=== PATIENT | male | born 1945 | race Caucasian/White ===

== ENCOUNTER → 2017-02-21 | Outpatient (CLI) | payer MEDICARE, BC ==
[2017-02-21 13:00] LABS: Anion Gap 15 mmol/L; Blood Urea Nitrogen 21 mg/dL (9-20); Calcium 9.7 mg/dL (8.4-10.2); Carbon Dioxide 23 mmol/L (22-30); Chloride 100 mmol/L (98-107); Glucose 212 mg/dL (74-99); Non-African American GFR(MDRD) 51 (>60 ml/min/1.73 sqM); Sodium 138 mmol/L (137-145)
--- NOTE | 2017-02-21 14:10 | XR ---
EXAMINATION TYPE: XR chest 2V DATE OF EXAM: 02/21/2017 12:16 PM COMPARISON: 01/21/2016 HISTORY: 71 year-old male congestive heart failure, shortness of breath for 4 months and history of r ight-sided lung cancer. TECHNIQUE: Frontal and lateral views FINDINGS: The heart is borderline enlarged. The aortic descent is obscured. Diffuse interstitial and perihilar opacities with a moderate left pleural effusion Right anterior chest wall injection port with catheter tip near the cavoatrial junction. IMPRESSION: Interstitial and perihilar densities. Correlate for mild CHF. There is moderate left pleural effusion with adjacent atelectasis and/or consolidation. Effusion incr eased from 01/21/2016.
== END | disposition home or self-care (01) ==
LOC: RADXRMAIN 11:55
PROVIDERS: ATTEND Internal Medicine Cardiovascular Disease
DX: R91.8 Other nonspecific abnormal finding of lung field (principal); I50.9 Heart failure, unspecified; J90 Pleural effusion, not elsewhere classified; I25.10 Atherosclerotic heart disease of native coronary artery without angina pectoris
CPT/HCPCS: 71020; 80048; 83880

== ENCOUNTER 2017-03-20 12:43 | Day surgery (SDC) | payer MEDICARE, BC ==
[2017-03-20 13:22] LABS: Mean Platelet Volume 6.5
[2017-03-20 13:23] LABS: INR 1.2 (<1.1); Prothrombin Time 11.7 sec (9.0-12.0)
[2017-03-20 13:44] VITALS: TEMP 97.7
--- NOTE | 2017-03-20 14:54 | XR ---
EXAMINATION TYPE: XR chest 1V DATE OF EXAM: 03/20/2017 COMPARISON: Prior chest x-ray 02/21/2017 HISTORY: Status post left thoracentesis TECHNIQUE: Single frontal view of the chest is obtained. FINDINGS: Right-sided port remains in place. Patient is rotated. No evident pneumothorax. There is i mproved aeration at the left lung base. No significant change. IMPRESSION: No evident complication status post thoracentesis.
--- NOTE | 2017-03-20 15:04 | US ---
EXAMINATION TYPE: US thoracentesis DATE OF EXAM: 03/20/2017 COMPARISON: NONE HISTORY: Pleural effusion. FINDINGS: Maximal barrier technique was utilized. The skin overlying a suitable pocket of fluid was localized and the overlying skin prepped and draped. Lidocaine was used for local anesthesia. Ultras ound was used with sterile technique. A 5 Telugu catheter over guide needle was advanced into the pl eural fluid collection using ultrasound guidance and catheter advanced, needle removed. Approximatel y 1.5 liter(s) of serous fluid was removed. Catheter was withdrawn and hemostasis achieved. There i s no immediate complication. The patient discharged in stable condition without complication. IMPRESSION: STATUS POST ULTRASOUND GUIDED THORACENTESIS, POST PROCEDURE CHEST X-RAY PENDING. THIS NE OCEDURE WAS PERFORMED BY THE UNDERSIGNED. Specimen sent for laboratory analysis.
[2017-03-20 15:32] VITALS: RESP 16
[2017-03-20 15:34] VITALS: BP 137/72; PULSE 70
== END 2017-03-20 15:30 | disposition home or self-care (01) ==
LOC: RADPROMAIN 12:43
PROVIDERS: ATTEND Internal Medicine Hematology & Oncology
DX: J90 Pleural effusion, not elsewhere classified (principal); C34.32 Malignant neoplasm of lower lobe, left bronchus or lung
CPT/HCPCS: 88108; 88305; 85049; 85610; 88342; 88341; 71010; 32555; J1642

== ENCOUNTER → 2017-03-31 | Outpatient (CLI) | payer MEDICARE, BC ==
--- NOTE | 2017-03-31 15:32 | PE ---
EXAMINATION TYPE: PET CT fusion whole body DATE OF EXAM: 03/31/2017 CLINICAL HISTORY: Lung cancer progress study. Completed chemotherapy and radiation treatment in March 2016. TECHNIQUE: Following the intravenous administration of 14.67 mCi of F-18 FDG, whole body images are performed from the skull base to the midthigh. Images are reviewed on the computer in the coronal, axial, and sagittal planes. Reconstructed rotating images are created on independent workstation and reviewed on the computer. A non-contrast CT is performed in conjunction with the PET scan. COMPARISON: PET/CT August 26, 2016. FINDINGS: SKULL BASE AND NECK: No suspicious hypermetabolic uptake is seen currently. Symmetric mild uptake at level of vocal cords redemonstrated felt to reflect product of phonation. CHEST, MEDIASTINUM, AND HILAR REGION: No suspicious hypermetabolic uptake is identified with particul ar attention to left hilar and subcarinal regions at area of neoplasm PET/CT January 29, 2016. There is fairly moderate left-sided pleural effusion redemonstrated not significantly changed from most recent PET/CT. ABDOMEN AND PELVIS: No new areas of suspicious hypermetabolic uptake are seen in the abdomen or pelvi s. Mild diffuse uptake throughout the bowel could reflect a diffuse enterocolitis, clinical correlati on advised. No significant suspicious wall thickening is seen. OSSEOUS STRUCTURES: No suspicious new hypermetabolic uptake is seen in osseous structures. OTHER CT: There is stable 2 cm nonhypermetabolic right thyroid nodule on axial image 60. There is stable right internal jugular Mediport catheter. Coronary artery calcification is redemonstrated. Cardiomegaly is again seen. There is emphysematous change with respiratory motion artifact. Central opacity may reflect mild alve olar edema, correlate for CHF advised. Stable low dense nodular thickening left adrenal gland without abnormal hypermetabolic uptake. There is moderate joint space loss in both hips. There is spurring at bilateral sacroiliac joints. Th ere is multilevel spurring in the spine. There is facet arthropathy lower lumbar levels. There is left greater than right bilateral gynecomastia redemonstrated that is stable. IMPRESSION: No new suspicious masses or hypermetabolic uptake is seen to suggest malignant recurrence . Possible enterocolitis, clinical correlation advised. Possible mild CHF exacerbation, clinical emily elation advised. Stable moderate size left-sided pleural effusion or fluid collection.
== END | disposition home or self-care (01) ==
LOC: RADPETMAIN 11:37
PROVIDERS: ATTEND Internal Medicine Hematology & Oncology
DX: C34.90 Malignant neoplasm of unspecified part of unspecified bronchus or lung (principal)
CPT/HCPCS: 78816; A9552

== ENCOUNTER 2017-11-16 08:22 | Emergency (ER) | payer MEDICARE, BC ==
[2017-11-16 08:27] VITALS: BP 117/55; PULSE 66; RESP 16; TEMP 97.1
--- NOTE | 2017-11-16 08:47 | ED ---
General Adult HPI - General Chief complaint: ENT Stated complaint: Ear infection Time Seen by Provider: 11/16/17 08:29 Source: patient, RN notes reviewed Mode of arrival: ambulatory Limitations: no limitations - History of Present Illness Initial comments: Patient 72-year-old male who presents emergency room today with chief complaint of decreased hearing out of the right ear. He states that last night his right ear was itchy. He states he uses finger to try to itch at it. States he noticed this morning that he was having decreased hearing. Patient denies any pain. Denies any other complaints or symptoms. Patient denies any recent fever , chills, shortness of breath, chest pain, back pain, abdominal pain, nausea or vomiting, numbness or tingling, headaches or visual changes, or any other complaints. - Related Data Home Medications Medication Instructions Recorded Confirmed glipiZIDE XL [Glucotrol XL] 10 mg PO DAILY 08/26/15 11/16/17 metFORMIN HCL ER [Glucophage Xr] 500 mg PO PC-BID 01/03/16 11/16/17 Furosemide [Lasix] 40 mg PO BID@0800,1400 01/20/16 11/16/17 buPROPion XL [Wellbutrin Xl] 150 mg PO DAILY 03/14/17 11/16/17 Amiodarone [Cordarone] 100 mg PO DAILY 08/16/17 11/16/17 Insulin Glargine,Hum.rec.anlog 30 unit SQ HS 11/16/17 11/16/17 [Lantus Solostar] Lisinopril [Zestril] 2.5 mg PO DAILY 11/16/17 11/16/17 Rivaroxaban [Xarelto] 20 mg PO W/SUPPER 11/16/17 11/16/17 Previous Rx's Medication Instructions Recorded Aspirin EC [Ecotrin Low Dose] 81 mg PO DAILY tablet. 09/09/15 Atenolol [Tenormin] 25 mg PO DAILY #30 tab 09/09/15 Atorvastatin [Lipitor] 80 mg PO DAILY #30 tab 09/09/15 Allergies Allergy/AdvReac Type Severity Reaction Status Date / Time No Known Allergies Allergy Verified 11/16/17 08:42 Review of Systems ROS Statement: Those systems with pertinent positive or pertinent negative responses have been documented in the HPI. ROS Other: All systems not noted in ROS Statement are negative. Past Medical History Past Medical History: Cancer, Heart Failure, Diabetes Mellitus, Hyperlipidemia, Hypertension, Myocardial Infarction ([place]) Additional Past Medical History / Comment(s): LUNG CANCER - 30 RADIATION AND 10 CHEMO TX Last Myocardial Infarction Date:: GREATER THAN 5 YRS AGO History of Any Multi-Drug Resistant Organisms: None Reported Past Surgical History: Heart Catheterization Additional Past Surgical History / Comment(s): BRONCHOSCOPY, MEDIPORT PLACEMENT Past Anesthesia/Blood Transfusion Reactions: No Reported Reaction Past Psychological History: No Psychological Hx Reported Smoking Status: Former smoker Past Alcohol Use History: None Reported Past Drug Use History: None Reported - Past Family History Father History Unknown: Yes Family Medical History: Coronary Artery Disease (CAD) Mother Family Medical History: Diabetes Mellitus General Exam - General Exam Comments Initial Comments: General: The patient is awake and alert, in no distress, and does not appear acutely ill. Eye: Pupils are equal, round and reactive to light, extra-ocular movements are intact. No nystagmus. There is normal conjunctiva bilaterally. No signs of icterus. Ears, nose, mouth and throat: There are moist mucous membranes and no oral lesions. Cerumen impaction on the right. Neck: The neck is supple, there is no tenderness or JVD. Cardiovascular: There is a regular rate and rhythm. No murmur, rub or gallop is appreciated. Respiratory: Lungs are clear to auscultation, respirations are non-labored, breath sounds are equal. No wheezes, stridor, rales, or rhonchi. Musculoskeletal: Normal ROM, no tenderness. Strength 5/5. Sensation intact. Pulses equal bilaterally 2+. Neurological: A&O x 3. CN II-XII intact, There are no obvious motor or sensory deficits. Coordination appears grossly intact. Speech is normal. Skin: Skin is warm and dry and no rashes or lesions are noted. Psychiatric: Cooperative, appropriate mood & affect, normal judgment. Limitations: no limitations Course Vital Signs 11/16/17 08:24 Temperature 97.1 F L Pulse Rate 66 Respiratory 16 Rate Blood Pressure 117/55 O2 Sat by Pulse 97 Oximetry Procedures - Procedures Initial comment: Patient right ear was irrigated by nursing staff. I did use a alligator forcep to remove a large chunk of earwax. he is hearing back to normal. Ear canal is now clear no sign of any infection. Patient tolerated procedure well. Disposition Clinical Impression: Cerumen impaction Disposition: HOME SELF-CARE Condition: Good Instructions: Cerumen Impaction (ED) Additional Instructions: Please return to emergency room if the symptoms increase or worsen or for any other concerns. Referrals: Arsen Galloway DO [Primary Care Provider] - 1-2 days Time of Disposition: 09:12
== END 2017-11-16 09:20 | disposition home or self-care (01) ==
LOC: EC 08:22
DX: H61.21 Impacted cerumen, right ear (principal); I50.9 Heart failure, unspecified; I11.0 Hypertensive heart disease with heart failure; E78.5 Hyperlipidemia, unspecified; I25.2 Old myocardial infarction; Z85.118 Personal history of other malignant neoplasm of bronchus and lung; Z87.891 Personal history of nicotine dependence; Z79.4 Long term (current) use of insulin; Z79.01 Long term (current) use of anticoagulants; Z79.899 Other long term (current) drug therapy
CPT/HCPCS: 69210; 99282

== ENCOUNTER 2017-12-31 17:08 | Emergency (ER) | payer MEDICARE, BC ==
[2017-12-31 17:49] VITALS: PULSE 68
--- NOTE | 2017-12-31 18:41 | ED ---
General Adult HPI - General Chief complaint: Fall Stated complaint: FALL, HEAD INJURY, ON BLOOD THINNERS, RT RIB PAIN Time Seen by Provider: 12/31/17 18:10 Source: patient, RN notes reviewed Mode of arrival: wheelchair Limitations: no limitations - History of Present Illness Initial comments: 72-year-old pleasant male presents for chief complaint of a fall 2 hours ago. 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 Patient did scrape his head as well as his right arm. Patient also fell on his right knee. He has multiple small abrasions to the right knee as well. Patient states he was concerned about being on blood thinners (Xarelto) after hitting his head. Patient currently denies any pain in the head, denies any changes in vision. Patient currently declines pain medicine for the head and knee. Patient has no pain in the right ankle, right hip or ribs. Patient denies any pain in the back or neck. Patient has not been drinking alcohol and does not seem intoxicated. Overall patient seems comfortable. - Related Data Home Medications Medication Instructions Recorded Confirmed glipiZIDE XL [Glucotrol XL] 10 mg PO DAILY 08/26/15 12/31/17 metFORMIN HCL ER [Glucophage Xr] 500 mg PO PC-BID 01/03/16 12/31/17 Furosemide [Lasix] 40 mg PO BID@0800,1400 01/20/16 12/31/17 buPROPion XL [Wellbutrin Xl] 150 mg PO DAILY 03/14/17 12/31/17 Amiodarone [Cordarone] 100 mg PO DAILY 08/16/17 12/31/17 Insulin Glargine,Hum.rec.anlog 30 unit SQ HS 11/16/17 12/31/17 [Lantus Solostar] Lisinopril [Zestril] 2.5 mg PO DAILY 11/16/17 12/31/17 Rivaroxaban [Xarelto] 20 mg PO W/SUPPER 11/16/17 12/31/17 Previous Rx's Medication Instructions Recorded Aspirin EC [Ecotrin Low Dose] 81 mg PO DAILY tablet. 09/09/15 Atenolol [Tenormin] 25 mg PO DAILY #30 tab 09/09/15 Atorvastatin [Lipitor] 80 mg PO DAILY #30 tab 09/09/15 Allergies Allergy/AdvReac Type Severity Reaction Status Date / Time No Known Allergies Allergy Verified 12/31/17 18:37 Review of Systems ROS Statement: Those systems with pertinent positive or pertinent negative responses have been documented in the HPI. ROS Other: All systems not noted in ROS Statement are negative. Past Medical History Past Medical History: Cancer, Heart Failure, Diabetes Mellitus, Hyperlipidemia, Hypertension, Myocardial Infarction ([place]) Additional Past Medical History / Comment(s): LUNG CANCER - 30 RADIATION AND 10 CHEMO TX Last Myocardial Infarction Date:: GREATER THAN 5 YRS AGO History of Any Multi-Drug Resistant Organisms: None Reported Past Surgical History: Heart Catheterization Additional Past Surgical History / Comment(s): BRONCHOSCOPY, MEDIPORT PLACEMENT Past Anesthesia/Blood Transfusion Reactions: No Reported Reaction Past Psychological History: No Psychological Hx Reported Smoking Status: Former smoker Past Alcohol Use History: None Reported Past Drug Use History: None Reported - Past Family History Father History Unknown: Yes Family Medical History: Coronary Artery Disease (CAD) Mother Family Medical History: Diabetes Mellitus General Exam Limitations: no limitations General appearance: alert, in no apparent distress Head exam: Present: normocephalic, normal inspection. Absent: atraumatic ( Patient has multiple small abrasions to the right side of his head and face.) Eye exam: Present: normal appearance, PERRL, EOMI. Absent: scleral icterus, conjunctival injection, nystagmus, periorbital swelling, periorbital tenderness Pupils: Present: normal accommodation. Absent: irregular, unequal, miosis, mydriatic ENT exam: Present: normal exam, normal oropharynx, mucous membranes moist Neck exam: Present: normal inspection, full ROM. Absent: tenderness, meningismus, lymphadenopathy Respiratory exam: Present: normal lung sounds bilaterally. Absent: respiratory distress, wheezes, rales, rhonchi, stridor Cardiovascular Exam: Present: regular rate, normal rhythm, normal heart sounds. Absent: systolic murmur, diastolic murmur, rubs, gallop, clicks GI/Abdominal exam: Present: soft, normal bowel sounds. Absent: distended, tenderness, guarding, rebound, rigid Extremities exam: Present: full ROM (Full range of motion in the right knee and right elbow.), tenderness (Tenderness to the right knee), normal capillary refill, joint swelling (Minimal swelling to the right knee), other (Small skin tear to the right elbow.). Absent: pedal edema, calf tenderness Back exam: Present: normal inspection, full ROM. Absent: tenderness Neurological exam: Present: alert, oriented X3, CN II-XII intact, normal gait Psychiatric exam: Present: normal affect, normal mood Course Vital Signs 12/31/17 12/31/17 17:46 19:32 Temperature 97.5 F L 97.9 F Pulse Rate 68 68 Respiratory 18 16 Rate Blood Pressure 122/59 122/58 O2 Sat by Pulse 91 L 96 Oximetry Medical Decision Making - Medical Decision Making 72-year-old male presented to the emergency department with a chief complaint of injuries from a fall. Patient states he hit his head on the concrete as well as his right knee. He has small abrasions to both the head and the right knee as well as the right elbow. Patient denies any pain in the head or knee at this time. All cranial nerves are intact. CT showed no acute changes, no hemorrhage or mass effect. X-ray of the right knee showed no acute abnormalities or fractures. Patient does not want any pain medications. Patient overall is feeling very well and is not in pain. He will go home with return precautions. If he starts to develop a severe headache or changes in mental status he will return to the emergency department. Patient also has a friend that can help monitor him. Patient is directed to follow up with his primary care provider in one to 2 days. Disposition Clinical Impression: Fall Disposition: HOME SELF-CARE Condition: Good Instructions: Fall Prevention for Older Adults (ED), Concussion (ED) Additional Instructions: Please return to the emergency department if you start to develop a severe headache, visual changes, or mental status changes. Please follow-up with your primary care provider in one to 2 days. Referrals: Arsen Galloway DO [Primary Care Provider] - 1-2 days Decision Time: 19:35
--- NOTE | 2017-12-31 19:10 | CT ---
EXAMINATION TYPE: CT brain wo con DATE OF EXAM: 12/31/2017 COMPARISON: NONE HISTORY: Fall with head injury. CT DLP: 1072.3 mGycm Automated exposure control for dose reduction was used. FINDINGS: There is some cerebral cortical atrophy. There is prominence of the ventricles. There is no mass effe ct nor midline shift. There is no sign of intracranial hemorrhage. There is a 3 x 1 cm linear area of hypodensity in the right posterior frontal lobe. The calvarium is intact. IMPRESSION: CEREBRAL ATROPHY AND CHRONIC SMALL VESSEL ISCHEMIA. NO HEMORRHAGE. OLD SMALL RIGHT POSTERIOR FRONTAL LOBE CORTICAL INFARCT.
--- NOTE | 2017-12-31 19:11 | XR ---
EXAMINATION TYPE: XR knee 4V RT DATE OF EXAM: 12/31/2017 COMPARISON: NONE HISTORY: Knee pain TECHNIQUE: 4 views FINDINGS: There is spurring on the superior patella. There is no sign of joint effusion. There is jacqui e vascular calcification. I see no fracture nor dislocation. Joint spaces are fairly normal. IMPRESSION: No acute abnormality of the right knee. No fracture.
[2017-12-31 19:33] VITALS: BP 122/58; RESP 16; TEMP 97.9
== END 2017-12-31 19:51 | disposition home or self-care (01) ==
LOC: EC 17:08
DX: S51.011A Laceration without foreign body of right elbow, initial encounter (principal); S00.91XA Abrasion of unspecified part of head, initial encounter; S80.211A Abrasion, right knee, initial encounter; R07.81 Pleurodynia; I11.0 Hypertensive heart disease with heart failure; I50.9 Heart failure, unspecified; E11.9 Type 2 diabetes mellitus without complications; I25.2 Old myocardial infarction; Z85.118 Personal history of other malignant neoplasm of bronchus and lung; Z79.4 Long term (current) use of insulin; Z79.01 Long term (current) use of anticoagulants; Z79.899 Other long term (current) drug therapy; W19.XXXA Unspecified fall, initial encounter; Y92.89 Other specified places as the place of occurrence of the external cause
CPT/HCPCS: 70450; 99284

== ENCOUNTER → 2018-01-29 | Outpatient (CLI) | payer MEDICARE, BC ==
--- NOTE | 2018-01-29 12:28 | CT ---
EXAMINATION TYPE: CT ChestAbdPelvis w con DATE OF EXAM: 01/29/2018 COMPARISON: 10/02/2017 HISTORY: Lung Cancer CT DLP: 2253 mGycm CONTRAST: CT scan of the chest, abdomen and pelvis is performed with Oral Contrast and with IV Contrast, patien t injected with 80 ml mL of Isovue 300. CT Chest: LUNGS: Moderate left-sided pleural effusion is essentially unchanged relative to the prior study. Per sistent left lower lobe collapse. No visible mass although limited evaluation for mass given the teodora apsed lung. Mild centrilobular emphysema. MEDIASTINUM: Thoracic aorta is of normal caliber. The heart is mildly enlarged. No evidence for me diastinal mass or adenopathy. Thyroidomegaly with small nodules noted. HILAR STRUCTURES: No evidence for mass. No hilar adenopathy is appreciated. OTHER: Incidental gynecomastia.. CONTRAST CT ABDOMEN AND PELVIS FINDINGS: LIVER/GB: No calcified gallstones. No space occupying hepatic lesion. Biliary tree is of normal ca liber. PANCREAS: No inflammation. No distinct mass. SPLEEN: No splenic enlargement. No lesion seen. ADRENALS: No nodule. No thickening. KIDNEYS/BLADDER: No hydronephrosis. Left renal pelvic calculus measures 6.2 mm. This is essentially unchanged relative to the prior study. Simple appearing cyst upper pole left kidney. Nonobstructing c alculus lower pole right kidney. BOWEL: Normal appendix. Normal bowel caliber. No inflammation. GENITAL ORGANS: No gross abnormality. LYMPH NODES: No greater than 1cm abdominal or pelvic lymph nodes are appreciated. AORTA: No significant abnormality. OSSEOUS STRUCTURES: Severe degenerative changes lumbar spine with spondylosis.. OTHER: No significant additional abnormality is seen. IMPRESSION: 1. Essentially stable left lower lobe collapse with left-sided pleural effusion and no visible mass a t this time. Correlate clinically. 2. No evidence for metastatic disease. 3. Bilateral nephrolithiasis without obstruction.
== END | disposition home or self-care (01) ==
LOC: RADCTMAIN 09:18
PROVIDERS: ATTEND Internal Medicine Hematology & Oncology
DX: J90 Pleural effusion, not elsewhere classified (principal); N20.0 Calculus of kidney; J98.19 Other pulmonary collapse; C34.32 Malignant neoplasm of lower lobe, left bronchus or lung
CPT/HCPCS: 82565; 84520; 71260; 74177; J1642; Q9967

== ENCOUNTER → 2018-07-29 | Outpatient (CLI) | payer MEDICARE, BC ==
--- NOTE | 2018-07-29 14:01 | CT ---
EXAMINATION TYPE: CT chest wo con DATE OF EXAM: 07/29/2018 COMPARISON: 01/29/2018 HISTORY: Lung Cancer CT DLP: 572 mGycm, Automated exposure control for dose reduction was used. CONTRAST: Performed injected with 0 mL of Isovue 300. TECHNIQUE: Axial images were obtained at 5 mm thick sections. Reconstructed images are reviewed on Flooved computer in the coronal plane. FINDINGS: Thyroid appears somewhat prominent but is only partially visualized. No suspicious lung nodules or focal infiltrates are present. There is a small left pleural effusion. Coronary artery calcification is present. There is a consolidation in the left base. Follow-up to [facility] is recommended. Underlying mass is not excluded No enlarged mediastinal or hilar adenopathy is evident. Multiple small mediastinal lymph nodes are present The ascending aorta diameter at the level of the main pulmonary artery is 3.6 cm. The main p ulmonary artery diameter at the bifurcation is 3.[address] sections are obtained through the upper abdomen. There are some calcifications within the mid right kidney which appear to be nonobstructing renal stones. IMPRESSIONS: 1. Small left pleural effusion. 2. Left lower lobe consolidation can be related to atelectasis or pneumonia. Underlying mass is not e xcluded, follow-up is recommended. This is a similar appearance to the 01/29/2018 examination. Finding s could be related to the patient's reported cancer.
== END | disposition home or self-care (01) ==
LOC: RADPROMAIN 10:36
PROVIDERS: ATTEND Internal Medicine Hematology & Oncology
DX: C34.32 Malignant neoplasm of lower lobe, left bronchus or lung (principal); J90 Pleural effusion, not elsewhere classified; Z95.828 Presence of other vascular implants and grafts
CPT/HCPCS: 82565; 84520; 71250; J1642

== ENCOUNTER → 2019-01-27 | Outpatient (CLI) | payer MEDICARE, BC ==
--- NOTE | 2019-01-27 09:58 | CT ---
EXAMINATION TYPE: CT chest wo con DATE OF EXAM: 01/27/2019 COMPARISON: 07/29/2018 HISTORY: Malignant neoplasm of lower lobe, left bronchus-[address] DLP: 796.5 mGycm. Automated Exposure Control for Dose Reduction was Utilized. TECHNIQUE: CT scan of the thorax is performed without IV contrast. FINDINGS: LUNGS: Left lower lobe consolidation and small effusion is stable. Underlying neoplasm not excluded. The tracheobronchial tree is patent. Emphysematous changes are seen and there is a coarsened intersti tium on the right which may been the basis of chronic interstitial lung disease. There is a 3 mm subp leural nodule superior segment right lower lobe. This nodule is retrospectively stable dating back to 2018. MEDIASTINUM: Lack of IV contrast is noted to limit evaluation for mediastinal and especially hilar ad enopathy. Soft tissue fullness in the left hilum is stable extends to the area of consolidation invol ving the left lower lobe. Adenopathy not excluded. Findings are stable. No cardiomegaly or pericardia l effusion is seen. Coronary artery calcification noted. Mediport catheter seen and there is a large right-sided thyroid nodule measuring 2.5 cm. OTHER: Bilateral nonobstructing nephrolithiasis. Thickening of the adrenal glands is stable. Hypertro phic and degenerative change of the spine. Hypodensity within the bilateral kidney appears stable sug gestive of a renal cyst. Findings suggest gynecomastia noted. IMPRESSION: 1. Stable left lower lobe consolidation, left hilar soft tissue prominence and small effusion. 2. There is a subpleural superior segment right lower lobe 3 mm pulmonary nodule which is retrospecti vely stable. 3. Coronary artery calcification and cardiomegaly stable. 4. Stable bilateral nephrolithiasis. 5. 2.5 cm right thyroid nodule.
== END | disposition home or self-care (01) ==
LOC: RADPROMAIN 08:03
PROVIDERS: ATTEND Internal Medicine Hematology & Oncology
DX: C34.32 Malignant neoplasm of lower lobe, left bronchus or lung (principal); N18.9 Chronic kidney disease, unspecified; D63.1 Anemia in chronic kidney disease; E11.22 Type 2 diabetes mellitus with diabetic chronic kidney disease; I25.10 Atherosclerotic heart disease of native coronary artery without angina pectoris; I51.7 Cardiomegaly; R94.4 Abnormal results of kidney function studies
CPT/HCPCS: 82565; 84520; 71250; J1642

== ENCOUNTER 2019-08-27 11:37 | Inpatient (IN) | payer MEDICARE, BC ==
[2019-08-27 11:43] LABS: Glucose,Whole Blood 32 mg/dL (75-99)
[2019-08-27] MEDS ORDERED: DEXTROSE 50% SYRINGE 50 ML IVP STA (11:44)
[2019-08-27 12:07] LABS: Glucose,Whole Blood 94 mg/dL (75-99)
[2019-08-27 12:44] LABS: INR 1.5 (<1.2); Partial Thromboplastin Time 23.8 sec (22.0-30.0); Prothrombin Time 15.3 sec (9.0-12.0)
[2019-08-27 12:48] LABS: Albumin 3.1 g/dL (3.5-5.0); Calcium 8.7 mg/dL (8.4-10.2); Total Bilirubin 0.9 mg/dL (0.2-1.3); Total Protein 6.6 g/dL (6.3-8.2)
[2019-08-27 12:52] LABS: Anisocytosis Slight; Basophils # (A) 0.1 k/uL (0-0.2); Basophils % (A) 1 %; Eosinophils % (A) 0 %; HCT 39.2 % (39.0-53.0); HGB 12.5 gm/dL (13.0-17.5); Hypochromasia Slight; Lymphocytes # (A) 0.3 k/uL (1.0-4.8); Lymphocytes % (A) 2 %; MCH 27.2 pg (25.0-35.0); MCHC 31.9 g/dL (31.0-37.0); MCV 85.4 fL (80.0-100.0); Mean Platelet Volume 6.6; Monocytes % (A) 7 %; Neutrophils % (A) 89 %; Platelet Count 281 k/uL (150-450); RBC 4.59 m/uL (4.30-5.90); RDW 17.8 % (11.5-15.5); WBC 14.6 k/uL (3.8-10.6)
[2019-08-27 12:53] LABS: Potassium 5.2 mmol/L (3.5-5.1)
--- NOTE | 2019-08-27 13:01 | XR ---
EXAMINATION TYPE: XR chest 2V DATE OF EXAM: 08/27/2019 COMPARISON: 03/20/2017 HISTORY: Weakness and falls TECHNIQUE: Frontal and lateral views of the chest are obtained. FINDINGS: There is a new retrocardiac opacity and layering small left pleural effusion. No sizable p neumothorax is seen. Right lung remains overall clear although there is mild interstitial pulmonary e rickie that is new. Cardiomediastinal silhouette is upper limits of normal size. Diffuse osseous demine ralization is seen. Right-sided Mediport is unchanged. IMPRESSION: New small left pleural effusion and retrocardiac opacity that may represent atelectasis, confluent pulmonary edema or possibly pneumonia in the appropriate clinical setting. New mild inters titial pulmonary edema is also seen.
--- NOTE | 2019-08-27 13:25 | ED ---
General Adult HPI - General Chief complaint: Weakness Stated complaint: Fall Time Seen by Provider: 08/27/19 11:37 Source: patient, EMS, RN notes reviewed, old records reviewed Mode of arrival: EMS Limitations: no limitations - History of Present Illness Initial comments: This is a 74-year-old male presents emergency department with past medical history significant for diabetes and lung cancer. Patient is brought in today because his son found him on the floor and he didn't know how he got there and he was altered mentally. EMS stated that his sugar was 45 at the time they gave him some glucose. The IV and he did start answering questions more accurately. Patient states he does not know how he ended up on the ground but he believes he was in bed prior to that. Patient denies any headache patient denies any head pain patient denies any neck pain patient denies numbness weakness. Patient denies chest pain difficulty breathing or shortness of breath. Patient denies any palpitations. Patient denies any recent fever chills states he does have a slight cough. Patient denies abdominal pain patient denies nausea vomiting diarrhea. Patient states he has continued to take his insulin but he has not been eating much lately. On arrival to the emergency department his blood sugar was 35. - Related Data Home Medications Medication Instructions Recorded Confirmed glipiZIDE XL [Glucotrol XL] 10 mg PO DAILY 08/26/15 08/27/19 metFORMIN HCL ER [Glucophage Xr] 500 mg PO PC-BID 01/03/16 08/27/19 Furosemide [Lasix] 40 mg PO BID@0800,1400 01/20/16 08/27/19 buPROPion XL [Wellbutrin Xl] 150 mg PO DAILY 03/14/17 08/27/19 Amiodarone [Cordarone] 100 mg PO DAILY 08/16/17 08/27/19 Insulin Glargine,Hum.rec.anlog 30 unit SQ HS 11/16/17 08/27/19 [Lantus Solostar] Lisinopril [Zestril] 2.5 mg PO DAILY 11/16/17 08/27/19 Rivaroxaban [Xarelto] 20 mg PO W/SUPPER 11/16/17 08/27/19 Previous Rx's Medication Instructions Recorded Aspirin EC [Ecotrin Low Dose] 81 mg PO DAILY tablet. 09/09/15 Atenolol [Tenormin] 25 mg PO DAILY #30 tab 09/09/15 Atorvastatin [Lipitor] 80 mg PO DAILY #30 tab 09/09/15 Allergies Allergy/AdvReac Type Severity Reaction Status Date / Time No Known Allergies Allergy Verified 08/27/19 12:55 Review of Systems ROS Statement: Those systems with pertinent positive or pertinent negative responses have been documented in the HPI. ROS Other: All systems not noted in ROS Statement are negative. Past Medical History Past Medical History: Cancer, Heart Failure, Diabetes Mellitus, Hyperlipidemia, Hypertension, Myocardial Infarction ([place]) Additional Past Medical History / Comment(s): LUNG CANCER - 30 RADIATION AND 10 CHEMO TX Last Myocardial Infarction Date:: GREATER THAN 5 YRS AGO History of Any Multi-Drug Resistant Organisms: None Reported Past Surgical History: Heart Catheterization Additional Past Surgical History / Comment(s): BRONCHOSCOPY, MEDIPORT PLACEMENT Past Anesthesia/Blood Transfusion Reactions: No Reported Reaction Past Psychological History: No Psychological Hx Reported Smoking Status: Former smoker Past Alcohol Use History: None Reported Past Drug Use History: None Reported - Past Family History Father History Unknown: Yes Family Medical History: Coronary Artery Disease (CAD) Mother Family Medical History: Diabetes Mellitus General Exam - General Exam Comments Initial Comments: GENERAL: Patient is well-developed and well-nourished. Patient is nontoxic and well- hydrated and is in mild distress. Patient seems very fatigued but answered all questions accurately. ENT: Neck is soft and supple. No significant lymphadenopathy is noted. Oropharynx is clear. Moist mucous membranes. Neck has full range of motion without elic iting any pain. EYES: The sclera were anicteric and conjunctiva were pink and moist. Extraocular movements were intact and pupils were equal round and reactive to light. Eyelids were unremarkable. PULMONARY: Patient had virtually no breath sounds on the left. CARDIOVASCULAR: There is a regular rate and rhythm without any murmurs gallops or rubs. ABDOMEN: Soft and nontender with normal bowel sounds. No palpable organomegaly was noted. There is no palpable pulsatile mass. SKIN: Skin is clear with no lesions or rashes and otherwise unremarkable. NEUROLOGIC: Patient is alert and oriented x3. Cranial nerves II through XII are grossly intact. Motor and sensory are also intact. Normal speech, volume and content. Symmetrical smile. MUSCULOSKELETAL: Normal extremities with adequate strength and full range of motion. No lower extremity swelling or edema. No calf tenderness. LYMPHATICS: No significant lymphadenopathy is noted PSYCHIATRIC: Normal psychiatric evaluation. Limitations: no limitations Course Vital Signs 08/27/19 08/27/19 08/27/19 11:40 12:00 13:00 Temperature 97.6 F Pulse Rate 76 71 74 Respiratory 20 20 18 Rate Blood Pressure 121/66 121/66 131/91 O2 Sat by Pulse 96 98 98 Oximetry 08/27/19 13:57 Temperature Pulse Rate 64 Respiratory 18 Rate Blood Pressure 120/73 O2 Sat by Pulse 96 Oximetry Medical Decision Making - Medical Decision Making EKG shows a sinus rhythm at 71 bpm SC interval is 238 QRSs 122 QT interval 426 QTC is 462. Patient's EKG shows no ST segment elevation or depression. Patient has a first-degree AV block. New. Chest x-ray shows pleural effusion and p ossible pneumonia. Patient elevated creatinine as well as elevated troponin. Patient's glucose did drop and they are down to 62 and he was fed at that time. I spoke with Dr. Galloway he agreed to admit the patient admitted the patient wrote admitting orders. - Lab Data Result diagrams: 08/27/19 12:18 08/27/19 12:18 Lab Results 08/27/19 08/27/19 08/27/19 Range/Units 11:40 12:05 12:18 WBC 14.6 H (3.8-10.6) k/uL RBC 4.59 (4.30-5.90) m/uL Hgb 12.5 L (13.0-17.5) gm/dL Hct 39.2 (39.0-53.0) % MCV 85.4 (80.0-100.0) fL MCH 27.2 (25.0-35.0) pg MCHC 31.9 (31.0-37.0) g/dL RDW 17.8 H (11.5-15.5) % Plt Count 281 (150-450) k/uL Neutrophils % 89 % Lymphocytes % 2 % Monocytes % 7 % Eosinophils % 0 % Basophils % 1 % Neutrophils # 13.0 H (1.3-7.7) k/uL Lymphocytes # 0.3 L (1.0-4.8) k/uL Monocytes # 1.0 (0-1.0) k/uL Eosinophils # 0.0 (0-0.7) k/uL Basophils # 0.1 (0-0.2) k/uL Hypochromasia Slight Anisocytosis Slight PT (9.0-12.0) sec INR (<1.2) APTT (22.0-30.0) sec Sodium (137-145) mmol/L Potassium (3.5-5.1) mmol/L Chloride (98-107) mmol/L Carbon Dioxide (22-30) mmol/L Anion Gap mmol/L BUN (9-20) mg/dL Creatinine (0.66-1.25) mg/dL Est GFR (CKD-EPI)AfAm (>60 ml/min/1.73 sqM) Est GFR (CKD-EPI)NonAf (>60 ml/min/1.73 sqM) Glucose (74-99) mg/dL POC Glucose (mg/dL) 32 L 94 (75-99) mg/dL POC Glu Buffer Copper ID DiazMark Lindsay Plasma Lactic Acid Rafal (0.7-2.0) mmol/L Calcium (8.4-10.2) mg/dL Magnesium (1.6-2.3) mg/dL Total Bilirubin (0.2-1.3) mg/dL AST (17-59) U/L ALT (21-72) U/L Alkaline Phosphatase (38-126) U/L Troponin I (0.000-0.034) ng/mL Total Protein (6.3-8.2) g/dL Albumin (3.5-5.0) g/dL 08/27/19 08/27/19 08/27/19 Range/Units 12:18 12:18 12:18 WBC (3.8-10.6) k/uL RBC (4.30-5.90) m/uL Hgb (13.0-17.5) gm/dL Hct (39.0-53.0) % MCV (80.0-100.0) fL MCH (25.0-35.0) pg MCHC (31.0-37.0) g/dL RDW (11.5-15.5) % Plt Count (150-450) k/uL Neutrophils % % Lymphocytes % % Monocytes % % Eosinophils % % Basophils % % Neutrophils # (1.3-7.7) k/uL Lymphocytes # (1.0-4.8) k/uL Monocytes # (0-1.0) k/uL Eosinophils # (0-0.7) k/uL Basophils # (0-0.2) k/uL Hypochromasia Anisocytosis PT 15.3 H (9.0-12.0) sec INR 1.5 H (<1.2) APTT 23.8 (22.0-30.0) sec Sodium 141 (137-145) mmol/L Potassium 5.2 H (3.5-5.1) mmol/L Chloride 110 H (98-107) mmol/L Carbon Dioxide 17 L (22-30) mmol/L Anion Gap 14 mmol/L BUN 41 H (9-20) mg/dL Creatinine 2.19 H (0.66-1.25) mg/dL Est GFR (CKD-EPI)AfAm 33 (>60 ml/min/1.73 sqM) Est GFR (CKD-EPI)NonAf 29 (>60 ml/min/1.73 sqM) Glucose 103 H (74-99) mg/dL POC Glucose (mg/dL) (75-99) mg/dL POC Glu Buffer Copper ID Plasma Lactic Acid Rafal 1.7 (0.7-2.0) mmol/L Calcium 8.7 (8.4-10.2) mg/dL Magnesium 2.0 (1.6-2.3) mg/dL Total Bilirubin 0.9 (0.2-1.3) mg/dL AST 71 H (17-59) U/L ALT 34 (21-72) U/L Alkaline Phosphatase 114 (38-126) U/L Troponin I (0.000-0.034) ng/mL Total Protein 6.6 (6.3-8.2) g/dL Albumin 3.1 L (3.5-5.0) g/dL 08/27/19 08/27/19 08/27/19 Range/Units 12:18 13:41 15:06 WBC (3.8-10.6) k/uL RBC (4.30-5.90) m/uL Hgb (13.0-17.5) gm/dL Hct (39.0-53.0) % MCV (80.0-100.0) fL MCH (25.0-35.0) pg MCHC (31.0-37.0) g/dL RDW (11.5-15.5) % Plt Count (150-450) k/uL Neutrophils % % Lymphocytes % % Monocytes % % Eosinophils % % Basophils % % Neutrophils # (1.3-7.7) k/uL Lymphocytes # (1.0-4.8) k/uL Monocytes # (0-1.0) k/uL Eosinophils # (0-0.7) k/uL Basophils # (0-0.2) k/uL Hypochromasia Anisocytosis PT (9.0-12.0) sec INR (<1.2) APTT (22.0-30.0) sec Sodium (137-145) mmol/L Potassium (3.5-5.1) mmol/L Chloride (98-107) mmol/L Carbon Dioxide (22-30) mmol/L Anion Gap mmol/L BUN (9-20) mg/dL Creatinine (0.66-1.25) mg/dL Est GFR (CKD-EPI)AfAm (>60 ml/min/1.73 sqM) Est GFR (CKD-EPI)NonAf (>60 ml/min/1.73 sqM) Glucose (74-99) mg/dL POC Glucose (mg/dL) 80 62 L (75-99) mg/dL POC Glu Buffer Copper Kimberly Jacobsen Danielle Plasma Lactic Acid Rafal (0.7-2.0) mmol/L Calcium (8.4-10.2) mg/dL Magnesium (1.6-2.3) mg/dL Total Bilirubin (0.2-1.3) mg/dL AST (17-59) U/L ALT (21-72) U/L Alkaline Phosphatase (38-126) U/L Troponin I 0.242 H* (0.000-0.034) ng/mL Total Protein (6.3-8.2) g/dL Albumin (3.5-5.0) g/dL 08/27/19 Range/Units 15:42 WBC (3.8-10.6) k/uL RBC (4.30-5.90) m/uL Hgb (13.0-17.5) gm/dL Hct (39.0-53.0) % MCV (80.0-100.0) fL MCH (25.0-35.0) pg MCHC (31.0-37.0) g/dL RDW (11.5-15.5) % Plt Count (150-450) k/uL Neutrophils % % Lymphocytes % % Monocytes % % Eosinophils % % Basophils % % Neutrophils # (1.3-7.7) k/uL Lymphocytes # (1.0-4.8) k/uL Monocytes # (0-1.0) k/uL Eosinophils # (0-0.7) k/uL Basophils # (0-0.2) k/uL Hypochromasia Anisocytosis PT (9.0-12.0) sec INR (<1.2) APTT (22.0-30.0) sec Sodium (137-145) mmol/L Potassium (3.5-5.1) mmol/L Chloride (98-107) mmol/L Carbon Dioxide (22-30) mmol/L Anion Gap mmol/L BUN (9-20) mg/dL Creatinine (0.66-1.25) mg/dL Est GFR (CKD-EPI)AfAm (>60 ml/min/1.73 sqM) Est GFR (CKD-EPI)NonAf (>60 ml/min/1.73 sqM) Glucose (74-99) mg/dL POC Glucose (mg/dL) 141 H (75-99) mg/dL POC Glu Buffer Copper ID Mark Perales Plasma Lactic Acid Rafal (0.7-2.0) mmol/L Calcium (8.4-10.2) mg/dL Magnesium (1.6-2.3) mg/dL Total Bilirubin (0.2-1.3) mg/dL AST (17-59) U/L ALT (21-72) U/L Alkaline Phosphatase (38-126) U/L Troponin I (0.000-0.034) ng/mL Total Protein (6.3-8.2) g/dL Albumin (3.5-5.0) g/dL Disposition Clinical Impression: Elevated troponin, Pneumonia, Renal insufficiency Disposition: ADMITTED IP TO THIS HOSP Referrals: Arsen Galloway DO [Primary Care Provider] - 1-2 days Time of Disposition: 16:31
[2019-08-27] MEDS ORDERED: cefTRIAXone IN SWFI 1,000 MG/10 ML SYRINGE IVP STA (13:36)
[2019-08-27 13:42] LABS: Glucose,Whole Blood 80 mg/dL (75-99)
[2019-08-27 15:08] LABS: Glucose,Whole Blood 62 mg/dL (75-99)
[2019-08-27 15:44] LABS: Glucose,Whole Blood 141 mg/dL (75-99)
[2019-08-27] MEDS ORDERED: AZITHROMYCIN 500 MG in SODIUM CHLORIDE 0.9% 250 ML IVPB STA (16:33)
[2019-08-27] MEDS ORDERED: PNEUMONIA PROTOCOL UTILIZED 1 EACH MISC PO PRN (16:33)
[2019-08-27 20:30] LABS: Glucose,Whole Blood 210 mg/dL (75-99)
[2019-08-27] MEDS: RIVAROXABAN 20 MG TAB PO SCH (22:50)
[2019-08-27] MEDS: ATORVASTATIN 80 MG TAB PO SCH (22:50)
[2019-08-27] MEDS: ATENOLOL 25 MG TAB PO SCH (22:50)
[2019-08-27] MEDS: AMIODARONE 100 MG TAB PO SCH (22:51)
[2019-08-27 23:13] LABS: Glucose,Whole Blood 155 mg/dL (75-99)
[2019-08-28 01:17] LABS: Glucose,Whole Blood 131 mg/dL (75-99)
[2019-08-28 03:25] LABS: Glucose,Whole Blood 135 mg/dL (75-99)
[2019-08-28 05:59] LABS: Glucose,Whole Blood 143 mg/dL (75-99)
--- NOTE | 2019-08-28 07:15 | XR ---
EXAMINATION TYPE: XR chest 2V DATE OF EXAM: 08/28/2019 COMPARISON: 08/27/2019 HISTORY: Shortness of breath TECHNIQUE: Frontal and lateral views of the chest are obtained. FINDINGS: Scattered senescent parenchymal changes noted. Hyperinflation compatible with COPD. There is complete opacification left hemithorax with suspected underlying pleural effusion, atelectas is and/or infiltrate. Increased pulmonary vasculature right lung. Heart size is stable. Mediastinal structures are stable and grossly unremarkable. No evidence for hilar prominence. Degenerative changes dorsal spine. IMPRESSION: 1. There is complete opacification left hemithorax with suspected underlying pleural effusion, atelec tasis and/or infiltrate.
[2019-08-28] MEDS ORDERED: FUROSEMIDE 40 MG TAB PO SCH (08:00)
[2019-08-28] MEDS: AZITHROMYCIN 500 MG TAB PO SCH (09:16)
[2019-08-28] MEDS: ATENOLOL 25 MG TAB PO SCH (09:16)
[2019-08-28] MEDS: buPROPion XL 150 MG TAB.ER.24H PO SCH (09:16)
[2019-08-28] MEDS: FUROSEMIDE 10 MG/ML 4 ML VIAL IV SCH ×2 (09:16→17:29)
[2019-08-28] MEDS: ATORVASTATIN 80 MG TAB PO SCH (09:16)
[2019-08-28] MEDS: AMIODARONE 100 MG TAB PO SCH (09:16)
[2019-08-28] MEDS: ASPIRIN 81 MG PO SCH (09:16)
[2019-08-28] MEDS: SODIUM CHLORIDE 0.9% 1,000 ML IV SCH (09:17)
[2019-08-28 11:00] LABS: Appearance,Urine Turbid (Clear); Bacteria,Urine Occasional /hpf; Bilirubin,Urine Negative (Negative); Blood,Urine Moderate (Negative); Color,Urine Dark Brown; Glucose,Urine (UA) Negative (Negative); Ketones,Urine Negative (Negative); Leukocyte Esterase,Urine Large (Negative); Mucus,Urine Many /hpf; Nitrite,Urine Negative (Negative); Protein,Urine 1+ (Negative); RBC,Urine >182 /hpf (0-5); Specific Gravity,Urine 1.016 (1.001-1.035); Urobilinogen,Urine <2.0 mg/dL (<2.0); WBC,Urine >182 /hpf (0-5)
--- NOTE | 2019-08-28 11:23 | CONS ---
CONSULTATION Mr. Lopez is a 74-year-old gentleman with history of [id number] diabetes, congestive heart failure, insulin-requiring diabetes, and atrial fibrillation who is admitted to the hospital having had an episode of fall and near syncope at home. The patient has not been eating well, has altered sensorium and has continued with his insulin. Blood sugar on his initial presentation was 45 and this is improved with giving him glucose as did his mentation. I am consulted because of elevated troponin. The patient denies chest pain. He has bilateral leg edema. Also has shortness of breath and elevated BNP at 16,900. The patient also has mild elevation of troponin at 0.242 while his creatinine is elevated at 2.1. Patient's clinical presentation is consistent with severe hypoglycemia and altered sensorium secondary to that and acute exacerbation of chronic systolic heart failure. His elevated troponin is related to renal insufficiency. CBC shows normal hemoglobin at 12.5. His EKG showed sinus rhythm with right bundle branch block, evidence of prior inferior wall myocardial infarction. PAST MEDICAL HISTORY: Past medical history is significant for insulin-requiring diabetes, coronary artery disease, hypertension, dyslipidemia, and persistent atrial fibrillation. MEDICATIONS: Medications include Glucotrol, Wellbutrin, Zestril, insulin, Xarelto, Lasix, Lipitor, Tenormin, aspirin and Cordarone. ALLERGIES: There are no known drug allergies. FAMILY HISTORY: Negative for premature coronary artery disease. SOCIAL HISTORY: Negative for current smoking, EtOH abuse, or drug abuse. REVIEW OF SYSTEMS: HEENT is unremarkable. CARDIAC: As described above. RESPIRATORY: As described above. GI: Negative. GENITOURINARY: Significant for renal insufficiency. PSYCHOSOCIAL: Negative. ENDOCRINE: Negative HEMATOLOGICAL: Negative. DERM: Negative. CONSTITUTIONAL: Negative. ONCOLOGICAL: Negative. Rest of the system review is not relevant. PHYSICAL EXAMINATION: On exam, patient is afebrile. Heart rate is 65 beats per minute. Blood pressure is 129/60. Respiratory rate is 18. There is no jugular venous distention. Carotid upstroke is diminished. There is no bruit. Chest exam reveals diminished air entry at the left base. Heart exam reveals first and second heart sounds. Systolic murmur at the left lower sternal border. Abdomen is soft. Examination of extremities revealed bilateral pitting edema. LABS: Labs show that the hemoglobin is 12.5. Troponin is mildly elevated. Creatinine is elevated. BNP is elevated. ASSESSMENT: 1. Fall secondary to hypoglycemia. 2. Elevated troponin secondary to renal insufficiency. 3. Acute exacerbation of chronic systolic heart failure. 4. Persistent atrial fibrillation. PLAN: I am going to put the patient on IV Lasix. Continue the lisinopril, Lipitor, Tenormin, and aspirin. Patient will also continue the Xarelto and amiodarone for the atrial fibrillation. MMODL / IJN: [id number] /
[2019-08-28 12:31] LABS: Glucose,Whole Blood 213 mg/dL (75-99)
[2019-08-28] MEDS: glipiZIDE 5 MG TAB PO SCH ×2 (12:40→17:24)
--- NOTE | 2019-08-28 14:40 | US ---
EXAMINATION TYPE: US chest DATE OF EXAM: 08/28/2019 COMPARISON: NONE CLINICAL HISTORY: Left effusion. TECHNIQUE: Targeted ultrasound of the posterior lower left hemithorax EXAM MEASUREMENTS: Left Pleural Effusion pocket size: 7.4 cm Left skin surface to fluid distance: 3.9 cm Left side marked for possible thoracentesis outside the dept, shows some septations. Pulmonologists are able to review the images in the patient?s EMR. IMPRESSIONS: Left pleural effusion has a maximum depth of 7.4 cm with surrounding atelectasis.
--- NOTE | 2019-08-28 15:37 | P.CNPUL ---
History of Present Illness Consult date: 08/28/19 Reason for consult: pleural effusion History of present illness: A 74-year-old male patient with locally advanced non-small cell lung cancer that was diagnosed in 2016 and at that time the patient underwent a bronchoscopy and transbronchial needle aspirate of a left hilar mass show this, cell carcinoma. The patient was treated by Dr. Whipple and I believe he received a combination of chemoradiation therapy. He responded nicely and a follow-up PET scan done on 03/31/2017 showed no suspicious masses or metabolic activity within the chest ar ea. In follow-up CAT scan of the chest abdomen and pelvis that was done on 02/07/2019 showed a stable left lower lobe consolidation and left hilar soft tissue prominence with small effusion. There was only a subpleural severe segment right lower lobe pulmonary nodule measuring 3 mm in size. The patient was a short and he was asked to follow-up. Note that the CAT scan of the abdomen and pelvis also showed bilateral nonobstructive nephrolithiasis. Over the past 2-3 weeks, the patient was found to be altered and having episodes of mental status change. I did not find this with the patient the patient was able to respond to my questions appropriately. Apparently was been having also episodes of falls. He was found on the floor unable admission and the he didn't know how he got there and apparently was altered mentally. EMS came to the scene and the patient's sugar was 45. At that time he was given glucose. IV was established. The patient was brought into the hospital. He was not having any significant shortness of breath or headache. No seizure activity has been noted. Denied having any focal numbness or weakness. He denies having any chest pain. No palpitation. No fever. No chills. No aspiration. His initial chest x-ray showed a small left-sided pleural effusion and subsequent chest x- ray that was done today showed significant opacification of left lung compared to the right consistent with development of a left-sided pleural effusion. His appetite is poor. He did have another bout of hypoglycemia here in the hospital with a low sugar of 32 and he was given IV glucose. His most recent blood sugar is at 213. He does have an underlying UTI based on the urine analysis that showed turbid urine with elevated white cells and bacteria and the culture is s till pending for now. His blood work showed a white cell count of 14.6. His INR is at 1.7 the patient on long-term and to coagulation with Xarelto. The patient's BUN is at 41 with a creatinine of 2.1. He does have a mild component of metabolic acidosis with a serum bicarb of 17. Lactic acid was at 1.7. His proBNP level was 16,900. His troponin initially at 0.242. Currently, the patient is on examination Rocephin and Zithromax. Denies having any trauma to the chest. Review of Systems Constitutional: Reports poor appetite, Reports weakness Eyes: denies as per HPI, denies blurred vision, denies bulging eye, denies decreased vision, denies diplopia, denies discharge, denies dry eye, denies irritation, denies itching, denies pain, denies photophobia, denies loss of peripheral vision, denies loss of vision, denies tunnel vision/blind spots Ears: deny: decreased hearing, ear discharge, earache, tinnitus Ears, nose, mouth and throat: Denies headache, Denies sore throat Cardiovascular: Reports decreased exercise tolerance, Reports irregular heart beat Respiratory: Denies cough Gastrointestinal: Reports as per HPI Genitourinary: Reports as per HPI Musculoskeletal: Reports as per HPI, Reports frequent falls, Reports muscle weakness Musculoskeletal: absent: ankle pain, ankle stiffness, ankle swelling Integumentary: Denies pruritus, Denies rash Neurological: Reports as per HPI, Reports balance difficulties, Reports gait dysfunction Psychiatric: Reports as per HPI Endocrine: Reports as per HPI, Reports increase in ring/shoe/hat size Allergic/Immunologic: Reports as per HPI Past Medical History Past Medical History: Cancer, Heart Failure, Diabetes Mellitus, Hyperlipidemia, Hypertension, Myocardial Infarction (MO) Additional Past Medical History / Comment(s): Squamous cell lung cancer post- chemoradiation therapy, diabetes mellitus, hypertension, hyperlipidemia, coronary artery disease with previous MO, previous history of left-sided pleural effusion post thoracentesis on the fluid cytology is been negative for malig lesley, 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 Last Myocardial Infarction Date:: GREATER THAN 5 YRS AGO History of Any Multi-Drug Resistant Organisms: None Reported Past Surgical History: Heart Catheterization Additional Past Surgical History / Comment(s): BRONCHOSCOPY, MEDIPORT PLACEMENT Past Anesthesia/Blood Transfusion Reactions: No Reported Reaction Past Psychological History: No Psychological Hx Reported Smoking Status: Former smoker Past Alcohol Use History: None Reported Additional Past Alcohol Use History / Comment(s): SMOKES 1PPD, HAS BEEN SMOKING SINCE AGE 21 Past Drug Use History: None Reported - Past Family History Father History Unknown: Yes Family Medical History: Coronary Artery Disease (CAD) Mother Family Medical History: Diabetes Mellitus Medications and Allergies Home Medications Medication Instructions Recorded Confirmed Type glipiZIDE XL [Glucotrol XL] 10 mg PO DAILY 08/26/15 08/27/19 History Aspirin EC [Ecotrin Low Dose] 81 mg PO DAILY tablet. 09/09/15 08/27/19 Rx Atenolol [Tenormin] 25 mg PO DAILY #30 tab 09/09/15 08/27/19 Rx Atorvastatin [Lipitor] 80 mg PO DAILY #30 tab 09/09/15 08/27/19 Rx metFORMIN HCL ER [Glucophage Xr] 500 mg PO PC-BID 01/03/16 08/27/19 History Furosemide [Lasix] 40 mg PO BID@0800,1400 01/20/16 08/27/19 History buPROPion XL [Wellbutrin Xl] 150 mg PO DAILY 03/14/17 08/27/19 History Amiodarone [Cordarone] 100 mg PO DAILY 08/16/17 08/27/19 History Insulin Glargine,Hum.rec.anlog 30 unit SQ HS 11/16/17 08/27/19 History [Lantus Solostar] Lisinopril [Zestril] 2.5 mg PO DAILY 11/16/17 08/27/19 History Rivaroxaban [Xarelto] 20 mg PO W/SUPPER 11/16/17 08/27/19 History Allergies Allergy/AdvReac Type Severity Reaction Status Date / Time No Known Allergies Allergy Verified 08/27/19 12:55 Physical Exam Vitals: Vital Signs Temp Pulse Pulse Resp BP BP BP 08/28/19 12:00 98 F 59 L 20 106/56 08/28/19 09:24 65 08/28/19 08:00 97.8 F 66 24 99/47 08/28/19 04:00 98.7 F 62 18 129/68 08/28/19 00:00 98.2 F 59 L 18 118/70 08/27/19 20:00 98.4 F 70 18 120/68 08/27/19 17:25 98.6 F 71 22 115/80 08/27/19 17:00 65 18 128/87 08/27/19 16:00 71 20 97/75 Pulse Ox 08/28/19 12:00 96 08/28/19 09:24 98 08/28/19 08:00 88 L 08/28/19 04:00 97 08/28/19 00:00 95 08/27/19 20:00 96 08/27/19 17:25 98 08/27/19 17:00 08/27/19 16:00 Intake and Output 08/28/19 08/28/19 08/28/19 06:59 14:59 22:59 Intake Total 120 120 Output Total 100 Balance 120 20 Intake: Oral 120 120 Output: Urine 100 Other: Voiding Method Urinal # Voids 1 2 # Bowel Movements 1 Weight 130 kg Gen. appearance, comfortable likely distress Head exam was generally normal. There was no scleral icterus or corneal arcus. Mucous membranes were moist. Neck was supple and without jugular venous distension, thyromegaly, or carotid bruits. Carotids were easily palpable bilaterally. There was no adenopathy. Lungs sounds are diminished on the left compared to the right and there is also some dullness to percussion on the left. Breath sounds are quite diminished in the left lung base. No rhonchi. No wheezes. Cardiac exam revealed the PMI to be normally situated and sized. The rhythm was regular and no extrasystoles were noted during several minutes of auscultation. The first and second heart sounds were normal and physiologic splitting of the second heart sound was noted. There were no murmurs, rubs, clicks, or gallops. Abdominal exam revealed normal bowel sounds. The abdomen was soft, non-tender, and without masses, organomegaly, or appreciable enlargement of the abdominal aorta. Examination of the extremities revealed easily palpable radial, femoral and pedal pulses. There was no cyanosis, clubbing or edema. There are some areas of skin bruising in the lower extremities related to previous falls. Neurologically the patient is awake and alert. Gait was not assessed. No focal neurological deficits. Results - Laboratory Findings CBC and BMP: 08/27/19 12:18 08/27/19 12:18 PT/INR, D-dimer PT 15.3 sec (9.0-12.0) H 08/27/19 12:18 INR 1.5 (<1.2) H 08/27/19 12:18 Abnormal lab findings: Abnormal Labs 08/27/19 08/27/19 08/27/19 11:40 12:18 12:18 WBC 14.6 H Hgb 12.5 L RDW 17.8 H Neutrophils # 13.0 H Lymphocytes # 0.3 L PT INR Potassium 5.2 H Chloride 110 H Carbon Dioxide 17 L BUN 41 H Creatinine 2.19 H Glucose 103 H POC Glucose (mg/dL) 32 L AST 71 H Troponin I Albumin 3.1 L Urine Protein Urine Blood Ur Leukocyte Esterase Urine RBC Urine WBC Urine WBC Clumps Urine Bacteria Urine Mucus 08/27/19 08/27/19 08/27/19 12:18 12:18 15:06 WBC Hgb RDW Neutrophils # Lymphocytes # PT 15.3 H INR 1.5 H Potassium Chloride Carbon Dioxide BUN Creatinine Glucose POC Glucose (mg/dL) 62 L AST Troponin I 0.242 H* Albumin Urine Protein Urine Blood Ur Leukocyte Esterase Urine RBC Urine WBC Urine WBC Clumps Urine Bacteria Urine Mucus 08/27/19 08/27/19 08/27/19 15:42 20:29 23:12 WBC Hgb RDW Neutrophils # Lymphocytes # PT INR Potassium Chloride Carbon Dioxide BUN Creatinine Glucose POC Glucose (mg/dL) 141 H 210 H 155 H AST Troponin I Albumin Urine Protein Urine Blood Ur Leukocyte Esterase Urine RBC Urine WBC Urine WBC Clumps Urine Bacteria Urine Mucus 08/28/19 08/28/19 08/28/19 01:15 03:24 05:58 WBC Hgb RDW Neutrophils # Lymphocytes # PT INR Potassium Chloride Carbon Dioxide BUN Creatinine Glucose POC Glucose (mg/dL) 131 H 135 H 143 H AST Troponin I Albumin Urine Protein Urine Blood Ur Leukocyte Esterase Urine RBC Urine WBC Urine WBC Clumps Urine Bacteria Urine Mucus 08/28/19 08/28/19 10:15 12:29 WBC Hgb RDW Neutrophils # Lymphocytes # PT INR Potassium Chloride Carbon Dioxide BUN Creatinine Glucose POC Glucose (mg/dL) 213 H AST Troponin I Albumin Urine Protein 1+ H Urine Blood Moderate H Ur Leukocyte Esterase Large H Urine RBC >182 H Urine WBC >182 H Urine WBC Clumps Many H Urine Bacteria Occasional H Urine Mucus Many H - Diagnostic Findings Chest x-ray: image reviewed Assessment and Plan Plan: 1 left lung opacity likely the evolution of a left-sided pleural effusion. The patient has had previous chronic left-sided pleural effusion that has been drained and the patient has undergone thoracentesis in the past and the fluid cytology was negative for malignancy. Nevertheless, during this current hospitalization the patient developed interval worsening of the left-sided pleural effusion based on the comparison of chest x-rays between 08/27/2019 and 08/28/2019. As such, traumatic left-sided pleural effusion is to be considered including the possibility of a hemothorax knowing that the patient anticoagulation. Malignant pleural effusions felt to be less likely. 2 squamous cell lung cancer locally advanced post-chemoradiation therapy back in 2015 with good response based on subsequent PET scans in the CAT scan of the chest that was done in January 2019 3 episodic falls. Rule out GAMBLING MONITOR metastases based on his history of squamous cell lung cancer. Rule out hypoglycemia as the patient has been having W hypoglycemia that were witnessed also in the hospital. 4 diabetes mellitus 5 coronary artery disease with previous MO, with a troponin leak 6 history of CVA involving the right frontal lobe 7 history of atrial fibrillation/flutter and the patient's rhythm is sinus and the patient is demented on long-term and to coagulation with Xarelto. 8 hyperlipidemia Plan Hold Xarelto for today. Obtain ultrasound the left chest. We'll consider thoracentesis in a.m. May need to repeat a CAT scan of the chest postthoracentesis to reevaluate his underlying non-small cell lung cancer. Meanwhile, an MRI of the brain is reasonable based on his history of falls throughout the possibility of GAMBLING MONITOR metastases. The patient has a Mediport and if this report is MRI friendly, we'll do an MRI. Otherwise we'll proceed with a regular CAT scan with contrast. Monitor hemoglobin. Monitor blood sugar. Cardiology consultation in regards to the troponin leak. We'll continue to follow. Obtain records from Dr. Whipple's office regarding the progression of his non-small cell lung cancer and the exact treatment circumstances.
[2019-08-28] MEDS: RIVAROXABAN 20 MG TAB PO SCH (16:45)
[2019-08-28] MEDS: LISINOPRIL 2.5 MG TAB PO SCH (16:46)
[2019-08-28 16:48] LABS: Glucose,Whole Blood 299 mg/dL (75-99)
[2019-08-28 20:57] LABS: Glucose,Whole Blood 324 mg/dL (75-99)
[2019-08-28] MEDS: INSULIN DETEMIR (LEVEMIR) 100 UNIT/ML SYR SQ SCH (21:17)
[2019-08-29 06:35] LABS: Glucose,Whole Blood 296 mg/dL (75-99)
[2019-08-29] MEDS: ASPIRIN 81 MG PO SCH (09:41)
[2019-08-29] MEDS: FUROSEMIDE 10 MG/ML 10 ML VIAL IV SCH ×2 (09:41→23:30)
[2019-08-29] MEDS: glipiZIDE 5 MG TAB PO SCH ×2 (09:41→20:46)
[2019-08-29] MEDS: ATENOLOL 25 MG TAB PO SCH (09:41)
[2019-08-29] MEDS: AZITHROMYCIN 500 MG TAB PO SCH (09:41)
[2019-08-29] MEDS: ATORVASTATIN 80 MG TAB PO SCH (09:41)
[2019-08-29] MEDS: LISINOPRIL 2.5 MG TAB PO SCH (09:41)
--- NOTE | 2019-08-29 10:27 | PN ---
PROGRESS NOTE Arsen is a 74-year-old gentleman with complex and multiple medical problems including chronic systolic heart failure, persistent atrial fibrillation, hyperglycemia, renal insufficiency, and mild confusion, who is admitted to hospital with exacerbation of congestive heart failure and large left pleural effusion. The patient had a chest ultrasound and is to undergo thoracentesis today. On exam, patient is afebrile. Heart rate is 60 beats per minute. Blood pressure is 109/60, respiratory rate is 18. Chest exam reveals absent air entry on the left side. Heart exam reveals first and second heart sounds. No gallop. Exam extremities reveals bilateral pitting edema. ASSESSMENT: 1. Acute exacerbation of chronic systolic heart failure. 2. Left-sided pleural effusion. PLAN: I will increase the dose of IV Lasix and patient will have a thoracentesis today. ASSESSMENT: 1. Persistent atrial patient. 2. Patient is on Xarelto for anticoagulation. MMODL / IJN: [id number] /
[2019-08-29 10:41] LABS: Calcium 8.9 mg/dL (8.4-10.2); Potassium 5.6 mmol/L (3.5-5.1)
--- NOTE | 2019-08-29 11:45 | MR ---
EXAMINATION TYPE: MR brain wo/w con DATE OF EXAM: 08/29/2019 COMPARISON: HISTORY: Falls TECHNIQUE: Multiplanar, multisequence images of the brain and brainstem is performed without and with IV contras t, utilizing 13 mL intravenous Gadavist . FINDINGS: Diffusion weighted images demonstrate no evidence of a recent infarct or other diffusion ab normality. There is moderate to severe prominent of the ventricular system. There is a greater centra l component. There is diffuse and numerous focal areas of abnormal signal seen throughout the white matter in a no nspecific pattern but most typical remote ischemic disease. Abnormal signal left cerebellum is most typical remote ischemia. Changes of chronic sinusitis are noted. No midline shift or mass effect. Focal area of abnormal signa l involving the cosme compatible with areas of remote infarct. Tiny area of abnormal signal in the lef t basal ganglia suggest remote lacunar Midline structures demonstrate normal morphology. The craniocervical junction appears within normal limits. Post contrast images demonstrate no abnormal enhancement. The dural venous sinuses appear p atent. IMPRESSION: 1. Diffuse degenerative changes with a greater central component correlate for atrophy versus normal pressure hydrocephalus. 2. Diffuse nonspecific white matter changes felt to BE most typical remote ischemic change. 3. Correlate for left cerebellar hemisphere remote infarct.
--- NOTE | 2019-08-29 11:56 | ECHOF ---
Referral Reason:elevated troponin MEASUREMENTS -------- HEIGHT: 182.9 cm WEIGHT: 132.9 kg BP: 109/60 RVIDd: 3.5 cm (< 3.3) IVSd: 1.3 cm (0.6 - 1.1) LVIDd: 4.7 cm (3.9 - 5.3) LVPWd: 1.1 cm (0.6 - 1.1) IVSs: 1.5 cm LVIDs: 4.4 cm LVPWs: 1.4 cm LA Diam: 4.2 cm (2.7 - 3.8) Ao Diam: 3.0 cm (2.0 - 3.7) AV Cusp: 1.9 cm (1.5 - 2.6) MV EXCURSION: 18.739 mm (> 18.000) MV EF SLOPE: 105 mm/s (70 - 150) EPSS: 1.3 cm MV E Chance: 0.93 m/s MV DecT: 181 ms MV A Chance: 0.67 m/s MV E/A Ratio: 1.38 RAP: 5.00 mmHg RVSP: 51.84 mmHg FINDINGS -------- Sinus rhythm. This was a technically difficult study with suboptimal views. The left ventricular size is normal. There is mild concentric left ventricular hypertrophy. Overa ll left ventricular systolic function is moderately impaired with, an EF between 35 - 40 %. Basal i nferior LV wall motion is hypokinetic. Apical septum LV wall motion is hypokinetic. The right ventricle is mildly enlarged. The left atrium is mildly dilated. The right atrium was not well visualized. 5.0mg of Lumason was utilized for enhancement of images Interatrial and interventricular septum intact. There is mild aortic valve sclerosis. Mild mitral annular calcification present. Mild mitral regurgitation is present. Mild tricuspid regurgitation present. There is moderate pulmonary hypertension. The right ventric ular systolic pressure, as measured by Doppler, is 51.84mmHg. The pulmonic valve was not well visualized. The aortic root size is normal. IVC Not well visulized. There is no pericardial effusion. CONCLUSIONS -------- 1. Sinus rhythm. 2. This was a technically difficult study with suboptimal views. 3. The left ventricular size is normal. 4. There is mild concentric left ventricular hypertrophy. 5. Overall left ventricular systolic function is moderately impaired with, an EF between 35 - 40 %. 6. Basal inferior LV wall motion is hypokinetic. 7. The right ventricle is mildly enlarged. 8. The left atrium is mildly dilated. 9. The right atrium was not well visualized. 10. 5.0mg of Lumason was utilized for enhancement of images 11. Interatrial and interventricular septum intact. 12. There is mild aortic valve sclerosis. 13. Mild mitral annular calcification present. 14. Mild mitral regurgitation is present. 15. Mild tricuspid regurgitation present. 16. There is moderate pulmonary hypertension. 17. The right ventricular systolic pressure, as measured by Doppler, is 51.84mmHg. 18. The pulmonic valve was not well visualized. 19. The aortic root size is normal. 20. IVC Not well visulized. 21. There is no pericardial effusion. ER TECH: KEELY Murry
[2019-08-29] MEDS: buPROPion XL 150 MG TAB.ER.24H PO SCH (12:00)
[2019-08-29] MEDS: AMIODARONE 100 MG TAB PO SCH (12:00)
[2019-08-29 12:13] LABS: Glucose,Whole Blood 292 mg/dL (75-99)
--- NOTE | 2019-08-29 13:46 | P.PN ---
Subjective Progress Note Date: 08/29/19 Principal diagnosis: Left lung opacity with evolution of left-sided pleural effusion. A 74-year-old male patient with locally advanced non-small cell lung cancer that was diagnosed in 2016 and at that time the patient underwent a bronchoscopy and transbronchial needle aspirate of a left hilar mass show this, cell carcinoma. The patient was treated by Dr. Whipple and I believe he received a combination of chemoradiation therapy. He responded nicely and a follow-up PET scan done on 03/31/2017 showed no suspicious masses or metabolic activity within the chest area. In follow-up CAT scan of the chest abdomen and pelvis that was done on 02/07/2019 showed a stable left lower lobe consolidation and left hilar soft tissue prominence with small effusion. There was only a subpleural severe segment right lower lobe pulmonary nodule measuring 3 mm in size. The patient was a short and he was asked to follow-up. Note that the CAT scan of the abdomen and pelvis also showed bilateral nonobstructive nephrolithiasis. Over the past 2-3 weeks, the patient was found to be altered and having episodes of mental status change. I did not find this with the patient the patient was able to respond to my questions appropriately. Apparently was been having also episodes of falls. He was found on the floor unable admission and the he didn't know how he got there and apparently was altered mentally. EMS came to the scene and the patient's sugar was 45. At that time he was given glucose. IV was established. The patient was brought into the hospital. He was not having any significant shortness of breath or headache. No seizure activity has been noted. Denied having any focal numbness or weakness. He denies having any chest pain. No palpitation. No fever. No chills. No aspiration. His initial chest x-ray showed a small left-sided pleural effusion and subsequent chest x- ray that was done today showed significant opacification of left lung compared to the right consistent with development of a left-sided pleural effusion. His appetite is poor. He did have another bout of hypoglycemia here in the hospital with a low sugar of 32 and he was given IV glucose. His most recent blood sugar is at 213. He does have an underlying UTI based on the urine analysis that showed turbid urine with elevated white cells and bacteria and the culture is still pending for now. His blood work showed a white cell count of 14.6. His INR is at 1.7 the patient on long-term and to coagulation with Xarelto. The patient's BUN is at 41 with a creatinine of 2.1. He does have a mild component of metabolic acidosis with a serum bicarb of 17. Lactic acid was at 1.7. His proBNP level was 16,900. His troponin initially at 0.242. Currently, the patient is on examination Rocephin and Zithromax. Denies having any trauma to the chest. The patient is seen today 08/29/2019 in follow-up on the selective care unit. He is currently sitting up in bed. Awake and alert in no acute distress. Breathing is about the same today as compared to yesterday. He is maintaining O2 saturation in the low 90s on 4 L/m per nasal cannula. He's been afebrile. Ultrasound shows a left pleural effusion pocket measuring about 7.4 cm. Echocardiogram did reveal moderately impaired left ventricular systolic function with ejection fraction 35-40%. Moderate pulmonary hypertension with an RVSP of 52 mmHg. MRI of the brain revealed diffuse degenerative changes with greater central component correlate for atrophy versus normal pressure hydrocephalus. Diffuse nonspecific white matter changes felt to be related to remote ischemic change . Left cerebellar hemisphere remote infarct. No noted metastases. Blood cultures pending. Urine culture reveals no growth. Sputum culture pending. Sodium 138. Potassium 5.6. Creatinine 2.56. He is continued on ceftriaxone. He is on Lasix 60 mg IV every 8 hours. Xarelto for DVT prophylaxis currently on hold for thoracentesis today. Objective - Vital Signs Vital signs: Vital Signs Temp 98.4 F 08/29/19 04:00 Pulse 62 08/29/19 08:00 Resp 18 08/29/19 08:00 BP 109/60 08/29/19 04:00 Pulse Ox 92 L 08/29/19 04:00 Intake & Output 08/28/19 08/29/19 08/29/19 18:59 06:59 18:59 Intake Total 490 480 240 Output Total 150 300 Balance 340 180 240 Weight 133 kg Intake: IV 370 240 Sodium Chloride 0.9% 1, 320 240 000 ml @ 40 mls/hr IV . Q24H [facility] Rx#:[id number] cefTRIAXone 1 gm In 50 Sodium Chloride 0.9% 50 ml @ 100 mls/hr IVPB Q24HR [facility] Rx#:[id number] Oral 120 240 240 Output: Urine 150 300 Other: Voiding Method Urinal Urinal Urinal # Voids 1 # Bowel Movements 1 - Exam Gen. appearance, pleasant 74-year-old gentleman, comfortable in no acute distress. On 4 L nasal cannula. Head exam was generally normal. There was no scleral icterus or corneal arcus. Mucous membranes were moist. Neck was supple and without jugular venous distension, thyromegaly, or carotid bruits. Carotids were easily palpable bilaterally. There was no adenopathy. Lungs sounds are diminished on the left compared to the right and there is also some dullness to percussion on the left. Breath sounds are quite diminished in the left lung base. No rhonchi. No wheezes. Cardiac exam revealed the PMI to be normally situated and sized. The rhythm was regular and no extrasystoles were noted during several minutes of auscultation. The first and second heart sounds were normal and physiologic splitting of the second heart sound was noted. There were no murmurs, rubs, clicks, or gallops. Abdominal exam revealed normal bowel sounds. The abdomen was soft, non-tender, and without masses, organomegaly, or appreciable enlargement of the abdominal aorta. Examination of the extremities revealed easily palpable radial, femoral and pedal pulses. There was no cyanosis, clubbing or edema. There are some areas of skin bruising in the lower extremities related to previous falls. Neurologically the patient is awake and alert. Gait was not assessed. No focal neurological deficits. - Labs CBC & Chem 7: 08/27/19 12:18 08/29/19 10:10 Labs: Abnormal Lab Results - Last 24 Hours (Table) 08/28/19 08/28/19 08/29/19 Range/Units 16:46 20:56 06:26 Potassium (3.5-5.1) mmol/L Carbon Dioxide (22-30) mmol/L BUN (9-20) mg/dL Creatinine (0.66-1.25) mg/dL Glucose (74-99) mg/dL POC Glucose (mg/dL) 299 H 324 H 296 H (75-99) mg/dL 08/29/19 08/29/19 Range/Units 10:10 12:00 Potassium 5.6 H (3.5-5.1) mmol/L Carbon Dioxide 21 L (22-30) mmol/L BUN 54 H (9-20) mg/dL Creatinine 2.56 H (0.66-1.25) mg/dL Glucose 307 H (74-99) mg/dL POC Glucose (mg/dL) 292 H (75-99) mg/dL Microbiology - Last 24 Hours (Table) 08/28/19 10:15 Urine Culture - Final Urine,Voided 08/28/19 11:25 Gram Stain - Preliminary Sputum Sputum Culture - Preliminary 08/27/19 13:30 Blood Culture Gram Stain - Preliminary Blood Blood Culture - Preliminary Coagulase Negative Staph 08/27/19 13:30 Blood Culture - Final Blood Assessment and Plan Assessment: 1 left lung opacity likely the evolution of a left-sided pleural effusion. The patient has had previous chronic left-sided pleural effusion that has been drained and the patient has undergone thoracentesis in the past and the fluid cytology was negative for malignancy. Nevertheless, during this current hospitalization the patient developed interval worsening of the left-sided pleural effusion based on the comparison of chest x-rays between 08/27/2019 and 08/28/2019. As such, traumatic left-sided pleural effusion is to be considered including the possibility of a hemothorax knowing that the patient anticoagulation. Malignant pleural effusions felt to be less likely. 2 squamous cell lung cancer locally advanced post-chemoradiation therapy back in 2016 with good response based on subsequent PET scans in the CAT scan of the chest that was done in January 2019 3 episodic falls. 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 Rule out hypoglycemia as the patient has been having W hypoglycemia that were witnessed also in the hospital. 4 diabetes mellitus 5 coronary artery disease with previous ND, with a troponin leak 6 history of CVA involving the right frontal lobe 7 history of atrial fibrillation/flutter and the patient's rhythm is sinus and the patient is demented on long-term and to coagulation with Xarelto. 8 hyperlipidemia Plan The patient was seen and evaluated by Dr. Alarcon. Ultrasound of the chest was reviewed. He did attempt a thoracentesis on the left without any fluid removed. Computed tomography scan of the chest is pending. We'll make further recommendations based on these findings. If no further plans for thoracentesis he should resume his Xarelto. Continue diuretics. Currently on ceftriaxone. We will continue to follow and make further recommendations based on his clinical status. I, the cosigning physician, performed a history & physical examination of the patient. Lungs sounds diminished in the left lung base. Maintaining good O2 saturations in the 90s on 4 L/m per nasal cannula. I discussed the assessment and plan of care with my nurse practitioner, Jessica Schwartz. I attest to the above note as dictated by her.
--- NOTE | 2019-08-29 14:04 | CT ---
EXAMINATION TYPE: CT chest wo con DATE OF EXAM: 08/29/2019 COMPARISON: 01/27/2019 HISTORY: 74-year-old male effusion TECHNIQUE: Contiguous axial scanning of the chest without IV contrast. Coronal and sagittal reconstru ctions performed. CT DLP: 992.7 mGycm Automated exposure control for dose reduction was used. FINDINGS: Heart is unenlarged without pericardial effusion. 3 vessel coronary artery calcifications are present . Ihevu-wa-wqczbsle bilateral pleural effusions. There is volume loss and extensive consolidation invol ving the basilar segments of the left lower lobe and consolidation within the inferior lingula as wel l. Cut off of the left lower lobe bronchus just after its origin. Significant narrowing of the lingul ar bronchus. Confluent groundglass with in the left greater than right mid lungs. Patient is breathin g through the skin limiting evaluation. Background of centrilobular emphysema is suggested. Right anterior chest wall injection port with catheter tip at the lower SVC. Aorta normal caliber with conventional arch vessel branching anatomy and mild atherosclerotic arch ca lcifications. Large caliber to the main right and left pulmonary arteries and 2.7 and 3.0 cm, respectively, suggest ing underlying pulmonary arterial hypertension. Standard mediastinal lymph nodes measure up to 1 cm. This may be reactive. Some pleural-based thickening measuring up to 2.0 cm extending up to the medial left apex Limited assessment of the upper abdomen due to the patient's very large body habitus. Stable low dens ity nodularity of the left adrenal gland. Motion artifacts. Bones: Bulky endplate spondylosis throughout the visualized lower cervical spine. [facility] within the mid to lower thoracic spine. IMPRESSION: 1. SMALL TO MODERATE BILATERAL PLEURAL EFFUSIONS. THERE IS GROUNDGLASS THROUGHOUT THE MID TO LOWER VICKY NGS WITH MORE CONFLUENT AIRSPACE DISEASE ON THE LEFT. Correlate for multifocal pneumonia or pulmonary edema. 2. Borderline cardiomegaly and pulmonary arterial hypertension supports the possibility of fluid over load state and pulmonary edema. 3. However, there is cutoff of the left lower lobe bronchus and narrowing of the lingular bronchus. U nclear if this is secondary to mucoid impaction or a central lesion. Limited assessment on noncontras t CT. 4. Extensive volume loss and consolidation throughout the left lower lobe and new within the inferior lingula and left perihilar region as compared to 01/27/2019. 5. 2 cm pleural-based thickening extending up along the medial left apex could represent tracking ple ural effusion. Short interval follow-up recommended. 6. Background of COPD.
[2019-08-29] MEDS: SODIUM CHLORIDE 0.9% 1,000 ML IV SCH ×2 (14:34→18:49)
[2019-08-29 16:55] LABS: Glucose,Whole Blood 291 mg/dL (75-99)
[2019-08-29] MEDS: INSULIN ASPART (NovoLOG) 100 UNIT/ML VIAL SQ SCH ×2 (17:44→20:46)
[2019-08-29] MEDS: RIVAROXABAN 20 MG TAB PO SCH (17:44)
--- NOTE | 2019-08-29 17:52 | XR ---
EXAMINATION TYPE: XR chest 1V DATE OF EXAM: 08/29/2019 COMPARISON: 08/28/2019 HISTORY: Pleural effusion. Follow-up exam. TECHNIQUE: Single frontal view of the chest is obtained. FINDINGS: There is improved aeration of the left lung with moderate left pleural effusion remaining. Mild interstitial pulmonary edema. The mediastinum to the left secondary to patient rotation and lik jonnie also on the basis of atelectasis. Right-sided Mediport is similar in position. No acute osseous p athology. IMPRESSION: Improved left pleural effusion, now moderate with left basilar airspace disease, likely atelectasis.
[2019-08-29 18:04] LABS: Calcium 8.7 mg/dL (8.4-10.2); Potassium 5.6 mmol/L (3.5-5.1)
[2019-08-29] MEDS: SODIUM CHLORIDE 0.9% 250 ML IV SCH (20:13)
[2019-08-29 20:30] LABS: Glucose,Whole Blood 180 mg/dL (75-99)
[2019-08-29] MEDS: INSULIN DETEMIR (LEVEMIR) 100 UNIT/ML SYR SQ SCH (20:46)
--- NOTE | 2019-08-29 20:59 | CONS ---
CONSULTATION REASON FOR CONSULT: Renal failure. HISTORY OF PRESENT ILLNESS: The patient is a 74-year-old male who was admitted to the hospital on 08/27/2019 with a history of fall and weakness. The patient's son had found him on the floor. He had altered mentation. Blood sugar was low. Serum creatinine was 2.1 mg/dL on 08/27/2019. On labs today serum creatinine was up to 2.56. Review of previous labs shows a serum creatinine of 1.9 in March of 2019 and 1.5 in July of 2018. Patient is currently being diuresed for CHF and volume overload. He is maintained on Lasix 40 mg IV q.8 hours. Blood pressure has been slightly on the lower side with systolic of 99 on initial admission. Patient had a chest CT done without IV contrast, which showed ground-glass appearance throughout the lower humphries consistent with either pneumonia versus CHF with background COPD. The patient has been voiding in the urinal. 24 hour urine output is not accurately charted. At home patient was maintained on small dose of MAHESH inhibitors, which is continued. I do not see any nonsteroidal anti-inflammatory agents on the med list. PAST MEDICAL HISTORY: Significant for a non-small cell lung cancer status post treatment of chemo radiation therapy in 2017, type 2 diabetes, hyperlipidemia, hypertension, history of CT, coronary artery disease, CVA, history of atrial fibrillation. PAST SURGICAL HISTORY: Bronchoscopy, MediPort placement, heart catheterization. SOCIAL HISTORY: Patient is a former smoker. No history of drug abuse or alcohol abuse. MEDICATIONS: Medications prior to admission included Glucotrol, aspirin, Tenormin, Lipitor, Glucophage, Lasix, Wellbutrin, Cordarone, insulin, Zestril. ALLERGIES: None. REVIEW OF SYSTEMS: As per HPI. Other systems negative. EXAMINATION: Patient is comfortable. He is awake, not in any acute distress. Blood pressure this morning was 109/60, heart rate of 64 per minute, he is afebrile. Examination of the heart S1, S2. Examination of the lungs, bilateral breath sounds are heard. Abdomen is soft, nontender. Examination of lower extremities shows edema 1+ bilaterally with a superficial ulcer noted on the left lower extremity. LAB: Show sodium 138, potassium 5.6, chloride 105, CO2 is 21, BUN 54, serum creatinine 2.56, blood sugar was elevated at 307. ASSESSMENT: 1. Acute kidney injury, appears to be cardiorenal and associated with hypotension, hypoperfusion. No nephrotoxic agents on board. Patient is nonoliguric. Need to rule out urine retention. We will check a postvoid residual. Continue with the IV Lasix for now. Avoid hypotension. 2. Hyperkalemia associated with acute kidney injury, rule out urine retention. Recommend to hold MAHESH inhibitors given the hyperkalemia. We also need to control the blood sugars. Maintain blood sugars less than 150 mg/dL. The patient should be maintained on low-potassium diet and continue with loop diuretics. 3. Chronic kidney disease with previous creatinine 1.5 in 2018, about 1.9 in March of 2019. Etiology is likely diabetic nephropathy and nephrosclerosis. UA does show proteinuria, however, patient has significant pyuria as well. 4. Pyuria. Follow up on urine cultures. 5. Coagulase-negative Staphylococcus bacteremia. 6. Atrial fibrillation with controlled ventricular response maintained on beta blockers and Xarelto for anticoagulation. PLAN: Check postvoid residual. Continue with IV Lasix. Maintain patient on low-potassium diet. Hold off on MAHESH inhibitors secondary to the hyperkalemia. Continue empiric antibiotics and repeat labs in a.m. Avoid hypotension. Check ultrasound of the kidneys as well. Thank you for this consultation. We will continue to follow the patient with you during his hospitalization. MMODL / IJN: [id number] /
[2019-08-30 06:12] LABS: Glucose,Whole Blood 57 mg/dL (75-99)
[2019-08-30 06:28] LABS: Glucose,Whole Blood 45 mg/dL (75-99)
[2019-08-30 06:42] LABS: Glucose,Whole Blood 42 mg/dL (75-99)
[2019-08-30] MEDS: INSULIN ASPART (NovoLOG) 100 UNIT/ML VIAL SQ SCH ×4 (06:50→20:39)
[2019-08-30 07:00] LABS: Glucose,Whole Blood 139 mg/dL (75-99)
--- NOTE | 2019-08-30 08:04 | US ---
EXAMINATION TYPE: US kidneys/renal and bladder DATE OF EXAM: 08/30/2019 COMPARISON: CT 2018 CLINICAL HISTORY: rf. EXAM MEASUREMENTS: Right Kidney: 10.9 x 4.7 x 5.1 cm Left Kidney: 12.6 x 6.1 x 6.3 cm Technically difficult study performed portably on patient unable to cooperate for exam. Right Kidney: suggestion of small cyst lower pole measures 1.3 x 0.8 cm. Left Kidney: No hydronephrosis or masses seen Bladder: not well seen, patient stopped exam. Bilateral Jets seen: no IMPRESSION: Questionable right lower lobe renal cyst.
[2019-08-30] MEDS: FUROSEMIDE 10 MG/ML 10 ML VIAL IV SCH ×3 (08:51→23:24)
[2019-08-30] MEDS: ATORVASTATIN 80 MG TAB PO SCH (08:52)
[2019-08-30] MEDS: ASPIRIN 81 MG PO SCH (08:52)
[2019-08-30] MEDS: AZITHROMYCIN 500 MG TAB PO SCH (08:52)
[2019-08-30] MEDS: buPROPion XL 150 MG TAB.ER.24H PO SCH (08:52)
[2019-08-30] MEDS: AMIODARONE 100 MG TAB PO SCH (08:52)
[2019-08-30 11:18] LABS: Calcium 8.9 mg/dL (8.4-10.2); Potassium 5.5 mmol/L (3.5-5.1)
--- NOTE | 2019-08-30 11:21 | P.PN ---
Subjective 74-year-old the with advanced non-small cell lung cancer is admitted for hypoglycemia. Patient's oral hyperglycemic agents will be discontinued and patient's long-acting insulin will be cut down to 25 units from 30 units along and will be continued on sliding scale insulin. has multiple other issues going on at this time including bilateral pleural effusion probably malignant effusions chronic left-sided pleural effusion patient is supposed to undergo thoracentesis attempted thoracentesis yesterday from which the unable to get any fluid. Patient is also being treated for pneumonia. Patient baseline creatinine 1.5 . Check CAT scan is consistent with pulmonary edema because of which patient is on Lasix. Patient also has elevated serum potassium of 5.7. Patient had worsening creatinine up to 2.7. Although patient is volume ove rloaded because of which patient is receiving Lasix nephrology was consulted nephrology is following the patient. 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 Patient is presently off oxygen denied any complaints at this time doesn't actually moved last bowel movement was 3 days ago. Constitutional: Denied any fatigue denied any fever. Cardio vascular: denied any chest pain, palpitations Gastrointestinal denied any nausea vomiting Pulmonary: Denied any shortness of breath cough Neurologic denied any new focal deficits All inpatient medications were reviewed and appropriate changes in these medications as dictated in the interval history and assessment and plan. Objective - Vital Signs Vital signs: Vital Signs Temp 96.4 F L 08/30/19 08:00 Pulse 55 L 08/30/19 08:00 Resp 20 08/30/19 08:00 BP 107/56 08/30/19 08:00 Pulse Ox 95 08/30/19 04:46 Intake & Output 08/29/19 08/30/19 08/30/19 18:59 06:59 18:59 Intake Total 720 200 120 Output Total 150 Balance 720 200 -30 Weight 106.5 kg Intake: Intake, IV Titration 200 Amount Sodium Chloride 0.9% 1, 200 000 ml @ 40 mls/hr IV . Q24H [facility] Rx#:[id number] Oral 720 120 Output: Urine 150 Straight 150 Post Void Residual 0 Other: Voiding Method Urinal Urinal Urinal # Voids 0 1 - Exam PHYSICAL EXAMINATION: GENERAL: The patient is alert and oriented x3, not in any acute distress. Well developed, well nourished. HEENT: Pupils are round and equally reacting to light. EOMI. No scleral icterus. No conjunctival pallor. Normocephalic, atraumatic. No pharyngeal erythema. No thyromegaly. CARDIOVASCULAR: S1 and S2 present. No murmurs, rubs, or gallops. PULMONARY: Chest is clear to auscultation, no wheezing or crackles. ABDOMEN: Soft, nontender, nondistended, normoactive bowel sounds. No palpable organomegaly. MUSCULOSKELETAL: No joint swelling or deformity. EXTREMITIES: No cyanosis, clubbing, or pedal edema. NEUROLOGICAL: Gross neurological examination did not reveal any new focal deficits. Patient does have generalized weakness SKIN: No rashes. - Labs CBC & Chem 7: 08/27/19 12:18 08/29/19 17:25 Labs: Abnormal Lab Results - Last 24 Hours (Table) 08/29/19 08/29/19 08/29/19 Range/Units 12:00 16:41 17:25 Sodium 136 L (137-145) mmol/L Potassium 5.6 H (3.5-5.1) mmol/L Carbon Dioxide 19 L (22-30) mmol/L BUN 59 H (9-20) mg/dL Creatinine 2.70 H (0.66-1.25) mg/dL Glucose 260 H (74-99) mg/dL POC Glucose (mg/dL) 292 H 291 H (75-99) mg/dL 08/29/19 08/30/19 08/30/19 Range/Units 20:28 06:11 06:27 Sodium (137-145) mmol/L Potassium (3.5-5.1) mmol/L Carbon Dioxide (22-30) mmol/L BUN (9-20) mg/dL Creatinine (0.66-1.25) mg/dL Glucose (74-99) mg/dL POC Glucose (mg/dL) 180 H 57 L 45 L (75-99) mg/dL 08/30/19 08/30/19 Range/Units 06:41 06:59 Sodium (137-145) mmol/L Potassium (3.5-5.1) mmol/L Carbon Dioxide (22-30) mmol/L BUN (9-20) mg/dL Creatinine (0.66-1.25) mg/dL Glucose (74-99) mg/dL POC Glucose (mg/dL) 42 L 139 H (75-99) mg/dL Microbiology - Last 24 Hours (Table) 08/27/19 13:30 Blood Culture Gram Stain - Final Blood Blood Culture - Preliminary Coagulase Negative Staph Coagulase Negative Staph#2 08/28/19 10:15 Urine Culture - Final Urine,Voided Assessment and Plan Plan: Hypoglycemia: Secondary to worsening renal function and poor per oral intake and modification of his diabetic regimen as mentioned about his continue oral h yperglycemic agents. Continue with sliding scale insulin cutting down the long- acting insulin as well. squamous cell cancer status post chemoradiation therapy -Acute hypoxic respiratory failure multifactorial secondary to congestive heart failure exacerbation bilateral pleural effusions failed paracentesis holding off anticoagulation at this time pulmonology is following the patient. Patient is being treated for pneumonia as well Plan- community acquired pneumonia for which patient on Rocephin and azithromycin -Multiple falls secondary to generalized weakness may require disposition to subacute rehabilitation -Acute renal failure prerenal azotemia from congestive heart failure exacerbatio n patient has EF of around 35-40% continue with Lasix nephrology is following the patient -hyperkalemia secondary to acute renal failure further management as per nephrology -Moderate pulmonary hypertension -Chronic kidney disease stage 3- probably diabetic nephropathy -Blood cultures are positive which is a contamination which is coagulase negative staph -Atrial fibrillation presently rate controlled off anti-coagulation for possible thoracocentesis. -Congestive heart failure chronic systolic dysfunction EF of around 35-40% with acute exacerbation continue with IV Lasix -Possible cardiorenal syndrome
[2019-08-30 11:39] LABS: Glucose,Whole Blood 159 mg/dL (75-99)
[2019-08-30] MEDS: DOBUTamine DRIP 500 MG in DEXTROSE/WATER 1 250ML.BAG IV SCH (12:50)
[2019-08-30 12:53] LABS: Amorphous Sediment,Urine Rare /hpf; Appearance,Urine Cloudy (Clear); Bilirubin,Urine Negative (Negative); Blood,Urine Moderate (Negative); Color,Urine Yellow; Glucose,Urine (UA) Negative (Negative); Hyaline Casts,Urine 20 /lpf (0-2); Ketones,Urine Negative (Negative); Leukocyte Esterase,Urine Small (Negative); Mucus,Urine Rare /hpf; Nitrite,Urine Negative (Negative); Protein,Urine 1+ (Negative); RBC,Urine 83 /hpf (0-5); Urobilinogen,Urine <2.0 mg/dL (<2.0); WBC,Urine 12 /hpf (0-5)
--- NOTE | 2019-08-30 13:16 | P.PN ---
Subjective This pleasant 74-year-old male past medical history significant for coronary artery disease with a chronic total occlusion of the LAD and mild- moderate disease of the RCA and circumflex, lung cancer s/p chemo and radiation, chronic persistent atrial fibrillation, chronic systolic heart failure, renal insufficiency and ischemic cardiomyopathy. He follows the os Dr. Beard. We are following secondary to acute exacerbation of chronic heart failure. He is seen and examined resting comfortably in bed laying almost completely flat with family at the bedside. He denies symptoms of chest discomfort, shortness of breath, dizziness or palpitations. He feels overall quite weak. His family is quite concerned about progressive confusion. Repeat chest x-ray reveals improved left pleural effusion. A thoracentesis was attempted yesterday however was unsuccessful. CT of the chest revealed small to moderate bilateral pleural effusions, groundglass opacities throughout the mid to lower lungs, borderline cardiomegaly and pulmonary hypertension, out of of the left lower lobe bronchus and narrowing of the lingular bronchus likely secondary to mucoid impaction or central lesion, extensive volume loss and consolidation throughout the left lower lobe, 2 cm pleural based thickening extending up along the medial left apex could represent tracking pleural effusion and underlying COPD. MRI of the brain reveals diffuse degenerative changes with greater central component Ismael for atrophy versus normal pressure hydrocephalus, diffuse nonspecific white matter changes felt to be most typical remote ischemia, correlate for left cerebral hemisphere remote infarct. Laboratory data reviewed, sodium 136, potassium 5.5, creatinine 3.25. Currently maintained on Lasix IV 60 mg every 8 hours, Xarelto 20 mg daily, atorvastatin 80 mg daily, aspirin 81 mg daily and amiodarone 100 mg daily. GENERAL: Well-appearing, well-nourished and in no acute distress. NECK: Supple without JVD or thyromegaly. LUNGS: Diminished bilaterally, respiration equal and unlabored. HEART: Irregular rate and rhythm without murmurs, rubs or gallops. S1 and S2 heard. EXTREMITIES: Normal range of motion, 2+ bilateral lower extremity pitting edema. No clubbing or cyanosis. Peripheral pulses intact. ASSESSMENT Acute on chronic systolic heart failure Acute hypoxic respiratory failure, multifactorial secondary to CHF and also being treated for pneumonia Chronic persistent atrial fibrillation acute on chronic renal failure Hyperkalemia Nonischemic cardiomyopathy, ejection fraction 35-40% History of lung cancer Hypertension Dyslipidemia Diabetes mellitus PLAN Dobutamine infusion per nephrology for hypoperfusion. Continue diuresis. Further recommendations to follow based upon clinical course. Consider Neurology recommendation given abnormal MRI. Nurse Practitioner note has been reviewed, I agree with a documented findings and plan of care. Patient was seen and examined. Objective - Vital Signs Vital signs: Vital Signs Temp 97.6 F 08/30/19 11:49 Pulse 55 L 08/30/19 11:49 Resp 20 08/30/19 11:49 BP 102/59 08/30/19 11:49 Pulse Ox 97 08/30/19 11:49 Intake & Output 08/29/19 08/30/19 08/30/19 18:59 06:59 18:59 Intake Total 720 200 120 Output Total 150 Balance 720 200 -30 Weight 106.5 kg Intake: Intake, IV Titration 200 Amount Sodium Chloride 0.9% 1, 200 000 ml @ 40 mls/hr IV . Q24H [facility] Rx#:[id number] Oral 720 120 Output: Urine 150 Uretheral (Robb) 150 Post Void Residual 0 Other: Voiding Method Urinal Urinal Urinal # Voids 0 1 - Labs CBC & Chem 7: 08/27/19 12:18 08/30/19 10:31 Labs: Abnormal Lab Results - Last 24 Hours (Table) 08/29/19 08/29/19 08/29/19 Range/Units 16:41 17:25 20:28 Sodium 136 L (137-145) mmol/L Potassium 5.6 H (3.5-5.1) mmol/L Carbon Dioxide 19 L (22-30) mmol/L BUN 59 H (9-20) mg/dL Creatinine 2.70 H (0.66-1.25) mg/dL Glucose 260 H (74-99) mg/dL POC Glucose (mg/dL) 291 H 180 H (75-99) mg/dL Urine Protein (Negative) Urine Blood (Negative) Ur Leukocyte Esterase (Negative) Urine RBC (0-5) /hpf Urine WBC (0-5) /hpf Amorphous Sediment (None) /hpf Hyaline Casts (0-2) /lpf Urine Mucus (None) /hpf 08/30/19 08/30/19 08/30/19 Range/Units 06:11 06:27 06:41 Sodium (137-145) mmol/L Potassium (3.5-5.1) mmol/L Carbon Dioxide (22-30) mmol/L BUN (9-20) mg/dL Creatinine (0.66-1.25) mg/dL Glucose (74-99) mg/dL POC Glucose (mg/dL) 57 L 45 L 42 L (75-99) mg/dL Urine Protein (Negative) Urine Blood (Negative) Ur Leukocyte Esterase (Negative) Urine RBC (0-5) /hpf Urine WBC (0-5) /hpf Amorphous Sediment (None) /hpf Hyaline Casts (0-2) /lpf Urine Mucus (None) /hpf 08/30/19 08/30/19 08/30/19 Range/Units 06:59 10:31 11:00 Sodium 136 L (137-145) mmol/L Potassium 5.5 H (3.5-5.1) mmol/L Carbon Dioxide 20 L (22-30) mmol/L BUN 65 H (9-20) mg/dL Creatinine 3.25 H (0.66-1.25) mg/dL Glucose 146 H (74-99) mg/dL POC Glucose (mg/dL) 139 H (75-99) mg/dL Urine Protein 1+ H (Negative) Urine Blood Moderate H (Negative) Ur Leukocyte Esterase Small H (Negative) Urine RBC 83 H (0-5) /hpf Urine WBC 12 H (0-5) /hpf Amorphous Sediment Rare H (None) /hpf Hyaline Casts 20 H (0-2) /lpf Urine Mucus Rare H (None) /hpf 08/30/19 Range/Units 11:37 Sodium (137-145) mmol/L Potassium (3.5-5.1) mmol/L Carbon Dioxide (22-30) mmol/L BUN (9-20) mg/dL Creatinine (0.66-1.25) mg/dL Glucose (74-99) mg/dL POC Glucose (mg/dL) 159 H (75-99) mg/dL Urine Protein (Negative) Urine Blood (Negative) Ur Leukocyte Esterase (Negative) Urine RBC (0-5) /hpf Urine WBC (0-5) /hpf Amorphous Sediment (None) /hpf Hyaline Casts (0-2) /lpf Urine Mucus (None) /hpf Microbiology - Last 24 Hours (Table) 08/27/19 13:30 Blood Culture Gram Stain - Final Blood Blood Culture - Preliminary Coagulase Negative Staph Coagulase Negative Staph#2 08/28/19 10:15 Urine Culture - Final Urine,Voided
--- NOTE | 2019-08-30 13:57 | P.PN ---
Subjective Progress Note Date: 08/30/19 Principal diagnosis: Left lung opacity with evolution of left-sided pleural effusion. A 74-year-old male patient with locally advanced non-small cell lung cancer that was diagnosed in 2016 and at that time the patient underwent a bronchoscopy and transbronchial needle aspirate of a left hilar mass show this, cell carcinoma. The patient was treated by Dr. Whipple and I believe he received a combination of chemoradiation therapy. He responded nicely and a follow-up PET scan done on 03/31/2017 showed no suspicious masses or metabolic activity within the chest area. In follow-up CAT scan of the chest abdomen and pelvis that was done on 02/07/2019 showed a stable left lower lobe consolidation and left hilar soft tissue prominence with small effusion. There was only a subpleural severe segment right lower lobe pulmonary nodule measuring 3 mm in size. The patient was a short and he was asked to follow-up. Note that the CAT scan of the abdomen and pelvis also showed bilateral nonobstructive nephrolithiasis. Over the past 2-3 weeks, the patient was found to be altered and having episodes of mental status change. I did not find this with the patient the patient was able to respond to my questions appropriately. Apparently was been having also episodes of falls. He was found on the floor unable admission and the he didn't know how he got there and apparently was altered mentally. EMS came to the scene and the patient's sugar was 45. At that time he was given glucose. IV was established. The patient was brought into the hospital. He was not having any significant shortness of breath or headache. No seizure activity has been noted. Denied having any focal numbness or weakness. He denies having any chest pain. No palpitation. No fever. No chills. No aspiration. His initial chest x-ray showed a small left-sided pleural effusion and subsequent chest x- ray that was done today showed significant opacification of left lung compared to the right consistent with development of a left-sided pleural effusion. His appetite is poor. He did have another bout of hypoglycemia here in the hospital with a low sugar of 32 and he was given IV glucose. His most recent blood sugar is at 213. He does have an underlying UTI based on the urine analysis that showed turbid urine with elevated white cells and bacteria and the culture is still pending for now. His blood work showed a white cell count of 14.6. His INR is at 1.7 the patient on long-term and to coagulation with Xarelto. The patient's BUN is at 41 with a creatinine of 2.1. He does have a mild component of metabolic acidosis with a serum bicarb of 17. Lactic acid was at 1.7. His proBNP level was 16,900. His troponin initially at 0.242. Currently, the patient is on examination Rocephin and Zithromax. Denies having any trauma to the chest. The patient is seen today 08/29/2019 in follow-up on the selective care unit. He is currently sitting up in bed. Awake and alert in no acute distress. Breathing is about the same today as compared to yesterday. He is maintaining O2 saturation in the low 90s on 4 L/m per nasal cannula. He's been afebrile. Ultrasound shows a left pleural effusion pocket measuring about 7.4 cm. Echocardiogram did reveal moderately impaired left ventricular systolic function with ejection fraction 35-40%. Moderate pulmonary hypertension with an RVSP of 52 mmHg. MRI of the brain revealed diffuse degenerative changes with greater central component correlate for atrophy versus normal pressure hydrocephalus. Diffuse nonspecific white matter changes felt to be related to remote ischemic change . Left cerebellar hemisphere remote infarct. No noted metastases. Blood cultures pending. Urine culture reveals no growth. Sputum culture pending. Sodium 138. Potassium 5.6. Creatinine 2.56. He is continued on ceftriaxone. He is on Lasix 60 mg IV every 8 hours. Xarelto for DVT prophylaxis currently on hold for thoracentesis today. The patient is seen today 08/30/2018 in follow-up on the selective care unit. He is currently resting comfortably in bed. Awake and alert in no acute distress. He denies any worsening shortness of breath, cough or congestion. He does desaturate to 86% on room air. He is currently 97% oxygenation on 4 L/m per nasal cannula. Sputum culture reveals no growth. Sodium 136. Potassium 5.5. Creatinine 3.25. Urine culture pending. He is currently on ceftriaxone and azithromycin. Remains on dobutamine at 2.5 mcg/kg/m. Also Lasix 60 mg IVP every 8 hours. Anticoagulated with Xarelto. Objective - Vital Signs Vital signs: Vital Signs Temp 97.6 F 08/30/19 11:49 Pulse 55 L 11/09/19 11:49 Resp 20 08/30/19 11:49 BP 102/59 08/30/19 11:49 Pulse Ox 97 08/30/19 11:49 Intake & Output 08/29/19 08/30/19 08/30/19 18:59 06:59 18:59 Intake Total 720 200 360 Output Total 200 Balance 720 200 160 Weight 106.5 kg Intake: Intake, IV Titration 200 Amount Sodium Chloride 0.9% 1, 200 000 ml @ 40 mls/hr IV . Q24H [facility] Rx#:[id number] Oral 720 360 Output: Urine 200 Uretheral (Robb) 200 Post Void Residual 0 Other: Voiding Method Urinal Urinal Urinal # Voids 0 0 # Bowel Movements 0 - Exam Gen. appearance, pleasant 74-year-old gentleman, comfortable in no acute distress. On 4 L nasal cannula. Head exam was generally normal. There was no scleral icterus or corneal arcus. Mucous membranes were moist. Neck was supple and without jugular venous distension, thyromegaly, or carotid bruits. Carotids were easily palpable bilaterally. There was no adenopathy. Lungs sounds are diminished on the left compared to the right and there is also some dullness to percussion on the left. Breath sounds are quite diminished in the left lung base. No rhonchi. No wheezes. Cardiac exam revealed the PMI to be normally situated and sized. The rhythm was regular and no extrasystoles were noted during several minutes of auscultation. The first and second heart sounds were normal and physiologic splitting of the second heart sound was noted. There were no murmurs, rubs, clicks, or gallops. Abdominal exam revealed normal bowel sounds. The abdomen was soft, non-tender, and without masses, organomegaly, or appreciable enlargement of the abdominal aorta. Examination of the extremities revealed easily palpable radial, femoral and pedal pulses. There was no cyanosis, clubbing or edema. There are some areas of skin bruising in the lower extremities related to previous falls. Neurologically the patient is awake and alert. Gait was not assessed. No focal neurological deficits. - Labs CBC & Chem 7: 08/27/19 12:18 08/30/19 10:31 Labs: Abnormal Lab Results - Last 24 Hours (Table) 08/29/19 08/29/19 08/29/19 Range/Units 16:41 17:25 20:28 Sodium 136 L (137-145) mmol/L Potassium 5.6 H (3.5-5.1) mmol/L Carbon Dioxide 19 L (22-30) mmol/L BUN 59 H (9-20) mg/dL Creatinine 2.70 H (0.66-1.25) mg/dL Glucose 260 H (74-99) mg/dL POC Glucose (mg/dL) 291 H 180 H (75-99) mg/dL Urine Protein (Negative) Urine Blood (Negative) Ur Leukocyte Esterase (Negative) Urine RBC (0-5) /hpf Urine WBC (0-5) /hpf Amorphous Sediment (None) /hpf Hyaline Casts (0-2) /lpf Urine Mucus (None) /hpf 08/30/19 08/30/19 08/30/19 Range/Units 06:11 06:27 06:41 Sodium (137-145) mmol/L Potassium (3.5-5.1) mmol/L Carbon Dioxide (22-30) mmol/L BUN (9-20) mg/dL Creatinine (0.66-1.25) mg/dL Glucose (74-99) mg/dL POC Glucose (mg/dL) 57 L 45 L 42 L (75-99) mg/dL Urine Protein (Negative) Urine Blood (Negative) Ur Leukocyte Esterase (Negative) Urine RBC (0-5) /hpf Urine WBC (0-5) /hpf Amorphous Sediment (None) /hpf Hyaline Casts (0-2) /lpf Urine Mucus (None) /hpf 08/30/19 08/30/19 08/30/19 Range/Units 06:59 10:31 11:00 Sodium 136 L (137-145) mmol/L Potassium 5.5 H (3.5-5.1) mmol/L Carbon Dioxide 20 L (22-30) mmol/L BUN 65 H (9-20) mg/dL Creatinine 3.25 H (0.66-1.25) mg/dL Glucose 146 H (74-99) mg/dL POC Glucose (mg/dL) 139 H (75-99) mg/dL Urine Protein 1+ H (Negative) Urine Blood Moderate H (Negative) Ur Leukocyte Esterase Small H (Negative) Urine RBC 83 H (0-5) /hpf Urine WBC 12 H (0-5) /hpf Amorphous Sediment Rare H (None) /hpf Hyaline Casts 20 H (0-2) /lpf Urine Mucus Rare H (None) /hpf 08/30/19 Range/Units 11:37 Sodium (137-145) mmol/L Potassium (3.5-5.1) mmol/L Carbon Dioxide (22-30) mmol/L BUN (9-20) mg/dL Creatinine (0.66-1.25) mg/dL Glucose (74-99) mg/dL POC Glucose (mg/dL) 159 H (75-99) mg/dL Urine Protein (Negative) Urine Blood (Negative) Ur Leukocyte Esterase (Negative) Urine RBC (0-5) /hpf Urine WBC (0-5) /hpf Amorphous Sediment (None) /hpf Hyaline Casts (0-2) /lpf Urine Mucus (None) /hpf Microbiology - Last 24 Hours (Table) 08/28/19 11:25 Gram Stain - Final Sputum Sputum Culture - Final 08/27/19 13:30 Blood Culture Gram Stain - Final Blood Blood Culture - Preliminary Coagulase Negative Staph Coagulase Negative Staph#2 08/28/19 10:15 Urine Culture - Final Urine,Voided Assessment and Plan Assessment: 1 left lung opacity likely the evolution of a left-sided pleural effusion. The patient has had previous chronic left-sided pleural effusion that has been drained and the patient has undergone thoracentesis in the past and the fluid cytology was negative for malignancy. Nevertheless, during this current hospitalization the patient developed interval worsening of the left-sided pleural effusion based on the comparison of chest x-rays between 08/27/2019 and 08/28/2019. As such, traumatic left-sided pleural effusion is to be considered including the possibility of a hemothorax knowing that the patient anticoagulation. Malignant pleural effusions felt to be less likely. Computed tomography scan of the chest on 08/29/2019 revealed small to moderate bilateral pleural effusions. There is groundglass throughout the mid to lower lung humphries more confluent airspace disease on the left. There is extensive volume loss and consolidation throughout the left lower lobe and new within the inferior lingula and left perihilar region. 2 squamous cell lung cancer locally advanced post-chemoradiation therapy back in 2015 with good response based on subsequent PET scans in the CAT scan of the chest that was done in January 2019 3 episodic falls. Rule out OBGYN NURSE metastases based on his history of squamous cell lung cancer. Rule out hypoglycemia as the patient has been having W hypoglycemia that were witnessed also in the hospital. 4 diabetes mellitus 5 coronary artery disease with previous DE, with a troponin leak 6 history of CVA involving the right frontal lobe 7 history of atrial fibrillation/flutter and the patient's rhythm is sinus and the patient is demented on long-term and to coagulation with Xarelto. 8 hyperlipidemia Plan The patient was seen and evaluated by Dr. Alarcon. Computed tomography scan of the chest was reviewed. Continue diuretics. Currently on ceftriaxone and azithromycin. Monitor kidney function. Ultrasound of the kidneys revealed questionable right lower lobe cyst. No hydronephrosis. We will continue to follow and make further recommendations based on his clinical status. I, the cosigning physician, performed a history & physical examination of the patient. Lungs sounds diminished in the left lung base. Maintaining good O2 saturations in the 90s on 4 L/m per nasal cannula. I discussed the assessment and plan of care with my nurse practitioner, Jessica Schwartz. I attest to the above note as dictated by her.
--- NOTE | 2019-08-30 15:32 | PN ---
PROGRESS NOTE The patient is seen for followup for acute kidney injury. He continues to have very poor urine output. The patient was quite hypotensive yesterday. He is currently maintained on Lasix 60 mg q.8 hours. We had a straight catheterization done this morning to rule out urine retention. Patient had about 150 of urine at that time. His EF is low at about 35-40%. I discussed with Cardiology and we will start low-dose dobutamine to help with the acute kidney injury and CHF. PHYSICAL EXAMINATION: This morning blood pressure was 107/56, heart rate of 50 per minute, patient is afebrile. Examination of the heart S1, S2. Examination of the lungs, decreased breath sounds at the bases. Abdomen is soft, nontender, obese. Examination of lower extremities shows 2+ edema bilaterally. MANAGING EDITOR exam grossly intact. LABS: Show sodium 136, potassium 5.5, BUN 65, serum creatinine 3.25. ASSESSMENT: 1. Acute kidney injury, cardiorenal, no significant response to Lasix. Patient's urine output remains low. We will add dobutamine. 2. Congestive heart failure, systolic acute on top of chronic. 3. Cardiomyopathy, ejection fraction, 35-40%. 4. Volume overload. 5. Chronic kidney disease. Previous creatinine about 1.5 in 2018. 1.9 in March of 2019. Etiology likely diabetic nephropathy, nephrosclerosis. 6. Pyuria. Urine cultures showed no growth. 7. Coagulase-negative Staph bacteremia. 8. Hyperkalemia associated with acute kidney injury. No evidence of urine retention. Blood sugars are not as high as previously noted. Continue with low-potassium diet. Continue with the Lasix. PLAN: Add dobutamine. Continue low-potassium diet. Repeat labs in a.m. Continue with current dose of Lasix. MMODL / IJN: [id number] /
[2019-08-30] MEDS: MIDODRINE 5 MG TAB PO SCH (15:57)
[2019-08-30 16:29] LABS: Glucose,Whole Blood 122 mg/dL (75-99)
[2019-08-30] MEDS: RIVAROXABAN 20 MG TAB PO SCH (17:24)
[2019-08-30 20:38] LABS: Glucose,Whole Blood 169 mg/dL (75-99)
[2019-08-30] MEDS ORDERED: INSULIN DETEMIR (LEVEMIR) 100 UNIT/ML SYR SQ SCH (21:00)
[2019-08-30] MEDS: ATENOLOL 25 MG TAB PO SCH (21:03)
[2019-08-30] MEDS: glipiZIDE 5 MG TAB PO SCH (21:03)
[2019-08-31 06:13] LABS: Glucose,Whole Blood 79 mg/dL (75-99)
[2019-08-31] MEDS: INSULIN ASPART (NovoLOG) 100 UNIT/ML VIAL SQ SCH ×4 (06:31→20:46)
[2019-08-31 06:32] LABS: Calcium 8.4 mg/dL (8.4-10.2)
[2019-08-31] MEDS: MIDODRINE 5 MG TAB PO SCH ×2 (06:32→17:22)
[2019-08-31 06:35] LABS: Anisocytosis Slight; HCT 30.2 % (39.0-53.0); Hypochromasia Moderate; MCH 28.4 pg (25.0-35.0); MCHC 33.1 g/dL (31.0-37.0); MCV 85.9 fL (80.0-100.0); Mean Platelet Volume 6.2; Platelet Count 267 k/uL (150-450); RBC 3.51 m/uL (4.30-5.90); RDW 17.3 % (11.5-15.5); WBC 9.3 k/uL (3.8-10.6)
--- NOTE | 2019-08-31 07:38 | XR ---
EXAMINATION TYPE: XR chest 1V DATE OF EXAM: 08/31/2019 HISTORY: chf. REFERENCE: Previous study dated 08/29/2019. FINDINGS: The Mediport in place via a right internal jugular approach. Its tip is in the superior hai a cava. There is worsening opacity of the left lung. This is likely a combination of pleural fluid an d airspace disease. There is vascular congestion and interstitial change on the right. This is worsen ed slightly. Heart size is obscured. IMPRESSION: 1. WORSENING OPACITY LEFT HEMITHORAX. 2. INCREASED INTERSTITIAL CHANGE ON THE RIGHT MAY REFLECT SUPERIMPOSED PULMONARY EDEMA.
[2019-08-31] MEDS: ATORVASTATIN 80 MG TAB PO SCH (08:02)
[2019-08-31] MEDS: AZITHROMYCIN 500 MG TAB PO SCH (08:02)
[2019-08-31] MEDS: AMIODARONE 100 MG TAB PO SCH (08:02)
[2019-08-31] MEDS: ASPIRIN 81 MG PO SCH (08:02)
[2019-08-31] MEDS: buPROPion XL 150 MG TAB.ER.24H PO SCH (08:02)
[2019-08-31] MEDS: FUROSEMIDE 10 MG/ML 10 ML VIAL IV SCH (09:16)
[2019-08-31] MEDS ORDERED: cefTRIAXone IN SWFI 1,000 MG/10 ML SYRINGE IVP ONE (10:00)
--- NOTE | 2019-08-31 10:33 | PN ---
PROGRESS NOTE Patient is seen for followup for acute kidney injury secondary to cardiorenal syndrome. Patient was started on dobutamine yesterday. Urine output seems to have improved slightly. Serum creatinine is further elevated today. Blood pressure remains on the lower side. Patient has been started on oral midodrine as well. PHYSICAL EXAMINATION: On examination today, blood pressure is 85/51, heart rate 64 per minute, he is afebrile. Examination of the heart S1, S2. Examination of the lungs, decreased breath sounds at bases. Crackles are heard at the bases. Abdomen is soft, nontender. Examination of lower extremities shows edema 2+ bilaterally. TUBING ASSEMBLER exam grossly intact. LAB: Show sodium 136, potassium 5.2, BUN 69, creatinine 3.7, hemoglobin 10.0. ASSESSMENT: 1. Acute kidney injury, cardiorenal, although serum creatinine is higher today. Urine output has picked up with initiation of dobutamine. I will continue the current dose of Lasix along with the dobutamine. Continue with the midodrine as well for hypotension. 2. Atrial fibrillation with controlled ventricular response. 3. Pyuria with urine culture currently negative. 4. Coagulase-negative Staph bacteremia. Repeat blood culture, possibly contaminant. PLAN: Continue with midodrine. Continue dobutamine. Continue current dose of IV Lasix. No evidence of urinary retention. MMODL / IJN: [id number] /
--- NOTE | 2019-08-31 11:03 | P.PN ---
Subjective 74-year-old the with advanced non-small cell lung cancer is admitted for hypoglycemia. Patient's oral hyperglycemic agents will be discontinued and patient's long-acting insulin will be cut down to 25 units from 30 units along and will be continued on sliding scale insulin. has multiple other issues going on at this time including bilateral pleural effusion probably malignant effusions chronic left-sided pleural effusion patient is supposed to undergo thoracentesis attempted thoracentesis yesterday from which the unable to get any fluid. Patient is also being treated for pneumonia. Patient baseline creatinine 1.5 . Check CAT scan is consistent with pulmonary edema because of which patient is on Lasix. Patient also has elevated serum potassium of 5.7. Patient had worsening creatinine up to 2.7. Although patient is volume ove rloaded because of which patient is receiving Lasix nephrology was consulted nephrology is following the patient. Patient has episodic falls because of which [employer]ER[employer]AL[employer] metastasis was ruled out with MRIs. Patient is presently off oxygen denied any complaints at this time doesn't actually moved last bowel movement was 3 days ago. 08/31/2019 Patient's kidney function continued to get worse and patient was started on dobutamine drip and is being continued on present dose of Lasix chest x-ray showing worsening pleural effusion on the left side. Patient although clinically doesn't feel any different compared to yesterday Constitutional: Denied any fatigue denied any fever. Cardio vascular: denied any chest pain, palpitations Gastrointestinal denied any nausea vomiting Pulmonary: Denied any shortness of breath cough Neurologic denied any new focal deficits All inpatient medications were reviewed and appropriate changes in these medications as dictated in the interval history and assessment and plan. Objective - Vital Signs Vital signs: Vital Signs Temp 97.4 F L 08/31/19 07:54 Pulse 59 L 08/31/19 09:10 Resp 20 08/31/19 08:00 BP 97/55 08/31/19 09:10 Pulse Ox 95 08/31/19 07:54 Intake & Output 08/30/19 08/31/19 08/31/19 18:59 06:59 18:59 Intake Total 600 344 Output Total 230 Balance 370 344 Weight 117.3 kg 117 kg Intake: IV 40 Sodium Chloride 0.9% 1, 40 000 ml @ 40 mls/hr IV . Q24H [facility] Rx#:[id number] Intake, IV Titration 64 Amount DOBUTamine DRIP 500 mg In 64 Dextrose/Water 1 250ml. bag @ 2.5 MCG/KG/MIN 7. 988 mls/hr IV .Q24H [facility] Rx#:[id number] Oral 600 240 Output: Urine 230 Uretheral (Robb) 200 Post Void Residual 0 Other: Voiding Method Urinal Urinal Urinal # Voids 0 # Bowel Movements 0 - Exam PHYSICAL EXAMINATION: GENERAL: The patient is alert and oriented x3, not in any acute distress. Well developed, well nourished. HEENT: Pupils are round and equally reacting to light. EOMI. No scleral icterus. No conjunctival pallor. Normocephalic, atraumatic. No pharyngeal erythema. No thyromegaly. CARDIOVASCULAR: S1 and S2 present. No murmurs, rubs, or gallops. PULMONARY: crackles in the left side of the chest and decreased air entry into the left side of the chest posteriorly ABDOMEN: Soft, nontender, nondistended, normoactive bowel sounds. No palpable organomegaly. MUSCULOSKELETAL: No joint swelling or deformity. EXTREMITIES: No cyanosis, clubbing, or pedal edema. NEUROLOGICAL: Gross neurological examination did not reveal any new focal deficits. Patient does have generalized weakness SKIN: No rashes. - Labs CBC & Chem 7: 08/31/19 06:04 08/31/19 06:04 Labs: Abnormal Lab Results - Last 24 Hours (Table) 08/30/19 08/30/19 08/30/19 Range/Units 10:31 11:00 11:37 RBC (4.30-5.90) m/uL Hgb (13.0-17.5) gm/dL Hct (39.0-53.0) % RDW (11.5-15.5) % Sodium 136 L (137-145) mmol/L Potassium 5.5 H (3.5-5.1) mmol/L Carbon Dioxide 20 L (22-30) mmol/L BUN 65 H (9-20) mg/dL Creatinine 3.25 H (0.66-1.25) mg/dL Glucose 146 H (74-99) mg/dL POC Glucose (mg/dL) 159 H (75-99) mg/dL Urine Protein 1+ H (Negative) Urine Blood Moderate H (Negative) Ur Leukocyte Esterase Small H (Negative) Urine RBC 83 H (0-5) /hpf Urine WBC 12 H (0-5) /hpf Amorphous Sediment Rare H (None) /hpf Hyaline Casts 20 H (0-2) /lpf Urine Mucus Rare H (None) /hpf 08/30/19 08/30/19 08/31/19 Range/Units 16:27 20:36 06:04 RBC 3.51 L (4.30-5.90) m/uL Hgb 10.0 L D (13.0-17.5) gm/dL Hct 30.2 L (39.0-53.0) % RDW 17.3 H (11.5-15.5) % Sodium (137-145) mmol/L Potassium (3.5-5.1) mmol/L Carbon Dioxide (22-30) mmol/L BUN (9-20) mg/dL Creatinine (0.66-1.25) mg/dL Glucose (74-99) mg/dL POC Glucose (mg/dL) 122 H 169 H (75-99) mg/dL Urine Protein (Negative) Urine Blood (Negative) Ur Leukocyte Esterase (Negative) Urine RBC (0-5) /hpf Urine WBC (0-5) /hpf Amorphous Sediment (None) /hpf Hyaline Casts (0-2) /lpf Urine Mucus (None) /hpf 08/31/19 Range/Units 06:04 RBC (4.30-5.90) m/uL Hgb (13.0-17.5) gm/dL Hct (39.0-53.0) % RDW (11.5-15.5) % Sodium 136 L (137-145) mmol/L Potassium (3.5-5.1) mmol/L Carbon Dioxide (22-30) mmol/L BUN 69 H (9-20) mg/dL Creatinine 3.71 H (0.66-1.25) mg/dL Glucose 70 L (74-99) mg/dL POC Glucose (mg/dL) (75-99) mg/dL Urine Protein (Negative) Urine Blood (Negative) Ur Leukocyte Esterase (Negative) Urine RBC (0-5) /hpf Urine WBC (0-5) /hpf Amorphous Sediment (None) /hpf Hyaline Casts (0-2) /lpf Urine Mucus (None) /hpf Microbiology - Last 24 Hours (Table) 08/27/19 13:30 Blood Culture Gram Stain - Final Blood Blood Culture - Final Coagulase Negative Staph Coagulase Negative Staph#2 08/30/19 11:00 Urine Culture - Preliminary Urine,Catheterized 08/28/19 11:25 Gram Stain - Final Sputum Sputum Culture - Final Assessment and Plan Plan: Hypoglycemia: Secondary to worsening renal function and poor per oral intake and modification of his diabetic regimen as mentioned about his continue oral hyperglycemic agents. Continue with sliding scale insulin cutting down the long-acting insulin as well. squamous cell cancer status post chemoradiation therapy -Acute hypoxic respiratory failure multifactorial secondary to congestive heart failure exacerbation bilateral pleural effusions failed thoracocentesis holding off anticoagulation at this time pulmonology is following the patient. Patient is being treated for pneumonia as well. Patient'spleural effusion is bit worse today probably will need ultrasound guided thoracocentesis community acquired pneumonia for which patient on Rocephin and azithromycin -Multiple falls secondary to generalized weakness may require disposition to subacute rehabilitation -Acute renal failure prerenal azotemia from congestive heart failure exacerbation patient has EF of around 35-40% continue with Lasix nephrology is following the patient, kidney function continued to get worse and patient was started on dopamine 20 -hyperkalemia secondary to acute renal failure further management as per nephrology, hyperkalemia did improve -Moderate pulmonary hypertension -Chronic kidney disease stage 3- probably diabetic nephropathy -Blood cultures are positive which is a contamination which is coagulase negative staph -Atrial fibrillation presently rate controlled, holding off off anti-coagulation for possible thoracocentesis. -Congestive heart failure chronic systolic dysfunction EF of around 35-40% with acute exacerbation continue with IV Lasix -Possible cardiorenal syndrome
--- NOTE | 2019-08-31 11:10 | P.PN ---
Subjective This pleasant 74-year-old male past medical history significant for coronary artery disease with a chronic total occlusion of the LAD and mild- moderate disease of the RCA and circumflex, lung cancer s/p chemo and radiation, chronic persistent atrial fibrillation, chronic systolic heart failure, renal insufficiency and ischemic cardiomyopathy. He follows the os Dr. Beard. We are following secondary to acute exacerbation of chronic heart failure. He is seen and examined sitting up in the chair in no acute distress. He states overall he feels the same. No worsening shortness of breath but no real improvement either. He denies chest pain, dizziness or palpitations. Blood pressure 90/54 hours 58 afebrile maintaining oxygen saturation on nasal cannula. Laboratory data reviewed, WBC 9.3, hemoglobin 10, platelets 267, sodium 136, potassium 5, creatinine 3.71. Urine o/p 230 cc. He has requested the decker catheter be removed. GENERAL: Well-appearing, well-nourished and in no acute distress. NECK: Supple without JVD or thyromegaly. LUNGS: Diminished bilaterally, bibasilar rales, no wheezes or rhonchi. Respiration equal and unlabored. HEART: Irregular rate and rhythm without murmurs, rubs or gallops. S1 and S2 heard. EXTREMITIES: Normal range of motion, 2+ bilateral lower extremity pitting edema. No clubbing or cyanosis. Peripheral pulses intact. ASSESSMENT Acute on chronic systolic heart failure Acute hypoxic respiratory failure, multifactorial secondary to CHF and also being treated for pneumonia Chronic persistent atrial fibrillation acute on chronic renal failure Hyperkalemia Nonischemic cardiomyopathy, ejection fraction 35-40% History of lung cancer Hypertension Dyslipidemia Diabetes mellitus PLAN Initiate lasix infusion at 10 mg. Agree with midodrine to prevent hypotension. We will continue to follow and make recommendations accordingly. Nurse Practitioner note has been reviewed, I agree with a documented findings and plan of care. Patient was seen and examined. Objective - Vital Signs Vital signs: Vital Signs Temp 97.9 F 08/31/19 11:05 Pulse 58 L 08/31/19 11:05 Resp 16 08/31/19 11:05 BP 90/54 08/31/19 11:05 Pulse Ox 99 08/31/19 11:05 Intake & Output 08/30/19 08/31/19 08/31/19 18:59 06:59 18:59 Intake Total 600 344 Output Total 230 Balance 370 344 Weight 117.3 kg 117 kg Intake: IV 40 Sodium Chloride 0.9% 1, 40 000 ml @ 40 mls/hr IV . Q24H [facility] Rx#:[id number] Intake, IV Titration 64 Amount DOBUTamine DRIP 500 mg In 64 Dextrose/Water 1 250ml. bag @ 2.5 MCG/KG/MIN 7. 988 mls/hr IV .Q24H [facility] Rx#:[id number] Oral 600 240 Output: Urine 230 Uretheral (Decker) 200 Post Void Residual 0 Other: Voiding Method Urinal Urinal Urinal # Voids 0 # Bowel Movements 0 - Labs CBC & Chem 7: 08/31/19 06:04 08/31/19 06:04 Labs: Abnormal Lab Results - Last 24 Hours (Table) 08/30/19 08/30/19 08/30/19 Range/Units 10:31 11:00 11:37 RBC (4.30-5.90) m/uL Hgb (13.0-17.5) gm/dL Hct (39.0-53.0) % RDW (11.5-15.5) % Sodium 136 L (137-145) mmol/L Potassium 5.5 H (3.5-5.1) mmol/L Carbon Dioxide 20 L (22-30) mmol/L BUN 65 H (9-20) mg/dL Creatinine 3.25 H (0.66-1.25) mg/dL Glucose 146 H (74-99) mg/dL POC Glucose (mg/dL) 159 H (75-99) mg/dL Urine Protein 1+ H (Negative) Urine Blood Moderate H (Negative) Ur Leukocyte Esterase Small H (Negative) Urine RBC 83 H (0-5) /hpf Urine WBC 12 H (0-5) /hpf Amorphous Sediment Rare H (None) /hpf Hyaline Casts 20 H (0-2) /lpf Urine Mucus Rare H (None) /hpf 08/30/19 08/30/19 08/31/19 Range/Units 16:27 20:36 06:04 RBC 3.51 L (4.30-5.90) m/uL Hgb 10.0 L D (13.0-17.5) gm/dL Hct 30.2 L (39.0-53.0) % RDW 17.3 H (11.5-15.5) % Sodium (137-145) mmol/L Potassium (3.5-5.1) mmol/L Carbon Dioxide (22-30) mmol/L BUN (9-20) mg/dL Creatinine (0.66-1.25) mg/dL Glucose (74-99) mg/dL POC Glucose (mg/dL) 122 H 169 H (75-99) mg/dL Urine Protein (Negative) Urine Blood (Negative) Ur Leukocyte Esterase (Negative) Urine RBC (0-5) /hpf Urine WBC (0-5) /hpf Amorphous Sediment (None) /hpf Hyaline Casts (0-2) /lpf Urine Mucus (None) /hpf 08/31/19 Range/Units 06:04 RBC (4.30-5.90) m/uL Hgb (13.0-17.5) gm/dL Hct (39.0-53.0) % RDW (11.5-15.5) % Sodium 136 L (137-145) mmol/L Potassium (3.5-5.1) mmol/L Carbon Dioxide (22-30) mmol/L BUN 69 H (9-20) mg/dL Creatinine 3.71 H (0.66-1.25) mg/dL Glucose 70 L (74-99) mg/dL POC Glucose (mg/dL) (75-99) mg/dL Urine Protein (Negative) Urine Blood (Negative) Ur Leukocyte Esterase (Negative) Urine RBC (0-5) /hpf Urine WBC (0-5) /hpf Amorphous Sediment (None) /hpf Hyaline Casts (0-2) /lpf Urine Mucus (None) /hpf Microbiology - Last 24 Hours (Table) 08/27/19 13:30 Blood Culture Gram Stain - Final Blood Blood Culture - Final Coagulase Negative Staph Coagulase Negative Staph#2 08/30/19 11:00 Urine Culture - Preliminary Urine,Catheterized 08/28/19 11:25 Gram Stain - Final Sputum Sputum Culture - Final
[2019-08-31 11:55] LABS: Glucose,Whole Blood 131 mg/dL (75-99)
[2019-08-31] MEDS: FUROSEMIDE 100 MG in SODIUM CHLORIDE 0.9% 90 ML IV SCH ×2 (14:28→21:38)
[2019-08-31] MEDS: DOBUTamine DRIP 500 MG in DEXTROSE/WATER 1 250ML.BAG IV SCH (14:28)
--- NOTE | 2019-08-31 15:02 | P.PN ---
Subjective Progress Note Date: 08/31/19 A 74-year-old male patient with locally advanced non-small cell lung cancer that was diagnosed in 2016 and at that time the patient underwent a bronchoscopy and transbronchial needle aspirate of a left hilar mass show this, cell carcinoma. The patient was treated by Dr. Whipple and I believe he received a combination of chemoradiation therapy. He responded nicely and a follow-up PET scan done on 03/31/2017 showed no suspicious masses or metabolic activity within the chest area. In follow-up CAT scan of the chest abdomen and pelvis that was done on 02/07/2019 showed a stable left lower lobe consolidation and left hilar soft tissue prominence with small effusion. There was only a subpleural severe segment right lower lobe pulmonary nodule measuring 3 mm in size. The patient was a short and he was asked to follow-up. Note that the CAT scan of the abdomen and pelvis also showed bilateral nonobstructive nephrolithiasis. Over the past 2-3 weeks, the patient was found to be altered and having episodes of mental status change. I did not find this with the patient the patient was able to respond to my questions appropriately. Apparently was been having also episodes of falls. He was found on the floor unable admission and the he didn't know how he got there and apparently was altered mentally. EMS came to the scene and the patient's sugar was 45. At that time he was given glucose. IV was established. The patient was brought into the hospital. He was not having any significant shortness of breath or headache. No seizure activity has been noted. Denied having any focal numbness or weakness. He denies having any chest pain. No palpitation. No fever. No chills. No aspiration. His initial chest x-ray showed a small left-sided pleural effusion and subsequent chest x- ray that was done today showed significant opacification of left lung compared to the right consistent with development of a left-sided pleural effusion. His appetite is poor. He did have another bout of hypoglycemia here in the hospital with a low sugar of 32 and he was given IV glucose. His most recent blood sugar is at 213. He does have an underlying UTI based on the urine analysis that christoph wed turbid urine with elevated white cells and bacteria and the culture is still pending for now. His blood work showed a white cell count of 14.6. His INR is at 1.7 the patient on long-term and to coagulation with Xarelto. The patient's BUN is at 41 with a creatinine of 2.1. He does have a mild component of metabolic acidosis with a serum bicarb of 17. Lactic acid was at 1.7. His proBNP level was 16,900. His troponin initially at 0.242. Currently, the patient is on examination Rocephin and Zithromax. Denies having any trauma to the chest. The patient is seen today 08/29/2019 in follow-up on the selective care unit. He is currently sitting up in bed. Awake and alert in no acute distress. Breathing is about the same today as compared to yesterday. He is maintaining O2 saturation in the low 90s on 4 L/m per nasal cannula. He's been afebrile. Ultrasound shows a left pleural effusion pocket measuring about 7.4 cm. Echocardiogram did reveal moderately impaired left ventricular systolic function with ejection fraction 35-40%. Moderate pulmonary hypertension with an RVSP of 52 mmHg. MRI of the brain revealed diffuse degenerative changes with greater central component correlate for atrophy versus normal pressure hydrocephalus. Diffuse nonspecific white matter changes felt to be related to remote ischemic change . Left cerebellar hemisphere remote infarct. No noted metastases. Blood cultures pending. Urine culture reveals no growth. Sputum culture pending. Sodium 138. Potassium 5.6. Creatinine 2.56. He is continued on ceftriaxone. He is on Lasix 60 mg IV every 8 hours. Xarelto for DVT prophylaxis currently on hold for thoracentesis today. The patient is seen today 08/30/2018 in follow-up on the selective care unit. He is currently resting comfortably in bed. Awake and alert in no acute distress. He denies any worsening shortness of breath, cough or congestion. He does desaturate to 86% on room air. He is currently 97% oxygenation on 4 L/m per nasal cannula. Sputum culture reveals no growth. Sodium 136. Potassium 5.5. Creatinine 3.25. Urine culture pending. He is currently on ceftriaxone and azithromycin. Remains on dobutamine at 2.5 mcg/kg/m. Also Lasix 60 mg IVP every 8 hours. Anticoagulated with Xarelto On 08/31/2019, the patient is still on dobutamine drip. He is also on a Lasix. Function is slightly worse compared to yesterday. Still edematous lower extremities. No significant respiratory distress. No chest pain. Creatinine up to 3.25 with a BUN of 65. Nephrology is also on the case. Objective - Vital Signs Vital signs: Vital Signs Temp 97.9 F 08/31/19 11:05 Pulse 58 L 08/31/19 11:05 Resp 16 08/31/19 11:05 BP 90/54 08/31/19 11:05 Pulse Ox 99 08/31/19 11:05 Intake & Output 08/30/19 08/31/19 08/31/19 18:59 06:59 18:59 Intake Total 600 668.759 Output Total 230 75 Balance 370 593.759 Weight 117.3 kg 117 kg Intake: IV 40 Sodium Chloride 0.9% 1, 40 000 ml @ 40 mls/hr IV . Q24H [facility] Rx#:[id number] Intake, IV Titration 268.759 Amount DOBUTamine DRIP 500 mg In 268.759 Dextrose/Water 1 250ml. bag @ 2.5 MCG/KG/MIN 7. 988 mls/hr IV .Q24H [facility] Rx#:[id number] Oral 600 360 Output: Urine 230 75 Uretheral (Robb) 200 Post Void Residual 0 Other: Voiding Method Urinal Urinal Urinal # Voids 0 1 # Bowel Movements 0 - Exam Gen. appearance, pleasant 74-year-old gentleman, comfortable in no acute distress. On 4 L nasal cannula. Head exam was generally normal. There was no scleral icterus or corneal arcus. Mucous membranes were moist. Neck was supple and without jugular venous distension, thyromegaly, or carotid bruits. Carotids were easily palpable bilaterally. There was no adenopathy. Lungs sounds are diminished on the left compared to the right and there is also some dullness to percussion on the left. Breath sounds are quite diminished in the left lung base. No rhonchi. No wheezes. Cardiac exam revealed the PMI to be normally situated and sized. The rhythm was regular and no extrasystoles were noted during several minutes of auscultation. The first and second heart sounds were normal and physiologic splitting of the second heart sound was noted. There were no murmurs, rubs, clicks, or gallops. Abdominal exam revealed normal bowel sounds. The abdomen was soft, non-tender, and without masses, organomegaly, or appreciable enlargement of the abdominal aorta. Examination of the extremities revealed easily palpable radial, femoral and pedal pulses. There was no cyanosis, clubbing or edema. There are some areas of skin bruising in the lower extremities related to previous falls. Neurologically the patient is awake and alert. Gait was not assessed. No focal neurological deficits. - Labs CBC & Chem 7: 08/31/19 06:04 08/31/19 06:04 Labs: Abnormal Lab Results - Last 24 Hours (Table) 08/30/19 08/30/19 08/31/19 Range/Units 16:27 20:36 06:04 RBC 3.51 L (4.30-5.90) m/uL Hgb 10.0 L D (13.0-17.5) gm/dL Hct 30.2 L (39.0-53.0) % RDW 17.3 H (11.5-15.5) % Sodium (137-145) mmol/L BUN (9-20) mg/dL Creatinine (0.66-1.25) mg/dL Glucose (74-99) mg/dL POC Glucose (mg/dL) 122 H 169 H (75-99) mg/dL 08/31/19 08/31/19 Range/Units 06:04 11:53 RBC (4.30-5.90) m/uL Hgb (13.0-17.5) gm/dL Hct (39.0-53.0) % RDW (11.5-15.5) % Sodium 136 L (137-145) mmol/L BUN 69 H (9-20) mg/dL Creatinine 3.71 H (0.66-1.25) mg/dL Glucose 70 L (74-99) mg/dL POC Glucose (mg/dL) 131 H (75-99) mg/dL Microbiology - Last 24 Hours (Table) 08/30/19 11:00 Urine Culture - Final Urine,Catheterized 08/27/19 13:30 Blood Culture Gram Stain - Final Blood Blood Culture - Final Coagulase Negative Staph Coagulase Negative Staph#2 08/28/19 11:25 Gram Stain - Final Sputum Sputum Culture - Final Assessment and Plan Plan: 1 left lung opacity likely the evolution of a left-sided pleural effusion. The patient has had previous chronic left-sided pleural effusion that has been drained and the patient has undergone thoracentesis in the past and the fluid cytology was negative for malignancy. Nevertheless, during this current hospitalization the patient developed interval worsening of the left-sided pleural effusion based on the comparison of chest x-rays between 08/27/2019 and 08/28/2019. As such, traumatic left-sided pleural effusion is to be considered including the possibility of a hemothorax knowing that the patient anticoagulation. Malignant pleural effusions felt to be less likely. 2 squamous cell lung cancer locally advanced post-chemoradiation therapy back in 2016 with good response based on subsequent PET scans in the CAT scan of the chest that was done in January 2019 3 episodic falls. Rule out REFINER OPERATOR metastases based on his history of squamous cell lung cancer. Rule out hypoglycemia as the patient has been having W hypogl ycemia that were witnessed also in the hospital. MRI of the brain showed no evidence of any REFINER OPERATOR metastases. 4 diabetes mellitus 5 coronary artery disease with previous ID, with a troponin leak 6 history of CVA involving the right frontal lobe 7 history of atrial fibrillation/flutter and the patient's rhythm is sinus and the patient is demented on long-term and to coagulation with Xarelto. 8 hyperlipidemia 9 acute on chronic systolic heart failure 10 acute kidney injury Plan On the pulmonary standpoint, the patient has small pleural effusions. No need for any thoracentesis. I will leave the rest of the management of CHF and renal failure to cardiology and nephrology is involved in the patient's care and the patient's currently receiving a combination of dobutamine and Lasix. Monitor renal function. Monitor fluid balance.
[2019-08-31 16:55] LABS: Glucose,Whole Blood 131 mg/dL (75-99)
[2019-08-31] MEDS: RIVAROXABAN 20 MG TAB PO SCH (17:22)
[2019-08-31 20:35] LABS: Glucose,Whole Blood 197 mg/dL (75-99)
[2019-08-31] MEDS: INSULIN DETEMIR (LEVEMIR) 100 UNIT/ML SYR SQ SCH (20:46)
[2019-09-01] MEDS: FUROSEMIDE 100 MG in SODIUM CHLORIDE 0.9% 90 ML IV SCH ×2 (05:58→17:20)
[2019-09-01 06:24] LABS: Glucose,Whole Blood 119 mg/dL (75-99)
[2019-09-01 06:29] LABS: Anisocytosis Slight; HCT 31.4 % (39.0-53.0); Hypochromasia Moderate; MCH 27.7 pg (25.0-35.0); MCV 86.7 fL (80.0-100.0); Platelet Count 278 k/uL (150-450); RBC 3.62 m/uL (4.30-5.90); RDW 17.6 % (11.5-15.5); WBC 9.8 k/uL (3.8-10.6)
[2019-09-01] MEDS: MIDODRINE 5 MG TAB PO SCH ×2 (06:35→18:25)
[2019-09-01] MEDS: INSULIN ASPART (NovoLOG) 100 UNIT/ML VIAL SQ SCH ×4 (06:35→21:05)
[2019-09-01 06:53] LABS: Calcium 8.8 mg/dL (8.4-10.2); Potassium 5.4 mmol/L (3.5-5.1)
[2019-09-01] MEDS: ASPIRIN 81 MG PO SCH (08:34)
[2019-09-01] MEDS: ATORVASTATIN 80 MG TAB PO SCH (08:34)
[2019-09-01] MEDS: AZITHROMYCIN 500 MG TAB PO SCH (08:34)
[2019-09-01] MEDS: buPROPion XL 150 MG TAB.ER.24H PO SCH (08:35)
[2019-09-01] MEDS: AMIODARONE 100 MG TAB PO SCH (08:35)
--- NOTE | 2019-09-01 10:46 | P.PN ---
Subjective Progress Note Date: 09/01/19 09/01/2019 sitting up in chair, pleasantly confused. Complains of mild shortness of breath. Maintaining 94% on 3 L nasal cannula, 84-88% on room air. Appetite poor. Staff reports patient is a 1-2 person assist. Physical therapy recommended subacute rehab at discharge. Maintained on both dobutamine and Lasix drips. Creatinine mildly improved, down to 3.61, potassium 5.4. Yesterday chest x-ray suggested worsening pleural effusion on the left side, No thoracentesis recommended per pulmonary. Objective - Vital Signs Vital signs: Vital Signs Temp 98.3 F 09/01/19 03:05 Pulse 59 L 09/01/19 03:05 Resp 18 09/01/19 03:05 BP 97/50 09/01/19 03:05 Pulse Ox 94 L 09/01/19 03:05 Intake & Output 08/31/19 09/01/19 09/01/19 18:59 06:59 18:59 Intake Total 908.759 155.000 Output Total 475 Balance 433.759 155.000 Weight 120.3 kg Intake: IV 40 Sodium Chloride 0.9% 1, 40 000 ml @ 40 mls/hr IV . Q24H [facility] Rx#:[id number] Intake, IV Titration 268.759 155.000 Amount DOBUTamine DRIP 500 mg In 268.759 Dextrose/Water 1 250ml. bag @ 2.5 MCG/KG/MIN 7. 988 mls/hr IV .Q24H [facility] Rx#:[id number] Furosemide 100 mg In 155.000 Sodium Chloride 0.9% 90 ml @ 10 MG/HR 10 mls/hr IV .Q10H [facility] Rx#: [id number] Oral 600 Output: Urine 475 Other: Voiding Method Urinal Urinal # Voids 1 - Exam PHYSICAL EXAM: VITAL SIGNS: [As above] GENERAL: Sitting up in chair, alert and oriented 2. HEENT: Conjunctivae normal. eyes normal. Oral mucosa moist NECK: No JVD. No thyroid enlargement. No LNs CARDIOVASCULAR: S1, S2 regular.. No murmur RESPIRATION: Breath sounds diminished in the bases. No rhonchi. Fine left basilar crackles. ABDOMEN: Soft, nontender . No guarding. no masses palpable.Bowel sounds heard. LEGS: Positive edema. Left lower extremity dressing clean dry and intact(site of care skin tear to fall). NERVOUS SYSTEM: Cranial N 2-12 grossly normal. Moves all 4 limbs. Diffuse generalized weakness, No focal deficits. Strength and sensation grossly intact.. SKIN: No rashes. - Labs CBC & Chem 7: 09/01/19 06:16 09/01/19 06:16 Labs: Abnormal Lab Results - Last 24 Hours (Table) 08/31/19 08/31/19 08/31/19 Range/Units 11:53 16:54 20:34 RBC (4.30-5.90) m/uL Hgb (13.0-17.5) gm/dL Hct (39.0-53.0) % RDW (11.5-15.5) % Sodium (137-145) mmol/L Potassium (3.5-5.1) mmol/L Carbon Dioxide (22-30) mmol/L BUN (9-20) mg/dL Creatinine (0.66-1.25) mg/dL Glucose (74-99) mg/dL POC Glucose (mg/dL) 131 H 131 H 197 H (75-99) mg/dL 09/01/19 09/01/19 09/01/19 Range/Units 06:16 06:16 06:23 RBC 3.62 L (4.30-5.90) m/uL Hgb 10.0 L (13.0-17.5) gm/dL Hct 31.4 L (39.0-53.0) % RDW 17.6 H (11.5-15.5) % Sodium 136 L (137-145) mmol/L Potassium 5.4 H (3.5-5.1) mmol/L Carbon Dioxide 21 L (22-30) mmol/L BUN 74 H (9-20) mg/dL Creatinine 3.61 H (0.66-1.25) mg/dL Glucose 117 H (74-99) mg/dL POC Glucose (mg/dL) 119 H (75-99) mg/dL Microbiology - Last 24 Hours (Table) 08/30/19 11:00 Urine Culture - Final Urine,Catheterized 08/27/19 13:30 Blood Culture Gram Stain - Final Blood Blood Culture - Final Coagulase Negative Staph Coagulase Negative Staph#2 Assessment and Plan Assessment: Acute hypoxic respiratory failure, multifactorial secondary to acute on chronic systolic CHF exacerbation, bilateral pleural effusions, community-acquired pneumonia. Nonischemic cardiomyopathy, EF 35-40% Left lung opacity, left-sided traumatic pleural effusion suspected in a patient with previous chronic left-sided pleural effusion-status post prior thoracentesis with negative fluid cytology for malignancy. Chronic persistent atrial fibrillation Acute on chronic renal failure stage III, suspect diabetic nephropathy, cardiorenal syndrome. Diabetes mellitus, hypoglycemia secondary to poor oral intake, worsening renal function, currently stable Hyperkalemia secondary to acute on chronic renal failure Blood cultures reporting coagulase-negative staph, contamination Hypertension hyperlipidemia History of lung CA, squamous cell, status post chemoradiation treatment Gait dysfunction with multiple falls. MRI of the brain reporting no metastasis. CAD, history of NC Moderate pulmonary hypertension History of CVA involving right frontal lobe Plan: Continue on current medication regime , Midodrin, monitoring and symptomatic treatment. Dobutamine and Lasix drips as per cardiology. Maintain IV antibiotics of Rocephin, Zithromax, nebulized bronchodilators. Nephrology following. Subacute rehab at discharge. The impression and plan of care has been dictated as directed. : I performed a history and examination of this patient, discussed the same with the dictator. I agree with the dictator's note ,documented as a scribe. Any additional findings or plans will be noted.
--- NOTE | 2019-09-01 10:57 | P.PN ---
Subjective Progress Note Date: 09/01/19 Principal diagnosis: Left lung pleural effusion On 09/01/2019 patient seen in follow-up in selective care unit, he sitting up in the recliner, in no acute distress, he is wearing his oxygen intermittently, on 3-4 L his pulse ox is 94%, she seems to be calm and comfortable, denies any chest pain, no fever or chills, lung sounds reveal diminished breath sounds over left lower lobe, no significant rhonchi or wheezing, or crackles, no fever or chills, hemodynamically patient is stable, he remains on dobutamine drip at 20 half mics per kilo per minute, and Lasix drip is infusing at 10 ML per hour. No plans for thoracentesis at this time. Continue medical treatment. Today's labs have been reviewed, white blood cell count is 9.8, hemoglobin is 10.0, sodium is 136, potassium is 5.4, chloride is 105, CO2 is 21, B1 is 74 creatinine is 3.61. Patient continues on Zithromax for antibiotic coverage, urine and sputum cultures have been negative, and blood culture showed coagulase-negative staph, likely contaminated. Appetite is poor, patient is admitted to mild shortness of breath especially with exertion, generally weak. Physical therapy is working with the patient, but patient will need to rehab at discharge. Objective - Vital Signs Vital signs: Vital Signs Temp 97.5 F L 09/01/19 08:00 Pulse 64 09/01/19 08:00 Resp 18 09/01/19 08:00 BP 124/67 09/01/19 08:00 Pulse Ox 94 L 09/01/19 08:00 Intake & Output 08/31/19 09/01/19 09/01/19 18:59 06:59 18:59 Intake Total 908.759 155.000 100 Output Total 475 100 Balance 433.759 155.000 0 Weight 120.3 kg Intake: IV 40 Sodium Chloride 0.9% 1, 40 000 ml @ 40 mls/hr IV . Q24H [facility] Rx#:[id number] Intake, IV Titration 268.759 155.000 Amount DOBUTamine DRIP 500 mg In 268.759 Dextrose/Water 1 250ml. bag @ 2.5 MCG/KG/MIN 7. 988 mls/hr IV .Q24H [facility] Rx#:[id number] Furosemide 100 mg In 155.000 Sodium Chloride 0.9% 90 ml @ 10 MG/HR 10 mls/hr IV .Q10H [facility] Rx#: [id number] Oral 600 100 Output: Urine 475 100 Other: Voiding Method Urinal Urinal # Voids 1 - Exam GENERAL EXAM: Alert, pleasant, 74-year-old white male, on 3-4 L of oxygen which she is wearing intermittently comfortable in no apparent distress. HEAD: Normocephalic/atraumatic. EYES: Normal reaction of pupils, equal size. Conjunctiva pink, sclera white. NOSE: Clear with pink turbinates. THROAT: No erythema or exudates. NECK: No masses, no JVD, no thyroid enlargement, no adenopathy. CHEST: No chest wall deformity. Symmetrical expansion. LUNGS: Diminished lung sounds over left lower lobe, no crackles, wheeze, rhonchi or dullness. CVS: Regular rate and rhythm, normal S1 and S2, no gallops, no murmurs, no rubs ABDOMEN: Soft, nontender. No hepatosplenomegaly, normal bowel sounds, no guarding or rigidity. EXTREMITIES: No clubbing, 1+ edema in bilateral lower extremities, no cyanosis, 2+ pulses and upper and lower extremities. MUSCULOSKELETAL: Muscle strength and tone normal. SPINE: No scoliosis or deformity SKIN: No rashes CENTRAL NERVOUS SYSTEM: Alert and oriented -3. No focal deficits, tone is normal in all 4 extremities. PSYCHIATRIC: Alert and oriented -3. Appropriate affect. Intact judgment and insight. - Labs CBC & Chem 7: 09/01/19 06:16 09/01/19 06:16 Labs: Abnormal Lab Results - Last 24 Hours (Table) 08/31/19 08/31/19 08/31/19 Range/Units 11:53 16:54 20:34 RBC (4.30-5.90) m/uL Hgb (13.0-17.5) gm/dL Hct (39.0-53.0) % RDW (11.5-15.5) % Sodium (137-145) mmol/L Potassium (3.5-5.1) mmol/L Carbon Dioxide (22-30) mmol/L BUN (9-20) mg/dL Creatinine (0.66-1.25) mg/dL Glucose (74-99) mg/dL POC Glucose (mg/dL) 131 H 131 H 197 H (75-99) mg/dL 09/01/19 09/01/19 09/01/19 Range/Units 06:16 06:16 06:23 RBC 3.62 L (4.30-5.90) m/uL Hgb 10.0 L (13.0-17.5) gm/dL Hct 31.4 L (39.0-53.0) % RDW 17.6 H (11.5-15.5) % Sodium 136 L (137-145) mmol/L Potassium 5.4 H (3.5-5.1) mmol/L Carbon Dioxide 21 L (22-30) mmol/L BUN 74 H (9-20) mg/dL Creatinine 3.61 H (0.66-1.25) mg/dL Glucose 117 H (74-99) mg/dL POC Glucose (mg/dL) 119 H (75-99) mg/dL Microbiology - Last 24 Hours (Table) 08/27/19 13:30 Blood Culture Gram Stain - Final Blood Blood Culture - Final Coagulase Negative Staph Coagulase Negative Staph#2 08/30/19 11:00 Urine Culture - Final Urine,Catheterized Assessment and Plan Plan: Assessment: 1 left lung opacity likely the evolution of a left-sided pleural effusion. The patient has had previous chronic left-sided pleural effusion that has been drained and the patient has undergone thoracentesis in the past and the fluid cytology was negative for malignancy. Nevertheless, during this current hospitalization the patient developed interval worsening of the left-sided pleural effusion based on the comparison of chest x-rays between 08/27/2019 and 08/28/2019. As such, traumatic left-sided pleural effusion is to be considered including the possibility of a hemothorax knowing that the patient anticoagu lation. Malignant pleural effusions felt to be less likely. 2 squamous cell lung cancer locally advanced post-chemoradiation therapy back in 2016 with good response based on subsequent PET scans in the CAT scan of the chest that was done in January 2019 3 episodic falls. Rule out SOFTWARE VALIDATION TECHNICIAN metastases based on his history of squamous cell lung cancer. Rule out hypoglycemia as the patient has been having W hypoglycemia that were witnessed also in the hospital. MRI of the brain showed no evidence of any SOFTWARE VALIDATION TECHNICIAN metastases. 4 diabetes mellitus 5 coronary artery disease with previous [place], with a troponin leak 6 history of CVA involving the right frontal lobe 7 history of atrial fibrillation/flutter and the patient's rhythm is sinus and the patient is demented on long-term and to coagulation with Xarelto. 8 hyperlipidemia 9 acute on chronic systolic heart failure 10 acute kidney injury Plan: Continue medical treatment, no plans for thoracentesis. No worsening dyspnea, patient is maintaining stable oxygen saturations, and he is actually wearing his oxygen intermittently, no complaints of chest pain, no fever, no chills, cultures have been negative thus far. CHF and renal failure management per cardiology and nephrology. Pulmonary service will sign off at this time and will see the patient on as-needed basis I performed a history & physical examination of the patient and discussed their management with my nurse practitioner, Dasha Maloney. I reviewed the nurse practitioner's note and agree with the documented findings and plan of care. Lung sounds are positive for diminished breath sounds over left lower lobe. The findings and the impression was discussed with the patient. I attest to the documentation by the nurse practitioner. Time with Patient: Less than 30
[2019-09-01 12:07] LABS: Glucose,Whole Blood 123 mg/dL (75-99)
--- NOTE | 2019-09-01 14:11 | PN ---
PROGRESS NOTE Patient is seen for followup for acute kidney injury mainly cardiorenal. Patient was started on dobutamine drip on Sunday and yesterday his Lasix was switched to Lasix drip at 10 mg an hour. Currently patient is voiding. However, his urine output is not accurately charted. His urine output is definitely better than what it was 2 days ago. Blood pressure remains slightly on the lower side. However, occasionally it has been above 100 mmHg systolic as well. Overall, patient denies any significant complaints. He continues to feel poorly and does not want to eat. PHYSICAL EXAMINATION: This morning, blood pressure was 124/67, heart rate 64 per minute, he is afebrile. Examination of the heart S1, S2. Examination of the lungs, decreased breath sounds at bases. Abdomen is soft, nontender, obese. Examination of the lower extremities shows edema 2+ bilaterally. HEAD CHARGER exam shows patient moving all 4 extremities. LABS: Show sodium 136, potassium 5.4, BUN 74, creatinine 3.6, hemoglobin 10.0 g/dL. ASSESSMENT: 1. Acute kidney injury, cardiorenal currently with improved urine output. Continue with dobutamine and Lasix drip. 2. Volume overload. Continue with current treatment. 3. Atrial fibrillation with controlled ventricular response. 4. Cardiomyopathy, ejection fraction 35% to 40%. 5. Coagulase-negative Staphylococcus bacteremia, possibly contaminant. PLAN: Continue with dobutamine and Lasix drip. Monitor urine output accurately. Repeat labs in a.m. Overall prognosis is guarded. MMODL / IJN: [id number] /
--- NOTE | 2019-09-01 15:41 | P.PN ---
Subjective Progress Note Date: 09/01/19 This pleasant 74-year-old male past medical history significant for coronary artery disease with a chronic total occlusion of the LAD and mild- moderate disease of the RCA and circumflex, lung cancer s/p chemo and radiation, chronic persistent atrial fibrillation, chronic systolic heart failure, renal insufficiency and ischemic cardiomyopathy. He follows the os Dr. Beard. We are following secondary to acute exacerbation of chronic heart failure. Patient is currently on IV Lasix drip along with dobutamine. Sitting up in a recliner today, appears to be comfortable, denies any chest discomfort. Hemodynamically stable, white blood cell count today 9.8, hemoglobin 10.0, potassium 5.4. BUN 74 and creatinine 3.6. Objective - Vital Signs Vital signs: Vital Signs Temp 98 F 09/01/19 11:42 Pulse 61 09/01/19 11:42 Resp 18 09/01/19 11:42 BP 98/59 09/01/19 11:42 Pulse Ox 98 09/01/19 11:42 Intake & Output 08/31/19 09/01/19 09/01/19 18:59 06:59 18:59 Intake Total 908.759 155.000 100 Output Total 475 100 Balance 433.759 155.000 0 Weight 120.3 kg Intake: IV 40 Sodium Chloride 0.9% 1, 40 000 ml @ 40 mls/hr IV . Q24H [facility] Rx#:[id number] Intake, IV Titration 268.759 155.000 Amount DOBUTamine DRIP 500 mg In 268.759 Dextrose/Water 1 250ml. bag @ 2.5 MCG/KG/MIN 7. 988 mls/hr IV .Q24H [facility] Rx#:[id number] Furosemide 100 mg In 155.000 Sodium Chloride 0.9% 90 ml @ 10 MG/HR 10 mls/hr IV .Q10H [facility] Rx#: [id number] Oral 600 100 Output: Urine 475 100 Other: Voiding Method Urinal Urinal Urinal # Voids 1 - Exam HEAD: Normocephalic/atraumatic. EYES: Normal reaction of pupils, equal size. Conjunctiva pink, sclera white. NOSE: Clear with pink turbinates. THROAT: No erythema or exudates. NECK: No masses, no JVD, no thyroid enlargement, no adenopathy. CHEST: No chest wall deformity. Symmetrical expansion. LUNGS: Diminished lung sounds over left lower lobe, no crackles, wheeze, rhonchi or dullness. CVS: Regular rate and rhythm, normal S1 and S2, no gallops, no murmurs, no rubs ABDOMEN: Soft, nontender. No hepatosplenomegaly, normal bowel sounds, no guarding or rigidity. EXTREMITIES: No clubbing, 1+ edema in bilateral lower extremities, no cyanosis, 2+ pulses and upper and lower extremities. MUSCULOSKELETAL: Muscle strength and tone normal. SPINE: No scoliosis or deformity SKIN: No rashes CENTRAL NERVOUS SYSTEM: Alert and oriented -3. No focal deficits, tone is normal in all 4 extremities. PSYCHIATRIC: Alert and oriented -3. Appropriate affect. Intact judgment and insight. - Labs CBC & Chem 7: 09/01/19 06:16 09/01/19 06:16 Labs: Abnormal Lab Results - Last 24 Hours (Table) 08/31/19 08/31/19 09/01/19 Range/Units 16:54 20:34 06:16 RBC 3.62 L (4.30-5.90) m/uL Hgb 10.0 L (13.0-17.5) gm/dL Hct 31.4 L (39.0-53.0) % RDW 17.6 H (11.5-15.5) % Sodium (137-145) mmol/L Potassium (3.5-5.1) mmol/L Carbon Dioxide (22-30) mmol/L BUN (9-20) mg/dL Creatinine (0.66-1.25) mg/dL Glucose (74-99) mg/dL POC Glucose (mg/dL) 131 H 197 H (75-99) mg/dL 09/01/19 09/01/19 09/01/19 Range/Units 06:16 06:23 11:51 RBC (4.30-5.90) m/uL Hgb (13.0-17.5) gm/dL Hct (39.0-53.0) % RDW (11.5-15.5) % Sodium 136 L (137-145) mmol/L Potassium 5.4 H (3.5-5.1) mmol/L Carbon Dioxide 21 L (22-30) mmol/L BUN 74 H (9-20) mg/dL Creatinine 3.61 H (0.66-1.25) mg/dL Glucose 117 H (74-99) mg/dL POC Glucose (mg/dL) 119 H 123 H (75-99) mg/dL Microbiology - Last 24 Hours (Table) 08/27/19 13:30 Blood Culture Gram Stain - Final Blood Blood Culture - Final Coagulase Negative Staph Coagulase Negative Staph#2 08/30/19 11:00 Urine Culture - Final Urine,Catheterized Assessment and Plan Plan: Assessment and plan: 1 left lung opacity likely the evolution of a left-sided pleural effusion. 2 squamous cell lung cancer locally advanced post-chemoradiation therapy back in 2015 with good response based on subsequent PET scans in the CAT scan of the chest that was done in January 2019 3 episodic falls. Rule out LEARNING DESIGNER metastases based on his history of squamous cell lung cancer. Rule out hypoglycemia as the patient has been having W hypoglycemia that were witnessed also in the hospital. MRI of the brain showed no evidence of any LEARNING DESIGNER metastases. 4 diabetes mellitus 5 coronary artery disease with previous [place], with a troponin leak 6 history of CVA involving the right frontal lobe 7 history of paroxysmal atrial fibrillation/flutter and the patient's rhythm is sinus and the patient is demented on long-term and to coagulation with Xarelto. 8 hyperlipidemia 9 acute on chronic systolic heart failure 10 acute kidney injury 11 nonischemic cardiomyopathy 12 hypertension Plan From cardiology's perspective, we'll recommend to continue current dose of IV Lasix drip and dobutamine. We will continue to follow DNP note has been reviewed, I agree with a documented findings and plan of care. Patient was seen and examined.
[2019-09-01] MEDS: DOBUTamine DRIP 500 MG in DEXTROSE/WATER 1 250ML.BAG IV SCH (17:21)
[2019-09-01] MEDS: RIVAROXABAN 20 MG TAB PO SCH (17:21)
[2019-09-01 17:38] LABS: Glucose,Whole Blood 138 mg/dL (75-99)
[2019-09-01 20:48] LABS: Glucose,Whole Blood 187 mg/dL (75-99)
[2019-09-01] MEDS: INSULIN DETEMIR (LEVEMIR) 100 UNIT/ML SYR SQ SCH (21:05)
[2019-09-02] MEDS: FUROSEMIDE 100 MG in SODIUM CHLORIDE 0.9% 90 ML IV SCH ×3 (02:35→21:04)
[2019-09-02 06:22] LABS: Glucose,Whole Blood 83 mg/dL (75-99)
[2019-09-02] MEDS: INSULIN ASPART (NovoLOG) 100 UNIT/ML VIAL SQ SCH ×4 (06:25→20:27)
[2019-09-02 06:28] LABS: INR 1.2 (<1.2); Prothrombin Time 12.1 sec (9.0-12.0)
[2019-09-02] MEDS: MIDODRINE 5 MG TAB PO SCH ×2 (06:28→17:50)
[2019-09-02 06:37] LABS: Calcium 9.1 mg/dL (8.4-10.2); Potassium 5.3 mmol/L (3.5-5.1)
[2019-09-02] MEDS: AZITHROMYCIN 500 MG TAB PO SCH (08:33)
[2019-09-02] MEDS: ATORVASTATIN 80 MG TAB PO SCH (08:33)
[2019-09-02] MEDS: buPROPion XL 150 MG TAB.ER.24H PO SCH (08:33)
[2019-09-02] MEDS: ASPIRIN 81 MG PO SCH (08:33)
[2019-09-02] MEDS: AMIODARONE 100 MG TAB PO SCH ×2 (08:34→08:47)
[2019-09-02 09:49] LABS: Total Protein 6.2 g/dL (6.3-8.2)
--- NOTE | 2019-09-02 10:47 | XR ---
EXAMINATION TYPE: XR chest 1V portable DATE OF EXAM: 09/02/2019 COMPARISON: 08/31/2019 HISTORY: Post left thoracentesis TECHNIQUE: Single frontal view of the chest is obtained. FINDINGS: No sizable pneumothorax. Persistent consolidation and pleural fluid noted with improvement relative to the prior exam. Right perihilar infiltrate and tiny right effusion seen. Mediport cathet er noted. IMPRESSION: No pneumothorax post thoracentesis.
[2019-09-02 12:04] LABS: Glucose,Whole Blood 92 mg/dL (75-99)
--- NOTE | 2019-09-02 12:08 | P.PN ---
Subjective Progress Note Date: 09/02/19 This pleasant 74-year-old male past medical history significant for coronary artery disease with a chronic total occlusion of the LAD and mild- moderate disease of the RCA and circumflex, lung cancer s/p chemo and radiation, chronic persistent atrial fibrillation, chronic systolic heart failure, renal insufficiency and ischemic cardiomyopathy. He follows the os Dr. Beard. We are following secondary to acute exacerbation of chronic heart failure. Patient is currently on IV Lasix drip along with dobutamine. Sitting up in a recliner today, appears to be comfortable, denies any chest discomfort. Hemodynamically stable, white blood cell count today 9.8, hemoglobin 10.0, potassium 5.4. BUN 74 and creatinine 3.6. 09/02/2019 Patient seen and examined this morning, sitting up in the chair at bedside, mildly confused, diuresing well on the Lasix drip, weight is down significantly today. Edema is improving also significantly. Blood pressure 110/60 with a heart rate of 70, 98% on 2 L of oxygen. Sodium 140, potassium 5.3, BUN 72 and creatinine 3.1. Objective - Vital Signs Vital signs: Vital Signs Temp 98.2 F 09/02/19 08:00 Pulse 70 09/02/19 10:25 Resp 18 09/02/19 10:25 BP 111/65 09/02/19 10:25 Pulse Ox 98 09/02/19 10:25 Intake & Output 09/01/19 09/02/19 09/02/19 18:59 06:59 18:59 Intake Total 514.744 92.5 93 Output Total 850 450 Balance -335.256 -357.5 93 Weight 116.4 kg Intake: Intake, IV Titration 314.744 92.5 93 Amount DOBUTamine DRIP 500 mg In 214.744 Dextrose/Water 1 250ml. bag @ 2.5 MCG/KG/MIN 7. 988 mls/hr IV .Q24H [facility] Rx#:[id number] Furosemide 100 mg In 100 92.5 93 Sodium Chloride 0.9% 90 ml @ 10 MG/HR 10 mls/hr IV .Q10H [facility] Rx#: [id number] Oral 200 0 Output: Urine 850 450 Other: Voiding Method Urinal Urinal Urinal Incontinent # Voids 2 1 - Exam HEAD: Normocephalic/atraumatic. EYES: Normal reaction of pupils, equal size. Conjunctiva pink, sclera white. NOSE: Clear with pink turbinates. THROAT: No erythema or exudates. NECK: No masses, no JVD, no thyroid enlargement, no adenopathy. CHEST: No chest wall deformity. Symmetrical expansion. LUNGS: Diminished lung sounds over left lower lobe, no crackles, wheeze, rhonchi or dullness. CVS: Regular rate and rhythm, normal S1 and S2, no gallops, no murmurs, no rubs ABDOMEN: Soft, nontender. No hepatosplenomegaly, normal bowel sounds, no guarding or rigidity. EXTREMITIES: No clubbing, trace-1+ edema in bilateral lower extremities, no cyanosis, 2+ pulses and upper and lower extremities. MUSCULOSKELETAL: Muscle strength and tone normal. SPINE: No scoliosis or deformity SKIN: No rashes CENTRAL NERVOUS SYSTEM: Alert and oriented -3. No focal deficits, tone is normal in all 4 extremities. PSYCHIATRIC: Alert and oriented 2. Appropriate affect. Intact judgment and insight. - Labs CBC & Chem 7: 09/01/19 06:16 09/02/19 05:46 Labs: Abnormal Lab Results - Last 24 Hours (Table) 09/01/19 09/01/19 09/01/19 Range/Units 11:51 17:35 20:47 PT (9.0-12.0) sec INR (<1.2) Potassium (3.5-5.1) mmol/L BUN (9-20) mg/dL Creatinine (0.66-1.25) mg/dL POC Glucose (mg/dL) 123 H 138 H 187 H (75-99) mg/dL Total Protein (6.3-8.2) g/dL 09/02/19 09/02/19 09/02/19 Range/Units 05:37 05:46 05:46 PT 12.1 H (9.0-12.0) sec INR 1.2 H (<1.2) Potassium 5.3 H (3.5-5.1) mmol/L BUN 72 H (9-20) mg/dL Creatinine 3.13 H (0.66-1.25) mg/dL POC Glucose (mg/dL) (75-99) mg/dL Total Protein 6.2 L (6.3-8.2) g/dL Microbiology - Last 24 Hours (Table) 08/27/19 13:30 Blood Culture Gram Stain - Final Blood Blood Culture - Final Coagulase Negative Staph Coagulase Negative Staph#2 Assessment and Plan Plan: Assessment and plan: 1 left lung opacity likely the evolution of a left-sided pleural effusion. 2 squamous cell lung cancer locally advanced post-chemoradiation therapy back in 2016 with good response based on subsequent PET scans in the CAT scan of the chest that was done in January 2019 3 episodic falls. Rule out CISCO NETWORK ENGINEER metastases based on his history of squamous cell lung cancer. Rule out hypoglycemia as the patient has been having W hypoglycemia that were witnessed also in the hospital. MRI of the brain showed no evidence of any CISCO NETWORK ENGINEER metastases. 4 diabetes mellitus 5 coronary artery disease with previous [place], with a troponin leak 6 history of CVA involving the right frontal lobe 7 history of paroxysmal atrial fibrillation/flutter and the patient's rhythm is sinus and the patient is demented on long-term and to coagulation with Xarelto. 8 hyperlipidemia 9 acute on chronic systolic heart failure 10 acute kidney injury 11 nonischemic cardiomyopathy 12 hypertension Plan From cardiology's perspective, we'll recommend to continue current dose of IV Lasix drip and dobutamine. We will continue to follow DNP note has been reviewed, I agree with a documented findings and plan of care. Patient was seen and examined.
--- NOTE | 2019-09-02 12:09 | US ---
EXAMINATION TYPE: US thoracentesis DATE OF EXAM: 09/02/2019 COMPARISON: NONE HISTORY: Pleural effusion. FINDINGS: Maximal barrier technique was utilized. The skin overlying a suitable pocket of fluid was localized and the overlying skin prepped and draped. Lidocaine was used for local anesthesia. Ultras ound was used with sterile technique. A 5 Maltese catheter over guide needle was advanced into the pl eural fluid collection using ultrasound guidance and the catheter advanced, needle removed. Approxim ately 0.1 liter(s) of serous fluid was removed. Catheter was withdrawn and hemostasis achieved. The re is no immediate complication. The patient discharged in stable condition without complication. IMPRESSION: STATUS POST ULTRASOUND GUIDED THORACENTESIS, POST PROCEDURE CHEST X-RAY PENDING. THIS [place] OCEDURE WAS PERFORMED BY THE UNDERSIGNED. Specimen sent for laboratory analysis.
--- NOTE | 2019-09-02 13:16 | P.PN ---
Subjective Progress Note Date: 09/02/19 Principal diagnosis: Left lung pleural effusion On 09/01/2019 patient seen in follow-up in selective care unit, he sitting up in the recliner, in no acute distress, he is wearing his oxygen intermittently, on 3-4 L his pulse ox is 94%, she seems to be calm and comfortable, denies any chest pain, no fever or chills, lung sounds reveal diminished breath sounds over left lower lobe, no significant rhonchi or wheezing, or crackles, no fever or chills, hemodynamically patient is stable, he remains on dobutamine drip at 20 half mics per kilo per minute, and Lasix drip is infusing at 10 ML per hour. No plans for thoracentesis at this time. Continue medical treatment. Today's labs have been reviewed, white blood cell count is 9.8, hemoglobin is 10.0, sodium is 136, potassium is 5.4, chloride is 105, CO2 is 21, B1 is 74 creatinine is 3.61. Patient continues on Zithromax for antibiotic coverage, urine and sputum cultures have been negative, and blood culture showed coagulase-negative staph, likely contaminated. Appetite is poor, patient is admitted to mild shortness of breath especially with exertion, generally weak. Physical therapy is working with the patient, but patient will need to rehab at discharge. On 09/02/2019 patient is seen in follow-up on selective care unit, he is in no acute distress, sitting up in the recliner, on room air with pulse ox of 98-99%, hemodynamically stable he denies any worsening shortness of breath, lung sounds reveal diminished breath sounds over left mid and lower lung. Patient continues on Lasix drip, and dobutamine drip, he is in negative fluid balance, lower extremity edema is improving, fluid volume status is improving, yesterday we put a consultation to interventional radiology for ultrasound-guided left thorace ntesis and patient went down this morning and had 100 mL of pleural fluid removed which was nonbloody, but was annita in color, and the fluid was sent for cytology, fluid analysis and cultures. Tolerated procedure well, and returned back to his room. Objective - Vital Signs Vital signs: Vital Signs Temp 98.2 F 09/02/19 08:00 Pulse 70 09/02/19 10:25 Resp 18 09/02/19 10:25 BP 111/65 09/02/19 10:25 Pulse Ox 98 09/02/19 10:25 Intake & Output 09/01/19 09/02/19 09/02/19 18:59 06:59 18:59 Intake Total 514.744 92.5 93 Output Total 850 450 Balance -335.256 -357.5 93 Weight 116.4 kg Intake: Intake, IV Titration 314.744 92.5 93 Amount DOBUTamine DRIP 500 mg In 214.744 Dextrose/Water 1 250ml. bag @ 2.5 MCG/KG/MIN 7. 988 mls/hr IV .Q24H [facility] Rx#:[id number] Furosemide 100 mg In 100 92.5 93 Sodium Chloride 0.9% 90 ml @ 10 MG/HR 10 mls/hr IV .Q10H [facility]A Rx#: [id number] Oral 200 0 Output: Urine 850 450 Other: Voiding Method Urinal Urinal Urinal Incontinent # Voids 2 1 - Exam GENERAL EXAM: Alert, 74-year-old white male, on room air, with a pulse ox of 98% comfortable in no apparent distress. HEAD: Normocephalic/atraumatic. EYES: Normal reaction of pupils, equal size. Conjunctiva pink, sclera white. NOSE: Clear with pink turbinates. THROAT: No erythema or exudates. NECK: No masses, no JVD, no thyroid enlargement, no adenopathy. CHEST: No chest wall deformity. Symmetrical expansion. LUNGS: Diminished lung sounds over left lower lobe, no crackles, wheeze, rhonchi or dullness. CVS: Regular rate and rhythm, normal S1 and S2, no gallops, no murmurs, no rubs ABDOMEN: Soft, nontender. No hepatosplenomegaly, normal bowel sounds, no guarding or rigidity. EXTREMITIES: No clubbing, 1+ edema in bilateral lower extremities, no cyanosis, 2+ pulses and upper and lower extremities. MUSCULOSKELETAL: Muscle strength and tone normal. SPINE: No scoliosis or deformity SKIN: No rashes CENTRAL NERVOUS SYSTEM: Alert and oriented -3. No focal deficits, tone is normal in all 4 extremities. PSYCHIATRIC: Alert and oriented -3. Appropriate affect. Intact judgment and insight. - Labs CBC & Chem 7: 09/01/19 06:16 09/02/19 05:46 Labs: Abnormal Lab Results - Last 24 Hours (Table) 09/01/19 09/01/19 09/02/19 Range/Units 17:35 20:47 05:37 PT 12.1 H (9.0-12.0) sec INR 1.2 H (<1.2) Potassium (3.5-5.1) mmol/L BUN (9-20) mg/dL Creatinine (0.66-1.25) mg/dL POC Glucose (mg/dL) 138 H 187 H (75-99) mg/dL Total Protein (6.3-8.2) g/dL 09/02/19 09/02/19 Range/Units 05:46 05:46 PT (9.0-12.0) sec INR (<1.2) Potassium 5.3 H (3.5-5.1) mmol/L BUN 72 H (9-20) mg/dL Creatinine 3.13 H (0.66-1.25) mg/dL POC Glucose (mg/dL) (75-99) mg/dL Total Protein 6.2 L (6.3-8.2) g/dL Microbiology - Last 24 Hours (Table) 08/27/19 13:30 Blood Culture Gram Stain - Final Blood Blood Culture - Final Coagulase Negative Staph Coagulase Negative Staph#2 Assessment and Plan Plan: Assessment: 1 left lung opacity likely the evolution of a left-sided pleural effusion. The patient has had previous chronic left-sided pleural effusion that has been drained and the patient has undergone thoracentesis in the past and the fluid cytology was negative for malignancy. Nevertheless, during this current hospitalization the patient developed interval worsening of the left-sided pleural effusion based on the comparison of chest x-rays between 08/27/2019 and 08/28/2019. As such, traumatic left-sided pleural effusion is to be considered including the possibility of a hemothorax knowing that the patient anticoagulation. Malignant pleural effusions felt to be less likely. On 09/02/2017 patient seen in follow-up on selective care unit, he had ultrasound-guided left thoracentesis performed by interventional radiology would removal of 100 mL of annita-colored pleural fluid which was sent for analysis, cytology and cultures. 2 squamous cell lung cancer locally advanced post-chemoradiation therapy back in 2015 with good response based on subsequent PET scans in the CAT scan of the chest that was done in January 2019 3 episodic falls. Rule out PATTERN PAINTER metastases based on his history of squamous cell lung cancer. Rule out hypoglycemia as the patient has been having W hypoglycemia that were witnessed also in the hospital. MRI of the brain showed no evidence of any PATTERN PAINTER metastases. 4 diabetes mellitus 5 coronary artery disease with previous AR, with a troponin leak 6 history of CVA involving the right frontal lobe 7 history of atrial fibrillation/flutter and the patient's rhythm is sinus and the patient is demented on long-term and to coagulation with Xarelto. 8 hyperlipidemia 9 acute on chronic systolic heart failure 10 acute kidney injury Plan: Continue current medical management, patient had a left-sided thoracentesis done by interventional radiology would removal of 100 mL of annita-colored fluid, which was nonbloody, it was sent for analysis, cytology and cultures. Otherwise patient remains stable, fluid balance status is improving, lower extremity edema is improving, remains on Lasix drip. No acute issues overnight, he is on room air, maintaining stable saturations. I performed a history & physical examination of the patient and discussed their management with my nurse practitioner, Dasha Maloney. I reviewed the nurse practitioner's note and agree with the documented findings and plan of care. Lung sounds are positive for diminished breath sounds over left lower lobe. The findings and the impression was discussed with the patient. I attest to the d ocumentation by the nurse practitioner. Time with Patient: Less than 30
[2019-09-02 13:38] LABS: Appearance,BF Clear; Color,BF Yellow; RBC, Body Fluid 630 /uL
[2019-09-02 13:39] LABS: Nucleated Cells, Body Fluid 10 /uL
--- NOTE | 2019-09-02 14:05 | PN ---
PROGRESS NOTE Patient is seen for followup for acute kidney injury, mainly cardiorenal, currently doing better. Patient is maintained on Lasix drip and dobutamine drip. PHYSICAL EXAMINATION: On examination, blood pressure was 105/62, heart rate 69 per minute, patient is afebrile. Examination of the heart S1, S2. Examination of the lungs, bilateral breath sounds are heard. Abdomen is soft obese. Examination of the lower extremities shows edema 3+ bilaterally. LABS: Show sodium 140, potassium 5.3, BUN 72, creatinine 3.13. ASSESSMENT: 1. Acute kidney injury cardiorenal currently improving with ongoing diuresis and dobutamine drip. 2. Severe fluid overload, slowly improving. Weight is down. Continue with Lasix drip and dobutamine drip. 3. Chronic kidney disease, NKF stage IIIB to IV, with previous creatinine at about 1.9- 1.5 mg/dL. 4. Hyperkalemia associated with acute kidney injury, fairly stable. Patient is maintained on low-potassium diet. His blood sugars are controlled. 5. Cardiomyopathy, ejection fraction 35% to 40%. 6. Atrial fibrillation with controlled ventricular response. PLAN: Continue with dobutamine and Lasix drip. MMODL / IJN: [id number] /
--- NOTE | 2019-09-02 14:12 | P.PN ---
Subjective Progress Note Date: 09/02/19 09/01/2019 sitting up in chair, pleasantly confused. Complains of mild shortness of breath. Maintaining 94% on 3 L nasal cannula, 84-88% on room air. Appetite poor. Staff reports patient is a 1-2 person assist. Physical therapy recommended subacute rehab at discharge. Maintained on both dobutamine and Lasix drips. Creatinine mildly improved, down to 3.61, potassium 5.4. Yesterday chest x-ray suggested worsening pleural effusion on the left side, No thoracentesis recommended per pulmonary. 09/02/2019 continues on Lasix and dobutamine drips. Diuresing well with 24-hour I&O reflecting a negative fluid balance, edema improving. Diagnostic left thoracentesis completed this morning per interventional radiology with 100mls serous pleural fluid drained. Cultures/cytology pending. Tolerated procedure well. Chest x-ray reporting no pneumothorax post thoracentesis.VSS, maintaining O2 sats in the high 90s on 2 L nasal cannula. Renal function improving ,trending down to 3.13. Potassium 5.3 Objective - Vital Signs Vital signs: Vital Signs Temp 98.2 F 09/02/19 08:00 Pulse 70 09/02/19 10:25 Resp 18 09/02/19 10:25 BP 111/65 09/02/19 10:25 Pulse Ox 98 09/02/19 10:25 Intake & Output 09/01/19 09/02/19 09/02/19 18:59 06:59 18:59 Intake Total 514.744 92.5 93 Output Total 850 450 Balance -335.256 -357.5 93 Weight 116.4 kg Intake: Intake, IV Titration 314.744 92.5 93 Amount DOBUTamine DRIP 500 mg In 214.744 Dextrose/Water 1 250ml. bag @ 2.5 MCG/KG/MIN 7. 988 mls/hr IV .Q24H [facility] Rx#:[id number] Furosemide 100 mg In 100 92.5 93 Sodium Chloride 0.9% 90 ml @ 10 MG/HR 10 mls/hr IV .Q10H [facility] Rx#: [id number] Oral 200 0 Output: Urine 850 450 Other: Voiding Method Urinal Urinal Urinal Incontinent # Voids 2 1 - Exam PHYSICAL EXAM: VITAL SIGNS: [As above] GENERAL: Sitting up in chair, pleasantly confused, alert and oriented 2. HEENT: Conjunctivae normal. eyes normal. Oral mucosa moist NECK: No JVD. No thyroid enlargement. No LNs CARDIOVASCULAR: S1, S2 regular.. No murmur, rubs or gallops. RESPIRATION: Breath sounds diminished in the bases. No rhonchi, no crackles, no wheezes ABDOMEN: Soft, nontender . No guarding. no masses palpable.Bowel sounds heard. LEGS: Decreasing edema. Left lower extremity dressing clean dry and intact(site of care skin tear to fall). NERVOUS SYSTEM: Cranial N 2-12 grossly normal. Moves all 4 limbs. Diffuse generalized weakness, No focal deficits. Strength and sensation grossly int act.. SKIN: No rashes. - Labs CBC & Chem 7: 09/01/19 06:16 09/02/19 05:46 Labs: Abnormal Lab Results - Last 24 Hours (Table) 09/01/19 09/01/19 09/02/19 Range/Units 17:35 20:47 05:37 PT 12.1 H (9.0-12.0) sec INR 1.2 H (<1.2) Potassium (3.5-5.1) mmol/L BUN (9-20) mg/dL Creatinine (0.66-1.25) mg/dL POC Glucose (mg/dL) 138 H 187 H (75-99) mg/dL Total Protein (6.3-8.2) g/dL 09/02/19 09/02/19 Range/Units 05:46 05:46 PT (9.0-12.0) sec INR (<1.2) Potassium 5.3 H (3.5-5.1) mmol/L BUN 72 H (9-20) mg/dL Creatinine 3.13 H (0.66-1.25) mg/dL POC Glucose (mg/dL) (75-99) mg/dL Total Protein 6.2 L (6.3-8.2) g/dL Microbiology - Last 24 Hours (Table) 08/27/19 13:30 Blood Culture Gram Stain - Final Blood Blood Culture - Final Coagulase Negative Staph Coagulase Negative Staph#2 Assessment and Plan Assessment: Acute hypoxic respiratory failure, multifactorial secondary to acute on chronic systolic CHF exacerbation, bilateral pleural effusions, community-acquired pneumonia. Nonischemic cardiomyopathy, EF 35-40% Left lung opacity, left-sided traumatic pleural effusion suspected in a patient with previous chronic left-sided pleural effusion-status post prior thoracentesis with negative fluid cytology for malignancy. Status post left- sided thoracentesis on 09/02/2019, cytology/cultures pending. Chronic persistent atrial fibrillation Acute on chronic renal failure stage III, suspect diabetic nephropathy, cardiorenal syndrome. Diabetes mellitus, hypoglycemia secondary to poor oral intake, worsening renal function, currently stable Hyperkalemia secondary to acute on chronic renal failure Blood cultures reporting coagulase-negative staph, contamination Hypertension hyperlipidemia History of lung CA, squamous cell, status post chemoradiation treatment Gait dysfunction with multiple falls. MRI of the brain reporting no metastasis. CAD, history of [place] Moderate pulmonary hypertension History of CVA involving right frontal lobe Plan: Continue on current medication regime , Midodrin, monitoring and symptomatic treatment. Continue Dobutamine and Lasix drips as per cardiology. IV antibiotics as per infectious disease. Maintained nebulized bronchodilators. Evaluated by a physical therapy, Subacute rehab at discharge recommended. Close monitoring of renal function, electrolytes with repeat labs ordered for a.m. continue monitoring pleural cytology/culture results. The impression and plan of care has been dictated as directed. : I performed a history and examination of this patient, discussed the same with the dictator. I agree with the dictator's note ,documented as a scribe. Any additional findings or plans will be noted.
[2019-09-02] MEDS: DOBUTamine DRIP 500 MG in DEXTROSE/WATER 1 250ML.BAG IV SCH ×2 (15:06→20:18)
[2019-09-02] MEDS: RIVAROXABAN 20 MG TAB PO SCH (18:17)
[2019-09-02 20:26] LABS: Glucose,Whole Blood 198 mg/dL (75-99)
[2019-09-02] MEDS: INSULIN DETEMIR (LEVEMIR) 100 UNIT/ML SYR SQ SCH (20:26)
[2019-09-02 23:26] LABS: Glucose, BF Source Thoracentesis Fluid; Glucose, Body Fluid 100 mg/dL; LDH, Body Fluid Source Thoracentesis Fluid
[2019-09-02 23:27] LABS: Total Protein, Body Fluid 1320 mg/dL
[2019-09-03] MEDS: MIDODRINE 5 MG TAB PO SCH ×2 (06:07→18:03)
[2019-09-03] MEDS: INSULIN ASPART (NovoLOG) 100 UNIT/ML VIAL SQ SCH ×4 (06:11→20:59)
[2019-09-03 06:12] LABS: Glucose,Whole Blood 103 mg/dL (75-99)
[2019-09-03 06:28] LABS: Anisocytosis Slight; Basophils % (A) 0 %; Eosinophils # (A) 0.1 k/uL (0-0.7); Eosinophils % (A) 1 %; HCT 31.5 % (39.0-53.0); HGB 10.2 gm/dL (13.0-17.5); Hypochromasia Slight; Lymphocytes # (A) 0.3 k/uL (1.0-4.8); Lymphocytes % (A) 3 %; MCH 27.3 pg (25.0-35.0); MCHC 32.3 g/dL (31.0-37.0); MCV 84.6 fL (80.0-100.0); Mean Platelet Volume 6.1; Monocytes # (A) 0.7 k/uL (0-1.0); Monocytes % (A) 6 %; Neutrophils # (A) 9.3 k/uL (1.3-7.7); Neutrophils % (A) 87 %; Platelet Count 298 k/uL (150-450); RBC 3.73 m/uL (4.30-5.90); RDW 17.7 % (11.5-15.5); WBC 10.7 k/uL (3.8-10.6)
[2019-09-03 06:36] LABS: Calcium 9.1 mg/dL (8.4-10.2); Potassium 5.3 mmol/L (3.5-5.1)
[2019-09-03] MEDS: FUROSEMIDE 100 MG in SODIUM CHLORIDE 0.9% 90 ML IV SCH ×2 (06:53→16:09)
[2019-09-03] MEDS: AZITHROMYCIN 500 MG TAB PO SCH (09:27)
[2019-09-03] MEDS: ASPIRIN 81 MG PO SCH (09:27)
[2019-09-03] MEDS: buPROPion XL 150 MG TAB.ER.24H PO SCH (09:27)
[2019-09-03] MEDS: ATORVASTATIN 80 MG TAB PO SCH (09:27)
[2019-09-03] MEDS: AMIODARONE 100 MG TAB PO SCH (09:27)
[2019-09-03 10:48] VITALS: BMI 34.2
[2019-09-03 12:06] LABS: Glucose,Whole Blood 159 mg/dL (75-99)
--- NOTE | 2019-09-03 12:50 | P.HPIM ---
History of Present Illness H&P Date: 08/28/19 This is a 74-year-old male presents emergency department with past medical history significant for diabetes and lung cancer. Patient is brought in today because his son found him on the floor and he didn't know how he got there and he was altered mentally. EMS stated that his sugar was 45 at the time they gave him some glucose. The IV and he did start answering questions more accurately. Patient states he does not know how he ended up on the ground but he believes he was in bed prior to that. Patient denies any headache patient denies any head pain patient denies any neck pain patient denies numbness weakness. Patient denies chest pain difficulty breathing or shortness of breath. Patient denies any palpitations. Patient denies any recent fever chills states he does have a slight cough. Patient denies abdominal pain patient denies nausea vomiting diarrhea. Patient states he has continued to take his insulin but he has not been eating much lately. No patient is currently on the floor he is doing much better than in the emergency department he still feels shortness of breath and generalized weakness. He denies any chest pain admits to shortness of breath. He is remorseful that he has not had an appointment in a while. Past Medical History Past Medical History: Cancer, Heart Failure, Diabetes Mellitus, Hyperlipidemia, Hypertension, Myocardial Infarction ([place]) Additional Past Medical History / Comment(s): Squamous cell lung cancer post- chemoradiation therapy, diabetes mellitus, hypertension, hyperlipidemia, coronary artery disease with previous [place], previous history of left-sided pleural effusion post thoracentesis on the fluid cytology is been negative for malignancy, 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 Last Myocardial Infarction Date:: GREATER THAN 5 YRS AGO History of Any Multi-Drug Resistant Organisms: None Reported Past Surgical History: Heart Catheterization Additional Past Surgical History / Comment(s): BRONCHOSCOPY, MEDIPORT PLACEMENT Past Anesthesia/Blood Transfusion Reactions: No Reported Reaction Past Psychological History: No Psychological Hx Reported Smoking Status: Former smoker Past Alcohol Use History: None Reported Additional Past Alcohol Use History / Comment(s): SMOKES 1PPD, HAS BEEN SMOKING SINCE AGE 21 Past Drug Use History: None Reported - Past Family History Father History Unknown: Yes Family Medical History: Coronary Artery Disease (CAD) Mother Family Medical History: Diabetes Mellitus Medications and Allergies Home Medications Medication Instructions Recorded Confirmed Type RX: glipiZIDE XL [Glucotrol XL] 10 mg PO DAILY 08/26/15 08/27/19 History RX: Aspirin EC [Ecotrin Low Dose] 81 mg PO DAILY tablet. 09/09/15 08/27/19 Rx RX: Atenolol [Tenormin] 25 mg PO DAILY #30 tab 09/09/15 08/27/19 Rx RX: Atorvastatin [Lipitor] 80 mg PO DAILY #30 tab 09/09/15 08/27/19 Rx RX: metFORMIN HCL ER [Glucophage 500 mg PO PC-BID 01/03/16 08/27/19 History Xr] RX: Furosemide [Lasix] 40 mg PO BID@0800,1400 01/20/16 08/27/19 History buPROPion XL [Wellbutrin Xl] 150 mg PO DAILY 03/14/17 08/27/19 History Amiodarone [Cordarone] 100 mg PO DAILY 08/16/17 08/27/19 History Insulin Glargine,Hum.rec.anlog 30 unit SQ HS 11/16/17 08/27/19 History [Lantus Solostar] Lisinopril [Zestril] 2.5 mg PO DAILY 11/16/17 08/27/19 History Rivaroxaban [Xarelto] 20 mg PO W/SUPPER 11/16/17 08/27/19 History Allergies Allergy/AdvReac Type Severity Reaction Status Date / Time No Known Allergies Allergy Verified 08/27/19 12:55 Physical Exam Osteopathic Statement: *. No significant issues noted on an osteopathic structural exam other than those noted in the History and Physical/Consult. Vitals: Vital Signs Temp Pulse Resp BP BP Pulse Ox 08/28/19 16:00 98 F 57 L 20 96/49 96 08/28/19 12:00 98 F 59 L 20 106/56 96 08/28/19 09:24 65 98 08/28/19 08:00 97.8 F 66 24 99/47 88 L 08/28/19 04:00 98.7 F 62 18 129/68 97 Intake and Output 08/28/19 08/28/19 08/29/19 14:59 22:59 06:59 Intake Total 120 490 Output Total 100 50 Balance 20 440 Intake: IV 370 Sodium Chloride 0.9% 1, 320 000 ml @ 40 mls/hr IV . Q24H [facility] Rx#:[id number] cefTRIAXone 1 gm In 50 Sodium Chloride 0.9% 50 ml @ 100 mls/hr IVPB Q24HR [facility] Rx#:[id number] Oral 120 120 Output: Urine 100 50 Other: Voiding Method Urinal Urinal # Voids 2 1 # Bowel Movements 1 GENERAL: This is a -year-old in no apparent distress at the time of examination. Pleasant and cooperative. HEENT: Head is atraumatic, normocephalic. Pupils are equal, round, and reactive to light. Sclerae anicteric. Conjunctivae are clear. Mucus membranes of the mouth are moist. Neck is supple. RESPIRATORY: Bilateral wheezes, rales, or rhonchi. No use of accessory muscles. Patient maintaining oxygen saturation greater than 92%. No chest wall tenderness is noted on palpation or with deep breathing. CARDIOVASCULAR: Regular rate and rhythm. S1 and S2 noted. No systolic or diastolic murmur auscultated. No JVD noted. No S3 or S4 noted. GASTROINTESTINAL: No distention noted. Abdomen soft and round. Normal active bowel sounds auscultated x 4 quadrants. No pain or tenderness noted upon palpation. INTEGUMENTARY: No cyanosis. No jaundice. No rashes noted. No cellulitis noted. EXTREMITIES: 2+ peripheral pulses. No evidence of peripheral edema. No calf tenderness noted. NEUROLOGIC: Cranial nerves II-XII intact. PSYCHIATRIC: Awake, alert, and oriented X 3. Appropriate affect. poor judgement and insight. Results CBC & Chem 7: 09/03/19 05:46 09/03/19 05:40 Labs: Abnormal Lab Results - Last 24 Hours (Table) 08/28/19 08/28/19 08/28/19 Range/Units 01:15 03:24 05:58 POC Glucose (mg/dL) 131 H 135 H 143 H (75-99) mg/dL Urine Protein (Negative) Urine Blood (Negative) Ur Leukocyte Esterase (Negative) Urine RBC (0-5) /hpf Urine WBC (0-5) /hpf Urine WBC Clumps (None) /hpf Urine Bacteria (None) /hpf Urine Mucus (None) /hpf 1108/28/19 08/28/19 Range/Units 10:15 12:29 16:46 POC Glucose (mg/dL) 213 H 299 H (75-99) mg/dL Urine Protein 1+ H (Negative) Urine Blood Moderate H (Negative) Ur Leukocyte Esterase Large H (Negative) Urine RBC >182 H (0-5) /hpf Urine WBC >182 H (0-5) /hpf Urine WBC Clumps Many H (None) /hpf Urine Bacteria Occasional H (None) /hpf Urine Mucus Many H (None) /hpf 08/28/19 Range/Units 20:56 POC Glucose (mg/dL) 324 H (75-99) mg/dL Urine Protein (Negative) Urine Blood (Negative) Ur Leukocyte Esterase (Negative) Urine RBC (0-5) /hpf Urine WBC (0-5) /hpf Urine WBC Clumps (None) /hpf Urine Bacteria (None) /hpf Urine Mucus (None) /hpf Microbiology - Last 24 Hours (Table) 08/28/19 11:25 Gram Stain - Preliminary Sputum Sputum Culture - Preliminary 08/27/19 13:30 Blood Culture Gram Stain - Preliminary Blood Blood Culture - Preliminary Coagulase Negative Staph 08/28/19 10:15 Urine Culture - Preliminary Urine,Voided 08/27/19 13:30 Blood Culture - Final Blood Thrombosis Risk Factor Assmnt - Choose All That Apply Any of the Below Risk Factors Present?: Yes Each Factor Represents 1 point: Obesity (BMI >25) Other Risk Factors: Yes Each Risk Factor Represents 2 Points: Age 61-74 years Thrombosis Risk Factor Assessment Total Risk Factor Score: 3 Thrombosis Risk Factor Assessment Level: Moderate Risk Assessment and Plan (1) Elevated troponin Current Visit: Yes Status: Acute Code(s): R79.89 - OTHER SPECIFIED ABNORMAL FINDINGS OF BLOOD CHEMISTRY SNOMED Code(s): 934904350 (2) Pneumonia Current Visit: Yes Status: Acute Code(s): J18.9 - PNEUMONIA, UNSPECIFIED ORGANISM SNOMED Code(s): 593423643 (3) COPD (chronic obstructive pulmonary disease) Current Visit: No Status: Acute Code(s): J44.9 - CHRONIC OBSTRUCTIVE PULMONARY DISEASE, UNSPECIFIED SNOMED Code(s): 33192825 (4) Diabetes Current Visit: No Status: Acute Code(s): E11.9 - TYPE 2 DIABETES MELLITUS WITHOUT COMPLICATIONS SNOMED Code(s): 22031821 (5) HTN (hypertension) Current Visit: No Status: Acute Code(s): I10 - ESSENTIAL (PRIMARY) HYPERTENSION SNOMED Code(s): 39596703 (6) CHF (congestive heart failure) Current Visit: No Status: Acute Code(s): I50.9 - HEART FAILURE, UNSPECIFIED SNOMED Code(s): 70363476 (7) Hyperlipemia Current Visit: No Status: Acute Code(s): E78.5 - HYPERLIPIDEMIA, UNSPECIFIED SNOMED Code(s): 41433649 (8) Mediastinal mass Current Visit: No Status: Acute Code(s): R22.2 - LOCALIZED SWELLING, MASS AND LUMP, TRUNK SNOMED Code(s): 41104159 (9) Pleural effusion Current Visit: No Status: Acute Code(s): J90 - PLEURAL EFFUSION, NOT ELSEWHERE CLASSIFIED SNOMED Code(s): 17764838 (10) Squamous cell carcinoma of lung Current Visit: No Status: Acute Code(s): C34.90 - MALIGNANT NEOPLASM OF UNSP PART OF UNSP BRONCHUS OR LUNG SNOMED Code(s): 618300066 Plan: Patient will be admitted to the hospital for pulmonary and cardiology consultations and progress. Patient has been relatively noncompliant however he has been followed Dr. Whipple for routine CAT scans of the chest.
--- NOTE | 2019-09-03 13:26 | P.PN ---
Subjective Progress Note Date: 09/03/19 Principal diagnosis: Left lung pleural effusion On 09/01/2019 patient seen in follow-up in selective care unit, he sitting up in the recliner, in no acute distress, he is wearing his oxygen intermittently, on 3-4 L his pulse ox is 94%, she seems to be calm and comfortable, denies any chest pain, no fever or chills, lung sounds reveal diminished breath sounds over left lower lobe, no significant rhonchi or wheezing, or crackles, no fever or chills, hemodynamically patient is stable, he remains on dobutamine drip at 20 half mics per kilo per minute, and Lasix drip is infusing at 10 ML per hour. No plans for thoracentesis at this time. Continue medical treatment. Today's labs have been reviewed, white blood cell count is 9.8, hemoglobin is 10.0, sodium is 136, potassium is 5.4, chloride is 105, CO2 is 21, B1 is 74 creatinine is 3.61. Patient continues on Zithromax for antibiotic coverage, urine and sputum cultures have been negative, and blood culture showed coagulase-negative staph, likely contaminated. Appetite is poor, patient is admitted to mild shortness of breath especially with exertion, generally weak. Physical therapy is working with the patient, but patient will need to rehab at discharge. On 09/02/2019 patient is seen in follow-up on selective care unit, he is in no acute distress, sitting up in the recliner, on room air with pulse ox of 98-99%, hemodynamically stable he denies any worsening shortness of breath, lung sounds reveal diminished breath sounds over left mid and lower lung. Patient continues on Lasix drip, and dobutamine drip, he is in negative fluid balance, lower extremity edema is improving, fluid volume status is improving, yesterday we put a consultation to interventional radiology for ultrasound-guided left thorace ntesis and patient went down this morning and had 100 mL of pleural fluid removed which was nonbloody, but was annita in color, and the fluid was sent for cytology, fluid analysis and cultures. Tolerated procedure well, and returned back to his room. On 09/03/2019 patient seen in follow-up on selective care unit, he sitting up in a recliner, he is in no acute distress, he remains on Lasix drip, and dobutamine, he reports no worsening dyspnea, etc. liters of oxygen his pulse ox of 95%, no fever or chills, hemodynamically stable, no complaints of chest pain, lung sounds reveal diminished breath sounds at bilateral bases, no major rhonchi or wheezing, pleural fluid analysis reveals transudate of fluid, cytology pending, cultures are pending. Objective - Vital Signs Vital signs: Vital Signs Temp 97.7 F 09/03/19 08:50 Pulse 75 09/03/19 12:00 Resp 18 09/03/19 12:00 BP 95/56 09/03/19 12:00 Pulse Ox 95 09/03/19 12:00 Intake & Output 09/02/19 09/03/19 09/03/19 18:59 06:59 18:59 Intake Total 343 405.277 240 Output Total 1330 180 Balance 343 -924.723 60 Weight 114.4 kg 114.4 kg Intake: Intake, IV Titration 93 405.277 Amount DOBUTamine DRIP 500 mg In 215.277 Dextrose/Water 1 250ml. bag @ 2.5 MCG/KG/MIN 7. 988 mls/hr IV .Q24H [facility] Rx#:[id number] Furosemide 100 mg In 93 190.000 Sodium Chloride 0.9% 90 ml @ 10 MG/HR 10 mls/hr IV .Q10H [facility] Rx#: [id number] Oral 250 240 Output: Urine 1330 180 Other: Voiding Method Urinal Urinal Urinal Incontinent Incontinent Incontinent # Voids 3 2 - Exam GENERAL EXAM: Alert, 74-year-old white male, on room air, with a pulse ox of 98% comfortable in no apparent distress. HEAD: Normocephalic/atraumatic. EYES: Normal reaction of pupils, equal size. Conjunctiva pink, sclera white. NOSE: Clear with pink turbinates. THROAT: No erythema or exudates. NECK: No masses, no JVD, no thyroid enlargement, no adenopathy. CHEST: No chest wall deformity. Symmetrical expansion. LUNGS: Diminished lung sounds over left lower lobe, no crackles, wheeze, rhonchi or dullness. CVS: Regular rate and rhythm, normal S1 and S2, no gallops, no murmurs, no rubs ABDOMEN: Soft, nontender. No hepatosplenomegaly, normal bowel sounds, no guarding or rigidity. EXTREMITIES: No clubbing, 1+ edema in bilateral lower extremities, no cyanosis, 2+ pulses and upper and lower extremities. MUSCULOSKELETAL: Muscle strength and tone normal. SPINE: No scoliosis or deformity SKIN: No rashes CENTRAL NERVOUS SYSTEM: Alert and oriented -3. No focal deficits, tone is normal in all 4 extremities. PSYCHIATRIC: Alert and oriented -3. Appropriate affect. Intact judgment and insight. - Labs CBC & Chem 7: 09/03/19 05:46 09/03/19 05:40 Labs: Abnormal Lab Results - Last 24 Hours (Table) 09/02/19 09/03/19 09/03/19 Range/Units 20:24 05:40 05:46 WBC 10.7 H (3.8-10.6) k/uL RBC 3.73 L (4.30-5.90) m/uL Hgb 10.2 L (13.0-17.5) gm/dL Hct 31.5 L (39.0-53.0) % RDW 17.7 H (11.5-15.5) % Neutrophils # 9.3 H (1.3-7.7) k/uL Lymphocytes # 0.3 L (1.0-4.8) k/uL Potassium 5.3 H (3.5-5.1) mmol/L Chloride 108 H (98-107) mmol/L BUN 67 H (9-20) mg/dL Creatinine 2.66 H (0.66-1.25) mg/dL Glucose 102 H (74-99) mg/dL POC Glucose (mg/dL) 198 H (75-99) mg/dL 09/03/19 09/03/19 Range/Units 06:11 11:54 WBC (3.8-10.6) k/uL RBC (4.30-5.90) m/uL Hgb (13.0-17.5) gm/dL Hct (39.0-53.0) % RDW (11.5-15.5) % Neutrophils # (1.3-7.7) k/uL Lymphocytes # (1.0-4.8) k/uL Potassium (3.5-5.1) mmol/L Chloride (98-107) mmol/L BUN (9-20) mg/dL Creatinine (0.66-1.25) mg/dL Glucose (74-99) mg/dL POC Glucose (mg/dL) 103 H 159 H (75-99) mg/dL Microbiology - Last 24 Hours (Table) 09/02/19 10:26 Gram Stain - Preliminary Thoracic Fluid Body Fluid Culture - Preliminary 09/02/19 10:26 Anaerobic Culture - Preliminary Thoracentesis Fluid Assessment and Plan Plan: Assessment: 1 left lung opacity likely the evolution of a left-sided pleural effusion. The patient has had previous chronic left-sided pleural effusion that has been drained and the patient has undergone thoracentesis in the past and the fluid cytology was negative for malignancy. Nevertheless, during this current hospitalization the patient developed interval worsening of the left-sided pleural effusion based on the comparison of chest x-rays between 08/27/2019 and 08/28/2019. As such, traumatic left-sided pleural effusion is to be considered including the possibility of a hemothorax knowing that the patient anticoagulation. Malignant pleural effusions felt to be less likely. On 09/02/2019 patient seen in follow-up on selective care unit, he had ultrasound-guided left thoracentesis performed by interventional radiology would removal of 100 mL of annita-colored pleural fluid which was sent for analysis, cytology and cultures. On 09/03/2019 patient's pleural fluid analysis reveals transudate of fluid, cytology and cultures are pending 2 squamous cell lung cancer locally advanced post-chemoradiation therapy back in 2015 with good response based on subsequent PET scans in the CAT scan of the chest that was done in January 2019 3 episodic falls. Rule out MASONRY SUPERVISOR metastases based on his history of squamous cell lung cancer. Rule out hypoglycemia as the patient has been having W hypoglycemia that were witnessed also in the hospital. MRI of the brain showed no evidence of any MASONRY SUPERVISOR metastases. 4 diabetes mellitus 5 coronary artery disease with previous [place], with a troponin leak 6 history of CVA involving the right frontal lobe 7 history of atrial fibrillation/flutter and the patient's rhythm is sinus and the patient is demented on long-term and to coagulation with Xarelto. 8 hyperlipidemia 9 acute on chronic systolic heart failure 10 acute kidney injury Plan: Continue medical treatment, pleural fluid cytology reveals transudative fluid likely related to congestive heart failure, cardiology and nephrology are follo wing, and are managing the diuretics. Await the results of the cytology and pleural fluid cultures,clinically patient is stable, no specific complaints. Encourage deep breathing and coughing and increase activity as tolerated. I performed a history & physical examination of the patient and discussed their management with my nurse practitioner, Dasha Maloney. I reviewed the nurse practitioner's note and agree with the documented findings and plan of care. Lung sounds are positive for diminished breath sounds over left lower lobe. The findings and the impression was discussed with the patient. I attest to the documentation by the nurse practitioner. Time with Patient: Less than 30
--- NOTE | 2019-09-03 14:33 | P.PN ---
Subjective Progress Note Date: 09/03/19 This pleasant 74-year-old male past medical history significant for coronary artery disease with a chronic total occlusion of the LAD and mild- moderate disease of the RCA and circumflex, lung cancer s/p chemo and radiation, chronic persistent atrial fibrillation, chronic systolic heart failure, renal insufficiency and ischemic cardiomyopathy. He follows the os Dr. Beard. We are following secondary to acute exacerbation of chronic heart failure. Patient is currently on IV Lasix drip along with dobutamine. Sitting up in a recliner today, appears to be comfortable, denies any chest discomfort. Hemodynamically stable, white blood cell count today 9.8, hemoglobin 10.0, potassium 5.4. BUN 74 and creatinine 3.6. 09/02/2019 Patient seen and examined this morning, sitting up in the chair at bedside, mildly confused, diuresing well on the Lasix drip, weight is down significantly today. Edema is improving also significantly. Blood pressure 110/60 with a heart rate of 70, 98% on 2 L of oxygen. Sodium 140, potassium 5.3, BUN 72 and creatinine 3.1. 09/03/2019 Patient seen and examined this morning, breathing overall is improving, he underwent a thoracentesis for 1 L of fluid removed. Continues to be on Lasix drip and dobutamine. Hemodynamically he is stable, denies any chest discomfort. Objective - Vital Signs Vital signs: Vital Signs Temp 97.7 F 09/03/19 08:50 Pulse 75 09/03/19 12:00 Resp 18 09/03/19 12:00 BP 95/56 09/03/19 12:00 Pulse Ox 95 09/03/19 12:00 Intake & Output 09/02/19 09/03/19 09/03/19 18:59 06:59 18:59 Intake Total 343 405.277 240 Output Total 1330 180 Balance 343 -924.723 60 Weight 114.4 kg 114.4 kg Intake: Intake, IV Titration 93 405.277 Amount DOBUTamine DRIP 500 mg In 215.277 Dextrose/Water 1 250ml. bag @ 2.5 MCG/KG/MIN 7. 988 mls/hr IV .Q24H [facility] Rx#:[id number] Furosemide 100 mg In 93 190.000 Sodium Chloride 0.9% 90 ml @ 10 MG/HR 10 mls/hr IV .Q10H [facility] Rx#: [id number] Oral 250 240 Output: Urine 1330 180 Other: Voiding Method Urinal Urinal Urinal Incontinent Incontinent Incontinent # Voids 3 2 - Exam HEAD: Normocephalic/atraumatic. EYES: Normal reaction of pupils, equal size. Conjunctiva pink, sclera white. NOSE: Clear with pink turbinates. THROAT: No erythema or exudates. NECK: No masses, no JVD, no thyroid enlargement, no adenopathy. CHEST: No chest wall deformity. Symmetrical expansion. LUNGS: Diminished lung sounds over left lower lobe, no crackles, wheeze, rhonchi or dullness. CVS: Regular rate and rhythm, normal S1 and S2, no gallops, no murmurs, no rubs ABDOMEN: Soft, nontender. No hepatosplenomegaly, normal bowel sounds, no guarding or rigidity. EXTREMITIES: No clubbing, trace-1+ edema in bilateral lower extremities, no cyanosis, 2+ pulses and upper and lower extremities. MUSCULOSKELETAL: Muscle strength and tone normal. SPINE: No scoliosis or deformity SKIN: No rashes CENTRAL NERVOUS SYSTEM: Alert and oriented -3. No focal deficits, tone is normal in all 4 extremities. PSYCHIATRIC: Alert and oriented 2. Appropriate affect. Intact judgment and insight. - Labs CBC & Chem 7: 09/03/19 05:46 09/03/19 05:40 Labs: Abnormal Lab Results - Last 24 Hours (Table) 09/02/19 09/03/19 09/03/19 Range/Units 20:24 05:40 05:46 WBC 10.7 H (3.8-10.6) k/uL RBC 3.73 L (4.30-5.90) m/uL Hgb 10.2 L (13.0-17.5) gm/dL Hct 31.5 L (39.0-53.0) % RDW 17.7 H (11.5-15.5) % Neutrophils # 9.3 H (1.3-7.7) k/uL Lymphocytes # 0.3 L (1.0-4.8) k/uL Potassium 5.3 H (3.5-5.1) mmol/L Chloride 108 H (98-107) mmol/L BUN 67 H (9-20) mg/dL Creatinine 2.66 H (0.66-1.25) mg/dL Glucose 102 H (74-99) mg/dL POC Glucose (mg/dL) 198 H (75-99) mg/dL 09/03/19 09/03/19 Range/Units 06:11 11:54 WBC (3.8-10.6) k/uL RBC (4.30-5.90) m/uL Hgb (13.0-17.5) gm/dL Hct (39.0-53.0) % RDW (11.5-15.5) % Neutrophils # (1.3-7.7) k/uL Lymphocytes # (1.0-4.8) k/uL Potassium (3.5-5.1) mmol/L Chloride (98-107) mmol/L BUN (9-20) mg/dL Creatinine (0.66-1.25) mg/dL Glucose (74-99) mg/dL POC Glucose (mg/dL) 103 H 159 H (75-99) mg/dL Microbiology - Last 24 Hours (Table) 09/02/19 10:26 Gram Stain - Preliminary Thoracic Fluid Body Fluid Culture - Preliminary 09/02/19 10:26 Anaerobic Culture - Preliminary Thoracentesis Fluid Assessment and Plan Plan: Assessment and plan: 1 left lung opacity likely the evolution of a left-sided pleural effusion. 2 squamous cell lung cancer locally advanced post-chemoradiation therapy back in 2015 with good response based on subsequent PET scans in the CAT scan of the chest that was done in January 2019 3 episodic falls. Rule out STAFF NURSE MIDWIFE metastases based on his history of squamous cell lung cancer. Rule out hypoglycemia as the patient has been having W hypoglycemia that were witnessed also in the hospital. MRI of the brain showed no evidence of any STAFF NURSE MIDWIFE metastases. 4 diabetes mellitus 5 coronary artery disease with previous [place], with a troponin leak 6 history of CVA involving the right frontal lobe 7 history of paroxysmal atrial fibrillation/flutter and the patient's rhythm is sinus and the patient is demented on long-term and to coagulation with Xarelto. 8 hyperlipidemia 9 acute on chronic systolic heart failure 10 acute kidney injury 11 nonischemic cardiomyopathy 12 hypertension Plan From cardiology's perspective, we'll recommend to continue current dose of IV Lasix drip and dobutamine. We will continue to follow DNP note has been reviewed, I agree with a documented findings and plan of care. Patient was seen and examined.
--- NOTE | 2019-09-03 15:06 | PN ---
PROGRESS NOTE Patient is seen for followup for acute kidney injury, mainly cardiorenal. His renal function continues to improve. Patient is maintained on dobutamine drip and Lasix drip. Weight is down as well and his lower extremity edema has improved. PHYSICAL EXAMINATION: On examination today, blood pressure was 100/53, heart rate 74 per minute, patient is afebrile. Examination of the heart S1, S2. Examination of the lungs, bilateral breath sounds are heard. Abdomen is soft, non-tender. Examination of the lower extremities shows edema 2+ bilaterally, currently improving. COMPUTING TUTOR exam grossly intact. LABS: Show hemoglobin of 10.2, sodium 138, potassium 5.3, chloride 108, BUN 67, serum creatinine 2.6. ASSESSMENT: 1. Acute kidney injury cardiorenal, currently improving. Patient is maintained on dobutamine and Lasix drip. I will continue with the current doses of both the drips. 2. Volume overload, continuing to improve. 3. Cardiomyopathy, ejection fraction 35% to 40%. 4. Congestive heart failure, systolic, acute on top of chronic. 5. Chronic kidney disease stage IIIB to IV. Baseline creatinine about 1.9-1.5 mg/dL secondary to nephrosclerosis. 6. Atrial fibrillation with controlled ventricular response. 7. Generalized debility. 8. Mild hyperkalemia, currently stable, continue with loop diuretics. Repeat labs in a.m. MMODL / IJN: [id number] /
[2019-09-03 16:30] LABS: Glucose,Whole Blood 251 mg/dL (75-99)
[2019-09-03] MEDS: RIVAROXABAN 20 MG TAB PO SCH (18:02)
[2019-09-03 20:34] LABS: Glucose,Whole Blood 174 mg/dL (75-99)
--- NOTE | 2019-09-03 20:46 | P.PN ---
Subjective Progress Note Date: 09/03/19 09/01/2019 sitting up in chair, pleasantly confused. Complains of mild shortness of breath. Maintaining 94% on 3 L nasal cannula, 84-88% on room air. Appetite poor. Staff reports patient is a 1-2 person assist. Physical therapy recommended subacute rehab at discharge. Maintained on both dobutamine and Lasix drips. Creatinine mildly improved, down to 3.61, potassium 5.4. Yesterday chest x-ray suggested worsening pleural effusion on the left side, No thoracentesis recommended per pulmonary. 09/02/2019 continues on Lasix and dobutamine drips. Diuresing well with 24-hour I&O reflecting a negative fluid balance, edema improving. Diagnostic left thoracentesis completed this morning per interventional radiology with 100mls serous pleural fluid drained. Cultures/cytology pending. Tolerated procedure well. Chest x-ray reporting no pneumothorax post thoracentesis.VSS, maintaining O2 sats in the high 90s on 2 L nasal cannula. Renal function improving ,trending down to 3.13. Potassium 5.3 09/03/2019 maintained on Lasix and dobutamine gtts. Status post small bowel and thoracentesis. Pleural Cultures pending. Tolerated procedure well. Breathing appears better.Last night sustained a fall with bilateral arms with skin tears, sitter at bedside. Creatinine continues to improve, down to 2.66 .Denies any chest pain, palpitations. Afebrile. Objective - Vital Signs Vital signs: Vital Signs Temp 97.6 F 09/03/19 19:55 Pulse 73 09/03/19 19:55 Resp 16 09/03/19 19:55 BP 109/63 09/03/19 19:55 Pulse Ox 96 09/03/19 19:55 Intake & Output 09/03/19 09/03/19 09/04/19 06:59 18:59 06:59 Intake Total 007.500 5513.667 Output Total 1330 180 Balance -924.723 876.667 Weight 114.4 kg 114.4 kg Intake: IV 144 DOBUTamine DRIP 500 mg In 64 Dextrose/Water 1 250ml. bag @ 2.5 MCG/KG/MIN 7. 988 mls/hr IV .Q24H [facility] Rx#:[id number] Furosemide 100 mg In 80 Sodium Chloride 0.9% 90 ml @ 10 MG/HR 10 mls/hr IV .Q10H [facility] Rx#: [id number] Intake, IV Titration 405.277 192.667 Amount DOBUTamine DRIP 500 mg In 215.277 Dextrose/Water 1 250ml. bag @ 2.5 MCG/KG/MIN 7. 988 mls/hr IV .Q24H [facility] Rx#:[id number] Furosemide 100 mg In 190.000 92.667 Sodium Chloride 0.9% 90 ml @ 10 MG/HR 10 mls/hr IV .Q10H [facility] Rx#: [id number] cefTRIAXone 1 gm In 100 Sodium Chloride 0.9% 50 ml @ 100 mls/hr IVPB Q24HR [facility] Rx#:[id number] Oral 720 Output: Urine 1330 180 Other: Voiding Method Urinal Urinal Incontinent Incontinent # Voids 2 - Exam PHYSICAL EXAM: VITAL SIGNS: [As above] GENERAL: Sitting up in chair, pleasantly confused, alert and oriented 2. HEENT: Conjunctivae normal. eyes normal. Oral mucosa moist NECK: No JVD. No thyroid enlargement. No LNs CARDIOVASCULAR: S1, S2 regular.. No murmur, rubs or gallops. RESPIRATION: Breath sounds diminished in the bases. No rhonchi, scattered fine crackles and wheezes bilaterally. ABDOMEN: Soft, nontender . No guarding. no masses palpable.Bowel sounds heard. LEGS: Decreasing edema. Left lower extremity dressing clean dry and intact(site of care skin tear to fall). NERVOUS SYSTEM: Cranial N 2-12 grossly normal. Moves all 4 limbs. Diffuse generalized weakness, No focal deficits. Strength and sensation grossly intact.. SKIN: No rashes. Bilateral arms with skin tears, dressings clean dry and intact. - Labs CBC & Chem 7: 09/03/19 05:46 09/03/19 05:40 Labs: Abnormal Lab Results - Last 24 Hours (Table) 09/02/19 09/03/19 09/03/19 Range/Units 20:24 05:40 05:46 WBC 10.7 H (3.8-10.6) k/uL RBC 3.73 L (4.30-5.90) m/uL Hgb 10.2 L (13.0-17.5) gm/dL Hct 31.5 L (39.0-53.0) % RDW 17.7 H (11.5-15.5) % Neutrophils # 9.3 H (1.3-7.7) k/uL Lymphocytes # 0.3 L (1.0-4.8) k/uL Potassium 5.3 H (3.5-5.1) mmol/L Chloride 108 H (98-107) mmol/L BUN 67 H (9-20) mg/dL Creatinine 2.66 H (0.66-1.25) mg/dL Glucose 102 H (74-99) mg/dL POC Glucose (mg/dL) 198 H (75-99) mg/dL 09/03/19 09/03/19 09/03/19 Range/Units 06:11 11:54 16:27 WBC (3.8-10.6) k/uL RBC (4.30-5.90) m/uL Hgb (13.0-17.5) gm/dL Hct (39.0-53.0) % RDW (11.5-15.5) % Neutrophils # (1.3-7.7) k/uL Lymphocytes # (1.0-4.8) k/uL Potassium (3.5-5.1) mmol/L Chloride (98-107) mmol/L BUN (9-20) mg/dL Creatinine (0.66-1.25) mg/dL Glucose (74-99) mg/dL POC Glucose (mg/dL) 103 H 159 H 251 H (75-99) mg/dL Microbiology - Last 24 Hours (Table) 09/02/19 10:26 Gram Stain - Preliminary Thoracic Fluid Body Fluid Culture - Preliminary 09/02/19 10:26 Anaerobic Culture - Preliminary Thoracentesis Fluid Assessment and Plan Assessment: Acute hypoxic respiratory failure, multifactorial secondary to acute on chronic systolic CHF exacerbation, bilateral pleural effusions, community-acquired p neumonia. Nonischemic cardiomyopathy, EF 35-40% Left lung opacity, left-sided traumatic pleural effusion suspected in a patient with previous chronic left-sided pleural effusion-status post prior thor acentesis with negative fluid cytology for malignancy. Status post left-sided thoracentesis on 09/02/2019, cytology/cultures pending. Chronic persistent atrial fibrillation Acute on chronic renal failure stage III, suspect diabetic nephropathy, cardiorenal syndrome. Diabetes mellitus, hypoglycemia secondary to poor oral intake, worsening renal function, currently stable Hyperkalemia secondary to acute on chronic renal failure Blood cultures reporting coagulase-negative staph, contamination Hypertension hyperlipidemia History of lung CA, squamous cell, status post chemoradiation treatment Gait dysfunction with multiple falls. MRI of the brain reporting no metastasis. CAD, history of [place] Moderate pulmonary hypertension History of CVA involving right frontal lobe Plan: Continue on current medication regime , monitoring and symptomatic treatment. Dobutamine and Lasix drips as per cardiology. Continue on Zithromax, Rocephin.Maintained nebulized bronchodilators. PT/OT. Subacute rehab at discharge recommended. Close monitoring of renal function, electrolytes with repeat labs ordered for a.m. pleural cytology/cultures pending The impression and plan of care has been dictated as directed. : I performed a history and examination of this patient, discussed the same with the dictator. I agree with the dictator's note ,documented as a scribe. Any additional findings or plans will be noted.
[2019-09-03] MEDS: INSULIN DETEMIR (LEVEMIR) 100 UNIT/ML SYR SQ SCH (20:59)
[2019-09-04] MEDS: FUROSEMIDE 100 MG in SODIUM CHLORIDE 0.9% 90 ML IV SCH ×2 (01:00→13:00)
[2019-09-04] MEDS: DOBUTamine DRIP 500 MG in DEXTROSE/WATER 1 250ML.BAG IV SCH (03:15)
[2019-09-04] MEDS ORDERED: LORazepam 2 MG/ML INJ IV STA (04:08)
[2019-09-04 06:22] LABS: Glucose,Whole Blood 134 mg/dL (75-99)
[2019-09-04] MEDS: INSULIN ASPART (NovoLOG) 100 UNIT/ML VIAL SQ SCH ×4 (06:22→21:01)
[2019-09-04 06:29] LABS: Anisocytosis Slight; Basophils # (A) 0.1 k/uL (0-0.2); Basophils % (A) 1 %; Eosinophils # (A) 0.1 k/uL (0-0.7); Eosinophils % (A) 1 %; HCT 33.3 % (39.0-53.0); Hypochromasia Slight; Lymphocytes # (A) 0.4 k/uL (1.0-4.8); Lymphocytes % (A) 3 %; MCH 25.8 pg (25.0-35.0); Mean Platelet Volume 6.5; Monocytes # (A) 0.6 k/uL (0-1.0); Monocytes % (A) 5 %; Neutrophils # (A) 9.7 k/uL (1.3-7.7); Neutrophils % (A) 88 %; Platelet Count 310 k/uL (150-450); RBC 3.87 m/uL (4.30-5.90); RDW 18.1 % (11.5-15.5)
[2019-09-04 07:05] LABS: Calcium 9.1 mg/dL (8.4-10.2); Potassium 4.8 mmol/L (3.5-5.1)
[2019-09-04] MEDS: ASPIRIN 81 MG PO SCH (08:31)
[2019-09-04] MEDS: MIDODRINE 5 MG TAB PO SCH ×2 (08:31→17:16)
[2019-09-04] MEDS: buPROPion XL 150 MG TAB.ER.24H PO SCH (08:32)
[2019-09-04] MEDS: ATORVASTATIN 80 MG TAB PO SCH (08:33)
[2019-09-04] MEDS: AZITHROMYCIN 500 MG TAB PO SCH (08:33)
[2019-09-04] MEDS: AMIODARONE 100 MG TAB PO SCH (08:33)
[2019-09-04 12:05] LABS: Glucose,Whole Blood 112 mg/dL (75-99)
--- NOTE | 2019-09-04 12:09 | P.PN ---
Subjective Progress Note Date: 09/04/19 This is a subsequent day visit for Mr. 74-year-old white male was admitted from the above diagnosis. Last night he became disorientated and combative on awaking he was ripping and his skin with IVs and also being combative with the staff as well as inappropriate grabbing. It was ordered some IV Ativan and some soft wrist restraints for patient's protection. Patient doesn't recall any of the events from last evening. He does state he feels much better today. He seems to be answering questions appropriately. We'll try him up in the chair today and continued monitoring. Objective - Vital Signs Vital signs: Vital Signs Temp 97.4 F L 09/04/19 07:57 Pulse 82 09/04/19 07:57 Resp 18 09/04/19 07:57 BP 127/66 09/04/19 07:57 Pulse Ox 96 09/04/19 07:57 Intake & Output 09/03/19 09/04/19 09/04/19 18:59 06:59 18:59 Intake Total 1056.667 435.595 Output Total 180 300 Balance 876.667 135.595 Weight 114.4 kg Intake: IV 144 DOBUTamine DRIP 500 mg In 64 Dextrose/Water 1 250ml. bag @ 2.5 MCG/KG/MIN 7. 988 mls/hr IV .Q24H [facility] Rx#:[id number] Furosemide 100 mg In 80 Sodium Chloride 0.9% 90 ml @ 10 MG/HR 10 mls/hr IV .Q10H [facility] Rx#: [id number] Intake, IV Titration 192.667 335.595 Amount DOBUTamine DRIP 500 mg In 247.095 Dextrose/Water 1 250ml. bag @ 2.5 MCG/KG/MIN 7. 988 mls/hr IV .Q24H [facility] Rx#:[id number] Furosemide 100 mg In 92.667 88.5 Sodium Chloride 0.9% 90 ml @ 10 MG/HR 10 mls/hr IV .Q10H [facility] Rx#: [id number] cefTRIAXone 1 gm In 100 Sodium Chloride 0.9% 50 ml @ 100 mls/hr IVPB Q24HR [facility] Rx#:[id number] Oral 720 100 Output: Urine 180 300 Other: Voiding Method Urinal Urinal Urinal Incontinent # Voids 1 # Bowel Movements 1 - Exam VITAL SIGNS: [As above] GENERAL: Sitting up in chair, pleasantly confused, alert and oriented 2. HEENT: Conjunctivae normal. eyes normal. Oral mucosa moist NECK: No JVD. No thyroid enlargement. No LNs CARDIOVASCULAR: S1, S2 regular.. No murmur, rubs or gallops. RESPIRATION: Breath sounds diminished in the bases. No rhonchi, scattered fine crackles and wheezes bilaterally. ABDOMEN: Soft, nontender . No guarding. no masses palpable.Bowel sounds heard. LEGS: Decreasing edema. Left lower extremity dressing clean dry and intact(site of care skin tear to fall). NERVOUS SYSTEM: Cranial N 2-12 grossly normal. Moves all 4 limbs. Diffuse generalized weakness, No focal deficits. Strength and sensation grossly intact.. SKIN: No rashes. Bilateral arms with skin tears, dressings clean dry and intact. - Labs CBC & Chem 7: 09/04/19 06:06 09/04/19 06:06 Labs: Abnormal Lab Results - Last 24 Hours (Table) 09/03/19 09/03/19 09/03/19 Range/Units 11:54 16:27 20:33 WBC (3.8-10.6) k/uL RBC (4.30-5.90) m/uL Hgb (13.0-17.5) gm/dL Hct (39.0-53.0) % MCHC (31.0-37.0) g/dL RDW (11.5-15.5) % Neutrophils # (1.3-7.7) k/uL Lymphocytes # (1.0-4.8) k/uL BUN (9-20) mg/dL Creatinine (0.66-1.25) mg/dL Glucose (74-99) mg/dL POC Glucose (mg/dL) 159 H 251 H 174 H (75-99) mg/dL 09/04/19 09/04/19 09/04/19 Range/Units 06:06 06:06 06:20 WBC 11.0 H (3.8-10.6) k/uL RBC 3.87 L (4.30-5.90) m/uL Hgb 10.0 L (13.0-17.5) gm/dL Hct 33.3 L (39.0-53.0) % MCHC 30.0 L (31.0-37.0) g/dL RDW 18.1 H (11.5-15.5) % Neutrophils # 9.7 H (1.3-7.7) k/uL Lymphocytes # 0.4 L (1.0-4.8) k/uL BUN 56 H (9-20) mg/dL Creatinine 2.37 H (0.66-1.25) mg/dL Glucose 133 H (74-99) mg/dL POC Glucose (mg/dL) 134 H (75-99) mg/dL Microbiology - Last 24 Hours (Table) 09/02/19 10:26 Gram Stain - Preliminary Thoracic Fluid Body Fluid Culture - Preliminary Assessment and Plan (1) Elevated troponin Current Visit: Yes Status: Acute Code(s): R79.89 - OTHER SPECIFIED ABNORMAL FINDINGS OF BLOOD CHEMISTRY SNOMED Code(s): 553499922 (2) Pneumonia Current Visit: Yes Status: Acute Code(s): J18.9 - PNEUMONIA, UNSPECIFIED ORGANISM SNOMED Code(s): 859687516 (3) COPD (chronic obstructive pulmonary disease) Current Visit: No Status: Acute Code(s): J44.9 - CHRONIC OBSTRUCTIVE PULM ONARY DISEASE, UNSPECIFIED SNOMED Code(s): 01969033 (4) Diabetes Current Visit: No Status: Acute Code(s): E11.9 - TYPE 2 DIABETES MELLITUS WITHOUT COMPLICATIONS SNOMED Code(s): 57804478 (5) HTN (hypertension) Current Visit: No Status: Acute Code(s): I10 - ESSENTIAL (PRIMARY) HYPERTENSION SNOMED Code(s): 05865602 (6) CHF (congestive heart failure) Current Visit: No Status: Acute Code(s): I50.9 - HEART FAILURE, UNSPECIFIED SNOMED Code(s): 74964530 (7) Hyperlipemia Current Visit: No Status: Acute Code(s): E78.5 - HYPERLIPIDEMIA, UNSPECIFIED SNOMED Code(s): 32227499 (8) Mediastinal mass Current Visit: No Status: Acute Code(s): R22.2 - LOCALIZED SWELLING, MASS AND LUMP, TRUNK SNOMED Code(s): 54637089 (9) Pleural effusion Current Visit: No Status: Acute Code(s): J90 - PLEURAL EFFUSION, NOT ELSEWHERE CLASSIFIED SNOMED Code(s): 48286824 (10) Squamous cell carcinoma of lung Current Visit: No Status: Acute Code(s): C34.90 - MALIGNANT NEOPLASM OF UNSP PART OF UNSP BRONCHUS OR LUNG SNOMED Code(s): 118250318 Plan: Patient will be tried out of soft wrist restraints and monitored his course most likely is can include inpatient rehabilitation in a subacute care facility this is currently being arranged and he'll be ready hopefully in the next 24 hours. We'll continue to monitor his patient's progress. End dictation
--- NOTE | 2019-09-04 14:35 | P.PN ---
Subjective Progress Note Date: 09/04/19 This pleasant 74-year-old male past medical history significant for coronary artery disease with a chronic total occlusion of the LAD and mild- moderate disease of the RCA and circumflex, lung cancer s/p chemo and radiation, chronic persistent atrial fibrillation, chronic systolic heart failure, renal insufficiency and ischemic cardiomyopathy. He follows the os Dr. Beard. We are following secondary to acute exacerbation of chronic heart failure. Patient is currently on IV Lasix drip along with dobutamine. Sitting up in a recliner today, appears to be comfortable, denies any chest discomfort. Hemodynamically stable, white blood cell count today 9.8, hemoglobin 10.0, potassium 5.4. BUN 74 and creatinine 3.6. 09/02/2019 Patient seen and examined this morning, sitting up in the chair at bedside, mildly confused, diuresing well on the Lasix drip, weight is down significantly today. Edema is improving also significantly. Blood pressure 110/60 with a heart rate of 70, 98% on 2 L of oxygen. Sodium 140, potassium 5.3, BUN 72 and creatinine 3.1. 09/03/2019 Patient seen and examined this morning, breathing overall is improving, he underwent a thoracentesis for 1 L of fluid removed. Continues to be on Lasix drip and dobutamine. Hemodynamically he is stable, denies any chest discomfort. 09/04/2019 seen and examined this morning, was somewhat combative and confused to the night last night. As morning the patient doesn't recall the events of last night. Overall he does state that he is feeling significantly better. Pressure 142/70 with a heart rate in the 70s, 90% on 2 L of oxygen. White blood cell count 11.0, hemoglobin 10.0, platelet count 310. Sodium 139, potassium 4.8, BUN 56 and creatinine 2.3. Objective - Vital Signs Vital signs: Vital Signs Temp 97.3 F L 09/04/19 12:00 Pulse 77 09/04/19 12:00 Resp 18 09/04/19 12:00 BP 143/72 09/04/19 12:00 Pulse Ox 98 09/04/19 12:00 Intake & Output 09/03/19 09/04/19 09/04/19 18:59 06:59 18:59 Intake Total 1056.667 435.595 Output Total 180 300 Balance 876.667 135.595 Weight 114.4 kg Intake: IV 144 DOBUTamine DRIP 500 mg In 64 Dextrose/Water 1 250ml. bag @ 2.5 MCG/KG/MIN 7. 988 mls/hr IV .Q24H [facility] Rx#:[id number] Furosemide 100 mg In 80 Sodium Chloride 0.9% 90 ml @ 10 MG/HR 10 mls/hr IV .Q10H [facility] Rx#: [id number] Intake, IV Titration 192.667 335.595 Amount DOBUTamine DRIP 500 mg In 247.095 Dextrose/Water 1 250ml. bag @ 2.5 MCG/KG/MIN 7. 988 mls/hr IV .Q24H [facility] Rx#:[id number] Furosemide 100 mg In 92.667 88.5 Sodium Chloride 0.9% 90 ml @ 10 MG/HR 10 mls/hr IV .Q10H [facility] Rx#: [id number] cefTRIAXone 1 gm In 100 Sodium Chloride 0.9% 50 ml @ 100 mls/hr IVPB Q24HR [facility] Rx#:[id number] Oral 720 100 Output: Urine 180 300 Other: Voiding Method Urinal Urinal Urinal Incontinent # Voids 1 # Bowel Movements 1 - Exam HEAD: Normocephalic/atraumatic. EYES: Normal reaction of pupils, equal size. Conjunctiva pink, sclera white. NOSE: Clear with pink turbinates. THROAT: No erythema or exudates. NECK: No masses, no JVD, no thyroid enlargement, no adenopathy. CHEST: No chest wall deformity. Symmetrical expansion. LUNGS: Diminished lung sounds over left lower lobe, no crackles, wheeze, rhonchi or dullness. CVS: Regular rate and rhythm, normal S1 and S2, no gallops, no murmurs, no rubs ABDOMEN: Soft, nontender. No hepatosplenomegaly, normal bowel sounds, no guarding or rigidity. EXTREMITIES: No clubbing, trace-1+ edema in bilateral lower extremities, no cyanosis, 2+ pulses and upper and lower extremities. MUSCULOSKELETAL: Muscle strength and tone normal. SPINE: No scoliosis or deformity SKIN: No rashes CENTRAL NERVOUS SYSTEM: Alert and oriented -3. No focal deficits, tone is normal in all 4 extremities. PSYCHIATRIC: Alert and oriented 2. Appropriate affect. Intact judgment and insight. - Labs CBC & Chem 7: 09/04/19 06:06 09/04/19 06:06 Labs: Abnormal Lab Results - Last 24 Hours (Table) 09/03/19 09/03/19 09/04/19 Range/Units 16:27 20:33 06:06 WBC 11.0 H (3.8-10.6) k/uL RBC 3.87 L (4.30-5.90) m/uL Hgb 10.0 L (13.0-17.5) gm/dL Hct 33.3 L (39.0-53.0) % MCHC 30.0 L (31.0-37.0) g/dL RDW 18.1 H (11.5-15.5) % Neutrophils # 9.7 H (1.3-7.7) k/uL Lymphocytes # 0.4 L (1.0-4.8) k/uL BUN (9-20) mg/dL Creatinine (0.66-1.25) mg/dL Glucose (74-99) mg/dL POC Glucose (mg/dL) 251 H 174 H (75-99) mg/dL 09/04/19 09/04/19 09/04/19 Range/Units 06:06 06:20 11:47 WBC (3.8-10.6) k/uL RBC (4.30-5.90) m/uL Hgb (13.0-17.5) gm/dL Hct (39.0-53.0) % MCHC (31.0-37.0) g/dL RDW (11.5-15.5) % Neutrophils # (1.3-7.7) k/uL Lymphocytes # (1.0-4.8) k/uL BUN 56 H (9-20) mg/dL Creatinine 2.37 H (0.66-1.25) mg/dL Glucose 133 H (74-99) mg/dL POC Glucose (mg/dL) 134 H 112 H (75-99) mg/dL Microbiology - Last 24 Hours (Table) 09/02/19 10:26 Gram Stain - Preliminary Thoracic Fluid Body Fluid Culture - Preliminary 09/02/19 10:26 Anaerobic Culture - Preliminary Thoracentesis Fluid Assessment and Plan Plan: Assessment and plan: 1 left lung opacity likely the evolution of a left-sided pleural effusion. 2 squamous cell lung cancer locally advanced post-chemoradiation therapy back in 2016 with good response based on subsequent PET scans in the CAT scan of the chest that was done in January 2019 3 episodic falls. Rule out WOOD TANK BUILDER metastases based on his history of squamous cell lung cancer. Rule out hypoglycemia as the patient has been having W hypoglycemia that were witnessed also in the hospital. MRI of the brain showed no evidence of any WOOD TANK BUILDER metastases. 4 diabetes mellitus 5 coronary artery disease with previous [place], with a troponin leak 6 history of CVA involving the right frontal lobe 7 history of paroxysmal atrial fibrillation/flutter and the patient's rhythm is sinus and the patient is demented on long-term and to coagulation with Xarelto. 8 hyperlipidemia 9 acute on chronic systolic heart failure 10 acute kidney injury 11 nonischemic cardiomyopathy 12 hypertension Plan From cardiology's perspective, we'll recommend to continue current dose of IV Lasix drip and dobutamine. Repeat chest x-ray in the morning. We will continue to follow DNP note has been reviewed, I agree with a documented findings and plan of care. Patient was seen and examined.
[2019-09-04 17:14] LABS: Glucose,Whole Blood 244 mg/dL (75-99)
[2019-09-04] MEDS: RIVAROXABAN 20 MG TAB PO SCH (17:16)
--- NOTE | 2019-09-04 18:17 | PN ---
PROGRESS NOTE Patient is seen for followup for acute kidney injury which is mainly cardiorenal, for which patient is maintained on Lasix and dobutamine drip. He continues to have improving renal function. Weight is currently decreasing. Urine output about 1.3 L. PHYSICAL EXAMINATION: On examination today, patient is resting comfortably. He is awake, comfortable, not in any acute distress. Blood pressure this morning was 127/66, heart rate 77 per minute. Patient is afebrile. EXAMINATION OF THE HEART: S1 and S2. EXAMINATION OF LUNGS: Bilateral breath sounds are heard. ABDOMEN: Soft, non-tender. Examination of lower extremities shows chronic skin changes, edema 2+ bilaterally. FISH TENDER exam is grossly intact. LABS: Hemoglobin 10.0, sodium 139, potassium 4.8, BUN 56, creatinine 2.37. ASSESSMENT: 1. Acute kidney injury, cardiorenal, currently improving. 2. Volume overload, maintained on Lasix and dobutamine drip, which we will continue. 3. Hypotension, maintained on midodrine. Blood pressure is much improved. We can discontinue the midodrine tomorrow if his systolic blood pressure remains above 100 mmHg. 4. Cardiomyopathy; ejection fraction 35% to 40%. 5. Chronic kidney disease, stage IIIB to IV, baseline creatinine 1.9 to 1.5, secondary to nephrosclerosis. 6. Atrial fibrillation with controlled ventricular response. 7. Mild hyperkalemia which is currently stable and improved. PLAN: Repeat labs in a.m. Continue with the Lasix and dobutamine drip for now. MMODL / IJN: [id number] /
--- NOTE | 2019-09-04 18:39 | XR ---
EXAMINATION TYPE: XR chest 2V DATE OF EXAM: 09/04/2019 COMPARISON: 09/02/2019 HISTORY: Thoracentesis. Heart failure follow-up. TECHNIQUE: Frontal and lateral views of the chest are obtained. FINDINGS: There is right central venous catheter noted with the tip in the superior vena cava. There is increased density left hemithorax consistent with pleural fluid and airspace consolidation. There is coarsening of the lung markings. There is pulmonary vascular congestion. IMPRESSION: There is probably heart failure. Left side consolidation and pleural effusion unchanged.
[2019-09-04 20:27] LABS: Glucose,Whole Blood 250 mg/dL (75-99)
[2019-09-04] MEDS: INSULIN DETEMIR (LEVEMIR) 100 UNIT/ML SYR SQ SCH (21:01)
[2019-09-05] MEDS: FUROSEMIDE 100 MG in SODIUM CHLORIDE 0.9% 90 ML IV SCH ×3 (01:41→16:52)
[2019-09-05 06:11] LABS: Anisocytosis Slight; Basophils % (A) 0 %; Eosinophils # (A) 0.1 k/uL (0-0.7); Eosinophils % (A) 1 %; HGB 10.3 gm/dL (13.0-17.5); Hypochromasia Slight; Lymphocytes # (A) 0.4 k/uL (1.0-4.8); Lymphocytes % (A) 4 %; MCH 26.7 pg (25.0-35.0); MCHC 31.2 g/dL (31.0-37.0); MCV 85.6 fL (80.0-100.0); Mean Platelet Volume 6.6; Monocytes # (A) 0.6 k/uL (0-1.0); Monocytes % (A) 7 %; Neutrophils % (A) 85 %; Platelet Count 317 k/uL (150-450); RBC 3.86 m/uL (4.30-5.90); RDW 18.1 % (11.5-15.5); WBC 9.4 k/uL (3.8-10.6)
[2019-09-05] MEDS: INSULIN ASPART (NovoLOG) 100 UNIT/ML VIAL SQ SCH ×4 (06:13→21:01)
[2019-09-05] MEDS: MIDODRINE 5 MG TAB PO SCH ×2 (06:15→17:42)
[2019-09-05 06:24] LABS: Glucose,Whole Blood 138 mg/dL (75-99)
[2019-09-05 06:25] LABS: Calcium 8.8 mg/dL (8.4-10.2); Potassium 4.6 mmol/L (3.5-5.1)
[2019-09-05] MEDS: AMIODARONE 100 MG TAB PO SCH (08:59)
[2019-09-05] MEDS: ASPIRIN 81 MG PO SCH (08:59)
[2019-09-05] MEDS: buPROPion XL 150 MG TAB.ER.24H PO SCH (08:59)
[2019-09-05] MEDS: ATORVASTATIN 80 MG TAB PO SCH (08:59)
[2019-09-05] MEDS: DOBUTamine DRIP 500 MG in DEXTROSE/WATER 1 250ML.BAG IV SCH (09:37)
--- NOTE | 2019-09-05 10:47 | P.PN ---
Subjective Patient is seen in follow-up for acute kidney injury on chronic kidney disease. Renal function is improving. Creatinine 2.11 today. Currently maintained on dobutamine drip and Lasix drip at 10 mL an hour. Weight is trending down. Still quite edematous. According to the nurse, his mentation is better today. Vital signs are stable. General: The patient appeared well nourished and normally developed. HEENT: Head exam is unremarkable. Neck is without jugular venous distension. LUNGS: Lungs are clear to auscultation and percussion. Breath sounds decreased. HEART: Rate and Rhythm are regular. First and second heart sounds normal. No murmurs, rubs or gallops. ABDOMEN: Abdominal exam reveals normal bowel sounds. Non-tender and non-disten ded. No evidence of peritonitis. EXTREMITITES: 1+ edema. Objective - Vital Signs Vital signs: Vital Signs Temp 97.6 F 09/05/19 08:04 Pulse 84 09/05/19 08:04 Resp 18 09/05/19 08:04 BP 132/68 09/05/19 08:04 Pulse Ox 95 09/05/19 08:04 Intake & Output 09/04/19 09/05/19 09/05/19 18:59 06:59 18:59 Intake Total 460 100 362.569 Output Total 925 1500 Balance -465 -1400 362.569 Weight 113.6 kg Intake: Intake, IV Titration 100 100 242.569 Amount DOBUTamine DRIP 500 mg In 242.569 Dextrose/Water 1 250ml. bag @ 2.5 MCG/KG/MIN 7. 988 mls/hr IV .Q24H [facility] Rx#:[id number] Furosemide 100 mg In 100 100 Sodium Chloride 0.9% 90 ml @ 10 MG/HR 10 mls/hr IV .Q10H [facility] Rx#: [id number] Oral 360 120 Output: Urine 925 1500 Other: Voiding Method Urinal Urinal Urinal # Voids 4 - Labs CBC & Chem 7: 09/05/19 05:29 09/05/19 05:29 Labs: Abnormal Lab Results - Last 24 Hours (Table) 09/04/19 09/04/19 09/04/19 Range/Units 11:47 17:03 20:21 RBC (4.30-5.90) m/uL Hgb (13.0-17.5) gm/dL Hct (39.0-53.0) % RDW (11.5-15.5) % Neutrophils # (1.3-7.7) k/uL Lymphocytes # (1.0-4.8) k/uL BUN (9-20) mg/dL Creatinine (0.66-1.25) mg/dL Glucose (74-99) mg/dL POC Glucose (mg/dL) 112 H 244 H 250 H (75-99) mg/dL 09/05/19 09/05/19 09/05/19 Range/Units 05:29 05:29 06:12 RBC 3.86 L (4.30-5.90) m/uL Hgb 10.3 L (13.0-17.5) gm/dL Hct 33.0 L (39.0-53.0) % RDW 18.1 H (11.5-15.5) % Neutrophils # 8.0 H (1.3-7.7) k/uL Lymphocytes # 0.4 L (1.0-4.8) k/uL BUN 48 H (9-20) mg/dL Creatinine 2.11 H (0.66-1.25) mg/dL Glucose 127 H (74-99) mg/dL POC Glucose (mg/dL) 138 H (75-99) mg/dL Microbiology - Last 24 Hours (Table) 09/02/19 10:26 Gram Stain - Preliminary Thoracic Fluid Body Fluid Culture - Preliminary 09/02/19 10:26 Anaerobic Culture - Preliminary Thoracentesis Fluid Assessment and Plan Plan: Assessment: 1. Acute kidney injury mostly prerenal secondary to cardiorenal syndrome. Improving. Creatinine 2.11 today. 2. Chronic kidney disease stage III with baseline creatinine in the range of 1.5-1.9 secondary to nephrosclerosis. 3. Acute on chronic systolic CHF with ejection fraction of 35-40%. 4. Volume overload. 5. Mild hyperkalemia improved to diuresis. 6. Hypotension maintained on midodrine. 7. Insulin-dependent diabetes mellitus. 8. History of A. fib maintained on amiodarone and Xarelto. Plan: Maintain dobutamine drip. Maintain Lasix drip at 10 mL an hour. Add metolazone 5 mg once daily. Low-salt diet. Daily weights. Repeat electrolytes in the morning.
[2019-09-05 12:11] LABS: Glucose,Whole Blood 124 mg/dL (75-99)
--- NOTE | 2019-09-05 12:32 | P.PN ---
Subjective Progress Note Date: 09/05/19 This pleasant 74-year-old male past medical history significant for coronary artery disease with a chronic total occlusion of the LAD and mild- moderate disease of the RCA and circumflex, lung cancer s/p chemo and radiation, chronic persistent atrial fibrillation, chronic systolic heart failure, renal insufficiency and ischemic cardiomyopathy. He follows the os Dr. Beard. We are following secondary to acute exacerbation of chronic heart failure. Patient is currently on IV Lasix drip along with dobutamine. Sitting up in a recliner today, appears to be comfortable, denies any chest discomfort. Hemodynamically stable, white blood cell count today 9.8, hemoglobin 10.0, potassium 5.4. BUN 74 and creatinine 3.6. 09/02/2019 Patient seen and examined this morning, sitting up in the chair at bedside, mildly confused, diuresing well on the Lasix drip, weight is down significantly today. Edema is improving also significantly. Blood pressure 110/60 with a heart rate of 70, 98% on 2 L of oxygen. Sodium 140, potassium 5.3, BUN 72 and creatinine 3.1. 09/03/2019 Patient seen and examined this morning, breathing overall is improving, he underwent a thoracentesis for 1 L of fluid removed. Continues to be on Lasix drip and dobutamine. Hemodynamically he is stable, denies any chest discomfort. 09/04/2019 seen and examined this morning, was somewhat combative and confused to the night last night. As morning the patient doesn't recall the events of last night. Overall he does state that he is feeling significantly better. Pressure 142/70 with a heart rate in the 70s, 90% on 2 L of oxygen. White blood cell count 11.0, hemoglobin 10.0, platelet count 310. Sodium 139, potassium 4.8, BUN 56 and creatinine 2.3. 09/05/2019 Patient seen and examined this morning, continues to diurese well overall, mentation seems to be improving today. As well as his renal function. Blood pressure 116/60 with a heart rate of 70, 95% on 2 L of oxygen. Blood cell count 9.4, hemoglobin 10.3, platelet count 317. Sodium 138, potassium 4.6, BUN 48 and creatinine 2.1. Objective - Vital Signs Vital signs: Vital Signs Temp 98.0 F 09/05/19 12:04 Pulse 78 09/05/19 12:04 Resp 18 09/05/19 12:04 BP 116/63 09/05/19 12:04 Pulse Ox 95 09/05/19 12:04 Intake & Output 09/04/19 09/05/19 09/05/19 18:59 06:59 18:59 Intake Total 460 100 362.569 Output Total 925 1500 Balance -465 -1400 362.569 Weight 113.6 kg Intake: Intake, IV Titration 100 100 242.569 Amount DOBUTamine DRIP 500 mg In 242.569 Dextrose/Water 1 250ml. bag @ 2.5 MCG/KG/MIN 7. 988 mls/hr IV .Q24H [facility] Rx#:[id number] Furosemide 100 mg In 100 100 Sodium Chloride 0.9% 90 ml @ 10 MG/HR 10 mls/hr IV .Q10H [facility] Rx#: [id number] Oral 360 120 Output: Urine 925 1500 Other: Voiding Method Urinal Urinal Urinal # Voids 4 2 - Exam HEAD: Normocephalic/atraumatic. EYES: Normal reaction of pupils, equal size. Conjunctiva pink, sclera white. NOSE: Clear with pink turbinates. THROAT: No erythema or exudates. NECK: No masses, no JVD, no thyroid enlargement, no adenopathy. CHEST: No chest wall deformity. Symmetrical expansion. LUNGS: Diminished lung sounds over left lower lobe, no crackles, wheeze, rhonchi or dullness. CVS: Regular rate and rhythm, normal S1 and S2, no gallops, no murmurs, no rubs ABDOMEN: Soft, nontender. No hepatosplenomegaly, normal bowel sounds, no guarding or rigidity. EXTREMITIES: No clubbing, 2+ edema in bilateral lower extremities, no cyanosis, 2+ pulses and upper and lower extremities. MUSCULOSKELETAL: Muscle strength and tone normal. SPINE: No scoliosis or deformity SKIN: No rashes CENTRAL NERVOUS SYSTEM: Alert and oriented -3. No focal deficits, tone is normal in all 4 extremities. PSYCHIATRIC: Alert and oriented 2. Appropriate affect. Intact judgment and insight. - Labs CBC & Chem 7: 09/05/19 05:29 09/05/19 05:29 Labs: Abnormal Lab Results - Last 24 Hours (Table) 1109/04/19 09/05/19 Range/Units 17:03 20:21 05:29 RBC 3.86 L (4.30-5.90) m/uL Hgb 10.3 L (13.0-17.5) gm/dL Hct 33.0 L (39.0-53.0) % RDW 18.1 H (11.5-15.5) % Neutrophils # 8.0 H (1.3-7.7) k/uL Lymphocytes # 0.4 L (1.0-4.8) k/uL BUN (9-20) mg/dL Creatinine (0.66-1.25) mg/dL Glucose (74-99) mg/dL POC Glucose (mg/dL) 244 H 250 H (75-99) mg/dL 09/05/19 09/05/19 09/05/19 Range/Units 05:29 06:12 11:51 RBC (4.30-5.90) m/uL Hgb (13.0-17.5) gm/dL Hct (39.0-53.0) % RDW (11.5-15.5) % Neutrophils # (1.3-7.7) k/uL Lymphocytes # (1.0-4.8) k/uL BUN 48 H (9-20) mg/dL Creatinine 2.11 H (0.66-1.25) mg/dL Glucose 127 H (74-99) mg/dL POC Glucose (mg/dL) 138 H 124 H (75-99) mg/dL Microbiology - Last 24 Hours (Table) 09/02/19 10:26 Gram Stain - Preliminary Thoracic Fluid Body Fluid Culture - Preliminary 09/02/19 10:26 Anaerobic Culture - Preliminary Thoracentesis Fluid Assessment and Plan Plan: Assessment and plan: 1 left lung opacity likely the evolution of a left-sided pleural effusion. 2 squamous cell lung cancer locally advanced post-chemoradiation therapy back in 2015 with good response based on subsequent PET scans in the CAT scan of the chest that was done in January 2019 3 episodic falls. Rule out MICROFILM PROCESSOR metastases based on his history of squamous cell lung cancer. Rule out hypoglycemia as the patient has been having W hypoglycemia that were witnessed also in the hospital. MRI of the brain showed no evidence of any MICROFILM PROCESSOR metastases. 4 diabetes mellitus 5 coronary artery disease with previous [place], with a troponin leak 6 history of CVA involving the right frontal lobe 7 history of paroxysmal atrial fibrillation/flutter and the patient's rhythm is sinus and the patient is demented on long-term and to coagulation with Xarelto. 8 hyperlipidemia 9 acute on chronic systolic heart failure 10 acute kidney injury 11 nonischemic cardiomyopathy 12 hypertension Plan From cardiology's perspective, we'll recommend to continue current dose of IV Lasix drip and dobutamine. Repeat chest x-ray continues to show heart failure. Left-sided consolidation and pleural effusion unchanged. DNP note has been reviewed, I agree with a documented findings and plan of care. Patient was seen and examined.
[2019-09-05] MEDS: METOLAZONE 5 MG TAB PO SCH (13:02)
[2019-09-05 16:51] LABS: Glucose,Whole Blood 292 mg/dL (75-99)
[2019-09-05] MEDS: RIVAROXABAN 20 MG TAB PO SCH (17:42)
[2019-09-05 20:37] LABS: Glucose,Whole Blood 327 mg/dL (75-99)
[2019-09-05] MEDS: INSULIN DETEMIR (LEVEMIR) 100 UNIT/ML SYR SQ SCH (21:01)
[2019-09-06 06:17] LABS: Glucose,Whole Blood 142 mg/dL (75-99)
[2019-09-06] MEDS: MIDODRINE 5 MG TAB PO SCH ×2 (06:32→17:51)
[2019-09-06] MEDS: FUROSEMIDE 100 MG in SODIUM CHLORIDE 0.9% 90 ML IV SCH ×3 (06:35→20:53)
[2019-09-06] MEDS: INSULIN ASPART (NovoLOG) 100 UNIT/ML VIAL SQ SCH ×4 (06:35→20:42)
[2019-09-06 06:58] LABS: Calcium 8.7 mg/dL (8.4-10.2); Magnesium 1.8 mg/dL (1.6-2.3); Potassium 4.2 mmol/L (3.5-5.1)
[2019-09-06] MEDS: AMIODARONE 100 MG TAB PO SCH (09:22)
[2019-09-06] MEDS: buPROPion XL 150 MG TAB.ER.24H PO SCH (09:22)
[2019-09-06] MEDS: ATORVASTATIN 80 MG TAB PO SCH (09:22)
[2019-09-06] MEDS: METOLAZONE 5 MG TAB PO SCH (09:22)
[2019-09-06] MEDS: ASPIRIN 81 MG PO SCH (09:22)
--- NOTE | 2019-09-06 09:46 | P.PN ---
Subjective Progress Note Date: 09/06/19 Principal diagnosis: This is a 74-year-old with cardiorenal syndrome who is on Lasix drip and responding very well. Also on dobutamine drip His creatinine is improving he has adequate urine output. Vital signs are stable. His main complaint is that he is feeling depressed about being in the hospital. He says he has a fair appetite is not throwing up no chest pain he does have a cough. Is mildly short of breath. No abdominal pain. No diarrhea. His echocardiogram done on this admission showed LV function and impaired with ejection fraction 35-40%. A chest x-ray is consistent with congestive heart failure dated 09/04/2019 Objective - Vital Signs Vital signs: Vital Signs Temp 97.7 F 09/06/19 08:00 Pulse 86 09/06/19 08:00 Resp 20 09/06/19 08:00 BP 129/74 09/06/19 08:00 Pulse Ox 96 09/06/19 08:00 Intake & Output 09/05/19 09/06/19 09/06/19 18:59 06:59 18:59 Intake Total 500.736 340 360 Output Total 1200 300 Balance 500.736 -860 60 Weight 112 kg Intake: Intake, IV Titration 380.736 100 Amount DOBUTamine DRIP 500 mg In 242.569 Dextrose/Water 1 250ml. bag @ 2.5 MCG/KG/MIN 7. 988 mls/hr IV .Q24H [facility] Rx#:[id number] Furosemide 100 mg In 138.167 100 Sodium Chloride 0.9% 90 ml @ 10 MG/HR 10 mls/hr IV .Q10H [facility] Rx#: [id number] Oral 120 240 360 Output: Urine 1200 300 Other: Voiding Method Urinal Urinal # Voids 2 1 On examination is awake alert oriented but profoundly weak unable to even sit up without help HEENT exam no JVP is noted neck is supple no facial asymmetry Lungs are significant for diminished breath sounds with an occasional coarse crackle at bases Heart sounds are unremarkable for any murmur rub gallop Abdomen soft nontender obese Extremity exam was mild edema Neurologically awake alert oriented but very weak - Labs CBC & Chem 7: 09/05/19 05:29 09/06/19 06:05 Labs: Abnormal Lab Results - Last 24 Hours (Table) 09/05/19 09/05/1909/05/19 Range/Units 11:51 16:48 20:36 Sodium (137-145) mmol/L BUN (9-20) mg/dL Creatinine (0.66-1.25) mg/dL Glucose (74-99) mg/dL POC Glucose (mg/dL) 124 H 292 H 327 H (75-99) mg/dL 09/06/19 09/06/19 Range/Units 06:05 06:15 Sodium 136 L (137-145) mmol/L BUN 46 H (9-20) mg/dL Creatinine 2.01 H (0.66-1.25) mg/dL Glucose 133 H (74-99) mg/dL POC Glucose (mg/dL) 142 H (75-99) mg/dL Microbiology - Last 24 Hours (Table) 09/02/19 10:26 Gram Stain - Final Thoracic Fluid Body Fluid Culture - Final Assessment and Plan Assessment: Impression 1. Acute kidney injury from cardiorenal syndrome. On dobutamine and Lasix drip, Urine output is 24 25 mL, and then down to 1200 mL yesterday. Creatinine is down from a peak of 3.61 on 09/01/2019 to 2.01 as of this morning. 2. Cardiorenal syndrome, in congestive heart failure 3. Chronic kidney disease Baseline creatinine approximately 1.9 as of 04/01/2019, etiology nephrosclerosis, he has 1+ proteinuria not quantified Possible diabetic nephropathy 4. Anemia of chronic kidney disease hemoglobin is 10.3, at target 5. Mild hyponatremia from diuresis. Sodium is 136 6. Status post thoracentesis 09/02/2019 Recommendation 1. Maintain current diuretic regimen. 2. Repeat chest x-ray to assess how aggressive diuresis needs to be 3. Maintain dobutamine 4. Monitor labs daily
[2019-09-06 11:52] LABS: Glucose,Whole Blood 129 mg/dL (75-99)
[2019-09-06] MEDS: DOBUTamine DRIP 500 MG in DEXTROSE/WATER 1 250ML.BAG IV SCH (12:37)
--- NOTE | 2019-09-06 14:52 | P.PN ---
Subjective Progress Note Date: 09/06/19 This pleasant 74-year-old male past medical history significant for coronary artery disease with a chronic total occlusion of the LAD and mild- moderate disease of the RCA and circumflex, lung cancer s/p chemo and radiation, chronic persistent atrial fibrillation, chronic systolic heart failure, renal insufficiency and ischemic cardiomyopathy. He follows the os Dr. Beard. We are following secondary to acute exacerbation of chronic heart failure. Patient is currently on IV Lasix drip along with dobutamine. Sitting up in a recliner today, appears to be comfortable, denies any chest discomfort. Hemodynamically stable, white blood cell count today 9.8, hemoglobin 10.0, potassium 5.4. BUN 74 and creatinine 3.6. 09/02/2019 Patient seen and examined this morning, sitting up in the chair at bedside, mildly confused, diuresing well on the Lasix drip, weight is down significantly today. Edema is improving also significantly. Blood pressure 110/60 with a heart rate of 70, 98% on 2 L of oxygen. Sodium 140, potassium 5.3, BUN 72 and creatinine 3.1. 09/03/2019 Patient seen and examined this morning, breathing overall is improving, he underwent a thoracentesis for 1 L of fluid removed. Continues to be on Lasix drip and dobutamine. Hemodynamically he is stable, denies any chest discomfort. 09/04/2019 seen and examined this morning, was somewhat combative and confused to the night last night. As morning the patient doesn't recall the events of last night. Overall he does state that he is feeling significantly better. Pressure 142/70 with a heart rate in the 70s, 90% on 2 L of oxygen. White blood cell count 11.0, hemoglobin 10.0, platelet count 310. Sodium 139, potassium 4.8, BUN 56 and creatinine 2.3. 09/05/2019 Patient seen and examined this morning, continues to diurese well overall, mentation seems to be improving today. As well as his renal function. Blood pressure 116/60 with a heart rate of 70, 95% on 2 L of oxygen. Blood cell count 9.4, hemoglobin 10.3, platelet count 317. Sodium 138, potassium 4.6, BUN 48 and creatinine 2.1. 09/06: Patient denies having any chest pain. His breathing is a little bit better from yesterday. He has decreased lower extremity edema. He remains on Lasix drip and dobutamine drip. Weight is down 1.6 kg from yesterday. We will plan to order repeat chest x-ray in the morning. Sodium 136, potassium 4.2, chloride 99, CO2 30, BUN 46 and creatinine 2.01. Sodium 1.8. He has been afebrile, heart rate 80s, blood pressure 108/70, pulse ox 96% on 3 L nasal cannula. Objective - Vital Signs Vital signs: Vital Signs Temp 97.7 F 09/06/19 11:53 Pulse 80 09/06/19 11:53 Resp 18 09/06/19 11:53 BP 108/70 09/06/19 11:53 Pulse Ox 96 09/06/19 11:53 Intake & Output 09/05/19 09/06/19 09/06/19 18:59 06:59 18:59 Intake Total 500.736 340 995.843 Output Total 1200 300 Balance 500.736 -860 695.843 Weight 112 kg Intake: Intake, IV Titration 380.736 100 275.843 Amount DOBUTamine DRIP 500 mg In 242.569 215.676 Dextrose/Water 1 250ml. bag @ 2.5 MCG/KG/MIN 7. 988 mls/hr IV .Q24H [facility] Rx#:[id number] Furosemide 100 mg In 138.167 100 60.167 Sodium Chloride 0.9% 90 ml @ 10 MG/HR 10 mls/hr IV .Q10H [facility] Rx#: [id number] Oral 120 240 720 Output: Urine 1200 300 Other: Voiding Method Urinal Urinal Urinal # Voids 2 1 - Exam HEAD: Normocephalic/atraumatic. EYES: Normal reaction of pupils, equal size. Conjunctiva pink, sclera white. NOSE: Clear with pink turbinates. THROAT: No erythema or exudates. NECK: No masses, no JVD, no thyroid enlargement, no adenopathy. CHEST: No chest wall deformity. Symmetrical expansion. LUNGS: Diminished lung sounds over left lower lobe, no crackles, wheeze, rhonchi or dullness. CVS: Regular rate and rhythm, normal S1 and S2, no gallops, no murmurs, no rubs ABDOMEN: Soft, nontender. No hepatosplenomegaly, normal bowel sounds, no guarding or rigidity. EXTREMITIES: No clubbing, 1+ edema in bilateral lower extremities, no cyanosis, 2+ pulses and upper and lower extremities. MUSCULOSKELETAL: Muscle strength and tone normal. SPINE: No scoliosis or deformity SKIN: No rashes CENTRAL NERVOUS SYSTEM: Alert and oriented -3. No focal deficits, tone is normal in all 4 extremities. PSYCHIATRIC: Alert and oriented 2. Appropriate affect. Intact judgment and insight. - Labs CBC & Chem 7: 09/05/19 05:29 09/06/19 06:05 Labs: Abnormal Lab Results - Last 24 Hours (Table) 09/05/19 09/05/19 09/06/19 Range/Units 16:48 20:36 06:05 Sodium 136 L (137-145) mmol/L BUN 46 H (9-20) mg/dL Creatinine 2.01 H (0.66-1.25) mg/dL Glucose 133 H (74-99) mg/dL POC Glucose (mg/dL) 292 H 327 H (75-99) mg/dL 09/06/19 09/06/19 Range/Units 06:15 11:43 Sodium (137-145) mmol/L BUN (9-20) mg/dL Creatinine (0.66-1.25) mg/dL Glucose (74-99) mg/dL POC Glucose (mg/dL) 142 H 129 H (75-99) mg/dL Microbiology - Last 24 Hours (Table) 09/02/19 10:26 Anaerobic Culture - Final Thoracentesis Fluid 09/02/19 10:26 Gram Stain - Final Thoracic Fluid Body Fluid Culture - Final Assessment and Plan Plan: 1 left lung opacity likely the evolution of a left-sided pleural effusion. 2 squamous cell lung cancer locally advanced post-chemoradiation therapy back in 2015 with good response based on subsequent PET scans in the CAT scan of the chest that was done in January 2019 3 episodic falls. Rule out [employer] metastases based on his history of squamous cell lung cancer. Rule out hypoglycemia as the patient has been having W hypoglycemia that were witnessed also in the hospital. MRI of the brain showed no evidence of any [employer] metastases. 4 diabetes mellitus 5 coronary artery disease with previous [place], with a troponin leak 6 history of CVA involving the right frontal lobe 7 history of paroxysmal atrial fibrillation/flutter and the patient's rhythm is sinus and the patient is demented on long-term and to coagulation with Xarelto. 8 hyperlipidemia 9 acute on chronic systolic heart failure 10 acute kidney injury 11 nonischemic cardiomyopathy 12 hypertension Plan From cardiology's perspective, we'll recommend to continue current dose of IV Lasix drip and dobutamine for 1 more day. Repeat chest x-ray in the morning. Nurse practitioner note has been reviewed, I agree with the documented findings and plan of care. Patient was seen and examined.
--- NOTE | 2019-09-06 15:33 | P.PN ---
Subjective Progress Note Date: 09/06/19 Principal diagnosis: left-sided pleural effusion squamous cell lung cancer locally advanced post-chemoradiation therapy acute on chronic systolic heart failure acute kidney injury 74-year-old male past medical history significant for coronary artery disease with a chronic total occlusion of the LAD and mild-moderate disease of the RCA and circumflex, lung cancer s/p chemo and radiation, chronic persistent atrial fibrillation, chronic systolic heart failure, renal insufficiency and ischemic cardiomyopathy. He follows the os Dr. Beard. We are following secondary to acute exacerbation of chronic heart failure. Patient is currently on IV Lasix drip along with dobutamine. Sitting up in a recliner today, appears to be comfortable, denies any chest discomfort. 09/06/2019: Patient is seen and evaluated sitting up in a bedside chair; denies having any chest pain. His breathing is a little bit better from yesterday. He has dec reased lower extremity edema. He remains on Lasix drip and dobutamine drip. Weight is down 1.6 kg from yesterday. We will plan to order repeat chest x-ray in the morning. Sodium 136, potassium 4.2, chloride 99, CO2 30, BUN 46 and creatinine 2.01. Sodium 1.8. He has been afebrile, heart rate 80s, blood pressure 108/70, pulse ox 96% on 3 L nasal cannula. Cardiology is following and recommending to continue with IV Lasix and dobutamine infusion for 1 more day; plan to repeat chest x-ray in a.m. further recommendations after x-rays is done Objective - Vital Signs Vital signs: Vital Signs Temp 97.7 F 09/06/19 11:53 Pulse 80 09/06/19 11:53 Resp 18 09/06/19 11:53 BP 108/70 09/06/19 11:53 Pulse Ox 96 09/06/19 11:53 Intake & Output 09/05/19 09/06/19 09/06/19 18:59 06:59 18:59 Intake Total 500.736 340 360 Output Total 1200 300 Balance 500.736 -860 60 Weight 112 kg Intake: Intake, IV Titration 380.736 100 Amount DOBUTamine DRIP 500 mg In 242.569 Dextrose/Water 1 250ml. bag @ 2.5 MCG/KG/MIN 7. 988 mls/hr IV .Q24H [facility] Rx#:[id number] Furosemide 100 mg In 138.167 100 Sodium Chloride 0.9% 90 ml @ 10 MG/HR 10 mls/hr IV .Q10H [facility] Rx#: [id number] Oral 120 240 360 Output: Urine 1200 300 Other: Voiding Method Urinal Urinal Urinal # Voids 2 1 - Exam PHYSICAL EXAMINATION: GENERAL: The patient is alert and oriented x3, not in any acute distress. Well developed, well nourished. HEENT: Pupils are round and equally reacting to light. EOMI. No scleral icterus. No conjunctival pallor. Normocephalic, atraumatic. No pharyngeal erythema. No thyromegaly. CARDIOVASCULAR: S1 and S2 present. No murmurs, rubs, or gallops. PULMONARY: Chest is clear to auscultation, no wheezing or crackles. ABDOMEN: Soft, nontender, nondistended, normoactive bowel sounds. No palpable organomegaly. MUSCULOSKELETAL: No joint swelling or deformity. EXTREMITIES: No cyanosis, clubbing, or pedal edema. NEUROLOGICAL: Gross neurological examination did not reveal any focal deficits. SKIN: No rashes. - Labs CBC & Chem 7: 09/05/19 05:29 09/06/19 06:05 Labs: Abnormal Lab Results - Last 24 Hours (Table) 09/05/19 09/05/19 09/06/19 Range/Units 16:48 20:36 06:05 Sodium 136 L (137-145) mmol/L BUN 46 H (9-20) mg/dL Creatinine 2.01 H (0.66-1.25) mg/dL Glucose 133 H (74-99) mg/dL POC Glucose (mg/dL) 292 H 327 H (75-99) mg/dL 09/06/19 09/06/19 Range/Units 06:15 11:43 Sodium (137-145) mmol/L BUN (9-20) mg/dL Creatinine (0.66-1.25) mg/dL Glucose (74-99) mg/dL POC Glucose (mg/dL) 142 H 129 H (75-99) mg/dL Microbiology - Last 24 Hours (Table) 09/02/19 10:26 Anaerobic Culture - Final Thoracentesis Fluid 09/02/19 10:26 Gram Stain - Final Thoracic Fluid Body Fluid Culture - Final Assessment and Plan Assessment: 1. Left lung opacity/left-sided pleural effusion/ pneumonia. Rocephin 1 g IV every 24 hours 2. Squamous cell lung cancer locally advanced post-chemoradiation therapy back in 2016 with good response based on subsequent PET scans in the CAT scan of the chest that was done in January 2019 3. Diabetes mellitus; monitor Accu-Cheks every before meals and at bedtime with insulin sliding scale along with Levemir 18 units subcu daily at bedtime 4. Coronary artery disease with previous [place], with a troponin leak/ nonischemic cardiomyopathy 5. History of CVA involving the right frontal lobe 6. Paroxysmal atrial fibrillation/flutter and the patient's rhythm is sinus; continue with amiodarone and anticoagulation with Xarelto. 7. Hyperlipidemia; Lipitor 80 mg daily at bedtime 8. Acute on chronic systolic CHF; remains on IV diuretics along with Zaroxolyn 5 mg daily 9. Acute renal injury; continue to monitor renal function and electrolytes; strict MARCY's and daily weights CODE STATUS; DO NOT RESUSCITATE
[2019-09-06 16:53] LABS: Glucose,Whole Blood 279 mg/dL (75-99)
[2019-09-06] MEDS: RIVAROXABAN 20 MG TAB PO SCH (17:51)
[2019-09-06 20:35] LABS: Glucose,Whole Blood 283 mg/dL (75-99)
[2019-09-06] MEDS: INSULIN DETEMIR (LEVEMIR) 100 UNIT/ML SYR SQ SCH (20:42)
[2019-09-07 06:30] LABS: Glucose,Whole Blood 210 mg/dL (75-99)
--- NOTE | 2019-09-07 06:41 | XR ---
EXAMINATION TYPE: XR chest 2V DATE OF EXAM: 09/07/2019 HISTORY: Heart failure follow-up. REFERENCE: Previous study dated 09/04/2019. FINDINGS: There is a Mediport in place on the right. There is worsening opacity of the left hemithorax. This likely represents a combination of atelectasi s and pleural fluid. The lungs are overinflated. There is vascular congestion and mild pulmonary edema. Heart size is obsc ured. IMPRESSION: 1. COPD. 2. CONTINUING CHANGES OF CONGESTIVE HEART FAILURE. 3. WORSENING OPACITY OF THE LEFT HEMITHORAX.
[2019-09-07] MEDS: INSULIN ASPART (NovoLOG) 100 UNIT/ML VIAL SQ SCH ×4 (06:52→21:11)
[2019-09-07] MEDS: MIDODRINE 5 MG TAB PO SCH ×2 (06:52→17:07)
[2019-09-07] MEDS: FUROSEMIDE 100 MG in SODIUM CHLORIDE 0.9% 90 ML IV SCH (06:53)
[2019-09-07] MEDS: METOLAZONE 5 MG TAB PO SCH (09:14)
[2019-09-07] MEDS: AMIODARONE 100 MG TAB PO SCH (09:14)
[2019-09-07] MEDS: ATORVASTATIN 80 MG TAB PO SCH (09:14)
[2019-09-07] MEDS: ASPIRIN 81 MG PO SCH (09:14)
[2019-09-07] MEDS: buPROPion XL 150 MG TAB.ER.24H PO SCH (09:14)
--- NOTE | 2019-09-07 09:56 | P.PN ---
Subjective Progress Note Date: 09/07/19 Principal diagnosis: This is a 74-year-old with cardiorenal syndrome who is on Lasix drip and responding very well. Also on dobutamine drip His creatinine is improving he has adequate urine output. Vital signs are stable. Labs today are pending He continues to feel some shortness of breath but improved somewhat depressed about being here. Appetite is poor but improved. He denies any coughing or fever chills abdominal pain. His echocardiogram done on this admission showed LV function and impaired with ejection fraction 35-40%. A chest x-ray is consistent with congestive heart failure dated 09/04/2019 This is a 74-year-old male past medical history significant for coronary artery disease with a chronic total occlusion of the LAD and mild- moderate disease of the RCA and circumflex, lung cancer s/p chemo and radiation, chronic persistent atrial fibrillation, chronic systolic heart failure, renal insufficiency and ischemic cardiomyopathy. Objective - Vital Signs Vital signs: Vital Signs Temp 97.5 F L 09/07/19 08:00 Pulse 91 09/07/19 08:00 Resp 18 09/07/19 08:00 BP 113/64 09/07/19 08:00 Pulse Ox 98 09/07/19 08:00 Intake & Output 09/06/19 09/07/19 09/07/19 18:59 06:59 18:59 Intake Total 1045.843 322.833 240 Output Total 650 800 Balance 395.843 -477.167 240 Weight 106 kg Intake: Intake, IV Titration 325.843 182.833 Amount DOBUTamine DRIP 500 mg In 215.676 Dextrose/Water 1 250ml. bag @ 2.5 MCG/KG/MIN 7. 988 mls/hr IV .Q24H [facility] Rx#:[id number] Furosemide 100 mg In 60.167 182.833 Sodium Chloride 0.9% 90 ml @ 10 MG/HR 10 mls/hr IV .Q10H [facility] Rx#: [id number] cefTRIAXone 1 gm In 50 Sodium Chloride 0.9% 50 ml @ 100 mls/hr IVPB Q24HR [facility] Rx#:[id number] Oral 720 140 240 Output: Urine 650 800 Other: Voiding Method Urinal Urinal # Voids 2 On examination is awake alert oriented comfortable on nasal cannula oxygen HEENT exam no JVP neck is supple no facial asymmetry Lungs are significant for an occasional coarse crackle at bases fair air entry bilaterally Heart sounds are unremarkable for any murmur rub gallop he is in atrial fibrillation Abdomen is soft nontender no organomegaly noted no ascites noted Extremity exam was mild edema Warm to touch. Neurologically awake alert oriented but has generalized weakness - Labs CBC & Chem 7: 09/05/19 05:29 09/06/19 06:05 Labs: Abnormal Lab Results - Last 24 Hours (Table) 09/06/19 09/06/19 09/06/19 Range/Units 11:43 16:51 20:33 POC Glucose (mg/dL) 129 H 279 H 283 H (75-99) mg/dL 09/07/19 Range/Units 06:28 POC Glucose (mg/dL) 210 H (75-99) mg/dL Microbiology - Last 24 Hours (Table) 09/02/19 10:26 Anaerobic Culture - Final Thoracentesis Fluid 09/02/19 10:26 Gram Stain - Final Thoracic Fluid Body Fluid Culture - Final Assessment and Plan Assessment: Impression 1. Acute kidney injury from cardiorenal syndrome. On dobutamine and Lasix drip, Urine output is 800 MLS for the last 12 hours shift and 6 and 50 for the shift before that. Creatinine is down from a peak of 3.61 on 09/01/2019 to 2.01 as of 09/06/2019, today's labs is pending this morning. 2. Cardiorenal syndrome, in congestive heart failure, chest x-ray shows worsening in the left pleural effusion, the right lung does not show evidence of any gross pulmonary edema 3. Chronic kidney disease Baseline creatinine approximately 1.9 as of 04/01/2019, etiology nephrosclerosis, he has 1+ proteinuria not quantified Possible diabetic nephropathy 4. Anemia of chronic kidney disease hemoglobin is 10.3, at target 5. Mild hyponatremia from diuresis. Sodium is 136 6. Status post thoracentesis 09/02/2019 Recommendation 1. Consider tapping the left side. There is fluid confirmed by ultrasound to improve his breathing . 2. Switched to oral torsemide 80 twice a day, maintain the metolazone but increase the dose to 10 mg a day 3. Maintain dobutamine for 24 hours until we are sure of his diuresis on oral diuretics 4. Monitor labs daily
[2019-09-07] MEDS ORDERED: METOLAZONE 5 MG TAB PO ONE (10:15)
[2019-09-07 11:21] LABS: Calcium 9.3 mg/dL (8.4-10.2); Potassium 4.1 mmol/L (3.5-5.1)
--- NOTE | 2019-09-07 12:04 | P.PN ---
Subjective Progress Note Date: 09/07/19 This pleasant 74-year-old male past medical history significant for coronary artery disease with a chronic total occlusion of the LAD and mild- moderate disease of the RCA and circumflex, lung cancer s/p chemo and radiation, chronic persistent atrial fibrillation, chronic systolic heart failure, renal insufficiency and ischemic cardiomyopathy. He follows the os Dr. Beard. We are following secondary to acute exacerbation of chronic heart failure. Patient is currently on IV Lasix drip along with dobutamine. Sitting up in a recliner today, appears to be comfortable, denies any chest discomfort. Hemodynamically stable, white blood cell count today 9.8, hemoglobin 10.0, potassium 5.4. BUN 74 and creatinine 3.6. 09/02/2019 Patient seen and examined this morning, sitting up in the chair at bedside, mildly confused, diuresing well on the Lasix drip, weight is down significantly today. Edema is improving also significantly. Blood pressure 110/60 with a heart rate of 70, 98% on 2 L of oxygen. Sodium 140, potassium 5.3, BUN 72 and creatinine 3.1. 09/03/2019 Patient seen and examined this morning, breathing overall is improving, he underwent a thoracentesis for 1 L of fluid removed. Continues to be on Lasix drip and dobutamine. Hemodynamically he is stable, denies any chest discomfort. 09/04/2019 seen and examined this morning, was somewhat combative and confused to the night last night. As morning the patient doesn't recall the events of last night. Overall he does state that he is feeling significantly better. Pressure 142/70 with a heart rate in the 70s, 90% on 2 L of oxygen. White blood cell count 11.0, hemoglobin 10.0, platelet count 310. Sodium 139, potassium 4.8, BUN 56 and creatinine 2.3. 09/05/2019 Patient seen and examined this morning, continues to diurese well overall, mentation seems to be improving today. As well as his renal function. Blood pressure 116/60 with a heart rate of 70, 95% on 2 L of oxygen. Blood cell count 9.4, hemoglobin 10.3, platelet count 317. Sodium 138, potassium 4.6, BUN 48 and creatinine 2.1. 09/07/2019 Seen and examined this morning, much more alert and oriented, Continued to diuresis significant amount through the night last night. His IV Lasix drip has been discontinued and he's been changed over to oral Demadex. Blood pressure 112/60 with a heart rate of 90, 98% on 3 L of oxygen. Sodium 136, potassium 4.1, BUN 42 and creatinine 1.9. Objective - Vital Signs Vital signs: Vital Signs Temp 97.5 F L 09/07/19 08:00 Pulse 91 09/07/19 08:00 Resp 18 09/07/19 08:00 BP 113/64 09/07/19 08:00 Pulse Ox 98 09/07/19 08:00 Intake & Output 09/06/19 09/07/19 09/07/19 18:59 06:59 18:59 Intake Total 1045.843 322.833 240 Output Total 650 800 250 Balance 395.843 -477.167 -10 Weight 106 kg Intake: Intake, IV Titration 325.843 182.833 Amount DOBUTamine DRIP 500 mg In 215.676 Dextrose/Water 1 250ml. bag @ 2.5 MCG/KG/MIN 7. 988 mls/hr IV .Q24H [facility] Rx#:[id number] Furosemide 100 mg In 60.167 182.833 Sodium Chloride 0.9% 90 ml @ 10 MG/HR 10 mls/hr IV .Q10H [facility] Rx#: [id number] cefTRIAXone 1 gm In 50 Sodium Chloride 0.9% 50 ml @ 100 mls/hr IVPB Q24HR [facility] Rx#:[id number] Oral 720 140 240 Output: Urine 650 800 250 Other: Voiding Method Urinal Urinal Urinal # Voids 2 1 - Exam HEAD: Normocephalic/atraumatic. EYES: Normal reaction of pupils, equal size. Conjunctiva pink, sclera white. NOSE: Clear with pink turbinates. THROAT: No erythema or exudates. NECK: No masses, no JVD, no thyroid enlargement, no adenopathy. CHEST: No chest wall deformity. Symmetrical expansion. LUNGS: Diminished lung sounds over left lower lobe, no crackles, wheeze, rhonchi or dullness. CVS: Regular rate and rhythm, normal S1 and S2, no gallops, no murmurs, no rubs ABDOMEN: Soft, nontender. No hepatosplenomegaly, normal bowel sounds, no guarding or rigidity. EXTREMITIES: No clubbing, trace edema in bilateral lower extremities, no cyanosis, 2+ pulses and upper and lower extremities. MUSCULOSKELETAL: Muscle strength and tone normal. SPINE: No scoliosis or deformity SKIN: No rashes CENTRAL NERVOUS SYSTEM: Alert and oriented -3. No focal deficits, tone is normal in all 4 extremities. PSYCHIATRIC: Alert and oriented 2. Appropriate affect. Intact judgment and insight. - Labs CBC & Chem 7: 09/05/19 05:29 09/07/19 10:50 Labs: Abnormal Lab Results - Last 24 Hours (Table) 09/06/19 09/06/19 09/07/19 Range/Units 16:51 20:33 06:28 Sodium (137-145) mmol/L Chloride (98-107) mmol/L Carbon Dioxide (22-30) mmol/L BUN (9-20) mg/dL Creatinine (0.66-1.25) mg/dL Glucose (74-99) mg/dL POC Glucose (mg/dL) 279 H 283 H 210 H (75-99) mg/dL 09/07/19 Range/Units 10:50 Sodium 136 L (137-145) mmol/L Chloride 94 L (98-107) mmol/L Carbon Dioxide 34 H (22-30) mmol/L BUN 42 H (9-20) mg/dL Creatinine 1.98 H (0.66-1.25) mg/dL Glucose 187 H (74-99) mg/dL POC Glucose (mg/dL) (75-99) mg/dL Microbiology - Last 24 Hours (Table) 09/02/19 10:26 Anaerobic Culture - Final Thoracentesis Fluid 09/02/19 10:26 Gram Stain - Final Thoracic Fluid Body Fluid Culture - Final Assessment and Plan Plan: Assessment and plan: 1 left lung opacity likely the evolution of a left-sided pleural effusion. 2 squamous cell lung cancer locally advanced post-chemoradiation therapy back in 2015 with good response based on subsequent PET scans in the CAT scan of the chest that was done in January 2019 3 episodic falls. Rule out AGED OR DISABLED CARER metastases based on his history of squamous cell lung cancer. Rule out hypoglycemia as the patient has been having W hypoglycemia that were witnessed also in the hospital. MRI of the brain showed no evidence of any AGED OR DISABLED CARER metastases. 4 diabetes mellitus 5 coronary artery disease with previous IA, with a troponin leak 6 history of CVA involving the right frontal lobe 7 history of paroxysmal atrial fibrillation/flutter and the patient's rhythm is sinus and the patient is demented on long-term and to coagulation with Xarelto. 8 hyperlipidemia 9 acute on chronic systolic heart failure 10 acute kidney injury 11 nonischemic cardiomyopathy 12 hypertension Plan From cardiology's perspective, we would recommend to discontinue the IV Lasix drip, continue with oral Demadex at this time. DNP note has been reviewed, I agree with a documented findings and plan of care. Patient was seen and examined.
[2019-09-07 12:15] LABS: Glucose,Whole Blood 201 mg/dL (75-99)
[2019-09-07] MEDS: TORSEMIDE 20 MG TAB PO SCH ×2 (12:23→21:11)
[2019-09-07] MEDS: DOBUTamine DRIP 500 MG in DEXTROSE/WATER 1 250ML.BAG IV SCH (14:05)
--- NOTE | 2019-09-07 15:49 | P.PN ---
Subjective Progress Note Date: 09/07/19 Principal diagnosis: left-sided pleural effusion squamous cell lung cancer locally advanced post-chemoradiation therapy acute on chronic systolic heart failure acute kidney injury 74-year-old male past medical history significant for coronary artery disease with a chronic total occlusion of the LAD and mild-moderate disease of the RCA and circumflex, lung cancer s/p chemo and radiation, chronic persistent atrial fibrillation, chronic systolic heart failure, renal insufficiency and ischemic cardiomyopathy. He follows the os Dr. Beard. We are following secondary to acute exacerbation of chronic heart failure. Patient is currently on IV Lasix drip along with dobutamine. Sitting up in a recliner today, appears to be comfortable, denies any chest discomfort. 09/06/2019: Patient is seen and evaluated sitting up in a bedside chair; denies having any chest pain. His breathing is a little bit better from yesterday. He has dec reased lower extremity edema. He remains on Lasix drip and dobutamine drip. Weight is down 1.6 kg from yesterday. We will plan to order repeat chest x-ray in the morning. Sodium 136, potassium 4.2, chloride 99, CO2 30, BUN 46 and creatinine 2.01. Sodium 1.8. He has been afebrile, heart rate 80s, blood pressure 108/70, pulse ox 96% on 3 L nasal cannula. Cardiology is following and recommending to continue with IV Lasix and dobutamine infusion for 1 more day; plan to repeat chest x-ray in a.m. further recommendations after x-rays is done 09/07/2019 Patient is seen and evaluated in room with family members at bedside; patient denies any specific complaints; wants to go home Vital sign review show blood pressure 112/60, pulse of 90 and SpO2 of 98% on 3 L Laboratory review shows sodium of 136, potassium 4.1, BUN/creatinine of 42/1.9 Cardiology is following and is recommending to discontinue IV Lasix drip and patient has been transitioned to oral Demadex at this time; echocardiogram has shown LV function of 35-40% Nephrology is following and recommending to continue with IV dopamine for another 24 hours until patient is in short optimal diuresis with oral diuretic therapy; patient is recommended to increase metolazone up to 10 mg daily Objective - Vital Signs Vital signs: Vital Signs Temp 97.5 F L 09/07/19 08:00 Pulse 91 09/07/19 08:00 Resp 18 09/07/19 08:00 BP 113/64 09/07/19 08:00 Pulse Ox 98 09/07/19 08:00 Intake & Output 09/06/19 09/07/19 09/07/19 18:59 06:59 18:59 Intake Total 1045.843 322.833 240 Output Total 650 800 Balance 395.843 -477.167 240 Weight 106 kg Intake: Intake, IV Titration 325.843 182.833 Amount DOBUTamine DRIP 500 mg In 215.676 Dextrose/Water 1 250ml. bag @ 2.5 MCG/KG/MIN 7. 988 mls/hr IV .Q24H [facility] Rx#:[id number] Furosemide 100 mg In 60.167 182.833 Sodium Chloride 0.9% 90 ml @ 10 MG/HR 10 mls/hr IV .Q10H [facility] Rx#: [id number] cefTRIAXone 1 gm In 50 Sodium Chloride 0.9% 50 ml @ 100 mls/hr IVPB Q24HR [facility] Rx#:[id number] Oral 720 140 240 Output: Urine 650 800 Other: Voiding Method Urinal Urinal # Voids 2 - Exam PHYSICAL EXAMINATION: GENERAL: The patient is alert and oriented x3, not in any acute distress. Well developed, well nourished. HEENT: Pupils are round and equally reacting to light. EOMI. No scleral icterus. No conjunctival pallor. Normocephalic, atraumatic. No pharyngeal erythema. No th yromegaly. CARDIOVASCULAR: S1 and S2 present. No murmurs, rubs, or gallops. PULMONARY: Chest is clear to auscultation, no wheezing or crackles. ABDOMEN: Soft, nontender, nondistended, normoactive bowel sounds. No palpable organomegaly. MUSCULOSKELETAL: No joint swelling or deformity. EXTREMITIES: No cyanosis, clubbing, or pedal edema. NEUROLOGICAL: Gross neurological examination did not reveal any focal deficits. SKIN: No rashes. - Labs CBC & Chem 7: 09/05/19 05:29 09/07/19 10:50 Labs: Abnormal Lab Results - Last 24 Hours (Table) 11/16/19 11/16/19 11/16/19 Range/Units 11:43 16:51 20:33 POC Glucose (mg/dL) 129 H 279 H 283 H (75-99) mg/dL 09/07/19 Range/Units 06:28 POC Glucose (mg/dL) 210 H (75-99) mg/dL Microbiology - Last 24 Hours (Table) 09/02/19 10:26 Anaerobic Culture - Final Thoracentesis Fluid 09/02/19 10:26 Gram Stain - Final Thoracic Fluid Body Fluid Culture - Final Assessment and Plan Assessment: 1. Left lung opacity/left-sided pleural effusion/ pneumonia. Rocephin 1 g IV every 24 hours 2. Squamous cell lung cancer locally advanced post-chemoradiation therapy back in 2015 with good response based on subsequent PET scans in the CAT scan of the chest that was done in January 2019 3. Diabetes mellitus; monitor Accu-Cheks every before meals and at bedtime with insulin sliding scale along with Levemir 18 units subcu daily at bedtime 4. Coronary artery disease with previous NM, with a troponin leak/ nonischemic cardiomyopathy 5. History of CVA involving the right frontal lobe 6. Paroxysmal atrial fibrillation/flutter and the patient's rhythm is sinus; continue with amiodarone and anticoagulation with Xarelto. 7. Hyperlipidemia; Lipitor 80 mg daily at bedtime 8. Acute on chronic systolic CHF; remains on IV diuretics along with Zaroxolyn 5 mg daily 9. Acute renal injury; continue to monitor renal function and electrolytes; strict MARCY's and daily weights CODE STATUS; DO NOT RESUSCITATE Time with Patient: Greater than 30
[2019-09-07 16:48] LABS: Glucose,Whole Blood 249 mg/dL (75-99)
[2019-09-07] MEDS: RIVAROXABAN 20 MG TAB PO SCH (17:07)
[2019-09-07 20:34] LABS: Glucose,Whole Blood 301 mg/dL (75-99)
[2019-09-07] MEDS: INSULIN DETEMIR (LEVEMIR) 100 UNIT/ML SYR SQ SCH (21:11)
[2019-09-08 06:12] LABS: Glucose,Whole Blood 129 mg/dL (75-99)
[2019-09-08] MEDS: INSULIN ASPART (NovoLOG) 100 UNIT/ML VIAL SQ SCH ×4 (06:37→21:00)
[2019-09-08] MEDS: MIDODRINE 5 MG TAB PO SCH ×2 (06:39→17:37)
[2019-09-08] MEDS: ASPIRIN 81 MG PO SCH (08:14)
[2019-09-08] MEDS: ATORVASTATIN 80 MG TAB PO SCH (08:14)
[2019-09-08] MEDS: METOLAZONE 5 MG TAB PO SCH (08:15)
[2019-09-08] MEDS: buPROPion XL 150 MG TAB.ER.24H PO SCH (08:15)
[2019-09-08] MEDS: TORSEMIDE 20 MG TAB PO SCH ×2 (08:15→20:34)
[2019-09-08] MEDS: AMIODARONE 100 MG TAB PO SCH (08:15)
[2019-09-08] MEDS ORDERED: DOCUSATE 100 MG CAP PO PRN (09:16)
[2019-09-08 10:07] LABS: Calcium 9.2 mg/dL (8.4-10.2); Potassium 3.8 mmol/L (3.5-5.1)
--- NOTE | 2019-09-08 10:14 | P.PN ---
Subjective Patient is seen in follow-up for acute kidney injury on chronic kidney disease. Renal function is improving. Creatinine 1.88 today. Currently maintained on dobutamine drip and oral diuretics. Weight is trending down. Edema significantly improved. Denies vomiting or diarrhea. Vital signs are stable. General: The patient appeared well nourished and normally developed. HEENT: Head exam is unremarkable. Neck is without jugular venous distension. LUNGS: Lungs are clear to auscultation and percussion. Breath sounds decreased. HEART: Rate and Rhythm are regular. First and second heart sounds normal. No murmurs, rubs or gallops. ABDOMEN: Abdominal exam reveals normal bowel sounds. Non-tender and non- distended. No evidence of peritonitis. EXTREMITITES: Trace edema. Objective - Vital Signs Vital signs: Vital Signs Temp 96.7 F L 09/08/19 07:49 Pulse 96 09/08/19 08:00 Resp 18 09/08/19 08:00 BP 109/54 09/08/19 07:49 Pulse Ox 96 09/08/19 07:49 Intake & Output 09/07/19 09/08/19 09/08/19 18:59 06:59 18:59 Intake Total 533.428 190 375 Output Total 500 900 325 Balance 33.428 -710 50 Intake: IV 70 Furosemide 100 mg In 70 Sodium Chloride 0.9% 90 ml @ 10 MG/HR 10 mls/hr IV .Q10H [facility] Rx#: [id number] Intake, IV Titration 203.428 Amount DOBUTamine DRIP 500 mg In 203.428 Dextrose/Water 1 250ml. bag @ 2.5 MCG/KG/MIN 7. 988 mls/hr IV .Q24H [facility] Rx#:[id number] Oral 330 120 375 Output: Urine 500 900 325 Other: Voiding Method Urinal Urinal Urinal # Voids 1 1 - Labs CBC & Chem 7: 09/05/19 05:29 09/08/19 09:09 Labs: Abnormal Lab Results - Last 24 Hours (Table) 09/07/19 09/07/19 09/07/19 Range/Units 10:50 11:48 16:46 Sodium 136 L (137-145) mmol/L Chloride 94 L (98-107) mmol/L Carbon Dioxide 34 H (22-30) mmol/L BUN 42 H (9-20) mg/dL Creatinine 1.98 H (0.66-1.25) mg/dL Glucose 187 H (74-99) mg/dL POC Glucose (mg/dL) 201 H 249 H (75-99) mg/dL 09/07/19 09/08/19 09/08/19 Range/Units 20:32 06:11 09:09 Sodium 135 L (137-145) mmol/L Chloride 93 L (98-107) mmol/L Carbon Dioxide 35 H (22-30) mmol/L BUN 42 H (9-20) mg/dL Creatinine 1.88 H (0.66-1.25) mg/dL Glucose 186 H (74-99) mg/dL POC Glucose (mg/dL) 301 H 129 H (75-99) mg/dL Assessment and Plan Plan: Assessment: 1. Acute kidney injury mostly prerenal secondary to cardiorenal syndrome. Improving. Creatinine 1.88 today. 2. Chronic kidney disease stage III with baseline creatinine in the range of 1.5-1.9 secondary to nephrosclerosis. 3. Acute on chronic systolic CHF with ejection fraction of 35-40%. 4. Volume overload. Improving with diuresis. 5. Mild hyperkalemia improved to diuresis. Resolved. 6. Hypotension maintained on midodrine. Stable. 7. Insulin-dependent diabetes mellitus. 8. History of A. fib maintained on amiodarone and Xarelto. Plan: Maintain torsemide 80 mg twice daily. Maintain metolazone 10 mg once daily. Repeat electrolytes in the morning.
[2019-09-08 12:27] LABS: Glucose,Whole Blood 244 mg/dL (75-99)
--- NOTE | 2019-09-08 15:00 | P.PN ---
Subjective Progress Note Date: 09/08/19 This pleasant 74-year-old male past medical history significant for coronary artery disease with a chronic total occlusion of the LAD and mild- moderate disease of the RCA and circumflex, lung cancer s/p chemo and radiation, chronic persistent atrial fibrillation, chronic systolic heart failure, renal insufficiency and ischemic cardiomyopathy. He follows the os Dr. Beard. We are following secondary to acute exacerbation of chronic heart failure. Patient is currently on IV Lasix drip along with dobutamine. Sitting up in a recliner today, appears to be comfortable, denies any chest discomfort. Hemodynamically stable, white blood cell count today 9.8, hemoglobin 10.0, potassium 5.4. BUN 74 and creatinine 3.6. 09/02/2019 Patient seen and examined this morning, sitting up in the chair at bedside, mildly confused, diuresing well on the Lasix drip, weight is down significantly today. Edema is improving also significantly. Blood pressure 110/60 with a heart rate of 70, 98% on 2 L of oxygen. Sodium 140, potassium 5.3, BUN 72 and creatinine 3.1. 09/03/2019 Patient seen and examined this morning, breathing overall is improving, he underwent a thoracentesis for 1 L of fluid removed. Continues to be on Lasix drip and dobutamine. Hemodynamically he is stable, denies any chest discomfort. 09/04/2019 seen and examined this morning, was somewhat combative and confused to the night last night. As morning the patient doesn't recall the events of last night. Overall he does state that he is feeling significantly better. Pressure 142/70 with a heart rate in the 70s, 90% on 2 L of oxygen. White blood cell count 11.0, hemoglobin 10.0, platelet count 310. Sodium 139, potassium 4.8, BUN 56 and creatinine 2.3. 09/05/2019 Patient seen and examined this morning, continues to diurese well overall, mentation seems to be improving today. As well as his renal function. Blood pressure 116/60 with a heart rate of 70, 95% on 2 L of oxygen. Blood cell count 9.4, hemoglobin 10.3, platelet count 317. Sodium 138, potassium 4.6, BUN 48 and creatinine 2.1. 09/07/2019 Seen and examined this morning, much more alert and oriented, Continued to diuresis significant amount through the night last night. His IV Lasix drip has been discontinued and he's been changed over to oral Demadex. Blood pressure 112/60 with a heart rate of 90, 98% on 3 L of oxygen. Sodium 136, potassium 4.1, BUN 42 and creatinine 1.9. 09/08/2019 Patient seen and examined this morning, alert and oriented. Continues to be on a dobutamine drip, creatinine today is 1.8, weight continues to trend down and the patient's edema is significantly improved overall. Objective - Vital Signs Vital signs: Vital Signs Temp 96.7 F L 09/08/19 12:00 Pulse 90 09/08/19 12:00 Resp 18 09/08/19 12:00 BP 119/57 09/08/19 12:00 Pulse Ox 100 09/08/19 12:00 Intake & Output 09/07/19 09/08/19 09/08/19 18:59 06:59 18:59 Intake Total 533.428 190 375 Output Total 500 900 325 Balance 33.428 -710 50 Intake: IV 70 Furosemide 100 mg In 70 Sodium Chloride 0.9% 90 ml @ 10 MG/HR 10 mls/hr IV .Q10H [facility] Rx#: [id number] Intake, IV Titration 203.428 Amount DOBUTamine DRIP 500 mg In 203.428 Dextrose/Water 1 250ml. bag @ 2.5 MCG/KG/MIN 7. 988 mls/hr IV .Q24H [facility] Rx#:[id number] Oral 330 120 375 Output: Urine 500 900 325 Other: Voiding Method Urinal Urinal Urinal # Voids 1 1 - Exam HEAD: Normocephalic/atraumatic. EYES: Normal reaction of pupils, equal size. Conjunctiva pink, sclera white. NOSE: Clear with pink turbinates. THROAT: No erythema or exudates. NECK: No masses, no JVD, no thyroid enlargement, no adenopathy. CHEST: No chest wall deformity. Symmetrical expansion. LUNGS: Diminished lung sounds over left lower lobe, no crackles, wheeze, rhonchi or dullness. CVS: Regular rate and rhythm, normal S1 and S2, no gallops, no murmurs, no rubs ABDOMEN: Soft, nontender. No hepatosplenomegaly, normal bowel sounds, no guarding or rigidity. EXTREMITIES: No clubbing, trace edema in bilateral lower extremities, no cyanosis, 2+ pulses and upper and lower extremities. MUSCULOSKELETAL: Muscle strength and tone normal. SPINE: No scoliosis or deformity SKIN: No rashes CENTRAL NERVOUS SYSTEM: Alert and oriented -3. No focal deficits, tone is normal in all 4 extremities. PSYCHIATRIC: Alert and oriented 2. Appropriate affect. Intact judgment and insight. - Labs CBC & Chem 7: 09/05/19 05:29 09/08/19 09:09 Labs: Abnormal Lab Results - Last 24 Hours (Table) 09/07/19 09/07/19 09/08/19 Range/Units 16:46 20:32 06:11 Sodium (137-145) mmol/L Chloride (98-107) mmol/L Carbon Dioxide (22-30) mmol/L BUN (9-20) mg/dL Creatinine (0.66-1.25) mg/dL Glucose (74-99) mg/dL POC Glucose (mg/dL) 249 H 301 H 129 H (75-99) mg/dL 09/08/19 09/08/19 Range/Units 09:09 12:26 Sodium 135 L (137-145) mmol/L Chloride 93 L (98-107) mmol/L Carbon Dioxide 35 H (22-30) mmol/L BUN 42 H (9-20) mg/dL Creatinine 1.88 H (0.66-1.25) mg/dL Glucose 186 H (74-99) mg/dL POC Glucose (mg/dL) 244 H (75-99) mg/dL Assessment and Plan Plan: Assessment and plan: 1 left lung opacity likely the evolution of a left-sided pleural effusion. 2 squamous cell lung cancer locally advanced post-chemoradiation therapy back in 2015 with good response based on subsequent PET scans in the CAT scan of the chest that was done in January 2019 3 episodic falls. Rule out AEROSPACE CONTROL AND WARNING SYSTEMS metastases based on his history of squamous cell lung cancer. Rule out hypoglycemia as the patient has been having W hypoglycemia that were witnessed also in the hospital. MRI of the brain showed no evidence of any AEROSPACE CONTROL AND WARNING SYSTEMS metastases. 4 diabetes mellitus 5 coronary artery disease with previous DC, with a troponin leak 6 history of CVA involving the right frontal lobe 7 history of paroxysmal atrial fibrillation/flutter and the patient's rhythm is sinus and the patient is demented on long-term and to coagulation with Xarelto. 8 hyperlipidemia 9 acute on chronic systolic heart failure 10 acute kidney injury 11 nonischemic cardiomyopathy 12 hypertension Plan From cardiology's perspective, we will recommend to continue the patient on current dose of torsemide and Zaroxolyn along with dobutamine. DNP note has been reviewed, I agree with a documented findings and plan of care. Patient was seen and examined.
[2019-09-08] MEDS: DOBUTamine DRIP 500 MG in DEXTROSE/WATER 1 250ML.BAG IV SCH (15:19)
[2019-09-08 17:34] LABS: Glucose,Whole Blood >600 mg/dL (75-99)
[2019-09-08 17:36] LABS: Glucose,Whole Blood 302 mg/dL (75-99)
[2019-09-08] MEDS: RIVAROXABAN 20 MG TAB PO SCH (17:37)
[2019-09-08 20:53] LABS: Glucose,Whole Blood 330 mg/dL (75-99)
[2019-09-08] MEDS: INSULIN DETEMIR (LEVEMIR) 100 UNIT/ML SYR SQ SCH (21:01)
--- NOTE | 2019-09-08 22:38 | P.PN ---
Subjective Progress Note Date: 09/05/19 This is a subsequent day visit for Mr. 74-year-old white male was admitted from the above diagnosis. Last night he became disorientated and combative on awaking he was ripping and his skin with IVs and also being combative with the staff as well as inappropriate grabbing. It was ordered some IV Ativan and some soft wrist restraints for patient's protection. Patient doesn't recall any of the events from last evening. He does state he feels much better today. He seems to be answering questions appropriately. We'll try him up in the chair today and continued monitoring. Objective - Vital Signs Vital signs: Vital Signs Temp 97.0 F L 09/08/19 15:24 Pulse 89 09/08/19 16:00 Resp 18 09/08/19 15:24 BP 126/64 09/08/19 15:24 Pulse Ox 95 09/08/19 15:24 Intake & Output 09/08/19 09/08/19 09/09/19 06:59 18:59 06:59 Intake Total 190 1048.564 Output Total 900 650 Balance -710 398.564 Intake: IV 70 Furosemide 100 mg In 70 Sodium Chloride 0.9% 90 ml @ 10 MG/HR 10 mls/hr IV .Q10H [facility] Rx#: [id number] Intake, IV Titration 251.564 Amount DOBUTamine DRIP 500 mg In 201.564 Dextrose/Water 1 250ml. bag @ 2.5 MCG/KG/MIN 7. 988 mls/hr IV .Q24H [facility] Rx#:[id number] cefTRIAXone 1 gm In 50 Sodium Chloride 0.9% 50 ml @ 100 mls/hr IVPB Q24HR [facility] Rx#:[id number] Oral 120 797 Output: Urine 900 650 Other: Voiding Method Urinal Urinal # Voids 1 - Exam VITAL SIGNS: [As above] GENERAL: Sitting up in chair, pleasantly confused, alert and oriented 2. HEENT: Conjunctivae normal. eyes normal. Oral mucosa moist NECK: No JVD. No thyroid enlargement. No LNs CARDIOVASCULAR: S1, S2 regular.. No murmur, rubs or gallops. RESPIRATION: Breath sounds diminished in the bases. No rhonchi, scattered fine crackles and wheezes bilaterally. ABDOMEN: Soft, nontender . No guarding. no masses palpable.Bowel sounds heard. LEGS: Decreasing edema. Left lower extremity dressing clean dry and intact(site of care skin tear to fall). NERVOUS SYSTEM: Cranial N 2-12 grossly normal. Moves all 4 limbs. Diffuse generalized weakness, No focal deficits. Strength and sensation grossly intact.. SKIN: No rashes. Bilateral arms with skin tears, dressings clean dry and intact. - Labs CBC & Chem 7: 09/05/19 05:29 09/08/19 09:09 Labs: Abnormal Lab Results - Last 24 Hours (Table) 09/08/19 09/08/19 09/08/19 Range/Units 06:11 09:09 12:26 Sodium 135 L (137-145) mmol/L Chloride 93 L (98-107) mmol/L Carbon Dioxide 35 H (22-30) mmol/L BUN 42 H (9-20) mg/dL Creatinine 1.88 H (0.66-1.25) mg/dL Glucose 186 H (74-99) mg/dL POC Glucose (mg/dL) 129 H 244 H (75-99) mg/dL 09/08/19 09/08/19 09/08/19 Range/Units 17:32 17:34 20:52 Sodium (137-145) mmol/L Chloride (98-107) mmol/L Carbon Dioxide (22-30) mmol/L BUN (9-20) mg/dL Creatinine (0.66-1.25) mg/dL Glucose (74-99) mg/dL POC Glucose (mg/dL) >600 H 302 H 330 H (75-99) mg/dL Assessment and Plan (1) Elevated troponin Current Visit: Yes Status: Acute Code(s): R79.89 - OTHER SPECIFIED ABNORMAL FINDINGS OF BLOOD CHEMISTRY SNOMED Code(s): 533503210 (2) Pneumonia Current Visit: Yes Status: Acute Code(s): J18.9 - PNEUMONIA, UNSPECIFIED ORGANISM SNOMED Code(s): 344370458 (3) COPD (chronic obstructive pulmonary disease) Current Visit: No Status: Acute Code(s): J44.9 - CHRONIC OBSTRUCTIVE PULMONARY DISEASE, UNSPECIFIED SNOMED Code(s): 94484325 (4) Diabetes Current Visit: No Status: Acute Code(s): E11.9 - TYPE 2 DIABETES MELLITUS WITHOUT COMPLICATIONS SNOMED Code(s): 43242504 (5) HTN (hypertension) Current Visit: No Status: Acute Code(s): I10 - ESSENTIAL (PRIMARY) HYPERTENSION SNOMED Code(s): 20676351 (6) CHF (congestive heart failure) Current Visit: No Status: Acute Code(s): I50.9 - HEART FAILURE, UNSPECIFIED SNOMED Code(s): 10192436 (7) Hyperlipemia Current Visit: No Status: Acute Code(s): E78.5 - HYPERLIPIDEMIA, UNSPECIFIED SNOMED Code(s): 28540939 (8) Mediastinal mass Current Visit: No Status: Acute Code(s): R22.2 - LOCALIZED SWELLING, MASS AND LUMP, TRUNK SNOMED Code(s): 92063107 (9) Pleural effusion Current Visit: No Status: Acute Code(s): J90 - PLEURAL EFFUSION, NOT ELSEWHERE CLASSIFIED SNOMED Code(s): 83388549 (10) Squamous cell carcinoma of lung Current Visit: No Status: Acute Code(s): C34.90 - MALIGNANT NEOPLASM OF UNSP PART OF UNSP BRONCHUS OR LUNG SNOMED Code(s): 919341098 Plan: Continue current course IV antibiotics IV hydration diuresing and monitoring discharge when stable.
--- NOTE | 2019-09-08 22:42 | P.PN ---
Subjective Progress Note Date: 09/08/19 Patient is currently on dobutamine renal dose and then on IV Rocephin for 7 days which will be discontinued today. And also on Lasix drip and Demadex he currently feels better and is wondering when he is able to be discharged to rehab. Objective - Vital Signs Vital signs: Vital Signs Temp 97.0 F L 09/08/19 15:24 Pulse 89 09/08/19 16:00 Resp 18 09/08/19 15:24 BP 126/64 09/08/19 15:24 Pulse Ox 95 09/08/19 15:24 Intake & Output 09/08/19 09/08/19 09/09/19 06:59 18:59 06:59 Intake Total 190 1048.564 Output Total 900 650 Balance -710 398.564 Intake: IV 70 Furosemide 100 mg In 70 Sodium Chloride 0.9% 90 ml @ 10 MG/HR 10 mls/hr IV .Q10H [facility] Rx#: [id number] Intake, IV Titration 251.564 Amount DOBUTamine DRIP 500 mg In 201.564 Dextrose/Water 1 250ml. bag @ 2.5 MCG/KG/MIN 7. 988 mls/hr IV .Q24H [facility] Rx#:[id number] cefTRIAXone 1 gm In 50 Sodium Chloride 0.9% 50 ml @ 100 mls/hr IVPB Q24HR [facility] Rx#:[id number] Oral 120 797 Output: Urine 900 650 Other: Voiding Method Urinal Urinal # Voids 1 - Exam VITAL SIGNS: [As above] GENERAL: Sitting up in chair, pleasantly confused, alert and oriented 2. HEENT: Conjunctivae normal. eyes normal. Oral mucosa moist NECK: No JVD. No thyroid enlargement. No LNs CARDIOVASCULAR: S1, S2 regular.. No murmur, rubs or gallops. RESPIRATION: Breath sounds diminished in the bases. No rhonchi, scattered fine crackles and wheezes bilaterally. ABDOMEN: Soft, nontender . No guarding. no masses palpable.Bowel sounds heard. LEGS: Decreasing edema. Left lower extremity dressing clean dry and intact(site of care skin tear to fall). NERVOUS SYSTEM: Cranial N 2-12 grossly normal. Moves all 4 limbs. Diffuse generalized weakness, No focal deficits. Strength and sensation grossly intact.. SKIN: No rashes. Bilateral arms with skin tears, dressings clean dry and int act. - Labs CBC & Chem 7: 09/05/19 05:29 09/08/19 09:09 Labs: Abnormal Lab Results - Last 24 Hours (Table) 09/08/19 09/08/19 09/08/19 Range/Units 06:11 09:09 12:26 Sodium 135 L (137-145) mmol/L Chloride 93 L (98-107) mmol/L Carbon Dioxide 35 H (22-30) mmol/L BUN 42 H (9-20) mg/dL Creatinine 1.88 H (0.66-1.25) mg/dL Glucose 186 H (74-99) mg/dL POC Glucose (mg/dL) 129 H 244 H (75-99) mg/dL 09/08/19 09/08/19 09/08/19 Range/Units 17:32 17:34 20:52 Sodium (137-145) mmol/L Chloride (98-107) mmol/L Carbon Dioxide (22-30) mmol/L BUN (9-20) mg/dL Creatinine (0.66-1.25) mg/dL Glucose (74-99) mg/dL POC Glucose (mg/dL) >600 H 302 H 330 H (75-99) mg/dL Assessment and Plan (1) Elevated troponin Current Visit: Yes Status: Acute Code(s): R79.89 - OTHER SPECIFIED ABNORMAL FINDINGS OF BLOOD CHEMISTRY SNOMED Code(s): 473449272 (2) Pneumonia Current Visit: Yes Status: Acute Code(s): J18.9 - PNEUMONIA, UNSPECIFIED ORGANISM SNOMED Code(s): 665626410 (3) COPD (chronic obstructive pulmonary disease) Current Visit: No Status: Acute Code(s): J44.9 - CHRONIC OBSTRUCTIVE PULMONARY DISEASE, UNSPECIFIED SNOMED Code(s): 69792462 (4) Diabetes Current Visit: No Status: Acute Code(s): E11.9 - TYPE 2 DIABETES MELLITUS WITHOUT COMPLICATIONS SNOMED Code(s): 81312949 (5) HTN (hypertension) Current Visit: No Status: Acute Code(s): I10 - ESSENTIAL (PRIMARY) HYPERTENSION SNOMED Code(s): 10293891 (6) CHF (congestive heart failure) Current Visit: No Status: Acute Code(s): I50.9 - HEART FAILURE, UNSPECIFIED SNOMED Code(s): 27461428 (7) Hyperlipemia Current Visit: No Status: Acute Code(s): E78.5 - HYPERLIPIDEMIA, UNSPECIFIED SNOMED Code(s): 16772125 (8) Mediastinal mass Current Visit: No Status: Acute Code(s): R22.2 - LOCALIZED SWELLING, MASS AND LUMP, TRUNK SNOMED Code(s): 15371075 (9) Pleural effusion Current Visit: No Status: Acute Code(s): J90 - PLEURAL EFFUSION, NOT ELSEWHERE CLASSIFIED SNOMED Code(s): 34023812 (10) Squamous cell carcinoma of lung Current Visit: No Status: Acute Code(s): C34.90 - MALIGNANT NEOPLASM OF UNSP PART OF UNSP BRONCHUS OR LUNG SNOMED Code(s): 759959616 Plan: Continue current course will discontinue the IV antibiotics. IV hydration diuresing and monitoring discharge when stable.
[2019-09-09 06:18] LABS: Glucose,Whole Blood 160 mg/dL (75-99)
[2019-09-09] MEDS: MIDODRINE 5 MG TAB PO SCH (06:23)
[2019-09-09] MEDS: INSULIN ASPART (NovoLOG) 100 UNIT/ML VIAL SQ SCH ×2 (06:23→12:34)
[2019-09-09 08:26] VITALS: RESP 18
[2019-09-09] MEDS: METOLAZONE 5 MG TAB PO SCH (08:40)
[2019-09-09] MEDS: TORSEMIDE 20 MG TAB PO SCH (08:40)
[2019-09-09] MEDS: ATORVASTATIN 80 MG TAB PO SCH (08:41)
[2019-09-09] MEDS: ASPIRIN 81 MG PO SCH (08:41)
[2019-09-09] MEDS: buPROPion XL 150 MG TAB.ER.24H PO SCH (08:41)
[2019-09-09] MEDS: AMIODARONE 100 MG TAB PO SCH (08:41)
--- NOTE | 2019-09-09 08:57 | P.PN ---
Subjective Patient is seen in follow-up for acute kidney injury on chronic kidney disease. Renal function is improving. Creatinine 1.88 as of yesterday. Currently maintained on dobutamine drip and oral diuretics. Edema significantly improved since admission. Denies vomiting or diarrhea. Denies chest pain or shortness of breath. Vital signs are stable. General: The patient appeared well nourished and normally developed. HEENT: Head exam is unremarkable. Neck is without jugular venous distension. LUNGS: Lungs are clear to auscultation and percussion. Breath sounds decreased. HEART: Rate and Rhythm are regular. First and second heart sounds normal. No murmurs, rubs or gallops. ABDOMEN: Abdominal exam reveals normal bowel sounds. Non-tender and non- distended. No evidence of peritonitis. EXTREMITITES: Trace edema. Objective - Vital Signs Vital signs: Vital Signs Temp 97.5 F L 09/09/19 08:25 Pulse 96 09/09/19 08:25 Resp 18 09/09/19 08:25 BP 122/65 09/09/19 08:25 Pulse Ox 92 L 09/09/19 08:25 Intake & Output 09/08/19 09/09/19 09/09/19 18:59 06:59 18:59 Intake Total 1048.564 120 Output Total 650 650 Balance 398.564 -530 Intake: Intake, IV Titration 251.564 Amount DOBUTamine DRIP 500 mg In 201.564 Dextrose/Water 1 250ml. bag @ 2.5 MCG/KG/MIN 7. 988 mls/hr IV .Q24H [facility] Rx#:[id number] cefTRIAXone 1 gm In 50 Sodium Chloride 0.9% 50 ml @ 100 mls/hr IVPB Q24HR [facility] Rx#:[id number] Oral 797 120 Output: Urine 650 650 Other: Voiding Method Urinal Urinal # Voids 1 - Labs CBC & Chem 7: 09/05/19 05:29 09/08/19 09:09 Labs: Abnormal Lab Results - Last 24 Hours (Table) 09/08/19 09/08/19 09/08/19 Range/Units 09:09 12:26 17:32 Sodium 135 L (137-145) mmol/L Chloride 93 L (98-107) mmol/L Carbon Dioxide 35 H (22-30) mmol/L BUN 42 H (9-20) mg/dL Creatinine 1.88 H (0.66-1.25) mg/dL Glucose 186 H (74-99) mg/dL POC Glucose (mg/dL) 244 H >600 H (75-99) mg/dL 09/08/19 09/08/19 09/09/19 Range/Units 17:34 20:52 06:17 Sodium (137-145) mmol/L Chloride (98-107) mmol/L Carbon Dioxide (22-30) mmol/L BUN (9-20) mg/dL Creatinine (0.66-1.25) mg/dL Glucose (74-99) mg/dL POC Glucose (mg/dL) 302 H 330 H 160 H (75-99) mg/dL Assessment and Plan Plan: Assessment: 1. Acute kidney injury mostly prerenal secondary to cardiorenal syndrome. Improving. Creatinine 1.88 as of yesterday. 2. Chronic kidney disease stage III with baseline creatinine in the range of 1.5-1.9 secondary to nephrosclerosis. 3. Acute on chronic systolic CHF with ejection fraction of 35-40%. 4. Volume overload. Improving with diuresis. 5. Mild hyperkalemia improved to diuresis. Resolved. 6. Hypotension maintained on midodrine. Stable. 7. Insulin-dependent diabetes mellitus. 8. History of A. fib maintained on amiodarone and Xarelto. Plan: Maintain torsemide 80 mg twice daily. Decrease metolazone to 5 mg once daily. Discontinue dobutamine. Repeat electrolytes in the morning.
[2019-09-09] MEDS ORDERED: METOLAZONE 5 MG TAB PO SCH (09:00)
[2019-09-09 09:55] LABS: Calcium 9.2 mg/dL (8.4-10.2); Potassium 3.8 mmol/L (3.5-5.1)
[2019-09-09 11:43] VITALS: TEMP 97.1
[2019-09-09 11:54] LABS: Glucose,Whole Blood 182 mg/dL (75-99)
[2019-09-09 15:21] VITALS: BP 123/73; PULSE 75
--- NOTE | 2019-09-09 15:38 | P.PN ---
Subjective Progress Note Date: 09/09/19 This pleasant 74-year-old male past medical history significant for coronary artery disease with a chronic total occlusion of the LAD and mild- moderate disease of the RCA and circumflex, lung cancer s/p chemo and radiation, chronic persistent atrial fibrillation, chronic systolic heart failure, renal insufficiency and ischemic cardiomyopathy. He follows the os Dr. Beard. We are following secondary to acute exacerbation of chronic heart failure. Patient is currently on IV Lasix drip along with dobutamine. Sitting up in a recliner today, appears to be comfortable, denies any chest discomfort. Hemodynamically stable, white blood cell count today 9.8, hemoglobin 10.0, potassium 5.4. BUN 74 and creatinine 3.6. 09/02/2019 Patient seen and examined this morning, sitting up in the chair at bedside, mildly confused, diuresing well on the Lasix drip, weight is down significantly today. Edema is improving also significantly. Blood pressure 110/60 with a heart rate of 70, 98% on 2 L of oxygen. Sodium 140, potassium 5.3, BUN 72 and creatinine 3.1. 09/03/2019 Patient seen and examined this morning, breathing overall is improving, he underwent a thoracentesis for 1 L of fluid removed. Continues to be on Lasix drip and dobutamine. Hemodynamically he is stable, denies any chest discomfort. 09/04/2019 seen and examined this morning, was somewhat combative and confused to the night last night. As morning the patient doesn't recall the events of last night. Overall he does state that he is feeling significantly better. Pressure 142/70 with a heart rate in the 70s, 90% on 2 L of oxygen. White blood cell count 11.0, hemoglobin 10.0, platelet count 310. Sodium 139, potassium 4.8, BUN 56 and creatinine 2.3. 09/05/2019 Patient seen and examined this morning, continues to diurese well overall, mentation seems to be improving today. As well as his renal function. Blood pressure 116/60 with a heart rate of 70, 95% on 2 L of oxygen. Blood cell count 9.4, hemoglobin 10.3, platelet count 317. Sodium 138, potassium 4.6, BUN 48 and creatinine 2.1. 09/07/2019 Seen and examined this morning, much more alert and oriented, Continued to diuresis significant amount through the night last night. His IV Lasix drip has been discontinued and he's been changed over to oral Demadex. Blood pressure 112/60 with a heart rate of 90, 98% on 3 L of oxygen. Sodium 136, potassium 4.1, BUN 42 and creatinine 1.9. 09/08/2019 Patient seen and examined this morning, alert and oriented. Continues to be on a dobutamine drip, creatinine today is 1.8, weight continues to trend down and the patient's edema is significantly improved overall. 09/09/2019 Patient seen and examined this morning, alert and oriented, dobutamine drip was discontinued. Sodium 135, potassium 3.8, BUN 46, creatinine 1.7. Objective - Vital Signs Vital signs: Vital Signs Temp 97.1 F L 09/09/19 11:28 Pulse 75 09/09/19 15:20 Resp 18 09/09/19 15:20 BP 123/73 09/09/19 15:20 Pulse Ox 96 09/09/19 15:20 Intake & Output 09/08/19 09/09/19 09/09/19 18:59 06:59 18:59 Intake Total 1048.564 120 Output Total 650 650 400 Balance 398.564 -530 -400 Weight 108.3 kg Intake: Intake, IV Titration 251.564 Amount DOBUTamine DRIP 500 mg In 201.564 Dextrose/Water 1 250ml. bag @ 2.5 MCG/KG/MIN 7. 988 mls/hr IV .Q24H [facility] Rx#:[id number] cefTRIAXone 1 gm In 50 Sodium Chloride 0.9% 50 ml @ 100 mls/hr IVPB Q24HR [facility] Rx#:[id number] Oral 797 120 Output: Urine 650 650 400 Other: Voiding Method Urinal Urinal # Voids 1 - Exam HEAD: Normocephalic/atraumatic. EYES: Normal reaction of pupils, equal size. Conjunctiva pink, sclera white. NOSE: Clear with pink turbinates. THROAT: No erythema or exudates. NECK: No masses, no JVD, no thyroid enlargement, no adenopathy. CHEST: No chest wall deformity. Symmetrical expansion. LUNGS: Diminished lung sounds over left lower lobe, no crackles, wheeze, rhonchi or dullness. CVS: Regular rate and rhythm, normal S1 and S2, no gallops, no murmurs, no rubs ABDOMEN: Soft, nontender. No hepatosplenomegaly, normal bowel sounds, no guarding or rigidity. EXTREMITIES: No clubbing, trace edema in bilateral lower extremities, no cyanosis, 2+ pulses and upper and lower extremities. MUSCULOSKELETAL: Muscle strength and tone normal. SPINE: No scoliosis or deformity SKIN: No rashes CENTRAL NERVOUS SYSTEM: Alert and oriented -3. No focal deficits, tone is normal in all 4 extremities. PSYCHIATRIC: Alert and oriented 2. Appropriate affect. Intact judgment and insight. - Labs CBC & Chem 7: 09/05/19 05:29 09/09/19 09:10 Labs: Abnormal Lab Results - Last 24 Hours (Table) 09/08/19 09/08/19 09/08/19 Range/Units 17:32 17:34 20:52 Sodium (137-145) mmol/L Chloride (98-107) mmol/L Carbon Dioxide (22-30) mmol/L BUN (9-20) mg/dL Creatinine (0.66-1.25) mg/dL Glucose (74-99) mg/dL POC Glucose (mg/dL) >600 H 302 H 330 H (75-99) mg/dL 09/09/19 09/09/19 09/09/19 Range/Units 06:17 09:10 11:52 Sodium 135 L (137-145) mmol/L Chloride 94 L (98-107) mmol/L Carbon Dioxide 32 H (22-30) mmol/L BUN 46 H (9-20) mg/dL Creatinine 1.77 H (0.66-1.25) mg/dL Glucose 145 H (74-99) mg/dL POC Glucose (mg/dL) 160 H 182 H (75-99) mg/dL Assessment and Plan Plan: Assessment and plan: 1 left lung opacity likely the evolution of a left-sided pleural effusion. 2 squamous cell lung cancer locally advanced post-chemoradiation therapy back in 2015 with good response based on subsequent PET scans in the CAT scan of the chest that was done in January 2019 3 episodic falls. Rule out [employer] metastases based on his history of squamous cell lung cancer. Rule out hypoglycemia as the patient has been having W hypoglycemia that were witnessed also in the hospital. MRI of the brain showed no evidence of any [employer] metastases. 4 diabetes mellitus 5 coronary artery disease with previous GA, with a troponin leak 6 history of CVA involving the right frontal lobe 7 history of paroxysmal atrial fibrillation/flutter and the patient's rhythm is sinus and the patient is demented on long-term and to coagulation with Xarelto. 8 hyperlipidemia 9 acute on chronic systolic heart failure 10 acute kidney injury 11 nonischemic cardiomyopathy 12 hypertension Plan From cardiology's perspective, patient may be transferred to an extended care facility from our perspective. We will follow him up in the office. DNP note has been reviewed, I agree with a documented findings and plan of care. Patient was seen and examined.
--- NOTE | 2019-09-09 15:56 | P.DS ---
Providers Date of admission: 08/27/19 16:33 Expected date of discharge: 09/09/19 Attending physician: Arsen Galloway Consults: 08/27/19 16:33 Consult Physician Routine Consulting Provider: [facility] Consult Reason/Comments: Elevated troponin Do you want consulting provider notified?: Yes 08/28/19 08:09 Consult Physician Routine Consulting Provider: Rula Alarcon Consult Reason/Comments: pneumonia, lung cancer Do you want consulting provider notified?: Yes 08/29/19 08:50 Consult Physician Routine Consulting Provider: Thad Schroeder Consult Reason/Comments: renal failure Do you want consulting provider notified?: Yes Primary care physician: Arsen Galloway Hospital Course: Final Diagnoses: Acute hypoxic respiratory failure, multifactorial secondary to acute on chronic systolic CHF exacerbation, bilateral pleural effusions, community-acquired pneumonia. Nonischemic cardiomyopathy, EF 35-40% Volume overload, improving with diuresis Left lung opacity, left-sided traumatic pleural effusion suspected in a patient with previous chronic left-sided pleural effusion-status post prior thoracentesis with negative fluid cytology for malignancy. Status post left- sided thoracentesis on 09/02/2019. Chronic persistent atrial fibrillation Acute on chronic renal failure stage III, prerenal, cardiorenal syndrome. Chronic secondary to nephrosclerosis Diabetes mellitus, hypoglycemia secondary to poor oral intake, worsening renal function, currently stable Hyperkalemia secondary to acute on chronic renal failure, resolved. Blood cultures reporting coagulase-negative staph, contamination Hypertension, history of hyperlipidemia Mediastinal mass History of lung CA, squamous cell, status post chemoradiation treatment Gait dysfunction with multiple falls. MRI of the brain reporting no metastasis. CAD, history of LA Moderate pulmonary hypertension History of CVA involving right frontal lobe Hypotension, maintained on midodrin. Hospital course:This is a 74-year-old male presents emergency department with past medical history significant for diabetes and lung cancer. Patient is brought in today because his son found him on the floor and he didn't know how he got there and he was altered mentally. EMS stated that his sugar was 45 at the time they gave him some glucose. The IV and he did start answering questions more accurately. Patient states he does not know how he ended up on the ground but he believes he was in bed prior to that. Patient denies any headache patient denies any head pain patient denies any neck pain patient denies numbness weakness. Patient denies chest pain difficulty breathing or shortness of breath. Patient denies any palpitations. Patient denies any recent fever chills states he does have a slight cough. Patient denies abdominal pain patient denies nausea vomiting diarrhea. Patient states he has continued to take his insulin but he has not been eating much lately. No patient is currently on the floor he is doing much better than in the emergency department he still feels shortness of breath and generalized weakness. He denies any chest pain admits to shortness of breath. He is remorseful that he h as not had an appointment in a while. Evaluated by cardiology, nephrology and pulmonary. Maintained on dobutamine and Lasix drips, diuresed well. Renal function improving, creatinine down to 1.77 . Dobutamine discontinued, maintained on torsemide and metolazone. Significant clinical improvement. Cleared by all Consults for discharge. Patient is being discharged to [facility] on subacute rehab in a stable condition with guarded prognosis. Exam GENERAL: Alert and oriented 3, no acute distress CARDIOVASCULAR: S1, S2 regular. No murmur, rubs or gallops. RESPIRATION: Breath sounds diminished in the bases. ABDOMEN: Soft, nontender . No guarding. no masses palpable.Bowel sounds heard. NERVOUS SYSTEM: No focal deficits. The impression and plan of care has been dictated as directed. : I performed a history and examination of this patient, discussed the same with the dictator. I agree with the dictator's note ,documented as a scribe. Any additional findings or plans will be noted. Patient Condition at Discharge: Stable Plan - Discharge Summary Discharge Rx Participant: No New Discharge Prescriptions: New Docusate [Colace] 100 mg PO DAILY PRN cap PRN Reason: Constipation Torsemide [Demadex] 80 mg PO BID tab INSULIN LISPRO (HumaLOG) [humaLOG] 0 unit SQ ACHS #1 vial Midodrine [ProAmatine] 10 mg PO 0730,1730 tab Rivaroxaban [Xarelto] 15 mg PO W/SUPPER tab Metolazone [Zaroxolyn] 5 mg PO DAILY tab Metoprolol Tartrate [Lopressor] 25 mg PO DAILY #1 tablet Continue Atorvastatin [Lipitor] 80 mg PO DAILY #30 tab Aspirin EC [Ecotrin Low Dose] 81 mg PO DAILY tablet. buPROPion XL [Wellbutrin XL] 150 mg PO DAILY Amiodarone [Cordarone] 100 mg PO DAILY Changed Insulin Glargine,Hum.rec.anlog [Lantus Solostar] 18 unit SQ HS #0 Discontinued glipiZIDE XL [Glucotrol XL] 10 mg PO DAILY Atenolol [Tenormin] 25 mg PO DAILY #30 tab metFORMIN HCL ER [Glucophage Xr] 500 mg PO PC-BID Furosemide [Lasix] 40 mg PO BID@0800,1400 Rivaroxaban [Xarelto] 20 mg PO W/SUPPER Lisinopril [Zestril] 2.5 mg PO DAILY Discharge Medication List Aspirin EC [Ecotrin Low Dose] 81 mg PO DAILY tablet. 09/09/15 [Rx] Atorvastatin [Lipitor] 80 mg PO DAILY #30 tab 09/09/15 [Rx] buPROPion XL [Wellbutrin XL] 150 mg PO DAILY 03/14/17 [History] Amiodarone [Cordarone] 100 mg PO DAILY 08/16/17 [History] Docusate [Colace] 100 mg PO DAILY PRN cap 09/09/19 [Rx] INSULIN LISPRO (HumaLOG) [humaLOG] 0 unit SQ ACHS #1 vial 09/09/19 [Rx] Insulin Glargine,Hum.rec.anlog [Lantus Solostar] 18 unit SQ HS #0 09/09/19 [Rx] Metolazone [Zaroxolyn] 5 mg PO DAILY tab 09/09/19 [Rx] Metoprolol Tartrate [Lopressor] 25 mg PO DAILY #1 tablet 09/09/19 [Rx] Midodrine [ProAmatine] 10 mg PO 0730,1730 tab 09/09/19 [Rx] Rivaroxaban [Xarelto] 15 mg PO W/SUPPER tab 09/09/19 [Rx] Torsemide [Demadex] 80 mg PO BID tab 09/09/19 [Rx] Follow up Appointment(s)/Referral(s): Arsen Galloway DO [Primary Care Provider] - 3 Days Obed Beard MD [Family Provider] - 1 Week Thad Schroeder DO [STAFF PHYSICIAN] - 10 Days Patient Instructions/Handouts: Heart Failure (DC) Activity/Diet/Wound Care/Special Instructions: [facility] MAHESH inhibitor on hold secondary to renal function, reevaluate outpatient at follow-up visit with PCP/cardiology. Diet: Consistent carb, renal Activity: As tolerated CBC, BMP in 3 days Discharge Disposition: TRANSFER TO SNF/ECF
[2019-09-09] MEDS ORDERED: RIVAROXABAN 15 MG TAB PO SCH (17:30)
== END 2019-09-09 16:51 | DRG 291 ==
LOC: EC 11:37 → 3SCARD 16:33
PROVIDERS: ADMIT Family Medicine; ATTEND Family Medicine
PROC: 0W9B3ZZ Drainage of Left Pleural Cavity, Percutaneous Approach (ICD-10-PCS; principal; 2019-09-02)
DX: I13.0 Hypertensive heart and chronic kidney disease with heart failure and stage 1 through stage 4 chronic kidney disease, or unspecified chronic kidney disease (principal); I50.23 Acute on chronic systolic (congestive) heart failure; J18.9 Pneumonia, unspecified organism; J96.01 Acute respiratory failure with hypoxia; J44.0 Chronic obstructive pulmonary disease with (acute) lower respiratory infection; N17.9 Acute kidney failure, unspecified; E87.1 Hypo-osmolality and hyponatremia; E87.2 Acidosis; I48.19 Other persistent atrial fibrillation; I48.92 Unspecified atrial flutter; J90 Pleural effusion, not elsewhere classified; I95.9 Hypotension, unspecified; E11.22 Type 2 diabetes mellitus with diabetic chronic kidney disease; E11.649 Type 2 diabetes mellitus with hypoglycemia without coma; E11.65 Type 2 diabetes mellitus with hyperglycemia; E87.5 Hyperkalemia; I25.82 Chronic total occlusion of coronary artery; I27.20 Pulmonary hypertension, unspecified; I25.5 Ischemic cardiomyopathy; N18.3 Chronic kidney disease, stage 3 (moderate); D63.1 Anemia in chronic kidney disease; F03.90 Unspecified dementia, unspecified severity, without behavioral disturbance, psychotic disturbance, mood disturbance, and anxiety; I45.10 Unspecified right bundle-branch block; N20.0 Calculus of kidney; E78.5 Hyperlipidemia, unspecified; I25.10 Atherosclerotic heart disease of native coronary artery without angina pectoris; I25.2 Old myocardial infarction; I44.0 Atrioventricular block, first degree; R26.9 Unspecified abnormalities of gait and mobility; R29.6 Repeated falls; R32 Unspecified urinary incontinence; S41.112A Laceration without foreign body of left upper arm, initial encounter; R79.89 Other specified abnormal findings of blood chemistry; S41.111A Laceration without foreign body of right upper arm, initial encounter; Z66 Do not resuscitate; Z78.1 Physical restraint status; Z79.01 Long term (current) use of anticoagulants; Z79.4 Long term (current) use of insulin; Z79.82 Long term (current) use of aspirin; Z79.899 Other long term (current) drug therapy; Z85.118 Personal history of other malignant neoplasm of bronchus and lung; Z87.891 Personal history of nicotine dependence; Z91.19 Patient's noncompliance with other medical treatment and regimen; Z92.21 Personal history of antineoplastic chemotherapy; Z92.3 Personal history of irradiation; Z86.73 Personal history of transient ischemic attack (TIA), and cerebral infarction without residual deficits; Z82.49 Family history of ischemic heart disease and other diseases of the circulatory system; Z83.3 Family history of diabetes mellitus; W19.XXXA Unspecified fall, initial encounter; Y92.239 Unspecified place in hospital as the place of occurrence of the external cause
CPT/HCPCS: 32555; 36415; 70553; 71045; 71046; 71250; 76604; 76770; 80048; 80053; 81001; 82945; 83605; 83615; 83735; 83880; 84155; 84157; 84484; 85025; 85027; 85610; 85730; 87040; 87070; 87075; 87086; 87205; 88108; 88305; 89050; 93005; 93306; 96365; 96375; 99285

== ENCOUNTER 2019-10-07 18:37 | Inpatient (IN) | payer MEDICARE, BC ==
--- NOTE | 2019-10-07 18:57 | ED ---
General Adult HPI <Eric Howard - Last Filed: 10/07/19 20:31> - General Source: patient, EMS, RN notes reviewed Mode of arrival: EMS Limitations: no limitations <Carlos Broussard - Last Filed: 10/07/19 21:01> - General Chief complaint: Weakness Stated complaint: weakness Time Seen by Provider: 10/07/19 18:42 - History of Present Illness Initial comments: 74-year-old male with a past medical history of lung cancer, IDDM, heart failure, hyperlipidemia, hypertension, myocardial infarction, coronary artery disease with previous catheterization history of left-sided pleural effusions presents to the emergency department for a chief complaint of weakness. Patient was recently admitted to this hospital about one month ago for greater than 10 days for acute hypoxic respiratory failure secondary to acute on chronic CHF exacerbation with bilateral pleural effusions and community-acquired pneumonia. Patient was then released to [facility]. He went home about 5 days ago. He states after he went home he started to get weak again. States that he is unable to walk around his house. States he feels this if he is going to fall he is so weak. He is apparently being treated for a urinary tract infection currently.Patient has no other complaints at this time including shortness of breath, chest pain, abdominal pain, nausea or vomiting, headache, or visual changes. (Carlos Broussard) - Related Data Home Medications Medication Instructions Recorded Confirmed buPROPion XL [Wellbutrin XL] 150 mg PO QAM 03/14/17 10/07/19 Amiodarone [Cordarone] 100 mg PO QAM 08/16/17 10/07/19 Acetaminophen Tab [Tylenol] 650 mg PO Q6H PRN 10/07/19 10/07/19 Aspirin EC [Ecotrin Low Dose] 81 mg PO QAM 10/07/19 10/07/19 Atorvastatin [Lipitor] 80 mg PO HS 10/07/19 10/07/19 Cefuroxime [Ceftin] 250 mg PO BID 10/07/19 10/07/19 Insulin Glargine,Hum.rec.anlog 26 unit SQ HS 10/07/19 10/07/19 [Lantus Solostar] Midodrine [ProAmatine] 10 mg PO BID 10/07/19 10/07/19 Rivaroxaban [Xarelto] 15 mg PO HS 10/07/19 10/07/19 Previous Rx's Medication Instructions Recorded Docusate [Colace] 100 mg PO DAILY PRN cap 09/09/19 INSULIN LISPRO (HumaLOG) [humaLOG] 0 unit SQ ACHS #1 vial 09/09/19 Metolazone [Zaroxolyn] 5 mg PO DAILY tab 09/09/19 Metoprolol Tartrate [Lopressor] 25 mg PO DAILY #1 tablet 09/09/19 Torsemide [Demadex] 80 mg PO BID tab 09/09/19 Allergies Allergy/AdvReac Type Severity Reaction Status Date / Time No Known Allergies Allergy Verified 10/07/19 20:42 Review of Systems ROS Other: All systems not noted in ROS Statement are negative. <Eric Howard - Last Filed: 10/07/19 20:31> ROS Other: All systems not noted in ROS Statement are negative. <Carlos Broussard - Last Filed: 10/07/19 21:01> ROS Statement: Those systems with pertinent positive or pertinent negative responses have been documented in the HPI. Past Medical History Past Medical History: Cancer, Heart Failure, Diabetes Mellitus, Hyperlipidemia, Hypertension, Myocardial Infarction (TN) Additional Past Medical History / Comment(s): Squamous cell lung cancer post- chemoradiation therapy, diabetes mellitus, hypertension, hyperlipidemia, coronary artery disease with previous TN, previous history of left-sided pleural effusion post thoracentesis on the fluid cytology is been negative for malignan cy, 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 Last Myocardial Infarction Date:: GREATER THAN 5 YRS AGO History of Any Multi-Drug Resistant Organisms: None Reported Past Surgical History: Heart Catheterization Additional Past Surgical History / Comment(s): BRONCHOSCOPY, MEDIPORT PLACEMENT Past Anesthesia/Blood Transfusion Reactions: No Reported Reaction Past Psychological History: No Psychological Hx Reported Smoking Status: Former smoker Past Alcohol Use History: None Reported Past Drug Use History: None Reported - Past Family History Father History Unknown: Yes Family Medical History: Coronary Artery Disease (CAD) Mother Family Medical History: Diabetes Mellitus <Carlos Broussard - Last Filed: 10/07/19 21:01> General Exam Limitations: no limitations General appearance: alert, in no apparent distress Head exam: Present: atraumatic, normocephalic, normal inspection Eye exam: Present: normal appearance, PERRL, EOMI. Absent: scleral icterus, conjunctival injection, periorbital swelling ENT exam: Present: normal oropharynx, mucous membranes dry, normal external ear exam Neck exam: Present: normal inspection, full ROM. Absent: tenderness, meningismus, lymphadenopathy Respiratory exam: Present: normal lung sounds bilaterally. Absent: respiratory distress, wheezes, rales, rhonchi, stridor Cardiovascular Exam: Present: regular rate, normal rhythm, normal heart sounds. Absent: systolic murmur, diastolic murmur, rubs, gallop, clicks GI/Abdominal exam: Present: soft, normal bowel sounds. Absent: distended, tenderness, guarding, rebound, rigid Neurological exam: Present: alert, oriented X3 <Carlos Broussard - Last Filed: 10/07/19 21:01> Course <Carlos Broussard - Last Filed: 10/07/19 21:01> Vital Signs 10/07/19 10/07/19 10/07/19 18:39 19:38 20:03 Temperature 97.0 F L Pulse Rate 90 89 92 Respiratory 16 16 22 Rate Blood Pressure 106/61 97/68 115/71 O2 Sat by Pulse 100 100 100 Oximetry 10/07/19 20:28 Temperature 99.2 F Pulse Rate Respiratory Rate Blood Pressure O2 Sat by Pulse Oximetry - Reevaluation(s) Reevaluation #1: 10/07/19 21:00 Robb catheter was inserted as patient did have significant bleeding and clots noted from the urethra. Culture pending (Carlos Broussard) Medical Decision Making - Lab Data Result diagrams: 10/07/19 19:30 10/07/19 19:30 <Eric Howard - Last Filed: 10/07/19 20:31> - Lab Data Result diagrams: 10/07/19 19:30 10/07/19 19:30 <Carlos Broussard - Last Filed: 10/07/19 21:01> - Medical Decision Making Patient reexamined and reevaluated by myself, Dr. Howard. Patient resting comfortably in bed. Patient was recently in the hospital with CHF. Family states patient has not been eating or drinking well recently. Patient and family updated on results and plan. Case was discussed in detail with Dr. Galloway who is familiar with this patient and will admit. (Eric Howard) Patient presents for weakness. Patient was recently released from [facility] about 5 days ago. He was in [facility] for rehab after being hospitalized for about 10 days a month ago with multiple diagnoses. These were reviewed. Vitals have been stable throughout patient's stay. CBC does show white blood cell count of 13.4. CMP does show hyponatremia of 126. Patient does have a BUN of 104 and elevated creatinine. Patient does have a history of kidney disease however this is likely exacerbated secondary to dehydration. Patient was gently rehydrated with a half liter bolus given his hyponatremia. He has borderline low potassium of 3.4. Glucose elevated at 321, treated with fluids. Lactic acid likely secondary to dehydration. Troponin of 0.232 is consistent with previous troponin however will be trended. (Carlos Broussard) - Lab Data Lab Results 10/07/19 10/07/19 10/07/19 Range/Units 19:30 19:30 19:30 WBC 13.4 H (3.8-10.6) k/uL RBC 4.92 (4.30-5.90) m/uL Hgb 13.3 (13.0-17.5) gm/dL Hct 38.8 L (39.0-53.0) % MCV 79.0 L (80.0-100.0) fL MCH 27.1 (25.0-35.0) pg MCHC 34.3 (31.0-37.0) g/dL RDW 16.8 H (11.5-15.5) % Plt Count 277 (150-450) k/uL Neutrophils % 87 % Lymphocytes % 5 % Monocytes % 6 % Eosinophils % 0 % Basophils % 0 % Neutrophils # 11.7 H (1.3-7.7) k/uL Lymphocytes # 0.6 L (1.0-4.8) k/uL Monocytes # 0.8 (0-1.0) k/uL Eosinophils # 0.0 (0-0.7) k/uL Basophils # 0.0 (0-0.2) k/uL Poikilocytosis Slight Anisocytosis Slight Microcytosis Slight PT (9.0-12.0) sec INR (<1.2) APTT (22.0-30.0) sec Sodium 126 L (137-145) mmol/L Potassium 3.4 L (3.5-5.1) mmol/L Chloride 74 L* (98-107) mmol/L Carbon Dioxide 34 H (22-30) mmol/L Anion Gap 18 mmol/L BUN 104 H* (9-20) mg/dL Creatinine 2.69 H (0.66-1.25) mg/dL Est GFR (CKD-EPI)AfAm 26 (>60 ml/min/1.73 sqM) Est GFR (CKD-EPI)NonAf 23 (>60 ml/min/1.73 sqM) Glucose 321 H (74-99) mg/dL Plasma Lactic Acid Rafal 2.3 H* (0.7-2.0) mmol/L Calcium 9.8 (8.4-10.2) mg/dL Magnesium 2.1 (1.6-2.3) mg/dL Total Bilirubin 1.4 H (0.2-1.3) mg/dL AST 23 (17-59) U/L ALT 15 (4-49) U/L Alkaline Phosphatase 152 H (38-126) U/L Troponin I (0.000-0.034) ng/mL NT-Pro-B Natriuret Pep pg/mL Total Protein 7.7 (6.3-8.2) g/dL Albumin 4.1 (3.5-5.0) g/dL TSH 1.070 (0.465-4.680) mIU/L Urine Color Urine Appearance (Clear) Urine pH (5.0-8.0) Ur Specific [place] (1.001-1.035) Urine Protein (Negative) Urine Glucose (UA) (Negative) Urine Ketones (Negative) Urine Blood (Negative) Urine Nitrite (Negative) Urine Bilirubin (Negative) Urine Urobilinogen (<2.0) mg/dL Ur Leukocyte Esterase (Negative) Urine RBC (0-5) /hpf Urine WBC (0-5) /hpf Ur Squamous Epith Cells (0-4) /hpf Hyaline Casts (0-2) /lpf 10/07/19 10/07/19 10/07/19 Range/Units 19:30 19:30 19:30 WBC (3.8-10.6) k/uL RBC (4.30-5.90) m/uL Hgb (13.0-17.5) gm/dL Hct (39.0-53.0) % MCV (80.0-100.0) fL MCH (25.0-35.0) pg MCHC (31.0-37.0) g/dL RDW (11.5-15.5) % Plt Count (150-450) k/uL Neutrophils % % Lymphocytes % % Monocytes % % Eosinophils % % Basophils % % Neutrophils # (1.3-7.7) k/uL Lymphocytes # (1.0-4.8) k/uL Monocytes # (0-1.0) k/uL Eosinophils # (0-0.7) k/uL Basophils # (0-0.2) k/uL Poikilocytosis Anisocytosis Microcytosis PT 12.5 H (9.0-12.0) sec INR 1.2 H (<1.2) APTT 22.1 (22.0-30.0) sec Sodium (137-145) mmol/L Potassium (3.5-5.1) mmol/L Chloride (98-107) mmol/L Carbon Dioxide (22-30) mmol/L Anion Gap mmol/L BUN (9-20) mg/dL Creatinine (0.66-1.25) mg/dL Est GFR (CKD-EPI)AfAm (>60 ml/min/1.73 sqM) Est GFR (CKD-EPI)NonAf (>60 ml/min/1.73 sqM) Glucose (74-99) mg/dL Plasma Lactic Acid Rafal (0.7-2.0) mmol/L Calcium (8.4-10.2) mg/dL Magnesium (1.6-2.3) mg/dL Total Bilirubin (0.2-1.3) mg/dL AST (17-59) U/L ALT (4-49) U/L Alkaline Phosphatase (38-126) U/L Troponin I 0.232 H* (0.000-0.034) ng/mL NT-Pro-B Natriuret Pep 07853 pg/mL Total Protein (6.3-8.2) g/dL Albumin (3.5-5.0) g/dL TSH (0.465-4.680) mIU/L Urine Color Urine Appearance (Clear) Urine pH (5.0-8.0) Ur Specific [place] (1.001-1.035) Urine Protein (Negative) Urine Glucose (UA) (Negative) Urine Ketones (Negative) Urine Blood (Negative) Urine Nitrite (Negative) Urine Bilirubin (Negative) Urine Urobilinogen (<2.0) mg/dL Ur Leukocyte Esterase (Negative) Urine RBC (0-5) /hpf Urine WBC (0-5) /hpf Ur Squamous Epith Cells (0-4) /hpf Hyaline Casts (0-2) /lpf 10/07/19 Range/Units 19:55 WBC (3.8-10.6) k/uL RBC (4.30-5.90) m/uL Hgb (13.0-17.5) gm/dL Hct (39.0-53.0) % MCV (80.0-100.0) fL MCH (25.0-35.0) pg MCHC (31.0-37.0) g/dL RDW (11.5-15.5) % Plt Count (150-450) k/uL Neutrophils % % Lymphocytes % % Monocytes % % Eosinophils % % Basophils % % Neutrophils # (1.3-7.7) k/uL Lymphocytes # (1.0-4.8) k/uL Monocytes # (0-1.0) k/uL Eosinophils # (0-0.7) k/uL Basophils # (0-0.2) k/uL Poikilocytosis Anisocytosis Microcytosis PT (9.0-12.0) sec INR (<1.2) APTT (22.0-30.0) sec Sodium (137-145) mmol/L Potassium (3.5-5.1) mmol/L Chloride (98-107) mmol/L Carbon Dioxide (22-30) mmol/L Anion Gap mmol/L BUN (9-20) mg/dL Creatinine (0.66-1.25) mg/dL Est GFR (CKD-EPI)AfAm (>60 ml/min/1.73 sqM) Est GFR (CKD-EPI)NonAf (>60 ml/min/1.73 sqM) Glucose (74-99) mg/dL Plasma Lactic Acid Rafal (0.7-2.0) mmol/L Calcium (8.4-10.2) mg/dL Magnesium (1.6-2.3) mg/dL Total Bilirubin (0.2-1.3) mg/dL AST (17-59) U/L ALT (4-49) U/L Alkaline Phosphatase (38-126) U/L Troponin I (0.000-0.034) ng/mL NT-Pro-B Natriuret Pep pg/mL Total Protein (6.3-8.2) g/dL Albumin (3.5-5.0) g/dL TSH (0.465-4.680) mIU/L Urine Color Light Red Urine Appearance Clear (Clear) Urine pH 6.0 (5.0-8.0) Ur Specific [place] 1.012 (1.001-1.035) Urine Protein 1+ H (Negative) Urine Glucose (UA) Trace H (Negative) Urine Ketones Negative (Negative) Urine Blood Large H (Negative) Urine Nitrite Negative (Negative) Urine Bilirubin Negative (Negative) Urine Urobilinogen <2.0 (<2.0) mg/dL Ur Leukocyte Esterase Moderate H (Negative) Urine RBC >182 H (0-5) /hpf Urine WBC 37 H (0-5) /hpf Ur Squamous Epith Cells 1 (0-4) /hpf Hyaline Casts 5 H (0-2) /lpf Disposition <Eric Howard - Last Filed: 10/07/19 20:31> Is patient prescribed a controlled substance at d/c from ED?: No Time of Disposition: 20:43 <Carlos Broussard - Last Filed: 10/07/19 21:01> Clinical Impression: Weakness, Hypokalemia, Hyponatremia, Acute renal failure, Dehydration Disposition: ADMITTED IP TO THIS HOSP Condition: Serious
[2019-10-07 19:57] LABS: Anisocytosis Slight; Basophils % (A) 0 %; Eosinophils % (A) 0 %; HCT 38.8 % (39.0-53.0); HGB 13.3 gm/dL (13.0-17.5); Lymphocytes # (A) 0.6 k/uL (1.0-4.8); Lymphocytes % (A) 5 %; MCH 27.1 pg (25.0-35.0); MCHC 34.3 g/dL (31.0-37.0); Mean Platelet Volume 8.9; Microcytosis Slight; Monocytes # (A) 0.8 k/uL (0-1.0); Monocytes % (A) 6 %; Neutrophils # (A) 11.7 k/uL (1.3-7.7); Neutrophils % (A) 87 %; Platelet Count 277 k/uL (150-450); Poikilocytosis Slight; RBC 4.92 m/uL (4.30-5.90); RDW 16.8 % (11.5-15.5); WBC 13.4 k/uL (3.8-10.6)
[2019-10-07 19:59] LABS: Albumin 4.1 g/dL (3.5-5.0); Calcium 9.8 mg/dL (8.4-10.2); Magnesium 2.1 mg/dL (1.6-2.3); Potassium 3.4 mmol/L (3.5-5.1); Total Bilirubin 1.4 mg/dL (0.2-1.3); Total Protein 7.7 g/dL (6.3-8.2)
[2019-10-07 20:04] LABS: INR 1.2 (<1.2); Partial Thromboplastin Time 22.1 sec (22.0-30.0); Prothrombin Time 12.5 sec (9.0-12.0)
[2019-10-07] MEDS ORDERED: SODIUM CHLORIDE 0.9% 500 ML 500 ML IV STA (20:25)
[2019-10-07] MEDS ORDERED: NALOXONE 0.4 MG/ML 1 ML VIAL IV PRN (20:41)
[2019-10-07 20:42] LABS: Appearance,Urine Clear (Clear); Bilirubin,Urine Negative (Negative); Blood,Urine Large (Negative); Color,Urine Light Red; Glucose,Urine (UA) Trace (Negative); Hyaline Casts,Urine 5 /lpf (0-2); Ketones,Urine Negative (Negative); Leukocyte Esterase,Urine Moderate (Negative); Nitrite,Urine Negative (Negative); Protein,Urine 1+ (Negative); RBC,Urine >182 /hpf (0-5); Specific Gravity,Urine 1.012 (1.001-1.035); Squamous Epithelial Cell,Urine 1 /hpf (0-4); Urobilinogen,Urine <2.0 mg/dL (<2.0); WBC,Urine 37 /hpf (0-5)
[2019-10-07 21:28] LABS: Albumin 4.1 g/dL (3.5-5.0); Calcium 9.6 mg/dL (8.4-10.2); Potassium 2.9 mmol/L (3.5-5.1); Total Bilirubin 1.6 mg/dL (0.2-1.3); Total Protein 7.6 g/dL (6.3-8.2)
--- NOTE | 2019-10-07 21:41 | XR ---
EXAMINATION: XR chest 2V DATE AND TIME: 10/07/2019 8:28 PM CLINICAL INDICATION: PHH; Weakness TECHNIQUE: Departmental protocol COMPARISON: 09/07/2019 FINDINGS: Right IJ Mediport catheter has similar appearance. Mildly enlarged cardiac silhouette redemonstrated. The right lung is clear and the right pleural space appears negative on the current examination. The left upper and mid lung is clear. However, there is complete silhouetting of the left hemidiaphra gm consistent with airlessness throughout the left lower lobe with associated moderate left pleural e ffusion. The skeletal structures and soft tissues are negative for acute findings. IMPRESSION: 1. Right lung is clear and the right pleural spaces negative. 3. Left lower lobe airlessness with moderate left pleural effusion.
[2019-10-07] MEDS: INSULIN ASPART (NovoLOG) 100 UNIT/ML VIAL SQ SCH (21:55)
[2019-10-07] MEDS: SODIUM CHLORIDE 0.9% 1,000 ML IV SCH (21:55)
[2019-10-07] MEDS ORDERED: POTASSIUM CHLORIDE ER 20 MEQ TAB.ER PO STA (23:33)
[2019-10-08 01:45] LABS: Glucose,Whole Blood 196 mg/dL (75-99)
[2019-10-08 06:26] LABS: Glucose,Whole Blood 173 mg/dL (75-99)
[2019-10-08] MEDS: INSULIN ASPART (NovoLOG) 100 UNIT/ML VIAL SQ SCH ×4 (06:53→21:21)
[2019-10-08] MEDS ORDERED: ACETAMINOPHEN TAB 325 MG TAB PO PRN (10:40)
--- NOTE | 2019-10-08 11:55 | P.NPCON ---
History of Present Illness - Reason for Consult acute renal failure, chronic renal failure - History of Present Illness Reason for consultation: Acute kidney injury on chronic kidney disease History of present illness: Patient is a 74-year-old male seen in renal consultation for acute kidney injury on chronic kidney disease. Patient has chronic kidney disease stage III with baseline creatinine in the range of 1.5-2. Patient presented to the hospital with generalized weakness. Patient denies any dizziness or syncopal episodes. He did have some episodes of vomiting. Patient states his oral intake has been quite poor. Patient states that he can't eat. He denies any diarrhea. Denies use of nonsteroidals. Patient states his urine output has been low. However he denies any hematuria or dysuria. In the emergency room patient had a Robb catheter placed. His urine output has been about 700 mL since admission. Patient was recently admitted at this facility about a month ago with CHF exac erbation. Patient's echocardiogram during that admission revealed ejection fraction of 35-40% with moderate pulmonary hypertension. Renal ultrasound revealed no evidence of hydronephrosis. At home patient was maintained on Demadex 80 mg twice daily. Patient has no edema at this time. Chest x-ray shows left-sided pleural effusion. Patient has history of diabetes mellitus. Vital signs are stable. General: The patient appeared well nourished and normally developed. HEENT: Head exam is unremarkable. Neck is without jugular venous distension. LUNGS: Breath sounds decreased. HEART: Rate and Rhythm are regular. First and second heart sounds normal. No murmurs, rubs or gallops. ABDOMEN: Abdominal exam reveals normal bowel sounds. Non-tender and non- distended. No evidence of peritonitis. EXTREMITITES: No clubbing, cyanosis, or edema. 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 Last Myocardial Infarction Date:: GREATER THAN 5 YRS AGO History of Any Multi-Drug Resistant Organisms: None Reported Past Surgical History: Heart Catheterization Additional Past Surgical History / Comment(s): BRONCHOSCOPY, MEDIPORT PLACEMENT Past Anesthesia/Blood Transfusion Reactions: No Reported Reaction Past Psychological History: No Psychological Hx Reported Smoking Status: Former smoker Past Alcohol Use History: None Reported Past Drug Use History: None Reported - Past Family History Father History Unknown: Yes Family Medical History: Coronary Artery Disease (CAD) Mother Family Medical History: Diabetes Mellitus Medications and Allergies Home Medications Medication Instructions Recorded Confirmed Type buPROPion XL [Wellbutrin XL] 150 mg PO QAM 03/14/17 10/07/19 History Amiodarone [Cordarone] 100 mg PO QAM 08/16/17 10/07/19 History Docusate [Colace] 100 mg PO DAILY PRN cap 09/09/19 10/07/19 Rx INSULIN LISPRO (HumaLOG) [humaLOG] 0 unit SQ ACHS #1 vial 09/09/19 10/07/19 Rx Metolazone [Zaroxolyn] 5 mg PO DAILY tab 09/09/19 10/07/19 Rx Metoprolol Tartrate [Lopressor] 25 mg PO DAILY #1 tablet 09/09/19 10/07/19 Rx Torsemide [Demadex] 80 mg PO BID tab 09/09/19 10/07/19 Rx Acetaminophen Tab [Tylenol] 650 mg PO Q6H PRN 10/07/19 10/07/19 History Aspirin EC [Ecotrin Low Dose] 81 mg PO QAM 10/07/19 10/07/19 History Atorvastatin [Lipitor] 80 mg PO HS 10/07/19 10/07/19 History Cefuroxime [Ceftin] 250 mg PO BID 10/07/19 10/07/19 History Insulin Glargine,Hum.rec.anlog 26 unit SQ HS 10/07/19 10/07/19 History [Lantus Solostar] Midodrine [ProAmatine] 10 mg PO BID 10/07/19 10/07/19 History Rivaroxaban [Xarelto] 15 mg PO HS 10/07/19 10/07/19 History Allergies Allergy/AdvReac Type Severity Reaction Status Date / Time No Known Allergies Allergy Verified 10/07/19 20:42 Physical Exam Vitals: Vital Signs Temp Pulse Pulse Resp BP BP Pulse Ox 10/08/19 11:05 92 16 118/62 93 L 10/08/19 08:20 97.4 F L 88 16 128/65 100 10/08/19 04:00 98.6 F 80 20 134/69 94 L 10/08/19 00:45 86 20 10/08/19 00:00 98.1 F 86 20 143/72 99 10/07/19 21:14 98.4 F 86 18 137/70 94 L 10/07/19 20:50 91 20 128/68 100 10/07/19 20:30 92 20 117/71 100 10/07/19 20:28 99.2 F 10/07/19 20:03 92 22 115/71 100 10/07/19 19:38 89 16 97/68 100 10/07/19 18:39 97.0 F L 90 16 106/61 100 Intake and Output 10/07/19 10/08/19 10/08/19 22:59 06:59 14:59 Intake Total 420 240 Output Total 100 630 Balance -100 -210 240 Intake: Intake, IV Titration 300 Amount Sodium Chloride 0.9% 1, 300 000 ml @ 75 mls/hr IV . [id number] [facility] Rx#:[id number] Oral 120 240 Output: Urine 100 630 Uretheral (Robb) 100 Other: Voiding Method Indwelling Catheter Indwelling Catheter Weight 106.594 kg 95.5 kg 95.5 kg Results - Lab Results Most recent lab results Calcium 9.6 mg/dL (8.4-10.2) 10/07/19 20:57 Magnesium 2.1 mg/dL (1.6-2.3) 10/07/19 19:30 10/07/19 19:30 10/08/19 08:09 Assessment and Plan Plan: Assessment: 1. Acute kidney injury mostly prerenal secondary to overdiuresis. Creatinine was 2.69 on admission and was down to 2.55 as of last night. No hydronephrosis noted on ultrasound from August 2019. 2. Hypokalemia secondary to diuresis. Improving with replacement. Magnesium normal. 3. Hypovolemic hyponatremia also improving with IV hydration. 4. Chronic systolic CHF with ejection fraction of 35-40% with moderate pulmonary hypertension. 5. Chronic kidney disease stage III with baseline creatinine in the range of 1.5-2 secondary to diabetic kidney disease. 6. Possible urinary retention. Robb catheter was placed in the ER. Plan: Maintain normal saline at 75 mL an hour. Need to be cautious with IV hydration due to patient's underlying cardiomyopathy. Follow-up morning labs. Replace potassium. 60 mg today. Encouraged oral intake. Add ensure with meals. 1200 mL fluid restriction. Continue to monitor renal function and urine output. Thank you for the consultation. I will continue to follow the patient with you during his hospital stay.
[2019-10-08 12:17] LABS: Glucose,Whole Blood 224 mg/dL (75-99)
[2019-10-08 12:20] LABS: Calcium 9.2 mg/dL (8.4-10.2)
[2019-10-08] MEDS: METOPROLOL TARTRATE 25 MG TAB PO SCH (12:45)
[2019-10-08] MEDS: buPROPion XL 150 MG TAB.ER.24H PO SCH (12:45)
[2019-10-08] MEDS: AMIODARONE 100 MG TAB PO SCH (12:45)
[2019-10-08] MEDS: ASPIRIN 81 MG PO SCH (12:45)
[2019-10-08] MEDS: SODIUM CHLORIDE 0.9% 1,000 ML IV SCH ×2 (12:46→20:41)
[2019-10-08] MEDS: POTASSIUM CHLORIDE ER 20 MEQ TAB.ER PO SCH ×3 (12:46→18:09)
[2019-10-08] MEDS: PANTOPRAZOLE 40 MG/10 ML VIAL IVP SCH (12:46)
[2019-10-08] MEDS: MIDODRINE 5 MG TAB PO SCH ×2 (12:46→18:09)
--- NOTE | 2019-10-08 14:21 | P.CRDCN ---
History of Present Illness Consult date: 10/08/19 Requesting physician: Arsen Galloway History of present illness: this is a 74-year-old gentleman who follows regularly with Dr. Beard in the office. He has a known history of diabetes, congestive heart failure, hypertension, hyperlipidemia, persistent atrial fibrillation, had a recent admission to the hospital with UTI and sepsis, [facility] to the son he had been for 3 weeks. After that he was discharged home and the son moved in to live with him. According to the son, he has not been eating or drinking much at home, and he is becoming more and more weak and confused which is why he was brought to the emergency room again for further evaluation and treatment. Cardiology consultation has been requested because of abnormality in troponin.blood pressure 118/60 with a heart rate in the 90s, 93% on room air.White blood cell count 13.4, hemoglobin 13.3, platelet count 277. Sodium on admission 126 with a potassium of 3.4, BUN 104 and creatinine 2.5. Plasma lactic acid on admission 2.3.BNP level XIX,CC. Troponin 0.23, 0.22, 0.24. TSH level I.0.blood pressure 118/60 with a heart rate in the 90s, 93% on room air.EKG shows normal sinus rhythm with right bundle branch block, right ventricular hypertrophy.nonspecific ST-T wave changes.chest x-ray showed that the right lung is clear, left lower lobe airless this with moderate left-sided pleural effusion.at the time of my examination, patient is still quite confused, his son is at bedside, patient does not complain of any issues at present. 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 Last Myocardial Infarction Date:: GREATER THAN 5 YRS AGO History of Any Multi-Drug Resistant Organisms: None Reported Past Surgical History: Heart Catheterization Additional Past Surgical History / Comment(s): BRONCHOSCOPY, MEDIPORT PLACEMENT Past Anesthesia/Blood Transfusion Reactions: No Reported Reaction Past Psychological History: No Psychological Hx Reported Smoking Status: Former smoker Past Alcohol Use History: None Reported Past Drug Use History: None Reported - Past Family History Father History Unknown: Yes Family Medical History: Coronary Artery Disease (CAD) Mother Family Medical History: Diabetes Mellitus Medications and Allergies Home Medications Medication Instructions Recorded Confirmed Type buPROPion XL [Wellbutrin XL] 150 mg PO QAM 03/14/17 10/07/19 History Amiodarone [Cordarone] 100 mg PO QAM 08/16/17 10/07/19 History Docusate [Colace] 100 mg PO DAILY PRN cap 09/09/19 10/07/19 Rx INSULIN LISPRO (HumaLOG) [humaLOG] 0 unit SQ ACHS #1 vial 09/09/19 10/07/19 Rx Metolazone [Zaroxolyn] 5 mg PO DAILY tab 09/09/19 10/07/19 Rx Metoprolol Tartrate [Lopressor] 25 mg PO DAILY #1 tablet 09/09/19 10/07/19 Rx Torsemide [Demadex] 80 mg PO BID tab 09/09/19 10/07/19 Rx Acetaminophen Tab [Tylenol] 650 mg PO Q6H PRN 10/07/19 10/07/19 History Aspirin EC [Ecotrin Low Dose] 81 mg PO QAM 10/07/19 10/07/19 History Atorvastatin [Lipitor] 80 mg PO HS 10/07/19 10/07/19 History Cefuroxime [Ceftin] 250 mg PO BID 10/07/19 10/07/19 History Insulin Glargine,Hum.rec.anlog 26 unit SQ HS 10/07/19 10/07/19 History [Lantus Solostar] Midodrine [ProAmatine] 10 mg PO BID 10/07/19 10/07/19 History Rivaroxaban [Xarelto] 15 mg PO HS 10/07/19 10/07/19 History Allergies Allergy/AdvReac Type Severity Reaction Status Date / Time No Known Allergies Allergy Verified 10/07/19 20:42 Physical Exam Vitals: Vital Signs Temp Pulse Pulse Resp BP BP Pulse Ox 10/08/19 11:05 92 16 118/62 93 L 10/08/19 08:20 97.4 F L 88 16 128/65 100 10/08/19 04:00 98.6 F 80 20 134/69 94 L 10/08/19 00:45 86 20 10/08/19 00:00 98.1 F 86 20 143/72 99 10/07/19 21:14 98.4 F 86 18 137/70 94 L 10/07/19 20:50 91 20 128/68 100 10/07/19 20:30 92 20 117/71 100 10/07/19 20:28 99.2 F 10/07/19 20:03 92 22 115/71 100 10/07/19 19:38 89 16 97/68 100 10/07/19 18:39 97.0 F L 90 16 106/61 100 Intake and Output 10/07/19 10/08/19 10/08/19 22:59 06:59 14:59 Intake Total 420 300 Output Total 100 630 400 Balance -100 -210 -100 Intake: Intake, IV Titration 300 Amount Sodium Chloride 0.9% 1, 300 000 ml @ 75 mls/hr IV . [id number] [facility] Rx#:[id number] Oral 120 300 Output: Urine 100 630 400 Uretheral (Robb) 100 Other: Voiding Method Indwelling Catheter Indwelling Catheter Weight 106.594 kg 95.5 kg 95.5 kg HEAD: Normocephalic/atraumatic. EYES: Normal reaction of pupils, equal size. Conjunctiva pink, sclera white. NOSE: Clear with pink turbinates. THROAT: No erythema or exudates. NECK: No masses, no JVD, no thyroid enlargement, no adenopathy. CHEST: No chest wall deformity. Symmetrical expansion. LUNGS: Diminished lung sounds over left lower lobe, no crackles, wheeze, rhonchi or dullness. CVS: Regular rate and rhythm, normal S1 and S2, no gallops, no murmurs, no rubs ABDOMEN: Soft, nontender. No hepatosplenomegaly, normal bowel sounds, no gu arding or rigidity. EXTREMITIES: No clubbing, trace edema in bilateral lower extremities, no cyanosi s, 2+ pulses and upper and lower extremities. MUSCULOSKELETAL: Muscle strength and tone normal. SPINE: No scoliosis or deformity SKIN: No rashes CENTRAL NERVOUS SYSTEM: Alert and oriented -3. No focal deficits, tone is normal in all 4 extremities. PSYCHIATRIC: awake and alert, confused. Results 10/07/19 19:30 10/08/19 08:09 Cardiac Enzymes 10/07/19 10/07/19 10/07/19 Range/Units 19:30 19:30 20:57 AST 23 29 (17-59) U/L Troponin I 0.232 H* (0.000-0.034) ng/mL 10/07/19 10/08/19 Range/Units 23:52 08:09 AST (17-59) U/L Troponin I 0.225 H* 0.244 H* (0.000-0.034) ng/mL Coagulation 10/07/19 Range/Units 19:30 PT 12.5 H (9.0-12.0) sec APTT 22.1 (22.0-30.0) sec CBC 10/07/19 Range/Units 19:30 WBC 13.4 H (3.8-10.6) k/uL RBC 4.92 (4.30-5.90) m/uL Hgb 13.3 (13.0-17.5) gm/dL Hct 38.8 L (39.0-53.0) % Plt Count 277 (150-450) k/uL Comprehensive Metabolic Panel 10/07/19 10/07/19 10/08/19 Range/Units 19:30 20:57 08:09 Sodium 126 L 127 L 130 L (137-145) mmol/L Potassium 3.4 L 2.9 L 3.0 L (3.5-5.1) mmol/L Chloride 74 L* 76 L 79 L (98-107) mmol/L Carbon Dioxide 34 H 30 34 H (22-30) mmol/L BUN 104 H* 101 H* 98 H (9-20) mg/dL Creatinine 2.69 H 2.55 H 2.34 H (0.66-1.25) mg/dL Glucose 321 H 312 H 184 H (74-99) mg/dL Calcium 9.8 9.6 9.2 (8.4-10.2) mg/dL AST 23 29 (17-59) U/L ALT 15 15 (4-49) U/L Alkaline Phosphatase 152 H 143 H (38-126) U/L Total Protein 7.7 7.6 (6.3-8.2) g/dL Albumin 4.1 4.1 (3.5-5.0) g/dL Current Medications Generic Name Dose Route Start Last Admin Trade Name Freq PRN Reason Stop Dose Admin Acetaminophen 650 mg 10/08/19 10:40 Tylenol Tab PO Q6H PRN Pain Amiodarone HCl 100 mg 10/08/19 10:45 10/08/19 12:45 Cordarone PO 100 mg QAM NORA Administration Aspirin 81 mg 10/08/19 10:45 10/08/19 12:45 Aspirin PO 81 mg QAM NORA Administration Atorvastatin Calcium 80 mg 10/08/19 21:00 Lipitor PO HS NORA Bupropion HCl 150 mg 10/08/19 10:45 10/08/19 12:45 Wellbutrin Xl PO 150 mg QAM NORA Administration Docusate Sodium 100 mg 10/08/19 10:40 Colace PO DAILY PRN Constipation Sodium Chloride 1,000 mls @ 75 mls/hr 10/07/19 20:45 10/08/19 12:46 Saline 0.9% IV 75 mls/hr .[id number] NORA Administration Insulin Aspart 0 unit 10/07/19 21:00 10/08/19 12:47 Novolog SQ 3 unit ACHS NORA Administration Protocol Insulin Detemir 26 unit 10/08/19 21:00 Levemir SQ HS NORA Metoprolol Tartrate 25 mg 10/08/19 10:45 10/08/19 12:45 Lopressor PO 25 mg DAILY NORA Administration Midodrine 10 mg 10/08/19 10:45 10/08/19 12:46 Proamatine PO 10 mg AC-BID NORA Administration Naloxone HCl 0.2 mg 10/07/19 20:41 Narcan IV Q2M PRN Opioid Reversal Pantoprazole Sodium 40 mg 10/08/19 10:45 10/08/19 12:46 Protonix IVP 40 mg DAILY NORA Administration Rivaroxaban 15 mg 10/08/19 21:00 Xarelto PO HS NORA Intake and Output 10/07/19 10/08/19 10/08/19 22:59 06:59 14:59 Intake Total 420 300 Output Total 100 630 400 Balance -100 -210 -100 Intake: Intake, IV Titration 300 Amount Sodium Chloride 0.9% 1, 300 000 ml @ 75 mls/hr IV . [id number] [facility] Rx#:[id number] Oral 120 300 Output: Urine 100 630 400 Uretheral (Robb) 100 Other: Voiding Method Indwelling Catheter Indwelling Catheter Weight 106.594 kg 95.5 kg 95.5 kg Patient Weight 10/09/19 06:59 Weight 95.5 kg 10/07/19 19:30 10/08/19 08:09 EKG Interpretations (text) EKG shows normal sinus rhythm with right bundle branch block pattern and left ventricular hypertrophy Assessment and Plan Plan: Assessment and plan: 1 weakness with associated mental status changes 2 squamous cell lung cancer locally advanced post-chemoradiation therapy back in 2015 with good response based on subsequent PET scans in the CAT scan of the c hest that was done in January 2019 3 episodic falls. Rule out [employer] metastases based on his history of squamous cell lung cancer. Rule out hypoglycemia as the patient has been having W hypoglycemia that were witnessed also in the hospital. MRI of the brain showed no evidence of any [employer] metastases. 4 diabetes mellitus 5 coronary artery disease with previous CT, with a troponin leak 6 history of CVA involving the right frontal lobe 7 history of paroxysmal atrial fibrillation/flutter and the patient's rhythm is sinus and the patient is demented on long-term and to coagulation with Xarelto. 8 hyperlipidemia 9 acute on chronic systolic heart failure 10 acute kidney injury 11 nonischemic cardiomyopathy 12 hypertension 13 left-sided pleural effusion 14 abnormality in troponin, likely secondary to abnormal renal function. Patient's troponins are consistently in this range. plan We will not repeat an echocardiogram with Doppler study as the patient just had an echo done last month which revealed an ejection fraction of 35-40%. We will continue current medications. We'll follow this patient along with you on an as-needed basis only, please on hesitate to call with any questions. DNP note has been reviewed, I agree with a documented findings and plan of care. Patient was seen and examined.
[2019-10-08 17:01] LABS: Glucose,Whole Blood 305 mg/dL (75-99)
[2019-10-08] MEDS: RIVAROXABAN 15 MG TAB PO SCH (20:41)
[2019-10-08] MEDS: ATORVASTATIN 80 MG TAB PO SCH (20:41)
[2019-10-08 21:19] LABS: Glucose,Whole Blood 214 mg/dL (75-99)
[2019-10-08] MEDS: INSULIN DETEMIR (LEVEMIR) 100 UNIT/ML SYR SQ SCH (21:21)
[2019-10-09 06:17] LABS: Glucose,Whole Blood 201 mg/dL (75-99)
[2019-10-09] MEDS: MIDODRINE 5 MG TAB PO SCH ×2 (06:42→18:22)
[2019-10-09] MEDS: INSULIN ASPART (NovoLOG) 100 UNIT/ML VIAL SQ SCH ×4 (06:42→21:17)
[2019-10-09 06:52] LABS: Anisocytosis Slight; Basophils # (A) 0.1 k/uL (0-0.2); Basophils % (A) 1 %; Eosinophils % (A) 0 %; HGB 12.5 gm/dL (13.0-17.5); Lymphocytes # (A) 0.4 k/uL (1.0-4.8); Lymphocytes % (A) 4 %; MCH 27.2 pg (25.0-35.0); MCHC 33.7 g/dL (31.0-37.0); MCV 80.6 fL (80.0-100.0); Mean Platelet Volume 7.9; Microcytosis Slight; Monocytes # (A) 0.5 k/uL (0-1.0); Monocytes % (A) 5 %; Neutrophils # (A) 8.7 k/uL (1.3-7.7); Neutrophils % (A) 87 %; Platelet Count 214 k/uL (150-450); RBC 4.59 m/uL (4.30-5.90); RDW 17.3 % (11.5-15.5)
[2019-10-09 07:42] LABS: Calcium 9.7 mg/dL (8.4-10.2); Potassium 3.2 mmol/L (3.5-5.1)
[2019-10-09] MEDS: PANTOPRAZOLE 40 MG/10 ML VIAL IVP SCH (08:45)
[2019-10-09] MEDS: buPROPion XL 150 MG TAB.ER.24H PO SCH (08:45)
[2019-10-09] MEDS: ASPIRIN 81 MG PO SCH (08:45)
[2019-10-09] MEDS: METOPROLOL TARTRATE 25 MG TAB PO SCH (08:45)
[2019-10-09] MEDS: AMIODARONE 100 MG TAB PO SCH (08:46)
[2019-10-09] MEDS ORDERED: POTASSIUM CHLORIDE ER 20 MEQ TAB.ER PO STA (10:52)
--- NOTE | 2019-10-09 11:03 | P.PN ---
Subjective Patient is seen in follow-up for acute kidney injury on chronic kidney disease. Renal function is better. Creatinine 2.08 today. Sodium level is now in the normal range. Oral intake remains poor. No vomiting or diarrhea. He is nonoliguric. Has a Robb catheter. Vital signs are stable. General: The patient appeared well nourished and normally developed. HEENT: Head exam is unremarkable. Neck is without jugular venous distension. LUNGS: Lungs are clear to auscultation and percussion. Breath sounds decreased. HEART: Rate and Rhythm are regular. First and second heart sounds normal. No murmurs, rubs or gallops. ABDOMEN: Abdominal exam reveals normal bowel sounds. Non-tender and non- distended. No evidence of peritonitis. EXTREMITITES: No clubbing, cyanosis, or edema. Objective - Vital Signs Vital signs: Vital Signs Temp 97.4 F L 10/09/19 08:00 Pulse 71 10/09/19 08:00 Resp 20 10/09/19 08:00 BP 101/55 10/09/19 08:00 Pulse Ox 95 10/09/19 08:00 Intake & Output 10/08/19 10/09/19 10/09/19 18:59 06:59 18:59 Intake Total 1900 120 Output Total 400 1450 Balance 1500 -1330 Weight 95.5 kg 113 kg Intake: Intake, IV Titration 600 Amount Sodium Chloride 0.9% 1, 600 000 ml @ 75 mls/hr IV . [id number] [facility] Rx#:[id number] Oral 1300 120 Output: Urine 400 1450 Other: Voiding Method Indwelling Catheter Indwelling Catheter - Labs CBC & Chem 7: 10/09/19 06:39 10/09/19 06:39 Labs: Abnormal Lab Results - Last 24 Hours (Table) 10/08/19 10/08/19 10/08/19 Range/Units 08:09 12:16 17:00 Hgb (13.0-17.5) gm/dL Hct (39.0-53.0) % RDW (11.5-15.5) % Neutrophils # (1.3-7.7) k/uL Lymphocytes # (1.0-4.8) k/uL Sodium 130 L (137-145) mmol/L Potassium 3.0 L (3.5-5.1) mmol/L Chloride 79 L (98-107) mmol/L Carbon Dioxide 34 H (22-30) mmol/L BUN 98 H (9-20) mg/dL Creatinine 2.34 H (0.66-1.25) mg/dL Glucose 184 H (74-99) mg/dL POC Glucose (mg/dL) 224 H 305 H (75-99) mg/dL 10/08/19 10/09/19 10/09/19 Range/Units 21:17 06:16 06:39 Hgb 12.5 L (13.0-17.5) gm/dL Hct 37.0 L (39.0-53.0) % RDW 17.3 H (11.5-15.5) % Neutrophils # 8.7 H (1.3-7.7) k/uL Lymphocytes # 0.4 L (1.0-4.8) k/uL Sodium (137-145) mmol/L Potassium (3.5-5.1) mmol/L Chloride (98-107) mmol/L Carbon Dioxide (22-30) mmol/L BUN (9-20) mg/dL Creatinine (0.66-1.25) mg/dL Glucose (74-99) mg/dL POC Glucose (mg/dL) 214 H 201 H (75-99) mg/dL 10/09/19 Range/Units 06:39 Hgb (13.0-17.5) gm/dL Hct (39.0-53.0) % RDW (11.5-15.5) % Neutrophils # (1.3-7.7) k/uL Lymphocytes # (1.0-4.8) k/uL Sodium (137-145) mmol/L Potassium 3.2 L (3.5-5.1) mmol/L Chloride 92 L (98-107) mmol/L Carbon Dioxide 34 H (22-30) mmol/L BUN 91 H (9-20) mg/dL Creatinine 2.08 H (0.66-1.25) mg/dL Glucose 203 H (74-99) mg/dL POC Glucose (mg/dL) (75-99) mg/dL Microbiology - Last 24 Hours (Table) 10/07/19 19:55 Urine Culture - Preliminary Urine,Voided Assessment and Plan Plan: Assessment: 1. Acute kidney injury mostly prerenal secondary to overdiuresis. Creatinine was 2.69 on admission and was down to 2.08 today. No hydronephrosis noted on ultrasound from August 2019. 2. Hypokalemia secondary to diuresis. Improving with replacement. Magnesium normal. 3. Hypovolemic hyponatremia also improving with IV hydration. Better. 4. Chronic systolic CHF with ejection fraction of 35-40% with moderate pulmonary hypertension. 5. Chronic kidney disease stage III with baseline creatinine in the range of 1.5-2 secondary to diabetic kidney disease. 6. Possible urinary retention. Robb catheter was placed in the ER. 7. Squamous cell lung cancer. Plan: Decrease normal saline to 60 mL an hour. Need to be cautious with IV hydration due to patient's underlying cardiomyopathy. Replace potassium. 60 mg today. Encouraged oral intake. Avoid nephrotoxins. Continue to monitor renal function and urine output.
[2019-10-09 12:17] LABS: Glucose,Whole Blood 280 mg/dL (75-99)
[2019-10-09] MEDS: SODIUM CHLORIDE 0.9% 1,000 ML IV SCH (12:45)
[2019-10-09 17:16] LABS: Glucose,Whole Blood 242 mg/dL (75-99)
[2019-10-09] MEDS: DOCUSATE 100 MG CAP PO PRN (18:43)
[2019-10-09 21:03] LABS: Glucose,Whole Blood 327 mg/dL (75-99)
[2019-10-09] MEDS: RIVAROXABAN 15 MG TAB PO SCH (21:16)
[2019-10-09] MEDS: ATORVASTATIN 80 MG TAB PO SCH (21:16)
[2019-10-09] MEDS: INSULIN DETEMIR (LEVEMIR) 100 UNIT/ML SYR SQ SCH (21:18)
[2019-10-09] MEDS ORDERED: LORazepam 2 MG/ML INJ IV STA (21:55)
--- NOTE | 2019-10-09 21:58 | P.HPIM ---
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 Last Myocardial Infarction Date:: GREATER THAN 5 YRS AGO History of Any Multi-Drug Resistant Organisms: None Reported Past Surgical History: Heart Catheterization Additional Past Surgical History / Comment(s): BRONCHOSCOPY, MEDIPORT PLACEMENT Past Anesthesia/Blood Transfusion Reactions: No Reported Reaction Past Psychological History: No Psychological Hx Reported Smoking Status: Former smoker Past Alcohol Use History: None Reported Past Drug Use History: None Reported - Past Family History Father History Unknown: Yes Family Medical History: Coronary Artery Disease (CAD) Mother Family Medical History: Diabetes Mellitus Medications and Allergies Home Medications Medication Instructions Recorded Confirmed Type buPROPion XL [Wellbutrin XL] 150 mg PO QAM 03/14/17 10/07/19 History Amiodarone [Cordarone] 100 mg PO QAM 08/16/17 10/07/19 History Docusate [Colace] 100 mg PO DAILY PRN cap 09/09/19 10/07/19 Rx INSULIN LISPRO (HumaLOG) [humaLOG] 0 unit SQ ACHS #1 vial 09/09/19 10/07/19 Rx Metolazone [Zaroxolyn] 5 mg PO DAILY tab 09/09/19 10/07/19 Rx Metoprolol Tartrate [Lopressor] 25 mg PO DAILY #1 tablet 09/09/19 10/07/19 Rx Torsemide [Demadex] 80 mg PO BID tab 09/09/19 10/07/19 Rx Acetaminophen Tab [Tylenol] 650 mg PO Q6H PRN 10/07/19 10/07/19 History Aspirin EC [Ecotrin Low Dose] 81 mg PO QAM 10/07/19 10/07/19 History Atorvastatin [Lipitor] 80 mg PO HS 10/07/19 10/07/19 History Cefuroxime [Ceftin] 250 mg PO BID 10/07/19 10/07/19 History Insulin Glargine,Hum.rec.anlog 26 unit SQ HS 10/07/19 10/07/19 History [Lantus Solostar] Midodrine [ProAmatine] 10 mg PO BID 10/07/19 10/07/19 History Rivaroxaban [Xarelto] 15 mg PO HS 10/07/19 10/07/19 History Allergies Allergy/AdvReac Type Severity Reaction Status Date / Time No Known Allergies Allergy Verified 10/07/19 20:42 Physical Exam Vitals: Vital Signs Temp Pulse Pulse Resp BP BP Pulse Ox 10/08/19 08:20 97.4 F L 88 16 128/65 100 10/08/19 04:00 98.6 F 80 20 134/69 94 L 10/08/19 00:45 86 20 10/08/19 00:00 98.1 F 86 20 143/72 99 10/07/19 21:14 98.4 F 86 18 137/70 94 L 10/07/19 20:50 91 20 128/68 100 10/07/19 20:30 92 20 117/71 100 10/07/19 20:28 99.2 F 10/07/19 20:03 92 22 115/71 100 10/07/19 19:38 89 16 97/68 100 10/07/19 18:39 97.0 F L 90 16 106/61 100 Intake and Output 10/07/19 10/08/19 10/08/19 22:59 06:59 14:59 Intake Total 420 240 Output Total 100 630 Balance -100 -210 240 Intake: Intake, IV Titration 300 Amount Sodium Chloride 0.9% 1, 300 000 ml @ 75 mls/hr IV . [id number] [facility] Rx#:[id number] Oral 120 240 Output: Urine 100 630 Uretheral (Robb) 100 Other: Voiding Method Indwelling Catheter Weight 106.594 kg 95.5 kg Results CBC & Chem 7: 10/07/19 19:30 10/08/19 08:09 Labs: Abnormal Lab Results - Last 24 Hours (Table) 10/07/19 10/07/19 10/07/19 Range/Units 19:30 19:30 19:30 WBC 13.4 H (3.8-10.6) k/uL Hct 38.8 L (39.0-53.0) % MCV 79.0 L (80.0-100.0) fL RDW 16.8 H (11.5-15.5) % Neutrophils # 11.7 H (1.3-7.7) k/uL Lymphocytes # 0.6 L (1.0-4.8) k/uL PT (9.0-12.0) sec INR (<1.2) Sodium 126 L (137-145) mmol/L Potassium 3.4 L (3.5-5.1) mmol/L Chloride 74 L* (98-107) mmol/L Carbon Dioxide 34 H (22-30) mmol/L BUN 104 H* (9-20) mg/dL Creatinine 2.69 H (0.66-1.25) mg/dL Glucose 321 H (74-99) mg/dL POC Glucose (mg/dL) (75-99) mg/dL Plasma Lactic Acid Rafal 2.3 H* (0.7-2.0) mmol/L Total Bilirubin 1.4 H (0.2-1.3) mg/dL Alkaline Phosphatase 152 H (38-126) U/L Troponin I (0.000-0.034) ng/mL Urine Protein (Negative) Urine Glucose (UA) (Negative) Urine Blood (Negative) Ur Leukocyte Esterase (Negative) Urine RBC (0-5) /hpf Urine WBC (0-5) /hpf Hyaline Casts (0-2) /lpf 10/07/19 10/07/19 10/07/19 Range/Units 19:30 19:30 19:55 WBC (3.8-10.6) k/uL Hct (39.0-53.0) % MCV (80.0-100.0) fL RDW (11.5-15.5) % Neutrophils # (1.3-7.7) k/uL Lymphocytes # (1.0-4.8) k/uL PT 12.5 H (9.0-12.0) sec INR 1.2 H (<1.2) Sodium (137-145) mmol/L Potassium (3.5-5.1) mmol/L Chloride (98-107) mmol/L Carbon Dioxide (22-30) mmol/L BUN (9-20) mg/dL Creatinine (0.66-1.25) mg/dL Glucose (74-99) mg/dL POC Glucose (mg/dL) (75-99) mg/dL Plasma Lactic Acid Rafal (0.7-2.0) mmol/L Total Bilirubin (0.2-1.3) mg/dL Alkaline Phosphatase (38-126) U/L Troponin I 0.232 H* (0.000-0.034) ng/mL Urine Protein 1+ H (Negative) Urine Glucose (UA) Trace H (Negative) Urine Blood Large H (Negative) Ur Leukocyte Esterase Moderate H (Negative) Urine RBC >182 H (0-5) /hpf Urine WBC 37 H (0-5) /hpf Hyaline Casts 5 H (0-2) /lpf 10/07/19 10/07/19 10/08/19 Range/Units 20:57 23:52 01:44 WBC (3.8-10.6) k/uL Hct (39.0-53.0) % MCV (80.0-100.0) fL RDW (11.5-15.5) % Neutrophils # (1.3-7.7) k/uL Lymphocytes # (1.0-4.8) k/uL PT (9.0-12.0) sec INR (<1.2) Sodium 127 L (137-145) mmol/L Potassium 2.9 L (3.5-5.1) mmol/L Chloride 76 L (98-107) mmol/L Carbon Dioxide (22-30) mmol/L BUN 101 H* (9-20) mg/dL Creatinine 2.55 H (0.66-1.25) mg/dL Glucose 312 H (74-99) mg/dL POC Glucose (mg/dL) 196 H (75-99) mg/dL Plasma Lactic Acid Rafal (0.7-2.0) mmol/L Total Bilirubin 1.6 H (0.2-1.3) mg/dL Alkaline Phosphatase 143 H (38-126) U/L Troponin I 0.225 H* (0.000-0.034) ng/mL Urine Protein (Negative) Urine Glucose (UA) (Negative) Urine Blood (Negative) Ur Leukocyte Esterase (Negative) Urine RBC (0-5) /hpf Urine WBC (0-5) /hpf Hyaline Casts (0-2) /lpf 10/08/19 10/08/19 10/08/19 Range/Units 06:24 08:09 08:09 WBC (3.8-10.6) k/uL Hct (39.0-53.0) % MCV (80.0-100.0) fL RDW (11.5-15.5) % Neutrophils # (1.3-7.7) k/uL Lymphocytes # (1.0-4.8) k/uL PT (9.0-12.0) sec INR (<1.2) Sodium (137-145) mmol/L Potassium 3.0 L (3.5-5.1) mmol/L Chloride (98-107) mmol/L Carbon Dioxide (22-30) mmol/L BUN (9-20) mg/dL Creatinine (0.66-1.25) mg/dL Glucose (74-99) mg/dL POC Glucose (mg/dL) 173 H (75-99) mg/dL Plasma Lactic Acid Rafal (0.7-2.0) mmol/L Total Bilirubin (0.2-1.3) mg/dL Alkaline Phosphatase (38-126) U/L Troponin I 0.244 H* (0.000-0.034) ng/mL Urine Protein (Negative) Urine Glucose (UA) (Negative) Urine Blood (Negative) Ur Leukocyte Esterase (Negative) Urine RBC (0-5) /hpf Urine WBC (0-5) /hpf Hyaline Casts (0-2) /lpf Thrombosis Risk Factor Assmnt - Choose All That Apply Each Factor Represents 1 point: Medical pt on bed rest, Obesity (BMI >25) Other Risk Factors: Yes Each Risk Factor Represents 2 Points: Age 61-74 years Other congenital or acquired thrombophilia - If yes, enter type in comment: No Thrombosis Risk Factor Assessment Total Risk Factor Score: 4 Thrombosis Risk Factor Assessment Level: Moderate Risk <Arsen Galloway - Last Filed: 10/09/19 21:56> History of Present Illness H&P Date: 10/08/19 74-year-old male with a past medical history of lung cancer, IDDM, heart failure, hyperlipidemia, hypertension, myocardial infarction, coronary artery disease with previous catheterization history of left-sided pleural effusions he was admitted to [facility] through the emergency department for a chief complaint of weakness. Patient was recently admitted to this hospital about one month ago for greater than 10 days for acute hypoxic respiratory failure secondary to acute on chronic CHF exacerbation with bilateral pleural effusions and community-acquired pneumonia. Patient was then released to [facility]. He went home about 5 days ago. He states after he went home he started to get weak again. States that he is unable to walk around his house. States he feels this if he is going to fall he is so weak. He is apparently being treated for a urinary tract infection currently.Patient has no other complaints at this time including shortness of breath, chest pain, abdominal pain, nausea or vomiting, headache, or visual changes. Physical Exam Osteopathic Statement: *. No significant issues noted on an osteopathic structural exam other than those noted in the History and Physical/Consult. Vitals: Vital Signs Temp Pulse Resp BP Pulse Ox 10/09/19 15:32 97.4 F L 77 20 103/55 95 10/09/19 12:00 97.9 F 85 20 105/55 92 L 10/09/19 08:00 97.4 F L 71 20 101/55 95 10/09/19 04:00 98.8 F 65 19 109/66 95 10/09/19 00:00 98.5 F 62 20 105/60 94 L Intake and Output 10/09/19 10/09/19 10/09/19 06:59 14:59 22:59 Intake Total 120 960 360 Output Total 1450 300 Balance -1330 660 360 Intake: Oral 120 960 360 Output: Urine 1450 300 Other: Voiding Method Indwelling Catheter Indwelling Catheter Weight 113 kg GENERAL: This is a -74 year-old in apparent distress at the time of examination. Pleasant and cooperative, but weak. HEENT: Head is atraumatic, normocephalic. Pupils are equal, round, and reactive to light. Sclerae anicteric. Conjunctivae are clear. Mucus membranes of the mouth are dry. Neck is supple. RESPIRATORY: Some mild basilar crackles otherwise improved since last admission on alive CARDIOVASCULAR: Regular rate and rhythm. S1 and S2 noted. No systolic or diastolic murmur auscultated. No JVD noted. No S3 or S4 noted. GASTROINTESTINAL: No distention noted. Abdomen soft and round. Normal active bowel sounds auscultated x 4 quadrants. No pain or tenderness noted upon palpation. INTEGUMENTARY: No cyanosis. No jaundice. No rashes noted. No cellulitis noted. EXTREMITIES: 2+ peripheral pulses. Some +1 peripheral edema. No calf tenderness noted. NEUROLOGIC: Cranial nerves II-XII intact. PSYCHIATRIC: Appears confused at times in slightly agitated. Results CBC & Chem 7: 10/09/19 06:39 10/09/19 06:39 Labs: Abnormal Lab Results - Last 24 Hours (Table) 10/09/19 10/09/19 10/09/19 Range/Units 06:16 06:39 06:39 Hgb 12.5 L (13.0-17.5) gm/dL Hct 37.0 L (39.0-53.0) % RDW 17.3 H (11.5-15.5) % Neutrophils # 8.7 H (1.3-7.7) k/uL Lymphocytes # 0.4 L (1.0-4.8) k/uL Potassium 3.2 L (3.5-5.1) mmol/L Chloride 92 L (98-107) mmol/L Carbon Dioxide 34 H (22-30) mmol/L BUN 91 H (9-20) mg/dL Creatinine 2.08 H (0.66-1.25) mg/dL Glucose 203 H (74-99) mg/dL POC Glucose (mg/dL) 201 H (75-99) mg/dL 10/09/19 10/09/19 10/09/19 Range/Units 12:16 17:14 21:01 Hgb (13.0-17.5) gm/dL Hct (39.0-53.0) % RDW (11.5-15.5) % Neutrophils # (1.3-7.7) k/uL Lymphocytes # (1.0-4.8) k/uL Potassium (3.5-5.1) mmol/L Chloride (98-107) mmol/L Carbon Dioxide (22-30) mmol/L BUN (9-20) mg/dL Creatinine (0.66-1.25) mg/dL Glucose (74-99) mg/dL POC Glucose (mg/dL) 280 H 242 H 327 H (75-99) mg/dL Microbiology - Last 24 Hours (Table) 10/07/19 19:55 Urine Culture - Final Urine,Voided Assessment and Plan (1) Acute renal failure Current Visit: Yes Status: Acute Code(s): N17.9 - ACUTE KIDNEY FAILURE, UNSPECIFIED SNOMED Code(s): 28805953 (2) Dehydration Current Visit: Yes Status: Acute Code(s): E86.0 - DEHYDRATION SNOMED Code(s): 50675742 (3) Hypokalemia Current Visit: Yes Status: Acute Code(s): E87.6 - HYPOKALEMIA SNOMED Code(s): 12022397 (4) Weakness Current Visit: Yes Status: Acute Code(s): R53.1 - WEAKNESS SNOMED Code(s): 56553123 (5) COPD (chronic obstructive pulmonary disease) Current Visit: No Status: Acute Code(s): J44.9 - CHRONIC OBSTRUCTIVE PULMONARY DISEASE, UNSPECIFIED SNOMED Code(s): 15898542 (6) Diabetes Current Visit: No Status: Acute Code(s): E11.9 - TYPE 2 DIABETES MELLITUS WITHOUT COMPLICATIONS SNOMED Code(s): 94283417 (7) HTN (hypertension) Current Visit: No Status: Acute Code(s): I10 - ESSENTIAL (PRIMARY) HYPERTENSION SNOMED Code(s): 18661809 (8) Hyperlipemia Current Visit: No Status: Acute Code(s): E78.5 - HYPERLIPIDEMIA, UNSPECIFIED SNOMED Code(s): 72928991 Plan: Plan is to admit patient for nephrology consultation progress cautious hydration due to chronic congestive heart failure replace electrolytes probable readmission for medical [facility] as before patient not adequately stable for home due to profound weakness. Time with Patient: Greater than 30
--- NOTE | 2019-10-09 22:08 | P.PN ---
Subjective Progress Note Date: 10/09/19 Patient is a pleasant 74-year-old white male was readmitted to the hospital for the below diagnosis. He is doing a little bit better today he is more alert. He's less dry. His renal function has improved. He remains weak and in bed. He is noted to have a stage 1\II decubitus on his buttocks which hasn't seemed to break the skin Objective - Vital Signs Vital signs: Vital Signs Temp 97.4 F L 10/09/19 15:32 Pulse 77 10/09/19 15:32 Resp 20 10/09/19 15:32 BP 103/55 10/09/19 15:32 Pulse Ox 95 10/09/19 15:32 Intake & Output 10/09/19 10/09/19 10/10/19 06:59 18:59 06:59 Intake Total 120 1320 Output Total 1450 300 Balance -1330 1020 Weight 113 kg Intake: Oral 120 1320 Output: Urine 1450 300 Other: Voiding Method Indwelling Catheter Indwelling Catheter - Exam GENERAL: This is a -74 year-old in apparent distress at the time of examination. Pleasant and cooperative, but weak. HEENT: Head is atraumatic, normocephalic. Pupils are equal, round, and reactive to light. Sclerae anicteric. Conjunctivae are clear. Mucus membranes of the mouth are dry. Neck is supple. RESPIRATORY: Some mild basilar crackles otherwise improved since last admission on alive CARDIOVASCULAR: Regular rate and rhythm. S1 and S2 noted. No systolic or diastolic murmur auscultated. No JVD noted. No S3 or S4 noted. GASTROINTESTINAL: No distention noted. Abdomen soft and round. Normal active bowel sounds auscultated x 4 quadrants. No pain or tenderness noted upon palpation. INTEGUMENTARY: No cyanosis. No jaundice. No rashes noted. No cellulitis noted. Erythema and redness to his sacral area. EXTREMITIES: 2+ peripheral pulses. Some +1 peripheral edema. No calf tenderness noted. NEUROLOGIC: Cranial nerves II-XII intact. PSYCHIATRIC: Appears confused at times in slightly agitated. - Labs CBC & Chem 7: 10/09/19 06:39 10/09/19 06:39 Labs: Abnormal Lab Results - Last 24 Hours (Table) 10/09/19 10/09/19 10/09/19 Range/Units 06:16 06:39 06:39 Hgb 12.5 L (13.0-17.5) gm/dL Hct 37.0 L (39.0-53.0) % RDW 17.3 H (11.5-15.5) % Neutrophils # 8.7 H (1.3-7.7) k/uL Lymphocytes # 0.4 L (1.0-4.8) k/uL Potassium 3.2 L (3.5-5.1) mmol/L Chloride 92 L (98-107) mmol/L Carbon Dioxide 34 H (22-30) mmol/L BUN 91 H (9-20) mg/dL Creatinine 2.08 H (0.66-1.25) mg/dL Glucose 203 H (74-99) mg/dL POC Glucose (mg/dL) 201 H (75-99) mg/dL 10/09/19 10/09/19 10/09/19 Range/Units 12:16 17:14 21:01 Hgb (13.0-17.5) gm/dL Hct (39.0-53.0) % RDW (11.5-15.5) % Neutrophils # (1.3-7.7) k/uL Lymphocytes # (1.0-4.8) k/uL Potassium (3.5-5.1) mmol/L Chloride (98-107) mmol/L Carbon Dioxide (22-30) mmol/L BUN (9-20) mg/dL Creatinine (0.66-1.25) mg/dL Glucose (74-99) mg/dL POC Glucose (mg/dL) 280 H 242 H 327 H (75-99) mg/dL Microbiology - Last 24 Hours (Table) 10/07/19 19:55 Urine Culture - Final Urine,Voided Assessment and Plan (1) Acute renal failure Current Visit: Yes Status: Acute Code(s): N17.9 - ACUTE KIDNEY FAILURE, UNSPECIFIED SNOMED Code(s): 09951176 (2) Dehydration Current Visit: Yes Status: Acute Code(s): E86.0 - DEHYDRATION SNOMED Code(s): 46224299 (3) Hypokalemia Current Visit: Yes Status: Acute Code(s): E87.6 - HYPOKALEMIA SNOMED Code(s): 87170840 (4) Weakness Current Visit: Yes Status: Acute Code(s): R53.1 - WEAKNESS SNOMED Code(s): 23257881 (5) COPD (chronic obstructive pulmonary disease) Current Visit: No Status: Acute Code(s): J44.9 - CHRONIC OBSTRUCTIVE PULMONARY DISEASE, UNSPECIFIED SNOMED Code(s): 22468178 (6) Diabetes Current Visit: No Status: Acute Code(s): E11.9 - TYPE 2 DIABETES MELLITUS WITHOUT COMPLICATIONS SNOMED Code(s): 23356003 (7) HTN (hypertension) Current Visit: No Status: Acute Code(s): I10 - ESSENTIAL (PRIMARY) HYPERTENSION SNOMED Code(s): 66495019 (8) Hyperlipemia Current Visit: No Status: Acute Code(s): E78.5 - HYPERLIPIDEMIA, UNSPECIFIED SNOMED Code(s): 85884242 (9) Sacral decubitus ulcer, stage II Current Visit: Yes Status: Acute Code(s): L89.152 - PRESSURE ULCER OF SACRAL REGION, STAGE 2 SNOMED Code(s): 215905222 (10) Squamous cell carcinoma of lung Current Visit: No Status: Acute Code(s): C34.90 - MALIGNANT NEOPLASM OF UNSP PART OF UNSP BRONCHUS OR LUNG SNOMED Code(s): 980676246 Plan: Continue cautious fluid hydration patient is approaching baseline will need ongoing inpatient rehabilitation will arrange for patient next 24-36 hours continue to follow patient's overall poor prognosis.
[2019-10-10 06:22] LABS: Glucose,Whole Blood 223 mg/dL (75-99)
[2019-10-10] MEDS: SODIUM CHLORIDE 0.9% 1,000 ML IV SCH ×2 (06:55→09:19)
[2019-10-10] MEDS: PANTOPRAZOLE 40 MG TABLET PO SCH (07:02)
[2019-10-10] MEDS: MIDODRINE 5 MG TAB PO SCH ×2 (07:02→17:58)
[2019-10-10] MEDS: INSULIN ASPART (NovoLOG) 100 UNIT/ML VIAL SQ SCH ×4 (07:03→21:35)
[2019-10-10 08:54] LABS: Calcium 9.5 mg/dL (8.4-10.2); Magnesium 2.3 mg/dL (1.6-2.3); Potassium 3.7 mmol/L (3.5-5.1)
[2019-10-10] MEDS: buPROPion XL 150 MG TAB.ER.24H PO SCH (09:18)
[2019-10-10] MEDS: AMIODARONE 100 MG TAB PO SCH (09:18)
[2019-10-10] MEDS: ASPIRIN 81 MG PO SCH (09:18)
[2019-10-10] MEDS: METOPROLOL TARTRATE 25 MG TAB PO SCH (09:18)
[2019-10-10] MEDS: DOCUSATE 100 MG CAP PO PRN (09:25)
[2019-10-10 09:54] LABS: Appearance,Urine Cloudy (Clear); Bacteria,Urine Many /hpf; Bilirubin,Urine Negative (Negative); Blood,Urine Large (Negative); Color,Urine Yellow; Glucose,Urine (UA) 1+ (Negative); Ketones,Urine Negative (Negative); Leukocyte Esterase,Urine Large (Negative); Nitrite,Urine Negative (Negative); PH, Urine 6.5 (5.0-8.0); Protein,Urine 1+ (Negative); RBC,Urine 85 /hpf (0-5); Specific Gravity,Urine 1.011 (1.001-1.035); Squamous Epithelial Cell,Urine 1 /hpf (0-4); Urobilinogen,Urine <2.0 mg/dL (<2.0); WBC,Urine 117 /hpf (0-5)
--- NOTE | 2019-10-10 13:22 | P.PN ---
Subjective Patient is seen in follow-up for acute kidney injury on chronic kidney disease. Renal function is better. Creatinine 1.77 today. Receiving IV fluids. Oral intake remains a little better. No vomiting or diarrhea. He is nonoliguric. Has a Robb catheter. Vital signs are stable. General: The patient appeared well nourished and normally developed. HEENT: Head exam is unremarkable. Neck is without jugular venous distension. LUNGS: Lungs are clear to auscultation and percussion. Breath sounds decreased. HEART: Rate and Rhythm are regular. First and second heart sounds normal. No murmurs, rubs or gallops. ABDOMEN: Abdominal exam reveals normal bowel sounds. Non-tender and non- distended. No evidence of peritonitis. EXTREMITITES: No clubbing, cyanosis, or edema. Objective - Vital Signs Vital signs: Vital Signs Temp 97.4 F L 10/10/19 08:00 Pulse 92 10/10/19 08:00 Resp 20 10/10/19 08:00 BP 108/68 10/10/19 08:00 Pulse Ox 92 L 10/10/19 08:00 Intake & Output 10/09/19 10/10/19 10/10/19 18:59 06:59 18:59 Intake Total 1320 680 Output Total 300 1150 Balance 1020 -470 Weight 102.5 kg Intake: Intake, IV Titration 480 Amount Sodium Chloride 0.9% 1, 480 000 ml @ 60 mls/hr IV . [id number] [facility] Rx#:[id number] Oral 1320 200 Output: Urine 300 1150 Other: Voiding Method Indwelling Catheter Indwelling Catheter Indwelling Catheter - Labs CBC & Chem 7: 10/09/19 06:39 10/10/19 06:37 Labs: Abnormal Lab Results - Last 24 Hours (Table) 10/09/19 10/09/19 10/10/19 Range/Units 17:14 21:01 06:20 Sodium (137-145) mmol/L Chloride (98-107) mmol/L BUN (9-20) mg/dL Creatinine (0.66-1.25) mg/dL Glucose (74-99) mg/dL POC Glucose (mg/dL) 242 H 327 H 223 H (75-99) mg/dL Urine Protein (Negative) Urine Glucose (UA) (Negative) Urine Blood (Negative) Ur Leukocyte Esterase (Negative) Urine RBC (0-5) /hpf Urine WBC (0-5) /hpf Urine WBC Clumps (None) /hpf Urine Bacteria (None) /hpf 10/10/19 10/10/19 Range/Units 06:37 09:15 Sodium 133 L (137-145) mmol/L Chloride 92 L (98-107) mmol/L BUN 81 H (9-20) mg/dL Creatinine 1.78 H (0.66-1.25) mg/dL Glucose 200 H (74-99) mg/dL POC Glucose (mg/dL) (75-99) mg/dL Urine Protein 1+ H (Negative) Urine Glucose (UA) 1+ H (Negative) Urine Blood Large H (Negative) Ur Leukocyte Esterase Large H (Negative) Urine RBC 85 H (0-5) /hpf Urine WBC 117 H (0-5) /hpf Urine WBC Clumps Few H (None) /hpf Urine Bacteria Many H (None) /hpf Microbiology - Last 24 Hours (Table) 10/07/19 19:55 Urine Culture - Final Urine,Voided Assessment and Plan Plan: Assessment: 1. Acute kidney injury mostly prerenal secondary to overdiuresis. Creatinine was 2.69 on admission and was down to 1.78 today. No hydronephrosis noted on ultrasound from August 2019. 2. Hypokalemia secondary to diuresis. Better. Status post replacement. Magnesium normal. 3. Hypovolemic hyponatremia initially improved with IV hydration. 4. Chronic systolic CHF with ejection fraction of 35-40% with moderate pulmonary hypertension. 5. Chronic kidney disease stage III with baseline creatinine in the range of 1.5-2 secondary to diabetic kidney disease. 6. Possible urinary retention. Robb catheter was placed in the ER. 7. Squamous cell lung cancer. 8. Insulin-dependent diabetes mellitus. Plan: Maintain normal saline at 60 mL an hour. Need to be cautious with IV hydration due to patient's underlying cardiomyopathy. Encouraged oral intake. Avoid nephrotoxins. Continue to monitor renal function and urine output.
[2019-10-10 13:41] LABS: Glucose,Whole Blood 187 mg/dL (75-99)
--- NOTE | 2019-10-10 17:33 | P.PN ---
Subjective Progress Note Date: 10/10/19 Patient is a pleasant 74-year-old white male was readmitted to the hospital for the below diagnosis. He is doing a little bit better today he is more alert. He's less dry. His renal function has improved. He remains weak and in bed. He is noted to have a stage 1\II decubitus on his buttocks which hasn't seemed to break the skin 10/10/2019 patient required a dose of Ativan last night secondary to agitation. Drowsy this morning. Afebrile, urine culture negative. Receiving gentle IV fluid hydration, Renal function improving, 1.78. Consuming 50% of diet with no nausea vomiting or diarrhea. Objective - Vital Signs Vital signs: Vital Signs Temp 97.8 F 10/10/19 12:00 Pulse 80 10/10/19 12:00 Resp 20 10/10/19 12:00 BP 110/59 10/10/19 12:00 Pulse Ox 92 L 10/10/19 12:00 Intake & Output 10/09/19 10/10/19 10/10/19 18:59 06:59 18:59 Intake Total 1320 680 Output Total 300 1150 Balance 1020 -470 Weight 102.5 kg 102.5 kg Intake: Intake, IV Titration 480 Amount Sodium Chloride 0.9% 1, 480 000 ml @ 60 mls/hr IV . [id number] [facility] Rx#:[id number] Oral 1320 200 Output: Urine 300 1150 Other: Voiding Method Indwelling Catheter Indwelling Catheter Indwelling Catheter - Exam GENERAL: This is a -74 year-old , no acute distress, drowsy HEENT: Head is atraumatic, normocephalic. Pupils are equal, round, and reactive to light. Sclerae anicteric. Conjunctivae are clear. Mucus membranes of the mo uth are dry. Neck is supple. RESPIRATORY: Some mild basilar crackles CARDIOVASCULAR: Regular rate and rhythm. S1 and S2 noted. No systolic or diastolic murmur auscultated. No JVD noted. No S3 or S4 noted. GASTROINTESTINAL: No distention noted. Abdomen soft and round. Normal active bowel sounds auscultated x 4 quadrants. No pain or tenderness noted upon palpation. INTEGUMENTARY: No cyanosis. No jaundice. No rashes noted. No cellulitis noted. Erythema and redness to his sacral area. EXTREMITIES: 2+ peripheral pulses. Some +1 peripheral edema. No calf tenderness noted. NEUROLOGIC: Cranial nerves II-XII intact. PSYCHIATRIC: Appears confused at times in slightly agitated. - Labs CBC & Chem 7: 10/09/19 06:39 10/10/19 06:37 Labs: Abnormal Lab Results - Last 24 Hours (Table) 10/09/19 10/10/19 10/10/19 Range/Units 21:01 06:20 06:37 Sodium 133 L (137-145) mmol/L Chloride 92 L (98-107) mmol/L BUN 81 H (9-20) mg/dL Creatinine 1.78 H (0.66-1.25) mg/dL Glucose 200 H (74-99) mg/dL POC Glucose (mg/dL) 327 H 223 H (75-99) mg/dL Urine Protein (Negative) Urine Glucose (UA) (Negative) Urine Blood (Negative) Ur Leukocyte Esterase (Negative) Urine RBC (0-5) /hpf Urine WBC (0-5) /hpf Urine WBC Clumps (None) /hpf Urine Bacteria (None) /hpf 10/10/19 10/10/19 Range/Units 09:15 13:38 Sodium (137-145) mmol/L Chloride (98-107) mmol/L BUN (9-20) mg/dL Creatinine (0.66-1.25) mg/dL Glucose (74-99) mg/dL POC Glucose (mg/dL) 187 H (75-99) mg/dL Urine Protein 1+ H (Negative) Urine Glucose (UA) 1+ H (Negative) Urine Blood Large H (Negative) Ur Leukocyte Esterase Large H (Negative) Urine RBC 85 H (0-5) /hpf Urine WBC 117 H (0-5) /hpf Urine WBC Clumps Few H (None) /hpf Urine Bacteria Many H (None) /hpf Microbiology - Last 24 Hours (Table) 10/10/19 09:15 Urine Culture - Preliminary Urine,Clean Catch 10/07/19 19:55 Urine Culture - Final Urine,Voided Assessment and Plan Assessment: (1) Acute renal failure Current Visit: Yes Status: Acute Code(s): N17.9 - ACUTE KIDNEY FAILURE, UNSPECIFIED SNOMED Code(s): 36799353 (2) Dehydration Current Visit: Yes Status: Acute Code(s): E86.0 - DEHYDRATION SNOMED C ode(s): 61964901 (3) Hypokalemia Current Visit: Yes Status: Acute Code(s): E87.6 - HYPOKALEMIA SNOMED Code(s): 58913401 (4) Weakness Current Visit: Yes Status: Acute Code(s): R53.1 - WEAKNESS SNOMED Code(s): 11595145 (5) COPD (chronic obstructive pulmonary disease) Current Visit: No Status: Acute Code(s): J44.9 - CHRONIC OBSTRUCTIVE PULMONARY DISEASE, UNSPECIFIED SNOMED Code(s): 79631059 (6) Diabetes Current Visit: No Status: Acute Code(s): E11.9 - TYPE 2 DIABETES MELLITUS WITHOUT COMPLICATIONS SNOMED Code(s): 73878535 (7) HTN (hypertension) Current Visit: No Status: Acute Code(s): I10 - ESSENTIAL (PRIMARY) HYPERTENSION SNOMED Code(s): 70823985 (8) Hyperlipemia Current Visit: No Status: Acute Code(s): E78.5 - HYPERLIPIDEMIA, UNSPECIFIED SNOMED Code(s): 23275554 (9) Sacral decubitus ulcer, stage II Current Visit: Yes Status: Acute Code(s): L89.152 - PRESSURE ULCER OF SACRAL REGION, STAGE 2 SNOMED Code(s): 064877832 (10) Squamous cell carcinoma of lung Current Visit: No Status: Acute Code(s): C34.90 - MALIGNANT NEOPLASM OF UNSP PART OF UNSP BRONCHUS OR LUNG SNOMED Code(s): 014001723 Plan: Continue cautious fluid hydration patient is approaching baseline will need ongoing inpatient rehabilitation will arrange for patient next 24-36 hours continue to follow patient's overall poor prognosis. Plan: Continue on current medication regime ,monitoring and symptomatic treatment. Gentle IV fluid hydration. Close monitoring of renal function and electrolytes , with repeat labs ordered for a.m. Subacute rehab at discharge. The impression and plan of care has been dictated as directed. : I performed a history and examination of this patient, discussed the same with the dictator. I agree with the dictator's note ,documented as a scribe. Any additional findings or plans will be noted.
[2019-10-10 17:40] LABS: Glucose,Whole Blood 134 mg/dL (75-99)
[2019-10-10 20:33] LABS: Glucose,Whole Blood 141 mg/dL (75-99)
[2019-10-10] MEDS ORDERED: HALOPERIDOL LACTATE 5 MG/ML 1 ML VIAL IM ONE ×2 (21:23→23:48)
[2019-10-10] MEDS: RIVAROXABAN 15 MG TAB PO SCH (21:33)
[2019-10-10] MEDS: ATORVASTATIN 80 MG TAB PO SCH (21:33)
[2019-10-10] MEDS: INSULIN DETEMIR (LEVEMIR) 100 UNIT/ML SYR SQ SCH (21:35)
[2019-10-11] MEDS: QUEtiapine 25 MG TAB PO SCH ×2 (01:57→20:38)
[2019-10-11 06:21] LABS: Glucose,Whole Blood 205 mg/dL (75-99)
[2019-10-11 06:59] LABS: Anisocytosis Slight; Basophils % (A) 0 %; Eosinophils % (A) 0 %; HCT 36.5 % (39.0-53.0); HGB 11.7 gm/dL (13.0-17.5); Hypochromasia Moderate; Lymphocytes # (A) 0.3 k/uL (1.0-4.8); Lymphocytes % (A) 2 %; MCH 26.9 pg (25.0-35.0); Mean Platelet Volume 8.5; Monocytes # (A) 0.6 k/uL (0-1.0); Monocytes % (A) 3 %; Neutrophils % (A) 93 %; Platelet Count 243 k/uL (150-450); RBC 4.35 m/uL (4.30-5.90); RDW 17.2 % (11.5-15.5); WBC 16.1 k/uL (3.8-10.6)
[2019-10-11] MEDS: MIDODRINE 5 MG TAB PO SCH ×2 (07:16→17:36)
[2019-10-11] MEDS: PANTOPRAZOLE 40 MG TABLET PO SCH (07:16)
[2019-10-11] MEDS: INSULIN ASPART (NovoLOG) 100 UNIT/ML VIAL SQ SCH ×3 (07:16→17:33)
[2019-10-11 07:21] LABS: Calcium 9.4 mg/dL (8.4-10.2); Potassium 4.8 mmol/L (3.5-5.1)
[2019-10-11] MEDS: ASPIRIN 81 MG PO SCH (08:47)
[2019-10-11] MEDS: buPROPion XL 150 MG TAB.ER.24H PO SCH (08:47)
[2019-10-11] MEDS: AMIODARONE 100 MG TAB PO SCH (08:47)
[2019-10-11] MEDS: METOPROLOL TARTRATE 25 MG TAB PO SCH (08:47)
[2019-10-11] MEDS ORDERED: HALOPERIDOL LACTATE 5 MG/ML 1 ML VIAL IM ONE (08:56)
[2019-10-11] MEDS ORDERED: HALOPERIDOL LACTATE 5 MG/ML 1 ML VIAL IM PRN (10:29)
--- NOTE | 2019-10-11 11:03 | XR ---
EXAMINATION TYPE: XR chest 1V DATE OF EXAM: 10/11/2019 HISTORY: chf. REFERENCE: Previous study dated 10/07/2019. FINDINGS: There is a MediPort in place on the right. There is volume loss in the left lung and shift of the mediastinal structures towards the left. There is airspace disease throughout the left lung. The right lung is clear. IMPRESSION: INTERVAL DEVELOPMENT OF EXTENSIVE AIRSPACE DISEASE ON THE LEFT WELL SHIFT OF THE MEDIASTINAL ST RUCTURES TOWARDS THE LEFT.
[2019-10-11] MEDS ORDERED: FUROSEMIDE 10 MG/ML 4 ML VIAL IV STA ×2 (11:29→21:38)
--- NOTE | 2019-10-11 11:42 | P.PN ---
Subjective 71-year-old male is being treated for gram acute renal failure and hyponatremia secondary to hypovolemia and excessive diuretic therapy. Patient was receiving IV Lasix patient doxycycline subchondral because of which I'll get a chest x-ray to make sure patient doesn't have any pulmonary edema at this time. Patient doesn't have any crackles on exam. Patient is confused and do not know his baseline mental status. This probably metabolic encephalopathy from acute renal failure. Patient had ejection for ejection fraction of 35%. urine cultures were positive for group D enterococcus patient was treated with Ceftin in the past concerning his confusion and positive urine cultures are start him on Augmentin to treat for enterococcus. Patient does have leukocytosis as well. Patient chest x-ray did show pleural effusion significant on the left side worse compared to the previous chest x-ray patient IV fluids were discontinued will be dependent given a dose of Lasix and the pulmonary will be consulted. Patient may need ultrasound of the chest as well as CAT scan of the chest with anticoagulation will be left to pulmonary. His serum creatinine and the serum sodium did improve since his admission. review of systems: Unable to obtain as patient is confused All inpatient medications were reviewed and appropriate changes in these medications as dictated in the interval history and assessment and plan. Objective - Vital Signs Vital signs: Vital Signs Temp 97.9 F 10/11/19 08:00 Pulse 103 H 10/11/19 08:00 Resp 18 10/11/19 08:00 BP 107/68 10/11/19 08:00 Pulse Ox 91 L 10/11/19 08:00 Intake & Output 10/10/19 10/11/19 10/11/19 18:59 06:59 18:59 Intake Total 720 Output Total 1350 650 Balance -630 -650 Weight 102.5 kg 110 kg Intake: Oral 720 Output: Urine 1350 650 Other: Voiding Method Indwelling Catheter Indwelling Catheter Indwelling Catheter # Voids 1 - Exam PHYSICAL EXAMINATION: GENERAL: She is confused, not in any acute distress. Obese. HEENT: Pupils are round and equally reacting to light. EOMI. No scleral icterus. No conjunctival pallor. Normocephalic, atraumatic. No pharyngeal erythema. No thyromegaly. CARDIOVASCULAR: S1 and S2 present. No murmurs, rubs, or gallops. As appear to have elevated JVD PULMONARY: Chest is clear to auscultation, no wheezing or crackles. ABDOMEN: Soft, nontender, nondistended, normoactive bowel sounds. No palpable organomegaly. MUSCULOSKELETAL: No joint swelling or deformity. EXTREMITIES: No cyanosis, clubbing, or pedal edema. NEUROLOGICAL: As not appear to have any weakness SKIN: No rashes. - Labs CBC & Chem 7: 10/11/19 05:55 10/11/19 05:55 Labs: Abnormal Lab Results - Last 24 Hours (Table) 10/10/19 10/10/19 10/10/19 Range/Units 13:38 17:37 20:32 WBC (3.8-10.6) k/uL Hgb (13.0-17.5) gm/dL Hct (39.0-53.0) % RDW (11.5-15.5) % Neutrophils # (1.3-7.7) k/uL Lymphocytes # (1.0-4.8) k/uL Sodium (137-145) mmol/L Chloride (98-107) mmol/L BUN (9-20) mg/dL Creatinine (0.66-1.25) mg/dL Glucose (74-99) mg/dL POC Glucose (mg/dL) 187 H 134 H 141 H (75-99) mg/dL 10/11/19 10/11/19 10/11/19 Range/Units 05:55 05:55 06:20 WBC 16.1 H (3.8-10.6) k/uL Hgb 11.7 L (13.0-17.5) gm/dL Hct 36.5 L (39.0-53.0) % RDW 17.2 H (11.5-15.5) % Neutrophils # 15.0 H (1.3-7.7) k/uL Lymphocytes # 0.3 L (1.0-4.8) k/uL Sodium 136 L (137-145) mmol/L Chloride 94 L (98-107) mmol/L BUN 77 H (9-20) mg/dL Creatinine 1.83 H (0.66-1.25) mg/dL Glucose 199 H (74-99) mg/dL POC Glucose (mg/dL) 205 H (75-99) mg/dL Microbiology - Last 24 Hours (Table) 10/10/19 09:15 Urine Culture - Preliminary Urine,Clean Catch Group D Enterococcus Assessment and Plan Plan: -Acute renal failure: It secondary to excessive diuretic therapy present, patient received IV fluids acute renal failure improved and his serum creatinine is close to his baseline now patient appears to be in volume overload patient will be given a dose of Lasix IV fluids will be discontinued -Hypovolemic hyponatremia initially which resolved. -Metabolic and toxic encephalopathy possible Urinary tract infection cannot be ruled out patient will be started on Unasyn for his enterococcus in the urine. She is receiving Seroquel and Haldol on as-needed basis which will be continued -Congestive heart failure chronic systolic dysfunction E up of 35% patient initially hypovolemic on admission now hypervolemic patient will be given a dose of Lasix. Patient had nonischemic myopathy -Sepsis possibly from urinary tract infection and leukocytosis from that patient was started on Unasyn -Hypertension -Hyperlipidemia -Status post lung cancer post-chemoradiation not on any chemotherapy at this time -Paroxysmal fibrillation presently rate controlled, and is on anti-correlation which will be continued -Acute kidney injury secondary to excessive diuretic therapy and chronic kidney disease secondary to diabetic nephropathy -Type 2 diabetes mellitus
--- NOTE | 2019-10-11 11:52 | P.PN ---
Subjective Progress Note Date: 10/11/19 Principal diagnosis: This is a 74-year-old with acute kidney injury from prerenal. He was hydrated with IV fluids because of poor intake. He has developed a significant effusion and or atelectasis on the left. Patient is confused and has dementia since at least July as per his stepson was in the room. Unable to get any reliable history from the patient. There is a sitter in the room conforms is not eating well and the son confirms that Vital signs are stable blood pressure in the 110s. Intake is 2000 and output is 1450 urine Objective - Vital Signs Vital signs: Vital Signs Temp 97.9 F 10/11/19 08:00 Pulse 103 H 10/11/19 08:00 Resp 18 10/11/19 08:00 BP 107/68 10/11/19 08:00 Pulse Ox 91 L 10/11/19 08:00 Intake & Output 10/10/19 10/11/19 10/11/19 18:59 06:59 18:59 Intake Total 720 Output Total 1350 650 Balance -630 -650 Weight 102.5 kg 110 kg Intake: Oral 720 Output: Urine 1350 650 Other: Voiding Method Indwelling Catheter Indwelling Catheter Indwelling Catheter # Voids 1 On examination awake alert but disoriented and confused HEENT exam no JVP neck is supple no facial asymmetry Lungs are significant for diminished breath on the left with crackles. Right side is normal Heart sounds are unremarkable for any murmur rub gallop Abdomen soft nontender no organomegaly status Extremity exam was trace edema Neurologically awake alert but disoriented and confused - Labs CBC & Chem 7: 10/11/19 05:55 10/11/19 05:55 Labs: Abnormal Lab Results - Last 24 Hours (Table) 10/10/19 10/10/19 10/10/19 Range/Units 13:38 17:37 20:32 WBC (3.8-10.6) k/uL Hgb (13.0-17.5) gm/dL Hct (39.0-53.0) % RDW (11.5-15.5) % Neutrophils # (1.3-7.7) k/uL Lymphocytes # (1.0-4.8) k/uL Sodium (137-145) mmol/L Chloride (98-107) mmol/L BUN (9-20) mg/dL Creatinine (0.66-1.25) mg/dL Glucose (74-99) mg/dL POC Glucose (mg/dL) 187 H 134 H 141 H (75-99) mg/dL 10/11/19 10/11/19 10/11/19 Range/Units 05:55 05:55 06:20 WBC 16.1 H (3.8-10.6) k/uL Hgb 11.7 L (13.0-17.5) gm/dL Hct 36.5 L (39.0-53.0) % RDW 17.2 H (11.5-15.5) % Neutrophils # 15.0 H (1.3-7.7) k/uL Lymphocytes # 0.3 L (1.0-4.8) k/uL Sodium 136 L (137-145) mmol/L Chloride 94 L (98-107) mmol/L BUN 77 H (9-20) mg/dL Creatinine 1.83 H (0.66-1.25) mg/dL Glucose 199 H (74-99) mg/dL POC Glucose (mg/dL) 205 H (75-99) mg/dL Microbiology - Last 24 Hours (Table) 10/10/19 09:15 Urine Culture - Preliminary Urine,Clean Catch Group D Enterococcus Assessment and Plan Assessment: Impression 1. Acute kidney injury from prerenal. Hydrated improved but now and has evidence of possible CHF. Creatinine was 2.69 on admission improved to 1.78 as of yesterday 10/10/2019 and is 1.83 this morning. 2. Chronic kidney disease stage III secondary to nephrosclerosis with creatinines in the 1.7 dated 09/09/2019 at its best range in the last few m ont.) Ranges up to 3.71 on 08/31/2019. 3. 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 History of squamous cell lung cancer 5. Insulin-dependent diabetes 6. History of atrial fibrillation 7. History of lung CA squamous cell status post chemoradiation treatment and history of mediastinal mass Recommendation 1. Agree with discontinuation IV fluids and gentle diuresis with Lasix 40 mg 1 dose and workup pulmonary disease on the left side with atelectasis
--- NOTE | 2019-10-11 15:32 | P.CNPUL ---
History of Present Illness Reason for consult: pleural effusion History of present illness: This is a 71-year-old male patient with known history of locally advanced non- small cell lung cancer that was originally diagnosed back in 2016. I performed the patient's bronchoscopy and a transbronchial needle aspirate of the left hilar mass showed squamous cell carcinoma. He was treated by Dr. Whipple and received a combination of chemoradiation therapy. He responded nicely in follow-up CAT scan that was done on 03/31/2017 showed no suspicious masses or metabolic activity within the chest area. In follow-up, CAT scan of the chest abdomen and pelvis that was done on 02/07/2019 showed a stable left lower lobe consolidation and the left lower lobe soft tissue prominence with a small effusion. There was some pleural right lower lobe lesion measuring 3 mm in size. I saw this patient back in the hospital in August 2019. At that time, the patient was having altered mentation and confusion. He was hypoglycemic at a time of arrival to the hospital. He was found to have a underlying UTI. He was treated. He did have chronic kidney disease back then. An MRI of the brain was also done that showed diffuse degenerative changes with evidence of cerebral atrophy and diffuse nonspecific white matter changes consistent with remote ischemia and the left cerebellar hemisphere remote infarcts. At that time, the patient had coagulase-negative staph in his blood. He was treated and he was sent to rehab. during the course of the disease, the left-sided pleural effusion was also aspirated by ultrasound guidance and total of 100 mL of fluid was aspirated and the fluid was negative for malignancy and it was a transudate. The patient is currently admitted for an acute kidney injury, he is still altered in mentation. His chest x-ray again showing volume loss and a left- sided pleural effusion which is not well measurable based on a routine chest x- ray findings. Note that the patient has an ejection fraction of 35-40%. He has moderate degree of pulmonary hypertension with a PA pressure of 51. He is having recurrent urinary tract infection. His most recent cultures yielded enterococcus group the and currently the patient is on Unasyn. His renal function is gradually improving. 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 Last Myocardial Infarction Date:: GREATER THAN 5 YRS AGO History of Any Multi-Drug Resistant Organisms: None Reported Past Surgical History: Heart Catheterization Additional Past Surgical History / Comment(s): BRONCHOSCOPY, MEDIPORT PLACEMENT Past Anesthesia/Blood Transfusion Reactions: No Reported Reaction Past Psychological History: No Psychological Hx Reported Smoking Status: Former smoker Past Alcohol Use History: None Reported Past Drug Use History: None Reported - Past Family History Father History Unknown: Yes Family Medical History: Coronary Artery Disease (CAD) Mother Family Medical History: Diabetes Mellitus Medications and Allergies Home Medications Medication Instructions Recorded Confirmed Type buPROPion XL [Wellbutrin XL] 150 mg PO QAM 03/14/17 10/07/19 History Amiodarone [Cordarone] 100 mg PO QAM 08/16/17 10/07/19 History Docusate [Colace] 100 mg PO DAILY PRN cap 09/09/19 10/07/19 Rx INSULIN LISPRO (HumaLOG) [humaLOG] 0 unit SQ ACHS #1 vial 09/09/19 10/07/19 Rx Metolazone [Zaroxolyn] 5 mg PO DAILY tab 09/09/19 10/07/19 Rx Metoprolol Tartrate [Lopressor] 25 mg PO DAILY #1 tablet 09/09/19 10/07/19 Rx Torsemide [Demadex] 80 mg PO BID tab 09/09/19 10/07/19 Rx Acetaminophen Tab [Tylenol] 650 mg PO Q6H PRN 10/07/19 10/07/19 History Aspirin EC [Ecotrin Low Dose] 81 mg PO QAM 10/07/19 10/07/19 History Atorvastatin [Lipitor] 80 mg PO HS 10/07/19 10/07/19 History Cefuroxime [Ceftin] 250 mg PO BID 10/07/19 10/07/19 History Insulin Glargine,Hum.rec.anlog 26 unit SQ HS 10/07/19 10/07/19 History [Lantus Solostar] Midodrine [ProAmatine] 10 mg PO BID 10/07/19 10/07/19 History Rivaroxaban [Xarelto] 15 mg PO HS 10/07/19 10/07/19 History Allergies Allergy/AdvReac Type Severity Reaction Status Date / Time No Known Allergies Allergy Verified 10/07/19 20:42 Physical Exam Vitals: Vital Signs Temp Pulse Resp BP Pulse Ox 10/11/19 15:05 98 F 78 18 94/54 92 L 10/11/19 12:00 98.2 F 80 18 115/71 10/11/19 08:00 97.9 F 103 H 18 107/68 91 L 10/11/19 04:00 86 18 10/11/19 03:50 86 18 118/70 92 L 10/11/19 00:00 97.4 F L 96 18 119/72 94 L 10/10/19 20:00 97 12 10/10/19 19:37 97.4 F L 97 12 112/78 93 L 10/10/19 16:00 97.7 F 78 18 115/74 90 L Intake and Output 10/11/19 10/11/19 10/11/19 06:59 14:59 22:59 Output Total 450 Balance -450 Output: Urine 450 Other: Voiding Method Indwelling Catheter Indwelling Catheter Indwelling Catheter Weight 110 kg Gen. appearance, comfortable likely distressl he is delirious and restless in bed and he is a sitter at bedside. He is unable to communicate and 92 for the conversation at this point in time. He is moving all 4 extremities and sometimes he thrashes around. Head exam was generally normal. There was no scleral icterus or corneal arcus. Mucous membranes were moist. Neck was supple and without jugular venous distension, thyromegaly, or carotid bruits. Carotids were easily palpable bilaterally. There was no adenopathy. Lungs sounds are diminished on the left compared to the right and there is also some dullness to percussion on the left. Breath sounds are quite diminished in the left lung base. No rhonchi. No wheezes. Cardiac exam revealed the PMI to be normally situated and sized. The rhythm was regular and no extrasystoles were noted during several minutes of auscultation. The first and second heart sounds were normal and physiologic splitting of the second heart sound was noted. There were no murmurs, rubs, clicks, or gallops. Abdominal exam revealed normal bowel sounds. The abdomen was soft, non-tender, and without masses, organomegaly, or appreciable enlargement of the abdominal aorta. Examination of the extremities revealed easily palpable radial, femoral and pedal pulses. There was no cyanosis, clubbing or edema. There are some areas of skin bruising in the lower extremities related to previous falls. Neurologically the patient is awake and he is confused and restless in bed, obviously delirious, trying to reaching stuff probably related to visual hallucinations. He is moving all 4 extremities. No focal neurological deficit. Results - Laboratory Findings CBC and BMP: 10/11/19 05:55 10/11/19 05:55 ABG WBC 16.1 k/uL (3.8-10.6) H 10/11/19 05:55 RBC 4.35 m/uL (4.30-5.90) 10/11/19 05:55 Hgb 11.7 gm/dL (13.0-17.5) L 10/11/19 05:55 Hct 36.5 % (39.0-53.0) L 10/11/19 05:55 MCV 84.0 fL (80.0-100.0) 10/11/19 05:55 MCH 26.9 pg (25.0-35.0) 10/11/19 05:55 MCHC 32.0 g/dL (31.0-37.0) 10/11/19 05:55 RDW 17.2 % (11.5-15.5) H 10/11/19 05:55 Plt Count 243 k/uL (150-450) 10/11/19 05:55 Neutrophils % 93 % 10/11/19 05:55 Lymphocytes % 2 % 10/11/19 05:55 Monocytes % 3 % 10/11/19 05:55 Eosinophils % 0 % 10/11/19 05:55 Basophils % 0 % 10/11/19 05:55 Neutrophils # 15.0 k/uL (1.3-7.7) H 10/11/19 05:55 Lymphocytes # 0.3 k/uL (1.0-4.8) L 10/11/19 05:55 Monocytes # 0.6 k/uL (0-1.0) 10/11/19 05:55 Eosinophils # 0.0 k/uL (0-0.7) 10/11/19 05:55 Basophils # 0.0 k/uL (0-0.2) 10/11/19 05:55 Hypochromasia Moderate 10/11/19 05:55 Poikilocytosis Slight 10/07/19 19:30 Anisocytosis Slight 10/11/19 05:55 Microcytosis Slight 10/09/19 06:39 Sodium 136 mmol/L (137-145) L 10/11/19 05:55 Potassium 4.8 mmol/L (3.5-5.1) 10/11/19 05:55 Chloride 94 mmol/L (98-107) L 10/11/19 05:55 Carbon Dioxide 27 mmol/L (22-30) 10/11/19 05:55 Anion Gap 15 mmol/L 10/11/19 05:55 BUN 77 mg/dL (9-20) H 10/11/19 05:55 Creatinine 1.83 mg/dL (0.66-1.25) H 10/11/19 05:55 Est GFR (CKD-EPI)AfAm 41 (>60 ml/min/1.73 sqM) 10/11/19 05:55 Est GFR (CKD-EPI)NonAf 36 (>60 ml/min/1.73 sqM) 10/11/19 05:55 Glucose 199 mg/dL (74-99) H 10/11/19 05:55 POC Glucose (mg/dL) 205 mg/dL (75-99) H 10/11/19 06:20 POC Glu Rubber Block Layer ID Patti Peck 10/11/19 06:20 Lactic Ac Sepsis Rflx Y 10/07/19 20:13 Plasma Lactic Acid Rafal 1.9 mmol/L (0.7-2.0) 10/07/19 23:52 Calcium 9.4 mg/dL (8.4-10.2) 10/11/19 05:55 Magnesium 2.3 mg/dL (1.6-2.3) 10/10/19 06:37 Total Bilirubin 1.6 mg/dL (0.2-1.3) H 10/07/19 20:57 AST 29 U/L (17-59) 10/07/19 20:57 ALT 15 U/L (4-49) 10/07/19 20:57 Alkaline Phosphatase 143 U/L (38-126) H 10/07/19 20:57 Troponin I 0.244 ng/mL (0.000-0.034) H* 10/08/19 08:09 NT-Pro-B Natriuret Pep 67246 pg/mL 10/07/19 19:30 Total Protein 7.6 g/dL (6.3-8.2) 10/07/19 20:57 Albumin 4.1 g/dL (3.5-5.0) 10/07/19 20:57 TSH 1.070 mIU/L (0.465-4.680) 10/07/19 19:30 PT/INR, D-dimer PT 12.5 sec (9.0-12.0) H 10/07/19 19:30 INR 1.2 (<1.2) H 10/07/19 19:30 Abnormal lab findings: Abnormal Labs 10/07/19 10/07/19 10/07/19 19:30 19:30 19:30 WBC 13.4 H Hgb Hct 38.8 L MCV 79.0 L RDW 16.8 H Neutrophils # 11.7 H Lymphocytes # 0.6 L PT INR Sodium 126 L Potassium 3.4 L Chloride 74 L* Carbon Dioxide 34 H BUN 104 H* Creatinine 2.69 H Glucose 321 H POC Glucose (mg/dL) Plasma Lactic Acid Rafal 2.3 H* Total Bilirubin 1.4 H Alkaline Phosphatase 152 H Troponin I Urine Protein Urine Glucose (UA) Urine Blood Ur Leukocyte Esterase Urine RBC Urine WBC Urine WBC Clumps Urine Bacteria Hyaline Casts 10/07/19 10/07/19 10/07/19 19:30 19:30 19:55 WBC Hgb Hct MCV RDW Neutrophils # Lymphocytes # PT 12.5 H INR 1.2 H Sodium Potassium Chloride Carbon Dioxide BUN Creatinine Glucose POC Glucose (mg/dL) Plasma Lactic Acid Rafal Total Bilirubin Alkaline Phosphatase Troponin I 0.232 H* Urine Protein 1+ H Urine Glucose (UA) Trace H Urine Blood Large H Ur Leukocyte Esterase Moderate H Urine RBC >182 H Urine WBC 37 H Urine WBC Clumps Urine Bacteria Hyaline Casts 5 H 10/07/19 10/07/19 10/08/19 20:57 23:52 01:44 WBC Hgb Hct MCV RDW Neutrophils # Lymphocytes # PT INR Sodium 127 L Potassium 2.9 L Chloride 76 L Carbon Dioxide BUN 101 H* Creatinine 2.55 H Glucose 312 H POC Glucose (mg/dL) 196 H Plasma Lactic Acid Rafal Total Bilirubin 1.6 H Alkaline Phosphatase 143 H Troponin I 0.225 H* Urine Protein Urine Glucose (UA) Urine Blood Ur Leukocyte Esterase Urine RBC Urine WBC Urine WBC Clumps Urine Bacteria Hyaline Casts 10/08/19 10/08/19 10/08/19 06:24 08:09 08:09 WBC Hgb Hct MCV RDW Neutrophils # Lymphocytes # PT INR Sodium 130 L Potassium 3.0 L Chloride 79 L Carbon Dioxide 34 H BUN 98 H Creatinine 2.34 H Glucose 184 H POC Glucose (mg/dL) 173 H Plasma Lactic Acid Rafal Total Bilirubin Alkaline Phosphatase Troponin I 0.244 H* Urine Protein Urine Glucose (UA) Urine Blood Ur Leukocyte Esterase Urine RBC Urine WBC Urine WBC Clumps Urine Bacteria Hyaline Casts 10/08/19 10/08/19 10/08/19 12:16 17:00 21:17 WBC Hgb Hct MCV RDW Neutrophils # Lymphocytes # PT INR Sodium Potassium Chloride Carbon Dioxide BUN Creatinine Glucose POC Glucose (mg/dL) 224 H 305 H 214 H Plasma Lactic Acid Rafal Total Bilirubin Alkaline Phosphatase Troponin I Urine Protein Urine Glucose (UA) Urine Blood Ur Leukocyte Esterase Urine RBC Urine WBC Urine WBC Clumps Urine Bacteria Hyaline Casts 10/09/19 10/09/19 10/09/19 06:16 06:39 06:39 WBC Hgb 12.5 L Hct 37.0 L MCV RDW 17.3 H Neutrophils # 8.7 H Lymphocytes # 0.4 L PT INR Sodium Potassium 3.2 L Chloride 92 L Carbon Dioxide 34 H BUN 91 H Creatinine 2.08 H Glucose 203 H POC Glucose (mg/dL) 201 H Plasma Lactic Acid Rafal Total Bilirubin Alkaline Phosphatase Troponin I Urine Protein Urine Glucose (UA) Urine Blood Ur Leukocyte Esterase Urine RBC Urine WBC Urine WBC Clumps Urine Bacteria Hyaline Casts 10/09/19 10/09/19 10/09/19 12:16 17:14 21:01 WBC Hgb Hct MCV RDW Neutrophils # Lymphocytes # PT INR Sodium Potassium Chloride Carbon Dioxide BUN Creatinine Glucose POC Glucose (mg/dL) 280 H 242 H 327 H Plasma Lactic Acid Rafal Total Bilirubin Alkaline Phosphatase Troponin I Urine Protein Urine Glucose (UA) Urine Blood Ur Leukocyte Esterase Urine RBC Urine WBC Urine WBC Clumps Urine Bacteria Hyaline Casts 10/10/19 10/10/19 10/10/19 06:20 06:37 09:15 WBC Hgb Hct MCV RDW Neutrophils # Lymphocytes # PT INR Sodium 133 L Potassium Chloride 92 L Carbon Dioxide BUN 81 H Creatinine 1.78 H Glucose 200 H POC Glucose (mg/dL) 223 H Plasma Lactic Acid Rafal Total Bilirubin Alkaline Phosphatase Troponin I Urine Protein 1+ H Urine Glucose (UA) 1+ H Urine Blood Large H Ur Leukocyte Esterase Large H Urine RBC 85 H Urine WBC 117 H Urine WBC Clumps Few H Urine Bacteria Many H Hyaline Casts 10/10/19 10/10/19 10/10/19 13:38 17:37 20:32 WBC Hgb Hct MCV RDW Neutrophils # Lymphocytes # PT INR Sodium Potassium Chloride Carbon Dioxide BUN Creatinine Glucose POC Glucose (mg/dL) 187 H 134 H 141 H Plasma Lactic Acid Rafal Total Bilirubin Alkaline Phosphatase Troponin I Urine Protein Urine Glucose (UA) Urine Blood Ur Leukocyte Esterase Urine RBC Urine WBC Urine WBC Clumps Urine Bacteria Hyaline Casts 10/11/19 10/11/19 10/11/19 05:55 05:55 06:20 WBC 16.1 H Hgb 11.7 L Hct 36.5 L MCV RDW 17.2 H Neutrophils # 15.0 H Lymphocytes # 0.3 L PT INR Sodium 136 L Potassium Chloride 94 L Carbon Dioxide BUN 77 H Creatinine 1.83 H Glucose 199 H POC Glucose (mg/dL) 205 H Plasma Lactic Acid Rafal Total Bilirubin Alkaline Phosphatase Troponin I Urine Protein Urine Glucose (UA) Urine Blood Ur Leukocyte Esterase Urine RBC Urine WBC Urine WBC Clumps Urine Bacteria Hyaline Casts Assessment and Plan Plan: 1 left lung opacity likely the evolution of a left-sided pleural effusion. The patient has had previous chronic left-sided pleural effusion that has been drained and the patient has undergone thoracentesis in the past and the fluid cytology was negative for malignancy. . Malignant pleural effusions felt to be less likely. In fact, left-sided pleural effusion was drained twice in 2016 2018 and there was no evidence of any malignancy and the fluid was a transudate probably related to his underlying CHF or reactive as the patient is some volume loss postradiation drip for non-small cell lung cancer. 2 squamous cell lung cancer locally advanced post-chemoradiation therapy back in 2016 with good response based on subsequent PET scans in the CAT scan of the chest that was done in January 2019 3 altered mental status, delirium probably related to any acute kidney injury and underlying UTI causing altered mentation. He does have chronic [employer] atrophy, chronic ischemic changes based on a previous MRI of the brain and he has also previous history of remote CVA 4 diabetes mellitus 5 coronary artery disease with previous [place], with a troponin leak 6 history of CVA involving the right frontal lobe 7 history of atrial fibrillation/flutter and the patient's rhythm is sinus and the patient is demented on long-term and to coagulation with Xarelto. 8 hyperlipidemia 9 recurrent UTI currently has a enterococcal group D urine tract infection currently on IV Unasyn 10 acute on chronic kidney disease, improving and nephrology is on the case 11 CHF with systolic heart failure an ejection fraction of 35% Plan Continue fluid and continue IV Unasyn Monitor mental status No need for thoracentesis at this point in time the fluid has been on multiple occasions in the past and the patient is not having any signs of respiratory distress Continue the supportive care Continue to follow
[2019-10-11] MEDS: AMPICILLIN-SULBACTAM 3 GM in SODIUM CHLORIDE 0.9% 100 ML IVPB SCH (17:35)
[2019-10-11 17:37] LABS: Glucose,Whole Blood 165 mg/dL (75-99)
[2019-10-11] MEDS: RIVAROXABAN 15 MG TAB PO SCH (20:38)
[2019-10-11] MEDS: ATORVASTATIN 80 MG TAB PO SCH (20:38)
[2019-10-11] MEDS: INSULIN DETEMIR (LEVEMIR) 100 UNIT/ML SYR SQ SCH (20:39)
[2019-10-11 20:59] LABS: Glucose,Whole Blood 320 mg/dL (75-99)
--- NOTE | 2019-10-11 21:27 | XR ---
EXAMINATION TYPE: XR chest 1V portable DATE OF EXAM: 10/11/2019 COMPARISON: Prior chest x-ray 10/11/2019 at earlier time HISTORY: Shortness of breath TECHNIQUE: Single frontal view of the chest is obtained. FINDINGS: Patient is rotated. Central venous catheter, Port-A-Cath is stable, distal tip coursing to wards the cavoatrial junction level. Right lung relatively well aerated. There is retrocardiac densit y with scattered left hemidiaphragm, apical pleural thickening present on the left. Heart is likely e nlarged. IMPRESSION: Findings are similar to prior exam. There may be left pleural effusion, pneumonia, diffi cult to exclude underlying mass.
[2019-10-11 21:54] LABS: Calcium 8.9 mg/dL (8.4-10.2); Magnesium 2.3 mg/dL (1.6-2.3); Potassium 5.2 mmol/L (3.5-5.1)
[2019-10-11 21:56] LABS: Anisocytosis Slight; Basophils % (A) 0 %; Eosinophils % (A) 0 %; HGB 11.7 gm/dL (13.0-17.5); Hypochromasia Moderate; Lymphocytes # (A) 0.3 k/uL (1.0-4.8); Lymphocytes % (A) 3 %; MCHC 31.5 g/dL (31.0-37.0); MCV 85.5 fL (80.0-100.0); Mean Platelet Volume 8.8; Monocytes # (A) 0.5 k/uL (0-1.0); Monocytes % (A) 4 %; Neutrophils # (A) 11.2 k/uL (1.3-7.7); Neutrophils % (A) 92 %; Platelet Count 261 k/uL (150-450); RBC 4.33 m/uL (4.30-5.90); RDW 17.7 % (11.5-15.5); WBC 12.1 k/uL (3.8-10.6)
[2019-10-11 22:01] LABS: Glucose,Whole Blood 309 mg/dL (75-99)
[2019-10-12 00:11] LABS: ABG Base Excess -0.7 mmol/L; ABG HCO3 24 mmol/L (21-25); ABG PCO2 37 mmHg (35-45); ABG PH 7.42 (7.35-7.45); ABG PO2 311 mmHg (83-108); ABG TCO2 25 mmol/L (19-24); Allen Test Performed? Yes
[2019-10-12] MEDS ORDERED: VANCOMYCIN IV PER PHARMACY 1 EACH MISC MISCELLANE PRN (00:28)
[2019-10-12] MEDS ORDERED: VANCOMYCIN 1,750 MG in SODIUM CHLORIDE 0.9% 500 ML 500 ML IVPB SCH (00:45)
[2019-10-12 01:54] LABS: Glucose,Whole Blood 279 mg/dL (75-99)
[2019-10-12] MEDS: INSULIN ASPART (NovoLOG) 100 UNIT/ML VIAL SQ SCH ×5 (01:59→20:20)
[2019-10-12] MEDS: AMPICILLIN-SULBACTAM 3 GM in SODIUM CHLORIDE 0.9% 100 ML IVPB SCH ×3 (02:01→16:41)
[2019-10-12] MEDS: NOREPINEPHRINE 4 MG in SODIUM CHLORIDE 0.9% 250 ML IV SCH ×2 (03:00→18:00)
[2019-10-12 03:46] LABS: Anisocytosis Slight; Basophils % (A) 0 %; Eosinophils % (A) 0 %; HCT 33.8 % (39.0-53.0); HGB 10.7 gm/dL (13.0-17.5); Hypochromasia Moderate; Lymphocytes # (A) 0.3 k/uL (1.0-4.8); Lymphocytes % (A) 2 %; MCH 26.9 pg (25.0-35.0); MCHC 31.6 g/dL (31.0-37.0); Mean Platelet Volume 8.8; Monocytes # (A) 0.4 k/uL (0-1.0); Monocytes % (A) 4 %; Neutrophils # (A) 10.2 k/uL (1.3-7.7); Neutrophils % (A) 93 %; Platelet Count 221 k/uL (150-450); RBC 3.97 m/uL (4.30-5.90); RDW 17.7 % (11.5-15.5)
[2019-10-12 04:02] LABS: Calcium 7.7 mg/dL (8.4-10.2); Potassium 4.2 mmol/L (3.5-5.1)
--- NOTE | 2019-10-12 06:28 | XR ---
EXAMINATION TYPE: XR chest 1V portable DATE OF EXAM: 10/12/2019 HISTORY: Hypoxia. REFERENCE: Previous study dated 10/11/2019. FINDINGS: There is a Mediport in place on the right. There is worsening opacity of the left chest. There is some patchy airspace disease in the right. Hea rt size is obscured. IMPRESSION: 1. WORSENING LEFT-SIDED OPACITY LIKELY A COMBINATION OF AIRSPACE DISEASE AND PLEURAL FLUID. 2. PATCHY RIGHT-SIDED AIRSPACE DISEASE. THIS IS WORSENED FROM PREVIOUS.
--- NOTE | 2019-10-12 09:29 | P.PN ---
Subjective Progress Note Date: 10/12/19 This is a 71-year-old male patient with known history of locally advanced non- small cell lung cancer that was originally diagnosed back in 2016. I performed the patient's bronchoscopy and a transbronchial needle aspirate of the left hilar mass showed squamous cell carcinoma. He was treated by Dr. Whipple and received a combination of chemoradiation therapy. He responded nicely in follow-up CAT scan that was done on 03/31/2017 showed no suspicious masses or metabolic activity within the chest area. In follow-up, CAT scan of the chest abdomen and pelvis that was done on 02/07/2019 showed a stable left lower lobe consolidation and the left lower lobe soft tissue prominence with a small effusion. There was some pleural right lower lobe lesion measuring 3 mm in size. I saw this patient back in the hospital in August 2019. At that time, the patient was having altered mentation and confusion. He was hypoglycemic at a time of arrival to the hospital. He was found to have a underlying UTI. He was treated. He did have chronic kidney disease back then. An MRI of the brain was also done that showed diffuse degenerative changes with evidence of cerebral atrophy and diffuse nonspecific white matter changes consistent with remote ischemia and the left cerebellar hemisphere remote infarcts. At that time, the patient had coagulase-negative staph in his blood. He was treated and he was sent to rehab. during the course of the disease, the left-sided pleural effusion was also aspirated by ultrasound guidance and total of 100 mL of fluid was aspirated and the fluid was negative for malignancy and it was a transudate. The patient is currently admitted for an acute kidney injury, he is still altered in mentation. His chest x-ray again showing volume loss and a left- sided pleural effusion which is not well measurable based on a routine chest x- ray findings. Note that the patient has an ejection fraction of 35-40%. He has moderate degree of pulmonary hypertension with a PA pressure of 51. He is having recurrent urinary tract infection. His most recent cultures yielded e nterococcus group the and currently the patient is on Unasyn. His renal function is gradually improving. on 10/12/2019 the patient is being seen in follow-up in the intensive care unit. Overnight, the patient got transferred to the ICU as the patient became acutely hypoxic, unresponsive, and hypotensive. He got transferred to the ICU where his lactic acid level was at 7.0. He was given a total of2 L of IV fluids and subsequent lactic acid level came down to 1.6. He is producing better urine output. His creatinine today is at 2.29. He is afebrile. He also received a dose of vancomycin. He is having enterococcus group D in his urine. Final cultures and sensitivities are pending. Meanwhile, repeat chest x-ray was done. Findings are stable. There is volume loss in the left lung. Is a left-sided pleural effusion that remains unchanged. The right lung remains clear. I wean him down to 2 L of oxygen by nasal cannula. Objective - Vital Signs Vital signs: Vital Signs Temp 97.7 F 10/12/19 04:00 Pulse 69 10/12/19 04:00 Resp 17 10/12/19 04:00 BP 108/73 10/12/19 04:00 Pulse Ox 100 10/12/19 04:00 Intake & Output 10/11/19 10/12/19 10/12/19 18:59 06:59 18:59 Intake Total 2600 Output Total 1180 Balance 1420 Intake: IV 2500 0.9 Normal Saline 2500 Intake, IV Titration 100 Amount Ampicillin-Sulbactam 3 gm 100 In Sodium Chloride 0.9% 100 ml @ 200 mls/hr IVPB Q8HR [facility] Rx#:[id number] Output: Urine 1180 Other: Voiding Method Indwelling Catheter Indwelling Catheter - Exam Gen. appearance, more comfortable today. He is still delirious. He is under the effect of Seroquel and he was also given Haldol yesterday. Head exam was generally normal. There was no scleral icterus or corneal arcus. Mucous membranes were moist. Neck was supple and without jugular venous distension, thyromegaly, or carotid bruits. Carotids were easily palpable bilaterally. There was no adenopathy. Lungs sounds are diminished on the left compared to the right and there is also some dullness to percussion on the left. Breath sounds are quite diminished in the left lung base. No rhonchi. No wheezes. Cardiac exam revealed the PMI to be normally situated and sized. The rhythm was regular and no extrasystoles were noted during several minutes of auscultation. The first and second heart sounds were normal and physiologic splitting of the second heart sound was noted. There were no murmurs, rubs, clicks, or gallops. Abdominal exam revealed normal bowel sounds. The abdomen was soft, non-tender, and without masses, organomegaly, or appreciable enlargement of the abdominal aorta. Examination of the extremities revealed easily palpable radial, femoral and pedal pulses. There was no cyanosis, clubbing or edema. There are some areas of skin bruising in the lower extremities related to previous falls. Neurologically the patient is on the vent and resting comfortably in bed. He is under the effect of Haldol - Labs CBC & Chem 7: 10/12/19 03:32 10/12/19 03:32 Labs: Abnormal Lab Results - Last 24 Hours (Table) 10/11/19 10/11/19 10/11/19 Range/Units 17:29 20:55 21:24 WBC 12.1 H (3.8-10.6) k/uL RBC (4.30-5.90) m/uL Hgb 11.7 L (13.0-17.5) gm/dL Hct 37.0 L (39.0-53.0) % RDW 17.7 H (11.5-15.5) % Neutrophils # 11.2 H (1.3-7.7) k/uL Lymphocytes # 0.3 L (1.0-4.8) k/uL ABG pO2 (83-108) mmHg ABG Total CO2 (19-24) mmol/L ABG O2 Saturation (94-97) % Sodium (137-145) mmol/L Potassium (3.5-5.1) mmol/L Chloride (98-107) mmol/L Carbon Dioxide (22-30) mmol/L BUN (9-20) mg/dL Creatinine (0.66-1.25) mg/dL Glucose (74-99) mg/dL POC Glucose (mg/dL) 165 H 320 H (75-99) mg/dL Plasma Lactic Acid Rafal (0.7-2.0) mmol/L Calcium (8.4-10.2) mg/dL Troponin I (0.000-0.034) ng/mL 10/11/19 10/11/19 10/11/19 Range/Units 21:24 21:24 21:24 WBC (3.8-10.6) k/uL RBC (4.30-5.90) m/uL Hgb (13.0-17.5) gm/dL Hct (39.0-53.0) % RDW (11.5-15.5) % Neutrophils # (1.3-7.7) k/uL Lymphocytes # (1.0-4.8) k/uL ABG pO2 (83-108) mmHg ABG Total CO2 (19-24) mmol/L ABG O2 Saturation (94-97) % Sodium 132 L (137-145) mmol/L Potassium 5.2 H (3.5-5.1) mmol/L Chloride 93 L (98-107) mmol/L Carbon Dioxide 21 L (22-30) mmol/L BUN 86 H (9-20) mg/dL Creatinine 2.51 H (0.66-1.25) mg/dL Glucose 261 H (74-99) mg/dL POC Glucose (mg/dL) (75-99) mg/dL Plasma Lactic Acid Rafal 7.0 H* (0.7-2.0) mmol/L Calcium (8.4-10.2) mg/dL Troponin I 0.760 H* (0.000-0.034) ng/mL 10/11/19 10/12/19 10/12/19 Range/Units 22:00 00:01 01:24 WBC (3.8-10.6) k/uL RBC (4.30-5.90) m/uL Hgb (13.0-17.5) gm/dL Hct (39.0-53.0) % RDW (11.5-15.5) % Neutrophils # (1.3-7.7) k/uL Lymphocytes # (1.0-4.8) k/uL ABG pO2 311 H (83-108) mmHg ABG Total CO2 25 H (19-24) mmol/L ABG O2 Saturation 100.0 H (94-97) % Sodium (137-145) mmol/L Potassium (3.5-5.1) mmol/L Chloride (98-107) mmol/L Carbon Dioxide (22-30) mmol/L BUN (9-20) mg/dL Creatinine (0.66-1.25) mg/dL Glucose (74-99) mg/dL POC Glucose (mg/dL) 309 H (75-99) mg/dL Plasma Lactic Acid Rafal 3.2 H* (0.7-2.0) mmol/L Calcium (8.4-10.2) mg/dL Troponin I (0.000-0.034) ng/mL 10/12/19 10/12/19 10/12/19 Range/Units 01:51 03:32 03:32 WBC 11.0 H (3.8-10.6) k/uL RBC 3.97 L (4.30-5.90) m/uL Hgb 10.7 L (13.0-17.5) gm/dL Hct 33.8 L (39.0-53.0) % RDW 17.7 H (11.5-15.5) % Neutrophils # 10.2 H (1.3-7.7) k/uL Lymphocytes # 0.3 L (1.0-4.8) k/uL ABG pO2 (83-108) mmHg ABG Total CO2 (19-24) mmol/L ABG O2 Saturation (94-97) % Sodium 136 L (137-145) mmol/L Potassium (3.5-5.1) mmol/L Chloride (98-107) mmol/L Carbon Dioxide (22-30) mmol/L BUN 83 H (9-20) mg/dL Creatinine 2.29 H (0.66-1.25) mg/dL Glucose 235 H (74-99) mg/dL POC Glucose (mg/dL) 279 H (75-99) mg/dL Plasma Lactic Acid Rafal (0.7-2.0) mmol/L Calcium 7.7 L (8.4-10.2) mg/dL Troponin I (0.000-0.034) ng/mL 10/12/19 Range/Units 03:32 WBC (3.8-10.6) k/uL RBC (4.30-5.90) m/uL Hgb (13.0-17.5) gm/dL Hct (39.0-53.0) % RDW (11.5-15.5) % Neutrophils # (1.3-7.7) k/uL Lymphocytes # (1.0-4.8) k/uL ABG pO2 (83-108) mmHg ABG Total CO2 (19-24) mmol/L ABG O2 Saturation (94-97) % Sodium (137-145) mmol/L Potassium (3.5-5.1) mmol/L Chloride (98-107) mmol/L Carbon Dioxide (22-30) mmol/L BUN (9-20) mg/dL Creatinine (0.66-1.25) mg/dL Glucose (74-99) mg/dL POC Glucose (mg/dL) (75-99) mg/dL Plasma Lactic Acid Rafal (0.7-2.0) mmol/L Calcium (8.4-10.2) mg/dL Troponin I 1.380 H* (0.000-0.034) ng/mL Microbiology - Last 24 Hours (Table) 10/10/19 09:15 Urine Culture - Preliminary Urine,Clean Catch Group D Enterococcus Assessment and Plan Plan: 1 left lung opacity likely the evolution of a left-sided pleural effusion. The patient has had previous chronic left-sided pleural effusion that has been drained and the patient has undergone thoracentesis in the past and the fluid cytology was negative for malignancy. . Malignant pleural effusions felt to be less likely. In fact, left-sided pleural effusion was drained twice in 2016 2018 and there was no evidence of any malignancy and the fluid was a transudate probably related to his underlying CHF or reactive as the patient is some volume loss postradiation drip for non-small cell lung cancer. 2 squamous cell lung cancer locally advanced post-chemoradiation therapy back in 2015 with good response based on subsequent PET scans in the CAT scan of the chest that was done in January 2019 3 altered mental status, delirium probably related to any acute kidney injury and underlying UTI causing altered mentation. He does have chronic [employer]ENT[employer]ENT atrophy, chronic ischemic changes based on a previous MRI of the brain and he has also previous history of remote CVA. The patient has underlying delirium. The patient is receiving Seroquel. The patient is also on Haldol. We'll monitor the QT interval. He did develop some worsening his mental status. Lactic acid level came up to 7.0 and subsequently improved with fluid resuscitation. 4 diabetes mellitus 5 coronary artery disease with previous PA, with a troponin leak 6 history of CVA involving the right frontal lobe 7 history of atrial fibrillation/flutter and the patient's rhythm is sinus and the patient is demented on long-term and to coagulation with Xarelto. 8 hyperlipidemia 9 recurrent UTI currently has a enterococcal group D urine tract infection currently on IV Unasyn 10 acute on chronic kidney disease, improving and nephrology is on the case 11 CHF with systolic heart failure an ejection fraction of 35% 12 acute lactic acidosis with hypotension, likely secondary to overdiuresis/sepsis. He was given 2 L of IV fluids and he is back to normal hemodynamics. His IV fluids will be cut down to 75 mL's an hour. Plan EKG to assess the QT interval Dropped IV fluids to 75 mL an hour Continue IV Unasyn and vancomycin Repeat blood cultures Monitor mental status Chest x-ray findings are stable and there is no need for thoracentesis FiO2 was weaned down to 2 L Monitor mental status Monitor kidney function Keep him in ICU for now Aspiration precautions
[2019-10-12] MEDS: MIDODRINE 5 MG TAB PO SCH ×2 (09:41→17:42)
[2019-10-12] MEDS: PANTOPRAZOLE 40 MG TABLET PO SCH (09:41)
--- NOTE | 2019-10-12 09:41 | P.PN ---
Subjective Progress Note Date: 10/12/19 Principal diagnosis: This is a 74-year-old with acute kidney injury from prerenal. He was hydrated with IV fluids because of poor intake. He has developed a significant effusion and or atelectasis on the left. He was given IV Lasix 1 dose yesterday. Subsequently his blood pressure went down to the 80s. His lactic acid level was 7. Troponins was 0.7 and 1.3.Afebrile. His urine output was 11 80 mL He is given 2 L of fluids IV normal saline. Is on small doses of levo fed. Patient is confused and has dementia since at least July Unable to get any reliable history from the patient. Objective - Vital Signs Vital signs: Vital Signs Temp 97.7 F 10/12/19 04:00 Pulse 69 10/12/19 04:00 Resp 17 10/12/19 04:00 BP 108/73 10/12/19 04:00 Pulse Ox 100 10/12/19 04:00 Intake & Output 10/11/19 10/12/19 10/12/19 18:59 06:59 18:59 Intake Total 2600 Output Total 1180 Balance 1420 Intake: IV 2500 0.9 Normal Saline 2500 Intake, IV Titration 100 Amount Ampicillin-Sulbactam 3 gm 100 In Sodium Chloride 0.9% 100 ml @ 200 mls/hr IVPB Q8HR [facility] Rx#:[id number] Output: Urine 1180 Other: Voiding Method Indwelling Catheter Indwelling Catheter On examination he remains obtunded barely opens his eyes. HEENT exam no JVP pupils are equal neck is supple no facial asymmetry Lungs are significant for diminished air entry bilaterally his chest x-ray shows complete white out on the left from recurrent chronic pleural effusions. Heart sounds are unremarkable. Abdomen soft nontender no organomegaly status masses Extremity exam was no edema Neurologically obtunded but arousable - Labs CBC & Chem 7: 10/12/19 03:32 10/12/19 03:32 Labs: Abnormal Lab Results - Last 24 Hours (Table) 10/11/19 10/11/19 10/11/19 Range/Units 17:29 20:55 21:24 WBC 12.1 H (3.8-10.6) k/uL RBC (4.30-5.90) m/uL Hgb 11.7 L (13.0-17.5) gm/dL Hct 37.0 L (39.0-53.0) % RDW 17.7 H (11.5-15.5) % Neutrophils # 11.2 H (1.3-7.7) k/uL Lymphocytes # 0.3 L (1.0-4.8) k/uL ABG pO2 (83-108) mmHg ABG Total CO2 (19-24) mmol/L ABG O2 Saturation (94-97) % Sodium (137-145) mmol/L Potassium (3.5-5.1) mmol/L Chloride (98-107) mmol/L Carbon Dioxide (22-30) mmol/L BUN (9-20) mg/dL Creatinine (0.66-1.25) mg/dL Glucose (74-99) mg/dL POC Glucose (mg/dL) 165 H 320 H (75-99) mg/dL Plasma Lactic Acid Rafal (0.7-2.0) mmol/L Calcium (8.4-10.2) mg/dL Troponin I (0.000-0.034) ng/mL 10/11/19 10/11/19 10/11/19 Range/Units 21:24 21:24 21:24 WBC (3.8-10.6) k/uL RBC (4.30-5.90) m/uL Hgb (13.0-17.5) gm/dL Hct (39.0-53.0) % RDW (11.5-15.5) % Neutrophils # (1.3-7.7) k/uL Lymphocytes # (1.0-4.8) k/uL ABG pO2 (83-108) mmHg ABG Total CO2 (19-24) mmol/L ABG O2 Saturation (94-97) % Sodium 132 L (137-145) mmol/L Potassium 5.2 H (3.5-5.1) mmol/L Chloride 93 L (98-107) mmol/L Carbon Dioxide 21 L (22-30) mmol/L BUN 86 H (9-20) mg/dL Creatinine 2.51 H (0.66-1.25) mg/dL Glucose 261 H (74-99) mg/dL POC Glucose (mg/dL) (75-99) mg/dL Plasma Lactic Acid Rafal 7.0 H* (0.7-2.0) mmol/L Calcium (8.4-10.2) mg/dL Troponin I 0.760 H* (0.000-0.034) ng/mL 10/11/19 10/12/19 10/12/19 Range/Units 22:00 00:01 01:24 WBC (3.8-10.6) k/uL RBC (4.30-5.90) m/uL Hgb (13.0-17.5) gm/dL Hct (39.0-53.0) % RDW (11.5-15.5) % Neutrophils # (1.3-7.7) k/uL Lymphocytes # (1.0-4.8) k/uL ABG pO2 311 H (83-108) mmHg ABG Total CO2 25 H (19-24) mmol/L ABG O2 Saturation 100.0 H (94-97) % Sodium (137-145) mmol/L Potassium (3.5-5.1) mmol/L Chloride (98-107) mmol/L Carbon Dioxide (22-30) mmol/L BUN (9-20) mg/dL Creatinine (0.66-1.25) mg/dL Glucose (74-99) mg/dL POC Glucose (mg/dL) 309 H (75-99) mg/dL Plasma Lactic Acid Rafal 3.2 H* (0.7-2.0) mmol/L Calcium (8.4-10.2) mg/dL Troponin I (0.000-0.034) ng/mL 10/12/19 10/12/19 10/12/19 Range/Units 01:51 03:32 03:32 WBC 11.0 H (3.8-10.6) k/uL RBC 3.97 L (4.30-5.90) m/uL Hgb 10.7 L (13.0-17.5) gm/dL Hct 33.8 L (39.0-53.0) % RDW 17.7 H (11.5-15.5) % Neutrophils # 10.2 H (1.3-7.7) k/uL Lymphocytes # 0.3 L (1.0-4.8) k/uL ABG pO2 (83-108) mmHg ABG Total CO2 (19-24) mmol/L ABG O2 Saturation (94-97) % Sodium 136 L (137-145) mmol/L Potassium (3.5-5.1) mmol/L Chloride (98-107) mmol/L Carbon Dioxide (22-30) mmol/L BUN 83 H (9-20) mg/dL Creatinine 2.29 H (0.66-1.25) mg/dL Glucose 235 H (74-99) mg/dL POC Glucose (mg/dL) 279 H (75-99) mg/dL Plasma Lactic Acid Rafal (0.7-2.0) mmol/L Calcium 7.7 L (8.4-10.2) mg/dL Troponin I (0.000-0.034) ng/mL 10/12/19 Range/Units 03:32 WBC (3.8-10.6) k/uL RBC (4.30-5.90) m/uL Hgb (13.0-17.5) gm/dL Hct (39.0-53.0) % RDW (11.5-15.5) % Neutrophils # (1.3-7.7) k/uL Lymphocytes # (1.0-4.8) k/uL ABG pO2 (83-108) mmHg ABG Total CO2 (19-24) mmol/L ABG O2 Saturation (94-97) % Sodium (137-145) mmol/L Potassium (3.5-5.1) mmol/L Chloride (98-107) mmol/L Carbon Dioxide (22-30) mmol/L BUN (9-20) mg/dL Creatinine (0.66-1.25) mg/dL Glucose (74-99) mg/dL POC Glucose (mg/dL) (75-99) mg/dL Plasma Lactic Acid Rafal (0.7-2.0) mmol/L Calcium (8.4-10.2) mg/dL Troponin I 1.380 H* (0.000-0.034) ng/mL Microbiology - Last 24 Hours (Table) 10/10/19 09:15 Urine Culture - Preliminary Urine,Clean Catch Group D Enterococcus Assessment and Plan Assessment: Impression 1. Acute kidney injury from prerenal. Hydrated improved but now and has evidence of possible CHF. Creatinine was 2.69 on admission improved to 1.78 as of 10/10/2019, up to 1.83 on 1221 . Creatinine went up to 2.5 on yesterday, he became possibly septic with hypotension, lactic acid of 7, troponin went up to 1.38 he was resuscitated with 2 L of saline and 125 mL an hour until this morning. This morning creatinine has improved to 2.29. All of the possible sepsis is UTI with urinalysis showing WBCs and growing enterococcus 2. Chronic kidney disease stage III secondary to nephrosclerosis with creatinines in the 1.7 dated 09/09/2019 at its best range in the last few months.) Ranges up to 3.71 on 08/31/2019. 3. Lactic acidosis improved from 7.0-1.6 3. 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 History of squamous cell lung cancer 5. Insulin-dependent diabetes 6. History of atrial fibrillation 7. History of lung CA squamous cell status post chemoradiation treatment and history of mediastinal mass Recommendation 1. Agree with continuation of saline but because pressure is better and looks like well perfuse I would reduce it to 75 an hour 2. Possible AK 3. Antibiotics for group B enterococcus, currently on vancomycin watch levels carefully as his creatinine might worsen with multiple risk factors did as soon as sensitivities back discontinue vancomycin and see if there is any other substitute
[2019-10-12] MEDS: METOPROLOL TARTRATE 25 MG TAB PO SCH (09:52)
[2019-10-12] MEDS: AMIODARONE 100 MG TAB PO SCH (09:52)
[2019-10-12] MEDS: ASPIRIN 81 MG PO SCH (09:52)
[2019-10-12] MEDS: buPROPion XL 150 MG TAB.ER.24H PO SCH (09:52)
[2019-10-12 10:09] LABS: Glucose,Whole Blood 186 mg/dL (75-99)
[2019-10-12] MEDS: SODIUM CHLORIDE 0.9% 1,000 ML IV SCH (10:11)
--- NOTE | 2019-10-12 11:42 | P.PN ---
Subjective Progress Note Date: 10/12/19 This is a 74-year-old gentleman with advanced non-small cell lung cancer that was diagnosed in 2016. Patient received chemo and radiation therapy by Dr. Whipple. This patient is currently admitted to the hospital with altered mental status and acute kidney injury. He is known to have ischemic heart disease with an ejection fraction about 35-40%. He is also diagnosed to have possible urinary tract infection. He was admitted to intensive care unit last night because of hypotension and hypoxia and altered mental status. Patient was found to have lactic acidosis. His EKGs showed evidence of sinus rhythm with right bundle-branch block pattern with mild ST-T changes and mild ST elevation in inferior leads. However however, subsequent EKG showed normalization of the ST elevation. His troponin is mildly elevated. However, his creatinine is high in the range of 2.23. Patient seemed to be more responsive today. No complaints. Chest pain or shortness of breath. Chest x-ray findings are stable. Patient has received IV fluids last night and is being treated for the possibility of an infection and sepsis. From Cardec standpoint, no aggressive measures are advocated at this time. Patient's prognosis is guarded. We'll follow Objective - Vital Signs Vital signs: Vital Signs Temp 97.5 F L 10/12/19 08:00 Pulse 80 10/12/19 11:00 Resp 16 10/12/19 11:00 BP 106/76 10/12/19 11:00 Pulse Ox 97 10/12/19 11:00 Intake & Output 10/11/19 10/12/19 10/12/19 18:59 06:59 18:59 Intake Total 2850 525 Output Total 1270 205 Balance 1580 320 Weight 101 kg Intake: IV 2750 375 0.9 Normal Saline 2750 375 Intake, IV Titration 100 150 Amount Ampicillin-Sulbactam 3 gm 100 In Sodium Chloride 0.9% 100 ml @ 200 mls/hr IVPB Q8HR [facility] Rx#:[id number] Sodium Chloride 0.9% 1, 150 000 ml @ 75 mls/hr IV . [id number] [facility] Rx#:[id number] Output: Urine 1270 205 Other: Voiding Method Indwelling Catheter Indwelling Catheter Indwelling Catheter - Exam GENERAL EXAM: Patient is alert but sleepy HEENT: Normocephalic. Normal reaction of pupils, equal size, normal range of extraocular motion. No erythema or exudates in the throat. NECK: No masses, no nuchal rigidity. CHEST: No chest wall deformity. LUNGS: Diminished breath sounds at bases HEART: S1 and S2 normal with no audible mumurs or gallops. Regular rhythm, femorals equal on both sides.. ABDOMEN: No hepatosplenomegaly, normal bowel sounds, no guarding or rigidity. SKIN: No rashes CENTRAL NERVOUS SYSTEM: No focal deficits. EXTREMITIES: No cyanosis, clubbing or edema. - Labs CBC & Chem 7: 10/12/19 03:32 10/12/19 03:32 Labs: Abnormal Lab Results - Last 24 Hours (Table) 10/11/19 10/11/19 10/11/19 Range/Units 17:29 20:55 21:24 WBC 12.1 H (3.8-10.6) k/uL RBC (4.30-5.90) m/uL Hgb 11.7 L (13.0-17.5) gm/dL Hct 37.0 L (39.0-53.0) % RDW 17.7 H (11.5-15.5) % Neutrophils # 11.2 H (1.3-7.7) k/uL Lymphocytes # 0.3 L (1.0-4.8) k/uL ABG pO2 (83-108) mmHg ABG Total CO2 (19-24) mmol/L ABG O2 Saturation (94-97) % Sodium (137-145) mmol/L Potassium (3.5-5.1) mmol/L Chloride (98-107) mmol/L Carbon Dioxide (22-30) mmol/L BUN (9-20) mg/dL Creatinine (0.66-1.25) mg/dL Glucose (74-99) mg/dL POC Glucose (mg/dL) 165 H 320 H (75-99) mg/dL Plasma Lactic Acid Rafal (0.7-2.0) mmol/L Calcium (8.4-10.2) mg/dL Troponin I (0.000-0.034) ng/mL 10/11/19 10/11/19 10/11/19 Range/Units 21:24 21:24 21:24 WBC (3.8-10.6) k/uL RBC (4.30-5.90) m/uL Hgb (13.0-17.5) gm/dL Hct (39.0-53.0) % RDW (11.5-15.5) % Neutrophils # (1.3-7.7) k/uL Lymphocytes # (1.0-4.8) k/uL ABG pO2 (83-108) mmHg ABG Total CO2 (19-24) mmol/L ABG O2 Saturation (94-97) % Sodium 132 L (137-145) mmol/L Potassium 5.2 H (3.5-5.1) mmol/L Chloride 93 L (98-107) mmol/L Carbon Dioxide 21 L (22-30) mmol/L BUN 86 H (9-20) mg/dL Creatinine 2.51 H (0.66-1.25) mg/dL Glucose 261 H (74-99) mg/dL POC Glucose (mg/dL) (75-99) mg/dL Plasma Lactic Acid Rafal 7.0 H* (0.7-2.0) mmol/L Calcium (8.4-10.2) mg/dL Troponin I 0.760 H* (0.000-0.034) ng/mL 10/11/19 10/12/19 10/12/19 Range/Units 22:00 00:01 01:24 WBC (3.8-10.6) k/uL RBC (4.30-5.90) m/uL Hgb (13.0-17.5) gm/dL Hct (39.0-53.0) % RDW (11.5-15.5) % Neutrophils # (1.3-7.7) k/uL Lymphocytes # (1.0-4.8) k/uL ABG pO2 311 H (83-108) mmHg ABG Total CO2 25 H (19-24) mmol/L ABG O2 Saturation 100.0 H (94-97) % Sodium (137-145) mmol/L Potassium (3.5-5.1) mmol/L Chloride (98-107) mmol/L Carbon Dioxide (22-30) mmol/L BUN (9-20) mg/dL Creatinine (0.66-1.25) mg/dL Glucose (74-99) mg/dL POC Glucose (mg/dL) 309 H (75-99) mg/dL Plasma Lactic Acid Rafal 3.2 H* (0.7-2.0) mmol/L Calcium (8.4-10.2) mg/dL Troponin I (0.000-0.034) ng/mL 10/12/19 10/12/19 10/12/19 Range/Units 01:51 03:32 03:32 WBC 11.0 H (3.8-10.6) k/uL RBC 3.97 L (4.30-5.90) m/uL Hgb 10.7 L (13.0-17.5) gm/dL Hct 33.8 L (39.0-53.0) % RDW 17.7 H (11.5-15.5) % Neutrophils # 10.2 H (1.3-7.7) k/uL Lymphocytes # 0.3 L (1.0-4.8) k/uL ABG pO2 (83-108) mmHg ABG Total CO2 (19-24) mmol/L ABG O2 Saturation (94-97) % Sodium 136 L (137-145) mmol/L Potassium (3.5-5.1) mmol/L Chloride (98-107) mmol/L Carbon Dioxide (22-30) mmol/L BUN 83 H (9-20) mg/dL Creatinine 2.29 H (0.66-1.25) mg/dL Glucose 235 H (74-99) mg/dL POC Glucose (mg/dL) 279 H (75-99) mg/dL Plasma Lactic Acid Rafal (0.7-2.0) mmol/L Calcium 7.7 L (8.4-10.2) mg/dL Troponin I (0.000-0.034) ng/mL 10/12/19 10/12/19 Range/Units 03:32 09:56 WBC (3.8-10.6) k/uL RBC (4.30-5.90) m/uL Hgb (13.0-17.5) gm/dL Hct (39.0-53.0) % RDW (11.5-15.5) % Neutrophils # (1.3-7.7) k/uL Lymphocytes # (1.0-4.8) k/uL ABG pO2 (83-108) mmHg ABG Total CO2 (19-24) mmol/L ABG O2 Saturation (94-97) % Sodium (137-145) mmol/L Potassium (3.5-5.1) mmol/L Chloride (98-107) mmol/L Carbon Dioxide (22-30) mmol/L BUN (9-20) mg/dL Creatinine (0.66-1.25) mg/dL Glucose (74-99) mg/dL POC Glucose (mg/dL) 186 H (75-99) mg/dL Plasma Lactic Acid Rafal (0.7-2.0) mmol/L Calcium (8.4-10.2) mg/dL Troponin I 1.380 H* (0.000-0.034) ng/mL Microbiology - Last 24 Hours (Table) 10/10/19 09:15 Urine Culture - Preliminary Urine,Clean Catch Group D Enterococcus Assessment and Plan (1) Acute renal failure Current Visit: Yes Status: Acute Code(s): N17.9 - ACUTE KIDNEY FAILURE, UNSPECIFIED SNOMED Code(s): 87692885 (2) Dehydration Current Visit: Yes Status: Acute Code(s): E86.0 - DEHYDRATION SNOMED Code(s): 01506755 (3) CHF (congestive heart failure) Current Visit: No Status: Acute Code(s): I50.9 - HEART FAILURE, UNSPECIFIED SNOMED Code(s): 20681556 (4) COPD (chronic obstructive pulmonary disease) Current Visit: No Status: Acute Code(s): J44.9 - CHRONIC OBSTRUCTIVE PULMONARY DISEASE, UNSPECIFIED SNOMED Code(s): 46228908 (5) Elevated troponin Current Visit: No Status: Acute Code(s): R79.89 - OTHER SPECIFIED ABNORMAL FINDINGS OF BLOOD CHEMISTRY SNOMED Code(s): 920402739 Plan: We will continue with current medical therapy. No aggressive cardiac measures, at this time
[2019-10-12 11:50] LABS: Glucose,Whole Blood 163 mg/dL (75-99)
--- NOTE | 2019-10-12 14:44 | P.PN ---
Subjective 71-year-old male is being treated for gram acute renal failure and hyponatremia secondary to hypovolemia and excessive diuretic therapy. Patient was receiving IV Lasix patient doxycycline subchondral because of which I'll get a chest x-ray to make sure patient doesn't have any pulmonary edema at this time. Patient doesn't have any crackles on exam. Patient is confused and do not know his baseline mental status. This probably metabolic encephalopathy from acute renal failure. Patient had ejection for ejection fraction of 35%. urine cultures were positive for group D enterococcus patient was treated with Ceftin in the past concerning his confusion and positive urine cultures are start him on Augmentin to treat for enterococcus. Patient does have leukocytosis as well. Patient chest x-ray did show pleural effusion significant on the left side worse compared to the previous chest x-ray patient IV fluids were discontinued will be dependent given a dose of Lasix and the pulmonary will be consulted. Patient may need ultrasound of the chest as well as CAT scan of the chest with anticoagulation will be left to pulmonary. His serum creatinine and the serum sodium did improve since his admission. 10/12/2019 Patient later in the day became less response to because of which received multiple calls yesterday patient was subsequently transferred to ICU. We obtain an EKG as I his admission EKG showed prolonged QT and patient was receiving Haldol as well as Seroquel which was subsequently discontinued although his repeat EKG showed better QT which is around 400. Subsequently as patient became less responsive repeat EKGs were obtained which she was questionable for acute microinfarction including some mild ST elevations in inferior lead leads as well as some lateral leads as well and troponin was opted which is minimally elevated and today it's around 1.3. Cardiology was subsequently consulted. Patient had a elevated lactic acid initially received IV Lasix because of his lactic is doses Lasix was this can urine patient was started on IV fluids patient received Lasix because of his the pleural effusions on the left side which are much worse compared to admission and the patient had transudative effusions in the past patient although was treated for squamous cell carcinoma which is in remission as far as we know. Patient was started on vancomycin today but because of his a elevated creatinine probably not a good idea vancomycin will be discontinued and patient is on Unasyn for group D enterococcus in the urine which probably is contributing to his sepsis patient is much less confused and looks much better today. Patient is able to answer my questions patient is feeling better today Constitutional: Denied any fatigue denied any fever. Cardio vascular: denied any chest pain, palpitations Gastrointestinal denied any nausea vomiting Pulmonary: Denied any shortness of breath cough Neurologic denied any new focal deficits All inpatient medications were reviewed and appropriate changes in these medicat ions as dictated in the interval history and assessment and plan. Objective - Vital Signs Vital signs: Vital Signs Temp 97.9 F 10/12/19 12:00 Pulse 73 10/12/19 13:00 Resp 16 10/12/19 13:00 BP 98/56 10/12/19 13:00 Pulse Ox 97 10/12/19 13:00 Intake & Output 10/11/19 10/12/19 10/12/19 18:59 06:59 18:59 Intake Total 2850 675 Output Total 1270 355 Balance 1580 320 Weight 101 kg Intake: IV 2750 375 0.9 Normal Saline 2750 375 Intake, IV Titration 100 300 Amount Ampicillin-Sulbactam 3 gm 100 In Sodium Chloride 0.9% 100 ml @ 200 mls/hr IVPB Q8HR [facility] Rx#:[id number] Sodium Chloride 0.9% 1, 300 000 ml @ 75 mls/hr IV . [id number] [facility] Rx#:[id number] Output: Urine 1270 355 Other: Voiding Method Indwelling Catheter Indwelling Catheter Indwelling Catheter - Exam PHYSICAL EXAMINATION: GENERAL: Patient is arousable alert oriented 3 HEENT: Pupils are round and equally reacting to light. EOMI. No scleral icterus. No conjunctival pallor. Normocephalic, atraumatic. No pharyngeal erythema. No thyromegaly. CARDIOVASCULAR: S1 and S2 present. No murmurs, rubs, or gallops. Does not have any elevated JVD. PULMONARY: Chest is clear to auscultation, no wheezing or crackles. ABDOMEN: Soft, nontender, nondistended, normoactive bowel sounds. No palpable organomegaly. MUSCULOSKELETAL: No joint swelling or deformity. EXTREMITIES: No cyanosis, clubbing, or pedal edema. NEUROLOGICAL: Gross neurological examination did not reveal any focal deficits SKIN: No rashes. - Labs CBC & Chem 7: 10/12/19 03:32 10/12/19 03:32 Labs: Abnormal Lab Results - Last 24 Hours (Table) 10/11/19 10/11/1919 Range/Units 17:29 20:55 21:24 WBC 12.1 H (3.8-10.6) k/uL RBC (4.30-5.90) m/uL Hgb 11.7 L (13.0-17.5) gm/dL Hct 37.0 L (39.0-53.0) % RDW 17.7 H (11.5-15.5) % Neutrophils # 11.2 H (1.3-7.7) k/uL Lymphocytes # 0.3 L (1.0-4.8) k/uL ABG pO2 (83-108) mmHg ABG Total CO2 (19-24) mmol/L ABG O2 Saturation (94-97) % Sodium (137-145) mmol/L Potassium (3.5-5.1) mmol/L Chloride (98-107) mmol/L Carbon Dioxide (22-30) mmol/L BUN (9-20) mg/dL Creatinine (0.66-1.25) mg/dL Glucose (74-99) mg/dL POC Glucose (mg/dL) 165 H 320 H (75-99) mg/dL Plasma Lactic Acid Rafal (0.7-2.0) mmol/L Calcium (8.4-10.2) mg/dL Troponin I (0.000-0.034) ng/mL 10/11/19 10/11/19 10/11/19 Range/Units 21:24 21:24 21:24 WBC (3.8-10.6) k/uL RBC (4.30-5.90) m/uL Hgb (13.0-17.5) gm/dL Hct (39.0-53.0) % RDW (11.5-15.5) % Neutrophils # (1.3-7.7) k/uL Lymphocytes # (1.0-4.8) k/uL ABG pO2 (83-108) mmHg ABG Total CO2 (19-24) mmol/L ABG O2 Saturation (94-97) % Sodium 132 L (137-145) mmol/L Potassium 5.2 H (3.5-5.1) mmol/L Chloride 93 L (98-107) mmol/L Carbon Dioxide 21 L (22-30) mmol/L BUN 86 H (9-20) mg/dL Creatinine 2.51 H (0.66-1.25) mg/dL Glucose 261 H (74-99) mg/dL POC Glucose (mg/dL) (75-99) mg/dL Plasma Lactic Acid Rafal 7.0 H* (0.7-2.0) mmol/L Calcium (8.4-10.2) mg/dL Troponin I 0.760 H* (0.000-0.034) ng/mL 10/11/19 10/12/19 10/12/19 Range/Units 22:00 00:01 01:24 WBC (3.8-10.6) k/uL RBC (4.30-5.90) m/uL Hgb (13.0-17.5) gm/dL Hct (39.0-53.0) % RDW (11.5-15.5) % Neutrophils # (1.3-7.7) k/uL Lymphocytes # (1.0-4.8) k/uL ABG pO2 311 H (83-108) mmHg ABG Total CO2 25 H (19-24) mmol/L ABG O2 Saturation 100.0 H (94-97) % Sodium (137-145) mmol/L Potassium (3.5-5.1) mmol/L Chloride (98-107) mmol/L Carbon Dioxide (22-30) mmol/L BUN (9-20) mg/dL Creatinine (0.66-1.25) mg/dL Glucose (74-99) mg/dL POC Glucose (mg/dL) 309 H (75-99) mg/dL Plasma Lactic Acid Rafal 3.2 H* (0.7-2.0) mmol/L Calcium (8.4-10.2) mg/dL Troponin I (0.000-0.034) ng/mL 10/12/19 10/12/19 10/12/19 Range/Units 01:51 03:32 03:32 WBC 11.0 H (3.8-10.6) k/uL RBC 3.97 L (4.30-5.90) m/uL Hgb 10.7 L (13.0-17.5) gm/dL Hct 33.8 L (39.0-53.0) % RDW 17.7 H (11.5-15.5) % Neutrophils # 10.2 H (1.3-7.7) k/uL Lymphocytes # 0.3 L (1.0-4.8) k/uL ABG pO2 (83-108) mmHg ABG Total CO2 (19-24) mmol/L ABG O2 Saturation (94-97) % Sodium 136 L (137-145) mmol/L Potassium (3.5-5.1) mmol/L Chloride (98-107) mmol/L Carbon Dioxide (22-30) mmol/L BUN 83 H (9-20) mg/dL Creatinine 2.29 H (0.66-1.25) mg/dL Glucose 235 H (74-99) mg/dL POC Glucose (mg/dL) 279 H (75-99) mg/dL Plasma Lactic Acid Rafal (0.7-2.0) mmol/L Calcium 7.7 L (8.4-10.2) mg/dL Troponin I (0.000-0.034) ng/mL 10/12/19 10/12/19 10/12/19 Range/Units 03:32 09:56 11:48 WBC (3.8-10.6) k/uL RBC (4.30-5.90) m/uL Hgb (13.0-17.5) gm/dL Hct (39.0-53.0) % RDW (11.5-15.5) % Neutrophils # (1.3-7.7) k/uL Lymphocytes # (1.0-4.8) k/uL ABG pO2 (83-108) mmHg ABG Total CO2 (19-24) mmol/L ABG O2 Saturation (94-97) % Sodium (137-145) mmol/L Potassium (3.5-5.1) mmol/L Chloride (98-107) mmol/L Carbon Dioxide (22-30) mmol/L BUN (9-20) mg/dL Creatinine (0.66-1.25) mg/dL Glucose (74-99) mg/dL POC Glucose (mg/dL) 186 H 163 H (75-99) mg/dL Plasma Lactic Acid Rafal (0.7-2.0) mmol/L Calcium (8.4-10.2) mg/dL Troponin I 1.380 H* (0.000-0.034) ng/mL Microbiology - Last 24 Hours (Table) 10/10/19 09:15 Urine Culture - Final Urine,Clean Catch Enterococcus faecalis Assessment and Plan Plan: Toxic encephalopathy from sepsis which is again from urinary tract infection patient was started on Unasyn, vancomycin will be discontinued -Acute renal failure: It secondary to excessive diuretic therapy on admission and patient had little bit of overload subsequently received Lasix and patient had severe lactic acidosis because of which Lasix was discontinued and patient was given IV fluid subsequently creatinine went down and then went up and now coming down again -Elevated troponins and cannot completely rule out acute myocardial ischemia and non-ST elevation myocardial infarction cardiology was consulted and cardiology is recommending no intervention but medical therapy patient is on anticoagulation already. And continuing with aspirin and a statin. -Septic shock shock resolved patient is off norepinephrine -Hypovolemic hyponatremia initially which resolved. -Metabolic and toxic encephalopathy possible Urinary tract infection . -Congestive heart failure chronic systolic dysfunction E up of 35% patient initially hypovolemic on admission now hypervolemic patient will be given a dose of Lasix. Patient had nonischemic myopathy -Sepsis possibly from urinary tract infection and leukocytosis from that patient was started on Unasyn -Hypertension -Hyperlipidemia -Status post lung cancer post-chemoradiation not on any chemotherapy at this time since, cell lung cancer is in remission -Paroxysmal fibrillation presently rate controlled, and is on anti-coagulation w hich will be continued -Acute kidney injury secondary to excessive diuretic therapy and chronic kidney disease secondary to diabetic nephropathy -Type 2 diabetes mellitus
[2019-10-12 17:17] LABS: Glucose,Whole Blood 119 mg/dL (75-99)
[2019-10-12] MEDS: ATORVASTATIN 80 MG TAB PO SCH (19:37)
[2019-10-12] MEDS: QUEtiapine 25 MG TAB PO SCH (19:37)
[2019-10-12] MEDS: RIVAROXABAN 15 MG TAB PO SCH (19:37)
[2019-10-12 20:21] LABS: Glucose,Whole Blood 87 mg/dL (75-99)
[2019-10-12] MEDS: INSULIN DETEMIR (LEVEMIR) 100 UNIT/ML SYR SQ SCH (20:46)
[2019-10-13] MEDS ORDERED: VANCOMYCIN 1,750 MG in SODIUM CHLORIDE 0.9% 500 ML 500 ML IVPB SCH ×4
[2019-10-13] MEDS: SODIUM CHLORIDE 0.9% 1,000 ML IV SCH ×2 (00:04→16:30)
[2019-10-13] MEDS: AMPICILLIN-SULBACTAM 3 GM in SODIUM CHLORIDE 0.9% 100 ML IVPB SCH ×3 (00:04→16:30)
[2019-10-13 05:56] LABS: Anisocytosis Slight; Basophils % (A) 0 %; Eosinophils # (A) 0.1 k/uL (0-0.7); Eosinophils % (A) 1 %; HCT 33.8 % (39.0-53.0); HGB 10.8 gm/dL (13.0-17.5); Hypochromasia Moderate; Lymphocytes # (A) 0.2 k/uL (1.0-4.8); Lymphocytes % (A) 2 %; MCH 27.1 pg (25.0-35.0); MCHC 31.9 g/dL (31.0-37.0); MCV 85.1 fL (80.0-100.0); Mean Platelet Volume 8.7; Monocytes # (A) 0.6 k/uL (0-1.0); Monocytes % (A) 6 %; Neutrophils # (A) 9.7 k/uL (1.3-7.7); Neutrophils % (A) 91 %; Platelet Count 202 k/uL (150-450); RBC 3.98 m/uL (4.30-5.90); RDW 17.8 % (11.5-15.5); WBC 10.7 k/uL (3.8-10.6)
[2019-10-13 06:06] LABS: Calcium 8.7 mg/dL (8.4-10.2); Potassium 3.6 mmol/L (3.5-5.1)
[2019-10-13 07:01] LABS: Glucose,Whole Blood 85 mg/dL (75-99)
[2019-10-13] MEDS: INSULIN ASPART (NovoLOG) 100 UNIT/ML VIAL SQ SCH ×4 (07:18→20:54)
--- NOTE | 2019-10-13 07:28 | XR ---
EXAMINATION TYPE: XR chest 1V portable DATE OF EXAM: 10/13/2019 Comparison: 10/12/2019 Clinical History: 74-year-old male evaluate fluid overload. Findings: Continued complete to near complete white out of the left hemithorax and worsening interstitial and a irspace opacity right mid and lower lung. There is continued complete obscuration of the left heart m argin. Right anterior chest wall injection port with catheter tip at the cavoatrial junction. Impression: Continued complete to near complete white out of the left hemithorax and worsening airspace disease w ithin the right lung.
[2019-10-13] MEDS: PANTOPRAZOLE 40 MG/10 ML VIAL IVP SCH (09:00)
--- NOTE | 2019-10-13 09:22 | P.PN ---
Subjective Progress Note Date: 10/13/19 This is a 74-year-old gentleman with advanced non-small cell lung cancer that was diagnosed in 2016. Patient received chemo and radiation therapy by Dr. Whipple. This patient is currently admitted to the hospital with altered mental status and acute kidney injury. He is known to have ischemic heart disease with an ejection fraction about 35-40%. He is also diagnosed to have possible urinary tract infection. He was admitted to intensive care unit last night because of hypotension and hypoxia and altered mental status. Patient was found to have lactic acidosis. His EKGs showed evidence of sinus rhythm with right bundle-branch block pattern with mild ST-T changes and mild ST elevation in inferior leads. However however, subsequent EKG showed normalization of the ST elevation. His troponin is mildly elevated. However, his creatinine is high in the range of 2.23. Patient seemed to be more responsive today. No complaints. Chest pain or shortness of breath. Chest x-ray findings are stable. Patient has received IV fluids last night and is being treated for the possibility of an infection and sepsis. From Cardec standpoint, no aggressive measures are advocated at this time. Patient's prognosis is guarded. We'll follow. 10/13/2019 : Patient's is alert and seemed to oriented to person. Doesn't appear to be in acute distress. Maintaining vital signs in the has good urinary output. Chest x-ray showed increasing infiltrate the right base and complete opacification of the left lung. His creatinine is improving. Patient is getting IV fluids. No complaints of any chest pain. We'll continue his current management. Advance diet as tolerated. Further recommendations depend upon the glucose Objective - Vital Signs Vital signs: Vital Signs Temp 97.9 F 10/13/19 08:00 Pulse 88 10/13/19 09:00 Resp 18 10/13/19 09:00 BP 90/52 10/13/19 09:00 Pulse Ox 99 10/13/19 09:00 Intake & Output 10/12/19 10/13/19 10/13/19 18:59 06:59 18:59 Intake Total 1384.964 925 325 Output Total 955 1205 253 Balance 429.964 -280 72 Weight 106.3 kg Intake: IV 375 775 325 0.9 Normal Saline 375 675 225 Ampicillin-Sulbactam 3 gm 100 100 In Sodium Chloride 0.9% 100 ml @ 200 mls/hr IVPB Q8HR [facility] Rx#:[id number] Intake, IV Titration 1009.964 150 Amount Norepinephrine 4 mg In 259.964 Sodium Chloride 0.9% 250 ml @ Titrate IV .Q0M [facility] Rx#:[id number] Sodium Chloride 0.9% 1, 750 150 000 ml @ 75 mls/hr IV . [id number] [facility] Rx#:[id number] Output: Urine 955 1205 253 Other: Voiding Method Indwelling Catheter Indwelling Catheter Indwelling Catheter - Exam GENERAL EXAM: Patient is alert but sleepy HEENT: Normocephalic. Normal reaction of pupils, equal size, normal range of extraocular motion. No erythema or exudates in the throat. NECK: No masses, no nuchal rigidity. CHEST: No chest wall deformity. LUNGS: Diminished breath sounds at bases HEART: S1 and S2 normal with no audible mumurs or gallops. Regular rhythm, femorals equal on both sides.. ABDOMEN: No hepatosplenomegaly, normal bowel sounds, no guarding or rigidity. SKIN: No rashes CENTRAL NERVOUS SYSTEM: No focal deficits. EXTREMITIES: No cyanosis, clubbing or edema. - Labs CBC & Chem 7: 10/13/19 05:37 10/13/19 05:37 Labs: Abnormal Lab Results - Last 24 Hours (Table) 10/12/19 10/12/19 10/12/19 Range/Units 09:56 11:48 17:15 WBC (3.8-10.6) k/uL RBC (4.30-5.90) m/uL Hgb (13.0-17.5) gm/dL Hct (39.0-53.0) % RDW (11.5-15.5) % Neutrophils # (1.3-7.7) k/uL Lymphocytes # (1.0-4.8) k/uL Chloride (98-107) mmol/L BUN (9-20) mg/dL Creatinine (0.66-1.25) mg/dL POC Glucose (mg/dL) 186 H 163 H 119 H (75-99) mg/dL 10/13/19 10/13/19 Range/Units 05:37 05:37 WBC 10.7 H (3.8-10.6) k/uL RBC 3.98 L (4.30-5.90) m/uL Hgb 10.8 L (13.0-17.5) gm/dL Hct 33.8 L (39.0-53.0) % RDW 17.8 H (11.5-15.5) % Neutrophils # 9.7 H (1.3-7.7) k/uL Lymphocytes # 0.2 L (1.0-4.8) k/uL Chloride 110 H (98-107) mmol/L BUN 69 H (9-20) mg/dL Creatinine 1.80 H (0.66-1.25) mg/dL POC Glucose (mg/dL) (75-99) mg/dL Microbiology - Last 24 Hours (Table) 10/10/19 09:15 Urine Culture - Final Urine,Clean Catch Enterococcus faecalis Assessment and Plan (1) Acute renal failure Current Visit: Yes Status: Acute Code(s): N17.9 - ACUTE KIDNEY FAILURE, UNSPECIFIED SNOMED Code(s): 64029965 (2) Dehydration Current Visit: Yes Status: Acute Code(s): E86.0 - DEHYDRATION SNOMED Code(s): 34028203 (3) CHF (congestive heart failure) Current Visit: No Status: Acute Code(s): I50.9 - HEART FAILURE, UNSPECIFIED SNOMED Code(s): 97986432 (4) COPD (chronic obstructive pulmonary disease) Current Visit: No Status: Acute Code(s): J44.9 - CHRONIC OBSTRUCTIVE PULMONARY DISEASE, UNSPECIFIED SNOMED Code(s): 16772531 (5) Elevated troponin Current Visit: No Status: Acute Code(s): R79.89 - OTHER SPECIFIED ABNORMAL FINDINGS OF BLOOD CHEMISTRY SNOMED Code(s): 882758680 Plan: Patient is clinically stable. Creatinine is improving and the patient has good urinary output. Advance his diet and increase activity. Seems to be alert and in no acute distress at this time
--- NOTE | 2019-10-13 10:31 | CDI ---
Documentation Clarification Form Date: 10/13/2019 10:16:23 AM From: Diana Francois CCS, CCDS Admit Date: 10/07/2019 08:32:00 PM Patient Name: Arsen Lopez Visit Number: [id number] Discharge Date: ATTENTION: The Clinical Documentation Specialists (CDI) and [facility] Coding Staff appreciate your assistance in clarifying documentation. Please respond to the clarification below the line at the bottom and electronically sign. The CDI & [facility] Coding staff will review the response and follow-up if needed. Please note: Queries are made part of the Legal Health Record. If you have any questions, please contact the author of this message via ITS. Dr. Neha Maddox: CHF is documented in the 10/08 cardiology consult as "acute on chronic" systolic heart failure but is documented in subsequent progress notes as "chronic" systolic heart failure. History/Risk Factors: Squamous cell lung cancer status post chemo/radiation, Systolic Heart Failure, CKD III, DM II, hypertension, CVA & former smoker. Clinical Indicators: Presented with weakness, diagnosed with acute renal failure & is also being treated for a recurrent UTI. Developed sepsis & septic shock possible due to over-diuresis. VS: HR 70s - 90s (patient has paroxysmal atrial fibrillation), PO 100 - 91 on 2- 4Lnc BNP: 19,200 Echocardiogram Results (08/29/2019): Mild LVH, Left ventricular systolic moderately impaired with EF 3-40%, Mild aortic valve sclerosis, Mild MR, Mild TR, Moderate pulmonary hypertension. CXR 10/07: LLL moderate pleural effusion. CXR 10/11: Worsening left side opacity likely combination of airspace disease & pleural fluid. Treatment: IV fluid rate 60 10/07. IV Lasix on 10/11, IV Vanco & Ampicillin for UTI & sepsis. O2 4Lnc 10/07; 15% nrb on 10/11; 2L nc on 10/13. In your professional opinion, can you please clarify the acuity of the patient's heart failure if known? Systolic Heart Failure: o Acute o Chronic o Acute on Chronic o Unable to Determine o Other, please specify (Last Revision: January 2018) Acute on Chronic MTDD
[2019-10-13 12:08] LABS: Glucose,Whole Blood 91 mg/dL (75-99)
--- NOTE | 2019-10-13 12:11 | ECHOF ---
Referral Reason:EF MEASUREMENTS -------- HEIGHT: 182.9 cm WEIGHT: 106.1 kg BP: FINDINGS -------- Sinus rhythm. Echo Done 09/09: Limited Study for Lv Function. There is severe global hypokinesis of LV . Overall left ventricular systolic function is moderate-s everely impaired with, an EF between 30 - 35 %. CONCLUSIONS -------- 1. Sinus rhythm. 2. Echo Done 09/09: Limited Study for Lv Function. 3. There is severe global hypokinesis of LV . 4. Overall left ventricular systolic function is moderate-severely impaired with, an EF between 30 - 35 %. RIPPLER: Anastacia Bone RDCS
[2019-10-13] MEDS: MIDODRINE 5 MG TAB PO SCH ×2 (12:15→17:01)
[2019-10-13] MEDS: ASPIRIN 81 MG PO SCH (12:16)
--- NOTE | 2019-10-13 12:43 | P.PN ---
Subjective Progress Note Date: 10/13/19 Principal diagnosis: Acute metabolic encephalopathy, pleural effusion, squamous cell lung cancer This is a 71-year-old male patient with known history of locally advanced non-small cell lung cancer that was originally diagnosed back in 2016. I performed the patient's bronchoscopy and a transbronchial needle aspirate of the left hilar mass showed squamous cell carcinoma. He was treated by Dr. Whipple and received a combination of chemoradiation therapy. He responded nicely in follow-up CAT scan that was done on 03/31/2017 showed no suspicious masses or metabolic activity within the chest area. In follow-up, CAT scan of the chest abdomen and pelvis that was done on 02/07/2019 showed a stable left lower lobe consolidation and the left lower lobe soft tissue prominence with a small effusion. There was some pleural right lower lobe lesion measuring 3 mm in size. I saw this patient back in the hospital in August 2019. At that time, the patient was having altered mentation and confusion. He was hypoglycemic at a time of arrival to the hospital. He was found to have a underlying UTI. He was treated. He did have chronic kidney disease back then. An MRI of the brain was also done that showed diffuse degenerative changes with evidence of cerebral atrophy and diffuse nonspecific white matter changes consistent with remote ischemia and the left cerebellar hemisphere remote infarcts. At that time, the patient had coagulase-negative staph in his blood. He was treated and he was sent to rehab. during the course of the disease, the left-sided pleural eff usion was also aspirated by ultrasound guidance and total of 100 mL of fluid was aspirated and the fluid was negative for malignancy and it was a transudate. The patient is currently admitted for an acute kidney injury, he is still altered in mentation. His chest x-ray again showing volume loss and a left- sided pleural effusion which is not well measurable based on a routine chest x- ray findings. Note that the patient has an ejection fraction of 35-40%. He has moderate degree of pulmonary hypertension with a PA pressure of 51. He is having recurrent urinary tract infection. His most recent cultures yielded enterococcus group the and currently the patient is on Unasyn. His renal funct ion is gradually improving. on 10/12/2019 the patient is being seen in follow-up in the intensive care unit. Overnight, the patient got transferred to the ICU as the patient became acutely hypoxic, unresponsive, and hypotensive. He got transferred to the ICU where his lactic acid level was at 7.0. He was given a total of2 L of IV fluids and subsequent lactic acid level came down to 1.6. He is producing better urine output. His creatinine today is at 2.29. He is afebrile. He also received a dose of vancomycin. He is having enterococcus group D in his urine. Final cultures and sensitivities are pending. Meanwhile, repeat chest x-ray was done. Findings are stable. There is volume loss in the left lung. Is a left-sided pleural effusion that remains unchanged. The right lung remains clear. I wean him down to 2 L of oxygen by nasal cannula. Reevaluated today on 10/13/2019, patient remains in the intensive care unit, on 2 L nasal cannula, not requiring any pressors. Chest x-ray and ultrasound showed good sized left-sided pleural effusion which I plan to tap and perform thoracentesis on the left side either today or tomorrow. Patient was on anticoagulations therapy until yesterday. We'll continue to hold and probably perform thoracentesis tomorrow. Patient is not requiring any pressors today. He has been off pressors since 6 PM yesterday. Urine yielded Enterococcus faecalis, patient is on Unasyn. Patient is not a great historian, seems to be generally weak, not much verbal, but in no distress. CBC is relatively normal hemoglobin is 10.8 lites are normal BUN is 69 creatinine is 1.80. Baseline creatinine on 10/07 was 2.69. Hence it is improving. Objective - Vital Signs Vital signs: Vital Signs Temp 97.9 F 10/13/19 08:00 Pulse 91 10/13/19 11:00 Resp 18 10/13/19 11:00 BP 99/57 10/13/19 11:00 Pulse Ox 100 10/13/19 11:00 Intake & Output 10/12/19 10/13/19 10/13/19 18:59 06:59 18:59 Intake Total 1384.964 925 550 Output Total 955 1205 401 Balance 429.964 -280 149 Weight 106.3 kg Intake: IV 375 775 550 0.9 Normal Saline 375 675 450 Ampicillin-Sulbactam 3 gm 100 100 In Sodium Chloride 0.9% 100 ml @ 200 mls/hr IVPB Q8HR NORA Rx#:[id number] Intake, IV Titration 1009.964 150 0 Amount Norepinephrine 4 mg In 259.964 0 Sodium Chloride 0.9% 250 ml @ Titrate IV .Q0M NORA Rx#:[id number] Sodium Chloride 0.9% 1, 750 150 000 ml @ 75 mls/hr IV . [id number] NORA Rx#:[id number] Output: Urine 955 1205 401 Other: Voiding Method Indwelling Catheter Indwelling Catheter Indwelling Catheter - Exam Physical Exam: Revealed 74-year-old white male on 2 L nasal cannula, in no distress. Seems to be slow and nonverbal. Head: Atraumatic, normocephalic. HEENT:[Neck is supple.] [No neck masses.] [No thyromegaly.] [No JVD.] PERRLA, EOMI, no icterus. No JVD noted. No rhonchi no wheezes. Chest: [Clear throughout, no crackles, no rhonchi, no wheezes.] Cardiac Exam: [Normal S1 and S2, no S3 gallop, no murmur.] Abdomen: [Soft, nontender, no megaly, no rebound, no guarding, normal bowel sounds.] Extremities: [No clubbing, no edema, no cyanosis.] Neurological Exam: Patient is lethargic, arousable, follows simple instructions, no gross focal deficit otherwise. Psychiatric: Depressed mood, blunt affect, slow mentation, questionable insight and judgment. - Labs CBC & Chem 7: 10/13/19 05:37 10/13/19 05:37 Labs: Abnormal Lab Results - Last 24 Hours (Table) 10/12/19 10/13/19 10/13/19 Range/Units 17:15 05:37 05:37 WBC 10.7 H (3.8-10.6) k/uL RBC 3.98 L (4.30-5.90) m/uL Hgb 10.8 L (13.0-17.5) gm/dL Hct 33.8 L (39.0-53.0) % RDW 17.8 H (11.5-15.5) % Neutrophils # 9.7 H (1.3-7.7) k/uL Lymphocytes # 0.2 L (1.0-4.8) k/uL Chloride 110 H (98-107) mmol/L BUN 69 H (9-20) mg/dL Creatinine 1.80 H (0.66-1.25) mg/dL POC Glucose (mg/dL) 119 H (75-99) mg/dL Microbiology - Last 24 Hours (Table) 10/10/19 09:15 Urine Culture - Final Urine,Clean Catch Enterococcus faecalis Assessment and Plan Assessment: Impression: Left-sided pleural effusion, quite large, will likely perform diagnostic and therapeutic thoracentesis. Previous cytology was negative for malignancy. Squamous cell carcinoma dating back to 2016, status post chemoradiation therapy. Altered mental status, acute metabolic encephalopathy most likely secondary to UTI sepsis, patient has a remote history of CVA. His metabolic encephalopathy could also be medications related, and his medications were already adjusted by Dr. Alarcon. Type 2 diabetes. Coronary artery disease and previous IN with troponin leak History of CVA involving the right frontal lobe Paroxysmal atrial fibrillation, patient is presently in sinus rhythm. Chronically on anticoagulations therapy/Xarelto. 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 Acute on chronic kidney disease, being followed by nephrology. Chronic systolic congestive heart failure, ejection fraction of 35%. Acute sepsis, and septic shock, patient had hypotension, elevated lactic acid, and he required pressors/norepinephrine until yesterday. Recommendation: Continue to monitor in the ICU. Continue IV fluids. Continue antibiotics. Continue to closely monitor mental status and metabolic derangements. Continue to wean FiO2 as tolerated. Ultrasound of the chest was reviewed and we'll consider left-sided thoracen tesis. Continue to monitor renal functioning. Continue aspiration precautions. We'll continue to follow Time with Patient: Less than 30
--- NOTE | 2019-10-13 13:19 | US ---
EXAMINATION TYPE: US chest DATE OF EXAM: 10/13/2019 COMPARISON: Correlation radiograph same day CLINICAL HISTORY: 74-year-old male Bilateral pleural effusion TECHNIQUE: Targeted ultrasound of the posterior lower bilateral hemithoraces FINDINGS: EXAM MEASUREMENTS: Right Pleural Effusion pocket size: 7.0 cm Right skin surface to fluid distance: 3.1 cm Left Pleural Effusion pocket size: 6.9 cm Left skin surface to fluid distance: 2.9 cm Right side MARKED for possible thoracentesis outside the dept. Left side MARKED for possible thoracentesis outside the dept. Pulmonologists are able to review the images in the patient?s EMR. IMPRESSIONS: Small to moderate right and moderate left pleural effusions.
--- NOTE | 2019-10-13 13:40 | PN ---
PROGRESS NOTE Patient is seen for followup for acute kidney injury. Renal function has been improving. Creatinine is down to 2.29 yesterday to 1.8 today. The patient has good urine output, about 60 to 110 mL an hour. Patient is maintained on IV fluids at about 75 mL an hour. He is also on midodrine. PHYSICAL EXAMINATION: On examination today, blood pressure was 98/55, heart rate 90 per minute. Patient is afebrile. EXAMINATION OF THE HEART: S1, S2. EXAMINATION OF THE LUNGS: Decreased breath sounds at bases. Abdomen is soft. Examination of the lower extremities shows edema 1+ bilaterally. MONOGRAM AND LETTER PASTER exam is grossly intact. LABS: Labs show sodium 144, potassium 3.6, chloride 110, CO2 is 24. BUN 69, creatinine 1.8. Hemoglobin 10.8 g/dL. ASSESSMENT: 1. Acute kidney injury, nonoliguric, currently improving, mainly prerenal, maintained on IV fluids. 2. Chronic kidney disease, stage 3, secondary to nephrosclerosis. Previous creatinine 1.7 on 09/09/2019. 3. Cardiomyopathy, ejection fraction 35% to 40% with . 4. Lactic acidosis, currently improved. 5. History of squamous cell lung cancer. 6. . 7. Type 2 diabetes mellitus, insulin dependent. PLAN: Continue to monitor vancomycin levels. Continue with normal saline. Repeat labs in a.m. MMODL / IJN: [id number] /
--- NOTE | 2019-10-13 14:02 | P.PN ---
Subjective 71-year-old male is being treated for gram acute renal failure and hyponatremia secondary to hypovolemia and excessive diuretic therapy. Patient was receiving IV Lasix patient doxycycline subchondral because of which I'll get a chest x-ray to make sure patient doesn't have any pulmonary edema at this time. Patient doesn't have any crackles on exam. Patient is confused and do not know his baseline mental status. This probably metabolic encephalopathy from acute renal failure. Patient had ejection for ejection fraction of 35%. urine cultures were positive for group D enterococcus patient was treated with Ceftin in the past concerning his confusion and positive urine cultures are start him on Augmentin to treat for enterococcus. Patient does have leukocytosis as well. Patient chest x-ray did show pleural effusion significant on the left side worse compared to the previous chest x-ray patient IV fluids were discontinued will be dependent given a dose of Lasix and the pulmonary will be consulted. Patient may need ultrasound of the chest as well as CAT scan of the chest with anticoagulation will be left to pulmonary. His serum creatinine and the serum sodium did improve since his admission. 10/12/2019 Patient later in the day became less response to because of which received multiple calls yesterday patient was subsequently transferred to ICU. We obtain an EKG as I his admission EKG showed prolonged QT and patient was receiving Haldol as well as Seroquel which was subsequently discontinued although his repeat EKG showed better QT which is around 400. Subsequently as patient became less responsive repeat EKGs were obtained which she was questionable for acute microinfarction including some mild ST elevations in inferior lead leads as well as some lateral leads as well and troponin was opted which is minimally elevated and today it's around 1.3. Cardiology was subsequently consulted. Patient had a elevated lactic acid initially received IV Lasix because of his lactic is doses Lasix was this can urine patient was started on IV fluids patient received Lasix because of his the pleural effusions on the left side which are much worse compared to admission and the patient had transudative effusions in the past patient although was treated for squamous cell carcinoma which is in remission as far as we know. Patient was started on vancomycin today but because of his a elevated creatinine probably not a good idea vancomycin will be discontinued and patient is on Unasyn for group D enterococcus in the urine which probably is contributing to his sepsis patient is much less confused and looks much better today. Patient is able to answer my questions patient is feeling better today 10/13/2019 Patient looks much better not confused at all today. Patient can be transferred out of ICU continue with antibiotic patient remains on IV fluids with symptoms improvement in serum creatinine and the resolution of hyponatremia. Patient does not appear to be in heart failure exacerbation but does have pleural effusion probably not from heart failure exacerbation and patient will undergo thoracocentesis tomorrow anti-correlation is on hold patient is doing well probably will be discharged after the thoracocentesis tomorrow. Constitutional: Denied any fatigue denied any fever. Cardio vascular: denied any chest pain, palpitations Gastrointestinal denied any nausea vomiting Pulmonary: Denied any shortness of breath cough Neurologic denied any new focal deficits All inpatient medications were reviewed and appropriate changes in these medications as dictated in the interval history and assessment and plan. Objective - Vital Signs Vital signs: Vital Signs Temp 97.9 F 10/13/19 12:00 Pulse 95 10/13/19 12:30 Resp 16 10/13/19 12:30 BP 98/56 10/13/19 12:30 Pulse Ox 91 L 10/13/19 12:30 Intake & Output 10/12/19 10/13/19 10/13/19 18:59 06:59 18:59 Intake Total 1384.964 925 550 Output Total 955 1205 401 Balance 429.964 -280 149 Weight 106.3 kg Intake: IV 375 775 550 0.9 Normal Saline 375 675 450 Ampicillin-Sulbactam 3 gm 100 100 In Sodium Chloride 0.9% 100 ml @ 200 mls/hr IVPB Q8HR [facility]A Rx#:[id number] Intake, IV Titration 1009.964 150 0 Amount Norepinephrine 4 mg In 259.964 0 Sodium Chloride 0.9% 250 ml @ Titrate IV .Q0M [facility]A Rx#:[id number] Sodium Chloride 0.9% 1, 750 150 000 ml @ 75 mls/hr IV . [id number] NORA Rx#:[id number] Output: Urine 955 1205 401 Other: Voiding Method Indwelling Catheter Indwelling Catheter Indwelling Catheter - Exam PHYSICAL EXAMINATION: GENERAL: Patient is arousable alert oriented 3 HEENT: Pupils are round and equally reacting to light. EOMI. No scleral icterus. No conjunctival pallor. Normocephalic, atraumatic. No pharyngeal erythema. No thyromegaly. CARDIOVASCULAR: S1 and S2 present. No murmurs, rubs, or gallops. Does not have any elevated JVD. PULMONARY: Chest is clear to auscultation, no wheezing or crackles. ABDOMEN: Soft, nontender, nondistended, normoactive bowel sounds. No palpable o rganomegaly. MUSCULOSKELETAL: No joint swelling or deformity. EXTREMITIES: No cyanosis, clubbing, or pedal edema. NEUROLOGICAL: Gross neurological examination did not reveal any focal deficits SKIN: No rashes. - Labs CBC & Chem 7: 10/13/19 05:37 10/13/19 05:37 Labs: Abnormal Lab Results - Last 24 Hours (Table) 10/12/19 10/13/19 10/13/19 Range/Units 17:15 05:37 05:37 WBC 10.7 H (3.8-10.6) k/uL RBC 3.98 L (4.30-5.90) m/uL Hgb 10.8 L (13.0-17.5) gm/dL Hct 33.8 L (39.0-53.0) % RDW 17.8 H (11.5-15.5) % Neutrophils # 9.7 H (1.3-7.7) k/uL Lymphocytes # 0.2 L (1.0-4.8) k/uL Chloride 110 H (98-107) mmol/L BUN 69 H (9-20) mg/dL Creatinine 1.80 H (0.66-1.25) mg/dL POC Glucose (mg/dL) 119 H (75-99) mg/dL Microbiology - Last 24 Hours (Table) 10/10/19 09:15 Urine Culture - Final Urine,Clean Catch Enterococcus faecalis Assessment and Plan Plan: Toxic encephalopathy from sepsis which is again from urinary tract infection patient was started on Unasyn, encephalopathy resolved -Acute renal failure: It secondary to excessive diuretic therapy, improving now with IV fluids -Elevated troponins and cannot completely rule out acute myocardial ischemia and non-ST elevation myocardial infarction cardiology was consulted and cardiology is recommending no intervention but medical therapy patient is on anticoagulation already. And continuing with aspirin and a statin. -Left-sided pleural effusion: Patient will undergo diagnostic and therapeutic paracentesis tomorrow -Septic shock shock resolved patient is off norepinephrine -Hypovolemic hyponatremia initially which resolved. -Metabolic and toxic encephalopathy possible Urinary tract infection . -Congestive heart failure chronic systolic dysfunction E up of 35% patient is presently appears to be hypovolemic and is on IV fluids patient had exacerbation at one point of time during this hospitalization -Sepsis possibly from urinary tract infection and leukocytosis from that patient was started on Unasyn -Hypertension -Hyperlipidemia -Status post lung cancer post-chemoradiation not on any chemotherapy at this time since, cell lung cancer is in remission -Paroxysmal fibrillation presently rate controlled, and is on anti-coagulation which will be continued -Acute kidney injury secondary to excessive diuretic therapy and chronic kidney disease secondary to diabetic nephropathy -Type 2 diabetes mellitus
[2019-10-13] MEDS: AMIODARONE 100 MG TAB PO SCH (14:12)
[2019-10-13] MEDS: buPROPion XL 150 MG TAB.ER.24H PO SCH (14:12)
[2019-10-13] MEDS ORDERED: FUROSEMIDE 10 MG/ML 4 ML VIAL IV STA (16:48)
[2019-10-13 17:04] LABS: Glucose,Whole Blood 117 mg/dL (75-99)
[2019-10-13] MEDS: ATORVASTATIN 80 MG TAB PO SCH (19:57)
[2019-10-13] MEDS: RIVAROXABAN 15 MG TAB PO SCH (19:57)
[2019-10-13] MEDS: QUEtiapine 25 MG TAB PO SCH (19:57)
[2019-10-13] MEDS: INSULIN DETEMIR (LEVEMIR) 100 UNIT/ML SYR SQ SCH (19:59)
[2019-10-13 20:45] LABS: Glucose,Whole Blood 142 mg/dL (75-99)
[2019-10-14] MEDS: AMPICILLIN-SULBACTAM 3 GM in SODIUM CHLORIDE 0.9% 100 ML IVPB SCH ×3 (00:24→16:26)
[2019-10-14 05:54] LABS: Anisocytosis Slight; Basophils % (A) 0 %; Eosinophils % (A) 0 %; HCT 36.4 % (39.0-53.0); HGB 11.7 gm/dL (13.0-17.5); Hypochromasia Slight; Lymphocytes # (A) 0.3 k/uL (1.0-4.8); Lymphocytes % (A) 3 %; MCH 27.5 pg (25.0-35.0); MCHC 32.3 g/dL (31.0-37.0); MCV 85.3 fL (80.0-100.0); Mean Platelet Volume 8.7; Monocytes # (A) 0.8 k/uL (0-1.0); Monocytes % (A) 8 %; Neutrophils # (A) 9.1 k/uL (1.3-7.7); Neutrophils % (A) 87 %; Platelet Count 189 k/uL (150-450); RBC 4.27 m/uL (4.30-5.90); RDW 18.3 % (11.5-15.5); WBC 10.5 k/uL (3.8-10.6)
[2019-10-14 06:07] LABS: Potassium 4.2 mmol/L (3.5-5.1)
--- NOTE | 2019-10-14 06:20 | XR ---
EXAMINATION TYPE: XR chest 1V portable DATE OF EXAM: 10/14/2019 CLINICAL HISTORY: Difficulty breathing progress study. History of lung cancer. TECHNIQUE: Single AP portable upright view of the chest is obtained. COMPARISON: Chest x-ray from one day earlier and older studies. CT chest August 29, 2019 FINDINGS: Stable right internal jugular Mediport catheter. Persistent cardiomegaly. Persistent left mid to lower lung opacity on background chronic emphysematous change. Persistent small to moderate le ft greater than right pleural effusions. Multilevel spurring in thoracic spine. IMPRESSION: Overall stable findings, cardiomegaly and background chronic emphysematous change with small moderate size left greater than right pleural effusions and left mid to lower lung acute infilt rate and/or edema are redemonstrated. No significant change from one day earlier.
[2019-10-14 06:51] LABS: Glucose,Whole Blood 151 mg/dL (75-99)
[2019-10-14] MEDS: INSULIN ASPART (NovoLOG) 100 UNIT/ML VIAL SQ SCH ×4 (06:59→20:14)
[2019-10-14] MEDS: SODIUM CHLORIDE 0.9% 1,000 ML IV SCH (06:59)
[2019-10-14] MEDS: MIDODRINE 5 MG TAB PO SCH ×2 (07:47→17:38)
[2019-10-14] MEDS: AMIODARONE 100 MG TAB PO SCH (07:48)
[2019-10-14] MEDS: buPROPion XL 150 MG TAB.ER.24H PO SCH (07:48)
[2019-10-14] MEDS: ASPIRIN 81 MG PO SCH (07:48)
[2019-10-14] MEDS: PANTOPRAZOLE 40 MG/10 ML VIAL IVP SCH (08:04)
[2019-10-14] MEDS: DEXTROSE 5% IN WATER 1,000 ML IV SCH (10:04)
--- NOTE | 2019-10-14 10:57 | CDI ---
Documentation Clarification Form Date: 10/14/2019 From: Diana Francois Admit Date: 10/07/2019 08:32:00 PM Patient Name: Arsen Lopez Visit Number: [id number] Discharge Date: ATTENTION: The Clinical Documentation Specialists (CDI) and [facility] Coding Staff appreciate your assistance in clarifying documentation. Please respond to the clarification below the line at the bottom and electronically sign. The CDI & [facility] Coding staff will review the response and follow-up if needed. Please note: Queries are made part of the Legal Health Record. If you have any questions, please contact the author of this message via ITS. Dr. Avni Monk: History/Risk Factors: Lung CA status post chemo/radiation, Systolic CHF, Hypertension, DE, CAD w/previous catheterization, hx of left side pleural effusions. Admitted approximately one month ago for acute hypoxic respiratory failure secondary to acute on chronic CHF exacerbation & bilateral pleural effusions & community acquired pneumonia. Former smoker. Clinical Indicators: Presented with weakness, currently being treated for a UTI. Diagnosed with acute renal failure & dehydration, also has stage I decubitus ulcer. Subsequently diagnosed with severe sepsis & septic shock related to UTI. VS on admission: T 97.0*, P 90, R 16-22, BP 106/61 - 97/68; PO 100 ra - 4Lnc VS 10/13: P 117^, R 31, BP 94/57, PO 82 on 2Lnc up to 96 on 15% nrb Patient was put on nrb on 10/11 with PO 93-99 15%, decreased to 4L then 2L, now back on nrb. 10/12: ABG/CBG: pH 7.42, pO2 311^, pCO2 37. Treatment: Respirator treatment as above, IV fluid bolus on admission, IV Protonix, IM Haldol, IV Ativan, IV Lasix on 10/11, IV Ampcillin, IV Vanco, IV Norepinephrine. In your professional opinion, can you please clarify if these findings signify one of the following conditions? Acute Respiratory Failure Acute on Chronic Respiratory Failure Chronic Respiratory Failure Other Diagnosis, please specify Unable to determine Specificity: o With hypercapnia o With hypoxia (Last Query Form Revision: June 2019) MTDD
[2019-10-14 11:55] LABS: Glucose,Whole Blood 215 mg/dL (75-99)
[2019-10-14] MEDS ORDERED: VANCOMYCIN IV PER PHARMACY 1 EACH MISC MISCELLANE PRN (12:09)
[2019-10-14 12:42] LABS: Glucose,Whole Blood 177 mg/dL (75-99)
--- NOTE | 2019-10-14 13:07 | P.PN ---
Subjective Progress Note Date: 10/14/19 Principal diagnosis: Acute metabolic encephalopathy, pleural effusion, squamous cell lung cancer This is a 71-year-old male patient with known history of locally advanced non-small cell lung cancer that was originally diagnosed back in 2016. I performed the patient's bronchoscopy and a transbronchial needle aspirate of the left hilar mass showed squamous cell carcinoma. He was treated by Dr. Whipple and received a combination of chemoradiation therapy. He responded nicely in follow-up CAT scan that was done on 03/31/2017 showed no suspicious masses or metabolic activity within the chest area. In follow-up, CAT scan of the chest abdomen and pelvis that was done on 02/07/2019 showed a stable left lower lobe consolidation and the left lower lobe soft tissue prominence with a small effusion. There was some pleural right lower lobe lesion measuring 3 mm in size. I saw this patient back in the hospital in August 2019. At that time, the patient was having altered mentation and confusion. He was hypoglycemic at a time of arrival to the hospital. He was found to have a underlying UTI. He was treated. He did have chronic kidney disease back then. An MRI of the brain was also done that showed diffuse degenerative changes with evidence of cerebral atrophy and diffuse nonspecific white matter changes consistent with remote ischemia and the left cerebellar hemisphere remote infarcts. At that time, the patient had coagulase-negative staph in his blood. He was treated and he was sent to rehab. during the course of the disease, the left-sided pleural eff usion was also aspirated by ultrasound guidance and total of 100 mL of fluid was aspirated and the fluid was negative for malignancy and it was a transudate. The patient is currently admitted for an acute kidney injury, he is still altered in mentation. His chest x-ray again showing volume loss and a left- sided pleural effusion which is not well measurable based on a routine chest x- ray findings. Note that the patient has an ejection fraction of 35-40%. He has moderate degree of pulmonary hypertension with a PA pressure of 51. He is having recurrent urinary tract infection. His most recent cultures yielded enterococcus group the and currently the patient is on Unasyn. His renal funct ion is gradually improving. on 10/12/2019 the patient is being seen in follow-up in the intensive care unit. Overnight, the patient got transferred to the ICU as the patient became acutely hypoxic, unresponsive, and hypotensive. He got transferred to the ICU where his lactic acid level was at 7.0. He was given a total of2 L of IV fluids and subsequent lactic acid level came down to 1.6. He is producing better urine output. His creatinine today is at 2.29. He is afebrile. He also received a dose of vancomycin. He is having enterococcus group D in his urine. Final cultures and sensitivities are pending. Meanwhile, repeat chest x-ray was done. Findings are stable. There is volume loss in the left lung. Is a left-sided pleural effusion that remains unchanged. The right lung remains clear. I wean him down to 2 L of oxygen by nasal cannula. Reevaluated today on 10/13/2019, patient remains in the intensive care unit, on 2 L nasal cannula, not requiring any pressors. Chest x-ray and ultrasound showed good sized left-sided pleural effusion which I plan to tap and perform thoracentesis on the left side either today or tomorrow. Patient was on anticoagulations therapy until yesterday. We'll continue to hold and probably perform thoracentesis tomorrow. Patient is not requiring any pressors today. He has been off pressors since 6 PM yesterday. Urine yielded Enterococcus faecalis, patient is on Unasyn. Patient is not a great historian, seems to be generally weak, not much verbal, but in no distress. CBC is relatively normal hemoglobin is 10.8 lites are normal BUN is 69 creatinine is 1.80. Baseline creatinine on 10/07 was 2.69. Hence it is improving. Patient was reevaluated today on 10/14/2019, patientseems to be doing better today, she is on 2 L nasal cannula again today, he developed an episode of pulmonary edema yesterday, and he went on to respond to Lasix IV push. Chest x- ray today shows improvement, the pleural effusion on the left side seems to be smaller, try to convince the patient to undergo left-sided thoracentesis however he declined. I have no plans to perform thoracentesis on this patient today, however the patient will benefit from Lasix intermittently, but has to be monitored closely for hypotension. And if given fluids patient could easily develop pulmonary edema.labs were reviewed today, sodium is 147 BUN is 65 creatinine is 1.63 CBC is relatively normal hemoglobin is 11.7.patient is comfortable, in no distress, and he is only on 2 L nasal cannula. The nurse was telling me earlier today that family is considering hospice, and I believe that would be relatively appropriate considering his multiple comorbidities and his underlying non-small cell lung cancer. And his overall clinical status. Objective - Vital Signs Vital signs: Vital Signs Temp 97.9 F 10/14/19 12:00 Pulse 103 H 10/14/19 12:30 Resp 23 10/14/19 12:30 BP 109/63 10/14/19 12:30 Pulse Ox 99 10/14/19 12:00 Intake & Output 10/13/19 10/14/19 10/14/19 18:59 06:59 18:59 Intake Total 890 340 220 Output Total 881 1160 271 Balance 9 -820 -51 Weight 104.1 kg Intake: IV 890 340 220 0.9 Normal Saline 790 240 60 Ampicillin-Sulbactam 3 gm 100 100 100 In Sodium Chloride 0.9% 100 ml @ 200 mls/hr IVPB Q8HR NORA Rx#:[id number] d5w 60 Intake, IV Titration 0 Amount Norepinephrine 4 mg In 0 Sodium Chloride 0.9% 250 ml @ Titrate IV .Q0M NORA Rx#:[id number] Output: Urine 881 1160 271 Other: Voiding Method Indwelling Catheter Indwelling Catheter - Exam Physical Exam: Revealed 74-year-old white male on 2 L nasal cannula, in no distress. awake, follows simple instructions. More verbal today compared to yesterday Head: Atraumatic, normocephalic. HEENT:[Neck is supple.] [No neck masses.] [No thyromegaly.] [No JVD.] PERRLA, EOMI, no icterus. No JVD noted. No rhonchi no wheezes. Chest: [Clear throughout, no crackles, no rhonchi, no wheezes.] Cardiac Exam: [Normal S1 and S2, no S3 gallop, no murmur.] Abdomen: [Soft, nontender, no megaly, no rebound, no guarding, normal bowel sounds.] Extremities: [No clubbing, no edema, no cyanosis.] Neurological Exam: awake, alert oriented 3, no gross focal neurologic deficits. Psychiatric: Depressed mood, blunt affect, slow mentation, - Labs CBC & Chem 7: 10/14/19 05:15 10/14/19 05:15 Labs: Abnormal Lab Results - Last 24 Hours (Table) 10/13/19 10/13/19 10/14/19 Range/Units 17:02 20:44 05:15 RBC 4.27 L (4.30-5.90) m/uL Hgb 11.7 L (13.0-17.5) gm/dL Hct 36.4 L (39.0-53.0) % RDW 18.3 H (11.5-15.5) % Neutrophils # 9.1 H (1.3-7.7) k/uL Lymphocytes # 0.3 L (1.0-4.8) k/uL Sodium (137-145) mmol/L Chloride (98-107) mmol/L BUN (9-20) mg/dL Creatinine (0.66-1.25) mg/dL Glucose (74-99) mg/dL POC Glucose (mg/dL) 117 H 142 H (75-99) mg/dL 10/14/19 10/14/19 10/14/19 Range/Units 05:15 06:49 11:54 RBC (4.30-5.90) m/uL Hgb (13.0-17.5) gm/dL Hct (39.0-53.0) % RDW (11.5-15.5) % Neutrophils # (1.3-7.7) k/uL Lymphocytes # (1.0-4.8) k/uL Sodium 147 H (137-145) mmol/L Chloride 112 H (98-107) mmol/L BUN 65 H (9-20) mg/dL Creatinine 1.63 H (0.66-1.25) mg/dL Glucose 161 H (74-99) mg/dL POC Glucose (mg/dL) 151 H 215 H (75-99) mg/dL 10/14/19 Range/Units 12:41 RBC (4.30-5.90) m/uL Hgb (13.0-17.5) gm/dL Hct (39.0-53.0) % RDW (11.5-15.5) % Neutrophils # (1.3-7.7) k/uL Lymphocytes # (1.0-4.8) k/uL Sodium (137-145) mmol/L Chloride (98-107) mmol/L BUN (9-20) mg/dL Creatinine (0.66-1.25) mg/dL Glucose (74-99) mg/dL POC Glucose (mg/dL) 177 H (75-99) mg/dL Assessment and Plan Assessment: Impression: acute on chronic hypoxic respiratory failure, multifactorial as noted below.patient clearly has chronic systolic congestive heart failure with chronic left pleural effusion, he has underlying bronchogenic carcinoma, underlying COPD, and some component of chronic obstructive pulmonary disease, all contr ibuting to his chronic hypoxic respiratory failure, and this time he presented with sepsis and worsening left-sided pleural effusion. Again all contributing to his hypoxic respiratory failure Left-sided pleural effusion, quite large, will likely perform diagnostic and therapeutic thoracentesis. Previous cytology was negative for malignancy. Squamous cell carcinoma dating back to 2016, status post chemoradiation therapy. Altered mental status, acute metabolic encephalopathy most likely secondary to UTI sepsis, patient has a remote history of CVA. His metabolic encephalopathy could also be medications related, and his medications were already adjusted by Dr. Alarcon. Type 2 diabetes. Coronary artery disease and previous PA with troponin leak History of CVA involving the right frontal lobe Paroxysmal atrial fibrillation, patient is presently in sinus rhythm. Chronically on anticoagulations therapy/Xarelto. 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 Acute on chronic kidney disease, being followed by nephrology. Chronic systolic congestive heart failure, ejection fraction of 35%. Acute sepsis, and septic shock, patient had hypotension, elevated lactic acid, and he required pressors/norepinephrine until yesterday. acute on chronic hypoxic respiratory failure secondary to recurrent episodes of systolic congestive heart failure, pleural effusion, COPD, and at this time patient presented with acute sepsis. Recommendation: transfer patient out of the ICU. He responded well to Lasix yesterday. Apparently he developed an episode of acute on chronic systolic congestive heart failure responded to Lasix. Continue IV fluids. Continue antibiotics. Continue to closely monitor mental status and metabolic derangements. Continue to wean FiO2 as tolerated. Ultrasound of the chest was reviewed , patient declined thoracentesis. Continue to monitor renal functioning. Continue aspiration precautions. We'll continue to follow discussed his condition with Dr. Maddox,, family is requesting hospice referral, I believe that is appropriate. Time with Patient: Less than 30
--- NOTE | 2019-10-14 13:38 | P.PN ---
Subjective Principal diagnosis: Pt is seen for f/u for SYLWIA. There is discussion regarding hospice. Eval is pending. Cr is down to 1.6mg/dL. Pt is not on IVF.S/p IV lasix yesterday.Sodium is 147 today. Good UOP. Objective - Vital Signs Vital signs: Vital Signs Temp 97.9 F 10/14/19 12:00 Pulse 103 H 10/14/19 12:30 Resp 23 10/14/19 12:30 BP 109/63 10/14/19 12:30 Pulse Ox 99 10/14/19 12:00 Intake & Output 10/13/19 10/14/19 10/14/19 18:59 06:59 18:59 Intake Total 890 340 220 Output Total 881 1160 271 Balance 9 -820 -51 Weight 104.1 kg Intake: IV 890 340 220 0.9 Normal Saline 790 240 60 Ampicillin-Sulbactam 3 gm 100 100 100 In Sodium Chloride 0.9% 100 ml @ 200 mls/hr IVPB Q8HR [facility]A Rx#:[id number] d5w 60 Intake, IV Titration 0 Amount Norepinephrine 4 mg In 0 Sodium Chloride 0.9% 250 ml @ Titrate IV .Q0M [facility]A Rx#:[id number] Output: Urine 881 1160 271 Other: Voiding Method Indwelling Catheter Indwelling Catheter - Constitutional General appearance: Present: average body habitus, cooperative, no acute distress - EENT Eyes: Present: PERRLA, normal appearance - Neck Neck: Present: normal ROM - Respiratory Respiratory: bilateral: CTA (decreased b sounds at bases) - Cardiovascular Heart sounds: normal: S1, S2 (trace edema noted) - Genitourinary Male genitourinary: scrotal edema - Integumentary Integumentary: Present: pale - Neurologic Neurologic Comment(s): [employer] grossly intact - Labs CBC & Chem 7: 10/14/19 05:15 10/14/19 05:15 Labs: Abnormal Lab Results - Last 24 Hours (Table) 10/13/19 10/13/19 10/14/19 Range/Units 17:02 20:44 05:15 RBC 4.27 L (4.30-5.90) m/uL Hgb 11.7 L (13.0-17.5) gm/dL Hct 36.4 L (39.0-53.0) % RDW 18.3 H (11.5-15.5) % Neutrophils # 9.1 H (1.3-7.7) k/uL Lymphocytes # 0.3 L (1.0-4.8) k/uL Sodium (137-145) mmol/L Chloride (98-107) mmol/L BUN (9-20) mg/dL Creatinine (0.66-1.25) mg/dL Glucose (74-99) mg/dL POC Glucose (mg/dL) 117 H 142 H (75-99) mg/dL 10/14/19 10/14/19 10/14/19 Range/Units 05:15 06:49 11:54 RBC (4.30-5.90) m/uL Hgb (13.0-17.5) gm/dL Hct (39.0-53.0) % RDW (11.5-15.5) % Neutrophils # (1.3-7.7) k/uL Lymphocytes # (1.0-4.8) k/uL Sodium 147 H (137-145) mmol/L Chloride 112 H (98-107) mmol/L BUN 65 H (9-20) mg/dL Creatinine 1.63 H (0.66-1.25) mg/dL Glucose 161 H (74-99) mg/dL POC Glucose (mg/dL) 151 H 215 H (75-99) mg/dL 10/14/19 Range/Units 12:41 RBC (4.30-5.90) m/uL Hgb (13.0-17.5) gm/dL Hct (39.0-53.0) % RDW (11.5-15.5) % Neutrophils # (1.3-7.7) k/uL Lymphocytes # (1.0-4.8) k/uL Sodium (137-145) mmol/L Chloride (98-107) mmol/L BUN (9-20) mg/dL Creatinine (0.66-1.25) mg/dL Glucose (74-99) mg/dL POC Glucose (mg/dL) 177 H (75-99) mg/dL Assessment and Plan Assessment: 1. SYLWIA, non oliguric, improving. Continue off of IVF. 2. Hypernatremia sec to free water deficit. Change IV to D5W . Keep at 20cc/hr encourage increased PO intake. 3. CKD, stage 3 sec to nephrosclerosis. Previous cr at 1.7 mg/dL 4. Lactic acidosis, improved. 5. Cardiomyopathy, EF 35-40% PLAN Continue to encourage increased PO intake. Continue off of IVF. Change KVO IV to D5W
--- NOTE | 2019-10-14 14:31 | P.PN ---
Subjective 71-year-old male is being treated for gram acute renal failure and hyponatremia secondary to hypovolemia and excessive diuretic therapy. Patient was receiving IV Lasix patient doxycycline subchondral because of which I'll get a chest x-ray to make sure patient doesn't have any pulmonary edema at this time. Patient doesn't have any crackles on exam. Patient is confused and do not know his baseline mental status. This probably metabolic encephalopathy from acute renal failure. Patient had ejection for ejection fraction of 35%. urine cultures were positive for group D enterococcus patient was treated with Ceftin in the past concerning his confusion and positive urine cultures are start him on Augmentin to treat for enterococcus. Patient does have leukocytosis as well. Patient chest x-ray did show pleural effusion significant on the left side worse compared to the previous chest x-ray patient IV fluids were discontinued will be dependent given a dose of Lasix and the pulmonary will be consulted. Patient may need ultrasound of the chest as well as CAT scan of the chest with anticoagulation will be left to pulmonary. His serum creatinine and the serum sodium did improve since his admission. 10/12/2019 Patient later in the day became less response to because of which received multiple calls yesterday patient was subsequently transferred to ICU. We obtain an EKG as I his admission EKG showed prolonged QT and patient was receiving Haldol as well as Seroquel which was subsequently discontinued although his repeat EKG showed better QT which is around 400. Subsequently as patient became less responsive repeat EKGs were obtained which she was questionable for acute microinfarction including some mild ST elevations in inferior lead leads as well as some lateral leads as well and troponin was opted which is minimally elevated and today it's around 1.3. Cardiology was subsequently consulted. Patient had a elevated lactic acid initially received IV Lasix because of his lactic is doses Lasix was this can urine patient was started on IV fluids patient received Lasix because of his the pleural effusions on the left side which are much worse compared to admission and the patient had transudative effusions in the past patient although was treated for squamous cell carcinoma which is in remission as far as we know. Patient was started on vancomycin today but because of his a elevated creatinine probably not a good idea vancomycin will be discontinued and patient is on Unasyn for group D enterococcus in the urine which probably is contributing to his sepsis patient is much less confused and looks much better today. Patient is able to answer my questions patient is feeling better today 10/13/2019 Patient looks much better not confused at all today. Patient can be transferred out of ICU continue with antibiotic patient remains on IV fluids with symptoms improvement in serum creatinine and the resolution of hyponatremia. Patient does not appear to be in heart failure exacerbation but does have pleural effusion probably not from heart failure exacerbation and patient will undergo thoracocentesis tomorrow anti-correlation is on hold patient is doing well probably will be discharged after the thoracocentesis tomorrow. 10/14/2019 The patient went into respiratory failure responded well to IV Lasix. Patient's IV fluids were discontinued. Patient overall prognosis is extremely poor because of his multiple hospitalizations multiple episodes of pleural effusions. Patient is completely confused today because of this reason family is planning on hospice although I still have to discuss with the family regarding this. Patient functionality is extremely poor bedbound senior care resident because of which I believe hospice is appropriate Constitutional: Denied any fatigue denied any fever. Cardio vascular: denied any chest pain, palpitations Gastrointestinal denied any nausea vomiting Pulmonary: Denied any shortness of breath cough Neurologic denied any new focal deficits All inpatient medications were reviewed and appropriate changes in these medications as dictated in the interval history and assessment and plan. Objective - Vital Signs Vital signs: Vital Signs Temp 97.9 F 10/14/19 12:00 Pulse 103 H 10/14/19 12:30 Resp 23 10/14/19 12:30 BP 109/63 10/14/19 12:30 Pulse Ox 99 10/14/19 12:00 Intake & Output 10/13/19 10/14/19 10/14/19 18:59 06:59 18:59 Intake Total 890 340 220 Output Total 881 1160 271 Balance 9 -820 -51 Weight 104.1 kg Intake: IV 890 340 220 0.9 Normal Saline 790 240 60 Ampicillin-Sulbactam 3 gm 100 100 100 In Sodium Chloride 0.9% 100 ml @ 200 mls/hr IVPB Q8HR [facility] Rx#:[id number] d5w 60 Intake, IV Titration 0 Amount Norepinephrine 4 mg In 0 Sodium Chloride 0.9% 250 ml @ Titrate IV .Q0M [facility]A Rx#:[id number] Output: Urine 881 1160 271 Other: Voiding Method Indwelling Catheter Indwelling Catheter - Exam PHYSICAL EXAMINATION: GENERAL: Patient is confused alert HEENT: Pupils are round and equally reacting to light. EOMI. No scleral icterus. No conjunctival pallor. Normocephalic, atraumatic. No pharyngeal erythema. No thyromegaly. CARDIOVASCULAR: S1 and S2 present. No murmurs, rubs, or gallops. Does not have any elevated JVD. PULMONARY: Chest is clear to auscultation, no wheezing or crackles. ABDOMEN: Soft, nontender, nondistended, normoactive bowel sounds. No palpable organomegaly. MUSCULOSKELETAL: No joint swelling or deformity. EXTREMITIES: No cyanosis, clubbing, or pedal edema. NEUROLOGICAL: Gross neurological examination did not reveal any focal deficits SKIN: No rashes. - Labs CBC & Chem 7: 10/14/19 05:15 10/14/19 05:15 Labs: Abnormal Lab Results - Last 24 Hours (Table) 10/13/19 10/13/19 10/14/19 Range/Units 17:02 20:44 05:15 RBC 4.27 L (4.30-5.90) m/uL Hgb 11.7 L (13.0-17.5) gm/dL Hct 36.4 L (39.0-53.0) % RDW 18.3 H (11.5-15.5) % Neutrophils # 9.1 H (1.3-7.7) k/uL Lymphocytes # 0.3 L (1.0-4.8) k/uL Sodium (137-145) mmol/L Chloride (98-107) mmol/L BUN (9-20) mg/dL Creatinine (0.66-1.25) mg/dL Glucose (74-99) mg/dL POC Glucose (mg/dL) 117 H 142 H (75-99) mg/dL 10/14/19 10/14/19 10/14/19 Range/Units 05:15 06:49 11:54 RBC (4.30-5.90) m/uL Hgb (13.0-17.5) gm/dL Hct (39.0-53.0) % RDW (11.5-15.5) % Neutrophils # (1.3-7.7) k/uL Lymphocytes # (1.0-4.8) k/uL Sodium 147 H (137-145) mmol/L Chloride 112 H (98-107) mmol/L BUN 65 H (9-20) mg/dL Creatinine 1.63 H (0.66-1.25) mg/dL Glucose 161 H (74-99) mg/dL POC Glucose (mg/dL) 151 H 215 H (75-99) mg/dL 10/14/19 Range/Units 12:41 RBC (4.30-5.90) m/uL Hgb (13.0-17.5) gm/dL Hct (39.0-53.0) % RDW (11.5-15.5) % Neutrophils # (1.3-7.7) k/uL Lymphocytes # (1.0-4.8) k/uL Sodium (137-145) mmol/L Chloride (98-107) mmol/L BUN (9-20) mg/dL Creatinine (0.66-1.25) mg/dL Glucose (74-99) mg/dL POC Glucose (mg/dL) 177 H (75-99) mg/dL Assessment and Plan Plan: Toxic encephalopathy from sepsis which improved and he is confused now again -Acute hypoxic respiratory failure secondary to pulmonary edema improved with IV Lasix patient has systolic dysfunction EF of 35% -Acute renal failure: Improved, present creatinine was 1.63 -Elevated troponins and cannot completely rule out acute myocardial ischemia and non-ST elevation myocardial infarction cardiology was consulted and cardiology is recommending no intervention but medical therapy patient is on anticoa gulation already. And continuing with aspirin and a statin. -Left-sided pleural effusion: Patient will undergo diagnostic and therapeutic paracentesis today -Septic shock shock resolved patient is off norepinephrine -Hypovolemic hyponatremia initially which resolved. Patient is presently hyponatremic -Metabolic and toxic encephalopathy possible Urinary tract infection . Patient has metabolic encephalopathy and now from heart failure -Congestive heart failure chronic systolic dysfunction E up of 35% patient had a heart failure exacerbation received IV Lasix with good diuresis -Sepsis possibly from urinary tract infection and leukocytosis from that patient was started on Unasyn -Hypertension -Hyperlipidemia -Status post lung cancer post-chemoradiation not on any chemotherapy at this time since, cell lung cancer is in remission -Paroxysmal fibrillation presently rate controlled, and is on anti-coagulation which will be continued -Acute kidney injury secondary to excessive diuretic therapy and chronic kidney disease secondary to diabetic nephropathy -Type 2 diabetes mellitus
[2019-10-14 17:49] LABS: Glucose,Whole Blood 188 mg/dL (75-99)
--- NOTE | 2019-10-14 18:08 | P.PN ---
Subjective Progress Note Date: 10/14/19 This is a 74-year-old gentleman with advanced non-small cell lung cancer that was diagnosed in 2016. Patient received chemo and radiation therapy by Dr. Whipple. This patient is currently admitted to the hospital with altered mental status and acute kidney injury. He is known to have ischemic heart disease with an ejection fraction about 35-40%. He is also diagnosed to have possible urinary tract infection. He was admitted to intensive care unit last night because of hypotension and hypoxia and altered mental status. Patient was found to have lactic acidosis. His EKGs showed evidence of sinus rhythm with right bundle-branch block pattern with mild ST-T changes and mild ST elevation in inferior leads. However however, subsequent EKG showed normalization of the ST elevation. His troponin is mildly elevated. However, his creatinine is high in the range of 2.23. Patient seemed to be more responsive today. No complaints. Chest pain or shortness of breath. Chest x-ray findings are stable. Patient has received IV fluids last night and is being treated for the possibility of an infection and sepsis. From Cardec standpoint, no aggressive measures are advocated at this time. Patient's prognosis is guarded. We'll follow. 10/13/2019 : Patient's is alert and seemed to oriented to person. Doesn't appear to be in acute distress. Maintaining vital signs in the has good urinary output. Chest x-ray showed increasing infiltrate the right base and complete opacification of the left lung. His creatinine is improving. Patient is getting IV fluids. No complaints of any chest pain. We'll continue his current management. Advance diet as tolerated. Further recommendations depend upon the glucose 02/12/2019: This patient is alert. Apparently, failed swallow test yesterday. He wants to drink water. His risk of aspiration. Apparently he developed some pulmonary edema picture, last night. Patient required IV Lasix. He doesn't appear to be in acute distress at this time. [facility] [place] thinking of thoracocentesis. Patient doesn't want to have it done. Family is considering hospice care. Given his multiple comorbidities and non-small cell CA, this may be appropriate. We'll follow patient as needed Objective - Vital Signs Vital signs: Vital Signs Temp 97.6 F 10/14/19 16:00 Pulse 99 10/14/19 18:00 Resp 24 10/14/19 18:00 BP 121/71 12/24/19 18:00 Pulse Ox 96 10/14/19 18:00 Intake & Output 10/13/19 10/14/19 10/14/19 18:59 06:59 18:59 Intake Total 890 340 300 Output Total 881 1160 542 Balance 9 -820 -242 Weight 104.1 kg Intake: IV 890 340 300 0.9 Normal Saline 790 240 60 Ampicillin-Sulbactam 3 gm 100 100 100 In Sodium Chloride 0.9% 100 ml @ 200 mls/hr IVPB Q8HR [facility] Rx#:[id number] d5w 140 Intake, IV Titration 0 Amount Norepinephrine 4 mg In 0 Sodium Chloride 0.9% 250 ml @ Titrate IV .Q0M [facility] Rx#:[id number] Output: Urine 881 1160 542 Other: Voiding Method Indwelling Catheter Indwelling Catheter Indwelling Catheter # Bowel Movements 1 - Exam GENERAL EXAM: Patient is alert but sleepy HEENT: Normocephalic. Normal reaction of pupils, equal size, normal range of extraocular motion. No erythema or exudates in the throat. NECK: No masses, no nuchal rigidity. CHEST: No chest wall deformity. LUNGS: Diminished breath sounds at bases HEART: S1 and S2 normal with no audible mumurs or gallops. Regular rhythm, femorals equal on both sides.. ABDOMEN: No hepatosplenomegaly, normal bowel sounds, no guarding or rigidity. SKIN: No rashes CENTRAL NERVOUS SYSTEM: No focal deficits. EXTREMITIES: No cyanosis, clubbing or edema. - Labs CBC & Chem 7: 10/14/19 05:15 10/14/19 05:15 Labs: Abnormal Lab Results - Last 24 Hours (Table) 10/13/19 10/14/19 10/14/19 Range/Units 20:44 05:15 05:15 RBC 4.27 L (4.30-5.90) m/uL Hgb 11.7 L (13.0-17.5) gm/dL Hct 36.4 L (39.0-53.0) % RDW 18.3 H (11.5-15.5) % Neutrophils # 9.1 H (1.3-7.7) k/uL Lymphocytes # 0.3 L (1.0-4.8) k/uL Sodium 147 H (137-145) mmol/L Chloride 112 H (98-107) mmol/L BUN 65 H (9-20) mg/dL Creatinine 1.63 H (0.66-1.25) mg/dL Glucose 161 H (74-99) mg/dL POC Glucose (mg/dL) 142 H (75-99) mg/dL 10/14/19 10/14/19 10/14/19 Range/Units 06:49 11:54 12:41 RBC (4.30-5.90) m/uL Hgb (13.0-17.5) gm/dL Hct (39.0-53.0) % RDW (11.5-15.5) % Neutrophils # (1.3-7.7) k/uL Lymphocytes # (1.0-4.8) k/uL Sodium (137-145) mmol/L Chloride (98-107) mmol/L BUN (9-20) mg/dL Creatinine (0.66-1.25) mg/dL Glucose (74-99) mg/dL POC Glucose (mg/dL) 151 H 215 H 177 H (75-99) mg/dL 10/14/19 Range/Units 17:46 RBC (4.30-5.90) m/uL Hgb (13.0-17.5) gm/dL Hct (39.0-53.0) % RDW (11.5-15.5) % Neutrophils # (1.3-7.7) k/uL Lymphocytes # (1.0-4.8) k/uL Sodium (137-145) mmol/L Chloride (98-107) mmol/L BUN (9-20) mg/dL Creatinine (0.66-1.25) mg/dL Glucose (74-99) mg/dL POC Glucose (mg/dL) 188 H (75-99) mg/dL Assessment and Plan (1) Acute renal failure Current Visit: Yes Status: Acute Code(s): N17.9 - ACUTE KIDNEY FAILURE, UNSPECIFIED SNOMED Code(s): 30626686 (2) Dehydration Current Visit: Yes Status: Acute Code(s): E86.0 - DEHYDRATION SNOMED Code(s): 49115639 (3) CHF (congestive heart failure) Current Visit: No Status: Acute Code(s): I50.9 - HEART FAILURE, UNSPECIFIED SNOMED Code(s): 09414078 (4) COPD (chronic obstructive pulmonary disease) Current Visit: No Status: Acute Code(s): J44.9 - CHRONIC OBSTRUCTIVE PULMONARY DISEASE, UNSPECIFIED SNOMED Code(s): 42747695 (5) Elevated troponin Current Visit: No Status: Acute Code(s): R79.89 - OTHER SPECIFIED ABNORMAL FINDINGS OF BLOOD CHEMISTRY SNOMED Code(s): 969390989 Plan: Continue current management. Family is considering hospice care. We'll follow as needed
[2019-10-14] MEDS: ATORVASTATIN 80 MG TAB PO SCH (19:59)
[2019-10-14] MEDS: RIVAROXABAN 15 MG TAB PO SCH (20:00)
[2019-10-14] MEDS: QUEtiapine 25 MG TAB PO SCH (20:00)
[2019-10-14 20:02] LABS: Glucose,Whole Blood 186 mg/dL (75-99)
[2019-10-14] MEDS ORDERED: INSULIN DETEMIR (LEVEMIR) 100 UNIT/ML SYR SQ SCH (21:00)
[2019-10-14] MEDS: PANTOPRAZOLE 40 MG TABLET PO SCH (21:34)
[2019-10-15] MEDS: AMPICILLIN-SULBACTAM 3 GM in SODIUM CHLORIDE 0.9% 100 ML IVPB SCH ×2 (00:58→08:58)
[2019-10-15] MEDS: SODIUM CHLORIDE 0.9% 1,000 ML IV SCH ×2 (02:11→20:25)
[2019-10-15] MEDS: MIDODRINE 5 MG TAB PO SCH (06:57)
[2019-10-15] MEDS: ASPIRIN 81 MG PO SCH (06:58)
[2019-10-15] MEDS: PANTOPRAZOLE 40 MG/10 ML VIAL IVP SCH (06:58)
[2019-10-15] MEDS: AMIODARONE 100 MG TAB PO SCH (06:58)
[2019-10-15] MEDS: buPROPion XL 150 MG TAB.ER.24H PO SCH (06:58)
[2019-10-15 07:00] LABS: Glucose,Whole Blood 176 mg/dL (75-99)
[2019-10-15] MEDS: INSULIN ASPART (NovoLOG) 100 UNIT/ML VIAL SQ SCH ×2 (08:41→12:59)
[2019-10-15] MEDS: DEXTROSE 5% IN WATER 1,000 ML IV SCH (11:22)
--- NOTE | 2019-10-15 11:43 | P.PN ---
Subjective Progress Note Date: 10/15/19 Principal diagnosis: Acute metabolic encephalopathy, pleural effusion, squamous cell lung cancer The patient is seen today 10/15/2019 in follow-up on the regular medical floor. He is awake and alert. Resting comfortably in bed. Maintaining O2 saturations in the mid 90s on 2 L/m per nasal cannula. He is afebrile. Hemodynamically stable. Urine culture positive for Enterococcus faecalis. He is continued on Unasyn. He has been somewhat uncooperative this morning. He pulled his IV out and was refusing to have it restarted. Objective - Vital Signs Vital signs: Vital Signs Temp 97.8 F 10/15/19 04:50 Pulse 104 H 10/15/19 04:50 Resp 18 10/15/19 04:50 BP 121/79 10/15/19 04:50 Pulse Ox 94 L 10/15/19 04:50 Intake & Output 10/14/19 10/15/19 10/15/19 18:59 06:59 18:59 Intake Total 340 40 Output Total 602 1205 Balance -262 -1165 Intake: IV 340 40 0.9 Normal Saline 60 Ampicillin-Sulbactam 3 gm 100 In Sodium Chloride 0.9% 100 ml @ 200 mls/hr IVPB Q8HR [facility] Rx#:[id number] d5w 180 40 Output: Urine 602 1205 Other: Voiding Method Indwelling Catheter Indwelling Catheter # Bowel Movements 1 1 - Exam GENERAL EXAM: Alert, 74-year-old gentleman, on 2 L nasal cannula, comfortable in no apparent distress. HEAD: Normocephalic. EYES: Normal reaction of pupils, equal size. NOSE: Clear with pink turbinates. THROAT: No erythema or exudates. NECK: No masses, no JVD. CHEST: No chest wall deformity. LUNGS: Equal air entry with crackles in the bilateral posterior bases CVS: S1 and S2 normal with no audible murmur, regular rhythm. ABDOMEN: No hepatosplenomegaly, normal bowel sounds, no guarding or rigidity. SPINE: No scoliosis or deformity SKIN: No rashes CENTRAL NERVOUS SYSTEM: No focal deficits, tone is normal in all 4 extremities. EXTREMITIES: There is no peripheral edema. No clubbing, no cyanosis. Peripheral pulses are intact. - Labs CBC & Chem 7: 10/14/19 05:15 10/14/19 05:15 Labs: Abnormal Lab Results - Last 24 Hours (Table) 10/14/19 10/14/19 10/14/19 Range/Units 11:54 12:41 17:46 POC Glucose (mg/dL) 215 H 177 H 188 H (75-99) mg/dL 10/14/19 10/15/19 Range/Units 20:01 06:52 POC Glucose (mg/dL) 186 H 176 H (75-99) mg/dL Assessment and Plan Assessment: Acute on chronic hypoxic respiratory failure, multifactorial as noted below.patient clearly has chronic systolic congestive heart failure with chronic left pleural effusion, he has underlying bronchogenic carcinoma, underlying COPD, and some component of chronic obstructive pulmonary disease, all contributing to his chronic hypoxic respiratory failure, and this time he presented with sepsis and worsening left-sided pleural effusion. Again all c ontributing to his hypoxic respiratory failure Left-sided pleural effusion, quite large, will likely perform diagnostic and therapeutic thoracentesis. Previous cytology was negative for malignancy. Squamous cell carcinoma dating back to 2016, status post chemoradiation therapy. Altered mental status, acute metabolic encephalopathy most likely secondary to UTI sepsis, patient has a remote history of CVA. His metabolic encephalopathy could also be medications related, and his medications were already adjusted by Dr. Alarcon. Type 2 diabetes. Coronary artery disease and previous [place] with troponin leak History of CVA involving the right frontal lobe Paroxysmal atrial fibrillation, patient is presently in sinus rhythm. Chronically on anticoagulations therapy/Xarelto. 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 Acute on chronic kidney disease, being followed by nephrology. Chronic systolic congestive heart failure, ejection fraction of 35%. Acute sepsis, and septic shock, patient had hypotension, elevated lactic acid, and he required pressors/norepinephrine until yesterday. Acute on chronic hypoxic respiratory failure secondary to recurrent episodes of systolic congestive heart failure, pleural effusion, COPD, and at this time patient presented with acute sepsis. Plan: The patient was seen and evaluated by Dr. Monk Continue the current treatment plan Family is considering hospice I, the cosigning physician, performed a history & physical examination of the patient. Lungs sounds with crackles in the bilateral posterior bases. Maintaining good O2 saturations in the 90s on 2 L/m per nasal cannula. I discussed the assessment and plan of care with my nurse practitioner, Jessica Schwartz. I attest to the above note as dictated by her.
[2019-10-15 11:57] LABS: Glucose,Whole Blood 171 mg/dL (75-99)
[2019-10-15 13:28] VITALS: RESP 20
--- NOTE | 2019-10-15 14:51 | PN ---
PROGRESS NOTE The patient is seen for followup for acute kidney injury. Renal function has improved. However, there has been discussion for hospice. The patient has pulled out his IV again and he states it is not what it back. PHYSICAL EXAMINATION: On examination, blood pressure was 121/79, heart rate 104 per minute, patient is afebrile. Examination of the heart S1, S2. Examination of lungs, decreased breath sounds at the bases. Abdomen is soft, distended, obese. Examination of lower extremities shows edema 1+ bilaterally. LABS: Labs are not available from today. ASSESSMENT: 1. Acute kidney injury, nonoliguric, currently improved. 2. Mild volume overload, status post IV Lasix. 3. Hypernatremia secondary to free water deficit. The patient had D5W running at 20 mL an hour. However, he has pulled out his IV night now. 4. Chronic kidney disease stage 3 secondary to nephrosclerosis, previous creatinine 1.7 mg/dL. 5. Lactic acidosis, now improved. 6. Cardiomyopathy, ejection fraction, 35-40%. PLAN: Continue to encourage increased oral intake, particularly free water. It appears that the patient does not want any IV use of blood draws and there has been discussion regarding hospice. MMODL / IJN: [id number] /
[2019-10-15] MEDS ORDERED: MORPHINE CONC SOLN 10mg/0.5mL ORAL SYRG PO PRN (14:53)
--- NOTE | 2019-10-15 14:59 | P.PN ---
Subjective 71-year-old male is being treated for gram acute renal failure and hyponatremia secondary to hypovolemia and excessive diuretic therapy. Patient was receiving IV Lasix patient doxycycline subchondral because of which I'll get a chest x-ray to make sure patient doesn't have any pulmonary edema at this time. Patient doesn't have any crackles on exam. Patient is confused and do not know his baseline mental status. This probably metabolic encephalopathy from acute renal failure. Patient had ejection for ejection fraction of 35%. urine cultures were positive for group D enterococcus patient was treated with Ceftin in the past concerning his confusion and positive urine cultures are start him on Augmentin to treat for enterococcus. Patient does have leukocytosis as well. Patient chest x-ray did show pleural effusion significant on the left side worse compared to the previous chest x-ray patient IV fluids were discontinued will be dependent given a dose of Lasix and the pulmonary will be consulted. Patient may need ultrasound of the chest as well as CAT scan of the chest with anticoagulation will be left to pulmonary. His serum creatinine and the serum sodium did improve since his admission. 10/12/2019 Patient later in the day became less response to because of which received multiple calls yesterday patient was subsequently transferred to ICU. We obtain an EKG as I his admission EKG showed prolonged QT and patient was receiving Haldol as well as Seroquel which was subsequently discontinued although his repeat EKG showed better QT which is around 400. Subsequently as patient became less responsive repeat EKGs were obtained which she was questionable for acute microinfarction including some mild ST elevations in inferior lead leads as well as some lateral leads as well and troponin was opted which is minimally elevated and today it's around 1.3. Cardiology was subsequently consulted. Patient had a elevated lactic acid initially received IV Lasix because of his lactic is doses Lasix was this can urine patient was started on IV fluids patient received Lasix because of his the pleural effusions on the left side which are much worse compared to admission and the patient had transudative effusions in the past patient although was treated for squamous cell carcinoma which is in remission as far as we know. Patient was started on vancomycin today but because of his a elevated creatinine probably not a good idea vancomycin will be discontinued and patient is on Unasyn for group D enterococcus in the urine which probably is contributing to his sepsis patient is much less confused and looks much better today. Patient is able to answer my questions patient is feeling better today 10/13/2019 Patient looks much better not confused at all today. Patient can be transferred out of ICU continue with antibiotic patient remains on IV fluids with symptoms improvement in serum creatinine and the resolution of hyponatremia. Patient does not appear to be in heart failure exacerbation but does have pleural effusion probably not from heart failure exacerbation and patient will undergo thoracocentesis tomorrow anti-correlation is on hold patient is doing well probably will be discharged after the thoracocentesis tomorrow. 10/14/2019 The patient went into respiratory failure responded well to IV Lasix. Patient's IV fluids were discontinued. Patient overall prognosis is extremely poor because of his multiple hospitalizations multiple episodes of pleural effusions. Patient is completely confused today because of this reason family is planning on hospice although I still have to discuss with the family regarding this. Patient functionality is extremely poor bedbound retirement resident because of which I believe hospice is appropriate 10/15/2019 Patient's IV when bad patient the is going to be hospice from tomorrow comfort care measures will be started today antibiotics and the other medications were discontinued except for comfort medications. Patient is confused. Review of systems: Unable to obtain All inpatient medications were reviewed and appropriate changes in these medic ations as dictated in the interval history and assessment and plan. Objective - Vital Signs Vital signs: Vital Signs Temp 96.8 F L 10/15/19 12:09 Pulse 106 H 10/15/19 12:09 Resp 20 10/15/19 12:09 BP 126/81 10/15/19 12:09 Pulse Ox 100 10/15/19 12:09 Intake & Output 10/14/19 10/15/19 10/15/19 18:59 06:59 18:59 Intake Total 340 40 Output Total 602 1205 350 Balance -262 -1165 -350 Intake: IV 340 40 0.9 Normal Saline 60 Ampicillin-Sulbactam 3 gm 100 In Sodium Chloride 0.9% 100 ml @ 200 mls/hr IVPB Q[facility]HR [facility] Rx#:[id number] d5w 180 40 Output: Urine 602 1205 350 Other: Voiding Method Indwelling Catheter Indwelling Catheter # Bowel Movements 1 1 - Exam PHYSICAL EXAMINATION: GENERAL: Patient is confused and drowsy and sleepy HEENT: Pupils are round and equally reacting to light. EOMI. No scleral icterus. No conjunctival pallor. Normocephalic, atraumatic. No pharyngeal erythema. No thyromegaly. CARDIOVASCULAR: S1 and S2 present. No murmurs, rubs, or gallops. Does not have any elevated JVD. PULMONARY: Chest is clear to auscultation, no wheezing or crackles. ABDOMEN: Soft, nontender, nondistended, normoactive bowel sounds. No palpable organomegaly. MUSCULOSKELETAL: No joint swelling or deformity. EXTREMITIES: No cyanosis, clubbing, or pedal edema. NEUROLOGICAL: Gross neurological examination did not reveal any focal deficits SKIN: No rashes. - Labs CBC & Chem 7: 10/14/19 05:15 10/14/19 05:15 Labs: Abnormal Lab Results - Last 24 Hours (Table) 10/14/19 10/14/19 10/15/19 Range/Units 17:46 20:01 06:52 POC Glucose (mg/dL) 188 H 186 H 176 H (75-99) mg/dL 10/15/19 Range/Units 11:56 POC Glucose (mg/dL) 171 H (75-99) mg/dL Assessment and Plan Plan: Toxic encephalopathy from sepsis which improved and he is confused now again -Acute hypoxic respiratory failure secondary to pulmonary edema improved with IV Lasix patient has systolic dysfunction EF of 35% -Acute renal failure: Improved, present creatinine was 1.63 -Elevated troponins and cannot completely rule out acute myocardial ischemia and non-ST elevation myocardial infarction cardiology evaluated the patient -Left-sided pleural effusion: She does comfort measures only -Septic shock shock resolved -Hypovolemic hyponatremia initially which resolved. -Metabolic and toxic encephalopathy possible Urinary tract infection . -Congestive heart failure chronic systolic dysfunction E up of 35% -Sepsis possibly from urinary tract infection and leukocytosis , leukocytosis resolved and the patient is presently comfort measures only and medics were discontinued -Hypertension -Hyperlipidemia -Status post lung cancer post-chemoradiation not on any chemotherapy at this time since, cell lung cancer is in remission -Paroxysmal fibrillation presently rate controlled, and is on anti-coagulation which will be continued -Acute kidney injury secondary to excessive diuretic therapy and chronic kidney disease secondary to diabetic nephropathy -Type 2 diabetes mellitus Patient is presently comfort measures only, patient will be discharged to home with hospice tomorrow
[2019-10-15 17:00] LABS: Glucose,Whole Blood 136 mg/dL (75-99)
[2019-10-15] MEDS: QUEtiapine 25 MG TAB PO SCH (20:19)
[2019-10-15 20:26] LABS: Glucose,Whole Blood 149 mg/dL (75-99)
[2019-10-16 05:58] VITALS: BP 110/60; PULSE 100; TEMP 97.4
[2019-10-16] MEDS: PANTOPRAZOLE 40 MG/10 ML VIAL IVP SCH (07:16)
[2019-10-16] MEDS: buPROPion XL 150 MG TAB.ER.24H PO SCH (07:16)
[2019-10-16] MEDS: AMIODARONE 100 MG TAB PO SCH (07:16)
[2019-10-16 09:23] LABS: Glucose,Whole Blood 177 mg/dL (75-99)
--- NOTE | 2019-10-16 12:44 | P.DS ---
Providers Date of admission: 10/07/19 20:32 Expected date of discharge: 10/16/19 Attending physician: Arsen Galloway Consults: 10/08/19 10:39 Consult Physician Routine Consulting Provider: Felicia Kemp Consult Reason/Comments: renal failure,hyponatremia Do you want consulting provider notified?: Yes 10/08/19 10:46 Consult Physician Routine Consulting Provider: Morgan Reyes Consult Reason/Comments: elevated trops/pleural eff Do you want consulting provider notified?: Yes 10/11/19 11:28 Consult Physician Routine Consulting Provider: Rula Alarcon Consult Reason/Comments: pleural effusion. Do you want consulting provider notified?: Yes 10/11/19 23:19 Consult Physician Stat Consulting Provider: Obed Beard Consult Reason/Comments: ECG Changes Do you want consulting provider notified?: Already Contacted Primary care physician: Arsen Galloway [facility] Course: Final diagnosis -Toxic encephalopathy from sepsis -Acute hypoxic respiratory failure secondary to pulmonary edema -Acute renal failure -Elevated troponins and cannot completely rule out acute myocardial ischemia and non-ST elevation myocardial infarction -Left-sided pleural effusion -Septic shock -Hypovolemic hyponatremia -Metabolic and toxic encephalopathy possible Urinary tract infection . -Congestive heart failure chronic systolic dysfunction EF of 35% -Sepsis possibly from urinary tract infection and leukocytosis -Hypertension -Hyperlipidemia -Status post lung cancer post-chemoradiation not on any chemotherapy at this time since, cell lung cancer is in remission -Paroxysmal fibrillation -Acute kidney injury secondary to excessive diuretic therapy and chronic kidney disease secondary to diabetic nephropathy -Type 2 diabetes mellitus Discharge disposition Patient is being discharged to [facility] with hospice with an extremely poor prognosis. Comfort measures only. Total time taken is 35 minutes. History of present illness This is a 74-year-old male who was recently admitted for acute renal failure and hyponatremia secondary to hypovolemia and excessive diuretic therapy and was being closely monitored. Multiple medical consults were following. Patient has a history of lung cancer status post chemoradiation not currently on any chemotherapy. During hospitalization patient continued to have multiple episodes of becoming less responsive and was being closely monitored in the ICU for a period of time. Patient continued to be confused with some intermittent periods of responsiveness. Patient continued to have multiple episodes of pleural effusions along with respiratory failure and family has opted for hospice that will be initiated at [facility]. Prognosis is extremely poor and patient is being transferred to [facility] today. [facility] is following closely. Comfort measures were initiated yesterday. On exam vitals are stable. Temp is 97.4F, pulse is 100, respirations are 20, blood pressure 110/60, oxygen saturation is 94% on 2 L via nasal cannula. Cardio S1, S2 are muffled. Respiratory system shows diminished breath sounds at the bases with some scattered crackles noted bilaterally. Abdomen is soft and nontender. Nervous system shows no focal deficits. Please refer to medication reconciliation sheet for a list of medications. Patient Condition at Discharge: Poor Plan - Discharge Summary Discharge Rx Participant: No New Discharge Prescriptions: New MORPHINE ORAL LUZ CONC 20mg/mL [Roxanol Oral Soln Conc 20MG/ML] 10 mg PO Q6H PRN 3 Days #9 ml PRN Reason: Pain QUEtiapine [SEROquel] 25 mg PO HS tab Continue buPROPion XL [Wellbutrin XL] 150 mg PO QAM Amiodarone [Cordarone] 100 mg PO QAM Acetaminophen Tab [Tylenol] 650 mg PO Q6H PRN PRN Reason: Pain Discontinued Docusate [Colace] 100 mg PO DAILY PRN cap PRN Reason: Constipation Torsemide [Demadex] 80 mg PO BID tab INSULIN LISPRO (HumaLOG) [humaLOG] 0 unit SQ ACHS #1 vial Metolazone [Zaroxolyn] 5 mg PO DAILY tab Metoprolol Tartrate [Lopressor] 25 mg PO DAILY #1 tablet Aspirin EC [Ecotrin Low Dose] 81 mg PO QAM Atorvastatin [Lipitor] 80 mg PO HS Cefuroxime [Ceftin] 250 mg PO BID Insulin Glargine,Hum.rec.anlog [Lantus Solostar] 26 unit SQ HS Midodrine [ProAmatine] 10 mg PO BID Rivaroxaban [Xarelto] 15 mg PO HS Discharge Medication List buPROPion XL [Wellbutrin XL] 150 mg PO QAM 03/14/17 [History] Amiodarone [Cordarone] 100 mg PO QAM 08/16/17 [History] Acetaminophen Tab [Tylenol] 650 mg PO Q6H PRN 10/07/19 [History] MORPHINE ORAL LUZ CONC 20mg/mL [Roxanol Oral Soln Conc 20MG/ML] 10 mg PO Q6H PRN 3 Days #9 ml 10/16/19 [Rx] QUEtiapine [SEROquel] 25 mg PO HS tab 10/16/19 [Rx] Follow up Appointment(s)/Referral(s): Arsen Galloway DO [Primary Care Provider] - 10/27/19 9:20 am Activity/Diet/Wound Care/Special Instructions: Patient is going to [facility] with hospice and comfort measures only Discharge Disposition: TRANSFER TO SNF/ECF
[2019-10-16 13:08] VITALS: BMI 31.1
--- NOTE | 2019-10-20 05:54 | CDI ---
Documentation Clarification Form Date: 10/20/2019 05:44:29 AM From: Chantel Hoffman Phone: If you have a question about this query, please contact Candelaria Haines Science Teacher at [phone] between 8am and 5pm. Admit Date: 10/07/2019 08:32:00 PM Patient Name: Arsen Lopez Visit Number: [id number] Discharge Date: 10/16/2019 02:48:00 PM ATTENTION: The Clinical Documentation Specialists (CDI) and [facility] Coding Staff appreciate your assistance in clarifying documentation. Please respond to the clarification below the line at the bottom and electronically sign. The CDI & [facility] Coding staff will review the response and follow-up if needed. Please note: Queries are made part of the Legal Health Record. If you have any questions, please contact the author of this message via ITS. Dr. Neha Maddox Patient's encephalopathy thought to be due to sepsis with shock due to UTI. This is not documented until 10/13 PN. Please clarify if sepsis was present on admission or later on in the stay. History/Risk Factors: bedbound, UTI, decubitus ulcers, CHF, lung CA in remission, hx of UTI, CHF NSTEMI Clinical Indicators: WBC's elevated Treatment:Vancomycin Definition of Present on Admission (POA): A diagnosis present at the time the order for admission to inpatient status was written. For each diagnosis, documentation must be clear to determine if the condition was present at the time of the patients inpatient admission or developed during the hospital stay. Please clarify if sepsis was POA: ____Y = Yes, the condition was present at the time of the order for inpatient admission. ____N = No, the condition was not present at the time of the order for inpatient admission. ____W = Clinically undetermined if the condition was present at the time of the order for inpatient admission. Present on admission but would be a good question for the admitting physician ANA
== END 2019-10-16 14:48 | DRG 871 ==
LOC: EC 18:37 → 3SCARD 20:32 → 2SICU 10-11 21:44 → 6NMEDSUR 10-14 21:08
PROVIDERS: ADMIT Family Medicine; ATTEND Family Medicine
DX: A41.81 Sepsis due to Enterococcus (principal); R65.21 Severe sepsis with septic shock; G92 Toxic encephalopathy; I50.23 Acute on chronic systolic (congestive) heart failure; J96.21 Acute and chronic respiratory failure with hypoxia; I21.4 Non-ST elevation (NSTEMI) myocardial infarction; N17.9 Acute kidney failure, unspecified; N39.0 Urinary tract infection, site not specified; C34.90 Malignant neoplasm of unspecified part of unspecified bronchus or lung; E87.0 Hyperosmolality and hypernatremia; E87.1 Hypo-osmolality and hyponatremia; E87.2 Acidosis; I13.0 Hypertensive heart and chronic kidney disease with heart failure and stage 1 through stage 4 chronic kidney disease, or unspecified chronic kidney disease; I42.8 Other cardiomyopathies; I48.19 Other persistent atrial fibrillation; J98.11 Atelectasis; E11.22 Type 2 diabetes mellitus with diabetic chronic kidney disease; E11.649 Type 2 diabetes mellitus with hypoglycemia without coma; E78.5 Hyperlipidemia, unspecified; E86.0 Dehydration; E86.1 Hypovolemia; E87.6 Hypokalemia; F03.90 Unspecified dementia, unspecified severity, without behavioral disturbance, psychotic disturbance, mood disturbance, and anxiety; I25.10 Atherosclerotic heart disease of native coronary artery without angina pectoris; I25.2 Old myocardial infarction; I27.20 Pulmonary hypertension, unspecified; I45.10 Unspecified right bundle-branch block; J44.9 Chronic obstructive pulmonary disease, unspecified; L89.152 Pressure ulcer of sacral region, stage 2; L89.301 Pressure ulcer of unspecified buttock, stage 1; N18.3 Chronic kidney disease, stage 3 (moderate); T50.2X5A Adverse effect of carbonic-anhydrase inhibitors, benzothiadiazides and other diuretics, initial encounter; Z51.5 Encounter for palliative care; Z66 Do not resuscitate; Z74.01 Bed confinement status; Z79.01 Long term (current) use of anticoagulants; Z79.4 Long term (current) use of insulin; Z79.82 Long term (current) use of aspirin; Z79.899 Other long term (current) drug therapy; Z82.49 Family history of ischemic heart disease and other diseases of the circulatory system; Z83.3 Family history of diabetes mellitus; Z85.118 Personal history of other malignant neoplasm of bronchus and lung; Z86.73 Personal history of transient ischemic attack (TIA), and cerebral infarction without residual deficits; Z87.440 Personal history of urinary (tract) infections; Z87.891 Personal history of nicotine dependence; Z92.21 Personal history of antineoplastic chemotherapy; Z92.3 Personal history of irradiation; Z87.01 Personal history of pneumonia (recurrent); R33.9 Retention of urine, unspecified
CPT/HCPCS: 36415; 36600; 51702; 71045; 71046; 76604; 80048; 80053; 81001; 82805; 83605; 83735; 83880; 84443; 84484; 85025; 85610; 85730; 87077; 87086; 87186; 93005; 93308; 99285